=== PATIENT | female | born 1990 | race Hispanic/Latino ===

== ENCOUNTER 2016-10-16 17:02 | Emergency (ER) | payer BC ==
[~2016-10-16] VITALS: Ht 175.3 cm; Wt 136.1 kg
[~2016-10-16 17:02] MED LIST: ALPR0.5T5 PO; BETA15CR4 TD; HYDROXYCHLOROQUINE PO; IBP800T PO; LORA1TAB PO; METO-272 PO; PIRO10CA PO; PROP1TAB77 PO; [UNRECOGNIZED DRUG - CODE]
--- OUTSIDE RECORDS SUMMARY | 2016-10-16 17:07 | XMS REPORT | Continuity of Care Document ---
Author Author [facility] Organization [facility] Address Unknown Phone Unavailable Care Team Providers Care Lining Machine Tender Name Role Phone Raymond Anand PCP [phone] Source Comments Some departments are not documenting in the electronic medical record. If you do not see the information that you expected, contact Release of Information in the Health Information Management department at [phone] for further assistance in locating additional records.[facility] Active Allergies and Adverse Reactions Not on File Current Medications Not on file Active Problems Not on file Social History Tobacco Use Types Packs/Day Years Used Date Never Assessed Plan of Care Health Maintenance Due Date Last Done Comments Physical (Comprehensive) 1999 Exam Hpv Vaccines (#1) 2003 Pertussis Vaccine 2003 Tetanus Vaccine 2009 Cervical Cancer Screening 2013 Influenza Vaccine 04/03/2016 Results from Last 3 Months Not on file
[2016-10-16] MEDS ORDERED: ESCI10TA55 (17:20)
[2016-10-16] MEDS ORDERED: HYDR-3584 PO (17:20)
--- NOTE | 2016-10-16 17:46 | Diagnostic Imaging Report ---
INDICATION: Left ankle pain. No known injury. DISCUSSION: Three views of the left ankle were obtained, no comparison. There is diffuse soft tissue swelling. Ankle mortise is symmetric. No fracture or dislocation. Alignment is anatomic. IMPRESSION: 1. Diffuse left ankle soft tissue swelling. No acute fracture identified. Dictated by: Dictated on workstation # [id number]
--- NOTE | 2016-10-16 18:28 | ED Lower Extremity ---
General Chief Complaint: Lower Extremity Stated Complaint: LEFT ANKLE INJ Nursing Triage Note: AMBULATED TO ROOM 09 WITH COMPLAINTS OF LEFT ANKLE PAIN. DENIES INJURY. Nursing Sepsis Screen: No Definite Risk Source: patient Exam Limitations: no limitations History of Present Illness Time seen by provider: 19:10 Initial Comments This 26-year-old young lady presents to emergency room with complaints of pain and swelling to the left ankle. The swelling seems to be most prominent on the left lateral ankle. She denies any specific injury. The pain started to the during the night and she woke with it. Although she does not recall any specific injury, she does take sedating anxiolytics and may have injured herself while groggy from her medications. There is no erythema or heat to the ankle. He has never had an injury to that ankle before and does not recall having any pain or swelling like this in the past. Allergies and Home Medications Allergies Uncoded Allergies: SULFA (Allergy, Mild, RASH, 05/09/10) Home Medications Alprazolam 0.5 Mg Tab.er.24h #30 1 TAB PO DAILY (Reported) Escitalopram Oxalate 10 Mg Tablet #45 (Reported) Hydroxyzine HCl 10 Mg Tablet 10 MG PO (Reported) Constitutional: no symptoms reported Musculoskeletal: see HPI Skin: no symptoms reported Psychiatric/Neurological: No Symptoms Reported Past Geudgue-Gzrbky-Wlqluw Hx Patient Social History Recent Foreign Travel: No Contact w/Someone Who Travel: No Recent Infectious Disease Expo: No Recent Hopitalizations: No Immunizations Up To Date Tetanus Booster (TDap): Unknown Seasonal Allergies Seasonal Allergies: No Surgeries HX Surgeries: Yes Surgeries: Gallbladder Respiratory Hx Respiratory Disorders: No Cardiovascular Hx Cardiac Disorders: Yes Cardiac Disorders: Hypertension Neurological Hx Neurological Disorders: No Reproductive System : No Hx Reproductive Disorders: No Sexually Transmitted Disease: No Genitourinary Hx Genitourinary Disorders: No Gastrointestinal Hx Gastrointestinal Disorders: No Musculoskeletal Hx Musculoskeletal Disorders: No Endocrine Hx Endocrine Disorders: Yes (morbid obesity) HEENT HX ENT Disorders: No Cancer Hx Cancer: No Psychosocial Hx Psychiatric Problems: Yes Behavioral Health Disorders: Anxiety, Depression Integumentary HX Skin/Integumentary Disorder: No Blood Transfusions Hx Blood Disorders: No Adverse Reaction to a Blood Tr: No Physical Exam Vital Signs Vital Sign - Last 12Hours 10/16/ 17:16 Temp 96.9 Pulse 92 Resp 18 B/P 180/119 Pulse Ox 97 Capillary Refill : Less Than 3 Seconds General Appearance: WD/WN obese HEENT: PERRL/EOMI normal ENT inspection Respiratory: no respiratory distress Legs: left leg non-tender, left leg normal inspection, left leg normal range of motion, left leg no evidence of injury Knees: left knee non-tender, left knee normal inspection, left knee normal range of motion, left knee no evidence of injury Ankles: left ankle joint effusion, left ankle pain, left ankle soft tissue tenderness, left ankle swelling, left ankle other (tenderness and swelling is most prominent over the lateral malleolus) Feet: left foot non-tender, left foot normal inspection, left foot normal range of motion, left foot no evidence of injury Neurologic/Tendon: normal sensation normal motor functions Neurologic/Psychiatric: no motor/sensory deficits alert normal mood/affect oriented x 3 Skin: normal color warm/dry other (normal capillary refill and sensation in the distal foot and toes.) Progress/Results/Core Measures Results/Orders My Orders Orders-APRIL GÓMEZ MD Ankle, Left, 3 Views (10/16/16 17:20) Vital Signs/I&O Vital Sign - Last 12Hours 10/16/16 10/16/16 17:16 18:38 Temp 96.9 Pulse 92 90 Resp 18 18 B/P 180/119 Pulse Ox 97 99 Blood Pressure Mean: 139 Diagnostic Imaging Diagonstic Imaging: Xray Plain Films/CT/US/NM/MRI: ankle Comments Ankle x-ray viewed by me and report reviewed. See report below: NAME: PREETI WALDROP MED REC#: [id number] PT STATUS: DEP ER : 1990 PHYSICIAN: APRIL GÓMEZ MD ADMIT DATE: 10/16/16/ER Signed Date of Exam: 10/16/16 ANKLE, LEFT, 3 VIEWS INDICATION: Left ankle pain. No known injury. DISCUSSION: Three views of the left ankle were obtained, no comparison. There is diffuse soft tissue swelling. Ankle mortise is symmetric. No fracture or dislocation. Alignment is anatomic. IMPRESSION: 1. Diffuse left ankle soft tissue swelling. No acute fracture identified. Dictated by: Dictated on workstation # [id number] Dict: 10/16/16 1733 Trans: 10/16/162134 [id number] Interpreted by: CAREY HARRIS MD Electronically signed by:CAREY HARRIS MD 10/16/162136 Departure Impression Impression: Primary Impression: Left ankle pain Qualified Code: M25.572 - Pain in left ankle and joints of left foot Additional Impression: Left ankle swelling Disposition: 01 HOME, SELF-CARE Condition: Improved Departure-Patient Inst. Decision time for Depature: 18:15 Referrals: MARCIA ALAN MD (PCP/Family) Primary Care Physician Patient Instructions: Ankle Sprain (DC) Add. Discharge Instructions: Rest, icing in 20 minute intervals, elevation, and compressive wrapping with an Riley wrap may help reduce pain and swelling. You may use ibuprofen and/or Tylenol for pain. Return to care if you have worsening symptoms such as increasing pain, redness, heat, fever, shortness of breath, or any other progressive symptoms. All discharge instructions reviewed with patient and/or family. Voiced understanding. APRIL GÓMEZ MD Oct 16, 2016 18:28
[2016-10-16 18:38] VITALS: BP 142/88
== END 2016-10-16 18:39 | disposition home or self-care (01) ==
LOC: EDUNIT# 17:02 → ER 17:04
DX: M25.572 Pain in left ankle and joints of left foot (principal); R22.43 Localized swelling, mass and lump, lower limb, bilateral; I10 Essential (primary) hypertension; E66.01 Morbid (severe) obesity due to excess calories; Z79.899 Other long term (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 therapy
CPT/HCPCS: 73610; 99283

== ENCOUNTER 2017-04-04 06:16 | Emergency (ER) | payer BC ==
[~2017-04-04] VITALS: Ht 170.2 cm; Wt 158.8 kg
[~2017-04-04 06:16] MED LIST changes: +ESCI10TA55; +HYDR-3584 PO; -METO-272 PO; +METO-370 PO
--- OUTSIDE RECORDS SUMMARY | 2017-04-04 06:21 | XMS REPORT | Clinical Summary ---
Author Author [facility] Organization [facility] Address Unknown Phone Unavailable Care Team Providers Care Metal Bending Machine Operator Name Role Phone PCP Unavailable Source Comments Some departments are not documenting in the electronic medical record. If you do not see the information that you expected, contact Release of Information in the Health Information Management department at [phone] for further assistance in locating additional records.[facility] Allergies Not on File Current Medications Not on file Active Problems Not on file Social History Tobacco Use Types Packs/Day Years Used Date Never Assessed Sex Assigned at Date Recorded Not on file Last Filed Vital Signs Not on file Plan of Treatment Health Maintenance Due Date Last Done Comments PHYSICAL (COMPREHENSIVE) 1999 EXAM HPV VACCINES (#1) 2003 PERTUSSIS VACCINE 2003 TETANUS VACCINE 2009 CERVICAL CANCER SCREENING 2013 INFLUENZA VACCINE 04/03/2017 Results Not on filefrom Last 3 Months
--- OUTSIDE RECORDS SUMMARY | 2017-04-04 06:21 | XMS REPORT ---
Author Author CARLOS Vergara [facility] Address [address] [place] [address] Care Team Providers Care Cat Operator Name Role Phone CARLOS Vergara Unavailable PROBLEMS Type Condition ICD9-CM Code [id number] Code Onset Dates Condition Status SNOMED Code Problem Routine general medical examination at health care facility V70.0 Active 364010770 Problem Headache 784.0 Active 86180590 Problem Cough 786.2 Active 81586868 Problem Generalized anxiety disorder F41.1 Active 06558025 Problem Depression, major, recurrent, moderate F33.1 Active 09076840 Problem Essential hypertension, benign 401.1 Active 8950118 Problem Insomnia, unspecified 780.52 Active 737185854 Problem Personality disorder in adult F60.9 Active 63354153 Problem Unspecified episodic mood disorder 296.90 Active 580078129 ALLERGIES Unknown Allergies SOCIAL HISTORY No smoking Hx information available PLAN OF CARE VITAL SIGNS MEDICATIONS Unknown Medications RESULTS No Results PROCEDURES No Known procedures IMMUNIZATIONS No Known Immunizations
--- OUTSIDE RECORDS SUMMARY | 2017-04-04 06:21 | XMS REPORT ---
Author Author LILI CARLOS Organization [facility] Address [address] [place] [address] Care Team Providers Care Custom Clothier Name Role Phone CARLOS PEARSON Unavailable PROBLEMS Type Condition ICD9-CM Code EBA01-KA Code Onset Dates Condition Status SNOMED Code Assessment Mood disorder F39 Apr, Active 94824476 Problem Insomnia, unspecified 780.52 Active 966830725 Problem Unspecified episodic mood disorder 296.90 Active 995660767 Problem Headache 784.0 Active 60276286 Problem Cough 786.2 Active 91100275 Problem Routine general medical examination at health care facility V70.0 Active 199523613 Problem Essential hypertension, benign 401.1 Active 0726933 ALLERGIES Substance Reaction Event Type Date Status sulfa drugs Unknown Drug Allergy Apr, Active Wellbutrin Unknown Drug Allergy Apr, Active SOCIAL HISTORY No smoking Hx information available PLAN OF CARE VITAL SIGNS Height 68 in 2016-04-08 Weight 312.2 lbs 2016-04-08 Heart Rate 84 bpm 2016-04-08 Respiratory Rate 18 2016-04-08 BMI 47.46 kg/m2 2016-04-08 Blood pressure systolic 148 mmHg 2016-04-08 Blood pressure diastolic 104 mmHg 2016-04-08 MEDICATIONS Medication Instructions Dosage Frequency Start Date End Date Duration Status Ziprasidone HCl 40 MG Orally every day 1 capsule with supper X 2 weeks then 2 caps with supper Apr, 30 day(s) Active RESULTS No Results PROCEDURES Procedure Date Ordered Related Diagnosis Body Site MH Office Visit, Est Pt., Level 4 Apr 08, 2016 IMMUNIZATIONS No Known Immunizations
--- OUTSIDE RECORDS SUMMARY | 2017-04-04 06:22 | XMS REPORT ---
Author Author LILI CARLOS [facility] Address [address] [place] [address] Care Team Providers Care Public Housing Interviewer Name Role Phone CARLOS PEARSON Unavailable PROBLEMS Type Condition ICD9-CM Code JUX95-TZ Code Onset Dates Condition Status SNOMED Code Problem Insomnia, unspecified 780.52 Active 944829886 Problem Unspecified episodic mood disorder 296.90 Active 904871164 Problem Headache 784.0 Active 85630511 Problem Cough 786.2 Active 24946217 Problem Routine general medical examination at health care facility V70.0 Active 509322593 Problem Essential hypertension, benign 401.1 Active 4842809 ALLERGIES Unknown Allergies SOCIAL HISTORY No smoking Hx information available PLAN OF CARE VITAL SIGNS MEDICATIONS Medication Instructions Dosage Frequency Start Date End Date Duration Status Ziprasidone HCl 40 MG Orally every daywith supper BEGINNING 05/06/16 1 capsule with supper X 2 weeks then 2 caps with supper Apr, Active Ziprasidone HCl 20 MG Orally with supper X 2 weeks (then increase to 40mg caps ) 1 capsule with food Apr, 14 days Active RESULTS No Results PROCEDURES No Known procedures IMMUNIZATIONS No Known Immunizations
--- OUTSIDE RECORDS SUMMARY | 2017-04-04 06:22 | XMS REPORT ---
Author Author CARLOS PEARSON Organization [employer] Address Unknown Phone Unavailable Care Team Providers Care Research Home Economist Name Role Phone CARLOS PEARSON CP Unavailable Allergies, Adverse Reactions, Alerts Substance Reaction Event Type sulfa drugs Info Not Available Drug Allergy Wellbutrin Info Not Available Drug Allergy Problems Problem Type Condition Code Onset Dates Condition Status Assessment Generalized anxiety disorder F41.1 Active Problem Unspecified episodic mood disorder 296.90 Active Problem Routine general medical examination at health care facility V70.0 Active Problem Insomnia, unspecified 780.52 Active Problem Cough 786.2 Active Assessment Mood disorder F39 Active Problem Essential hypertension, benign 401.1 Active Problem Headache 784.0 Active Medications Medication Code System Code Instructions Start Date End Date Status Dosage Lamotrigine [facility] [address]-00 100 MG Orally at HS May 20, 2016 Beginning 06/18/16, 1 tablets Lorazepam [facility] [address]-84 0.5 MG Orally BID anxiety, if hydroxyzine does not help. May 20, 2016 1 tablet as needed HydrOXYzine HCl [facility] [address]-73 10 MG Orally TID anxiety May 20, 2016 1 tablet as needed Lamotrigine [facility] [address]-44 25 MG Orally daily May 20, 2016 1 tablet at HS X 14 days then 2 tabs at HS X 14 days Procedures Procedure Coding System Code Date Office Visit, Est Pt., Level 4 CPT-4 06866 May 20, 2016 Vital Signs Date/Time: May 20, 2016 Cardiac Monitoring Heart Rate 86 bpm Weight 313 lbs Height 68 in BMI 47.59 Index Blood Pressure Diastolic 88 mmHg Blood Pressure Systolic 140 mmHg Results No Known Results Summary Purpose [employer] Submission
--- OUTSIDE RECORDS SUMMARY | 2017-04-04 06:22 | XMS REPORT ---
Author Author CRYSTAL VICENTE [employer] Address Unknown Phone Unavailable Care Team Providers Care Coal Miner Name Role Phone CRYSTAL VICENTE CP Unavailable Allergies, Adverse Reactions, Alerts Substance Reaction Event Type sulfa drugs Info Not Available Drug Allergy Problems Problem Type Condition Code Onset Dates Condition Status Assessment Dental examination Z01.20 Active Problem Unspecified episodic mood disorder 296.90 Active Problem Routine general medical examination at health care facility V70.0 Active Problem Insomnia, unspecified 780.52 Active Problem Cough 786.2 Active Assessment Encounter for dental examination V72.2 Active Problem Essential hypertension, benign 401.1 Active Problem Headache 784.0 Active Medications No Known Medications Procedures Procedure Coding System Code Date INTRAORL-PERIAPICAL 1 FILM 38419 CPT-4 D0220 Aug 28, 2015 BITEWING - SINGLE FILM CPT-4 D0270 Aug 28, 2015 LTD ORAL EVALUATION - PROBLEM FOCUS CPT-4 D0140 Aug 28, 2015 AMALGAM-3 SURFACES PRIMARY/PERM CPT-4 D2160 Aug 28, 2015 Vital Signs Date/Time: Aug 28, 2015 Blood Pressure Diastolic 69 mmHg Blood Pressure Systolic 125 mmHg Height 68 in Results No Known Results Summary Purpose [employer] Submission
[2017-04-04] MEDS ORDERED: HYDR-700 (06:37)
[2017-04-04] MEDS ORDERED: DULO60CA58 (06:37)
[2017-04-04] MEDS ORDERED: NF-ADXR10C (06:37)
[2017-04-04] MEDS ORDERED: AMOXICILLIN 500 MG (POLYMOX) CAP PO ONE (07:15)
[2017-04-04] MEDS ORDERED: HYDROcodone/APAP 5 MG/325 MG (LORTAB) TAB PO ONE (07:15)
[2017-04-04] MEDS ORDERED: AMOX500C2 PO (07:16)
[2017-04-04] MEDS ORDERED: HYDR-3812 PO (07:16)
--- NOTE | 2017-04-04 07:17 | ED EENT ---
History of Present Illness General Chief Complaint: Dental Problems/Pain Stated Complaint: DENTAL PAIN Nursing Triage Note: c/o R side lower dental pain Source: patient Exam Limitations: no limitations (APRIL GÓMEZ MD) History of Present Illness Time seen by provider: 06:40 (APRIL GÓMEZ MD) Initial Comments Bibi Caldera is a 26 year old female presenting with dental pain. She states the pain is in the right lower teeth. It has been a dull ache for 3 days, which she often has, but last night the pain got much worse and this morning is very severe. It comes in waves and is sharp and stabbing. It is slightly improved by sitting up and swishing water over it. It is worse with laying down. Heat, cold , and pressure do not affect it. She took 800mg ibuprofen and also tried Oragel , and neither helped the pain. Sometimes the pain shoots up to her right ear. She has never had pain like this before. She was last at the dentist a few months ago to replace a filling that had fallen out on the left side. She denies headache, fever, or chills. (MONCHO THAPA) Allergies and Home Medications Allergies Uncoded Allergies: SULFA (Allergy, Mild, RASH, 05/09/10) Home Medications Amoxicillin 500 Mg Capsule, 1,000 MG PO BID, #40 Prescribed by: APRIL ELISE on 04/04/17 0716 Dextroamphetamine/Amphetamine 10 Mg Cap.er.24h, (Reported) Duloxetine HCl 60 Mg Capsule., (Reported) Hydrocodone/Acetaminophen 1 Each Tablet, 1 EACH PO Q6H PRN for PAIN, #14 Prescribed by: APRIL ELISE on 04/04/17 0716 Hydroxyzine HCl 25 Mg Tablet, (Reported) Review of Systems Constitutional: no symptoms reported, No chills, No diaphoresis, No fever Eyes: No Symptoms Reported Ears: See HPI, Pain (occasional pain shooting up from teeth) Nose: no symptoms reported Mouth: see HPI, pain (see hpi), denies bloody discharge, denies purulent discharge Throat: no symptoms reported, denies pain Respiratory: no symptoms reported Cardiovascular: no symptoms reported Gastrointestinal: no symptoms reported Musculoskeletal: neck pain (mild right sided neck pain, believes reaction to tooth pain) Skin: no symptoms reported Neurological: No Symptoms Reported Hematologic/Lymphatic: No Symptoms Reported Immunological/Allergic: no symptoms reported (MONCHO THAPA) Past Fjchuva-Yvppgf-Jrajkv Hx Patient Social History Alcohol Use: Denies Use Recreational Drug Use: No Smoking Status: Never a Smoker Recent Foreign Travel: No Contact w/Someone Who Travel: No Recent Infectious Disease Expo: No Recent Hopitalizations: No Physical Abuse: No Sexual Abuse: No (APRIL GÓMEZ MD) Immunizations Up To Date Tetanus Booster (TDap): Unknown (APRIL GÓMEZ MD) Seasonal Allergies Seasonal Allergies: No (APRIL GÓMEZ MD) Surgeries History of Surgeries: Yes Surgeries: Gallbladder (APRIL GÓMEZ MD) Respiratory History of Respiratory Disorde: No (APRIL GÓMEZ MD) Cardiovascular History of Cardiac Disorders: Yes Cardiac Disorders: Hypertension (APRIL GÓMEZ MD) Neurological History of Neurological Disord: No (APRIL GÓMEZ MD) Reproductive System Hx Reproductive Disorders: No Sexually Transmitted Disease: No (APRIL GÓMEZ MD) Gastrointestinal History of Gastrointestinal Di: No (APRIL GÓMEZ MD) Musculoskeletal History of Musculoskeletal Dis: No (APRIL GÓMEZ MD) Endocrine History of Endocrine Disorders: Yes (morbid obesity) (APRIL GÓMEZ MD) Cancer History of Cancer: No (APRIL GÓMEZ MD) Psychosocial History of Psychiatric Problem: Yes Behavioral Health Disorders: Anxiety, Depression Suicide Risk Score: 0 (APRIL GÓMEZ MD) Integumentary History of Skin or Integumenta: No (APRIL GÓMEZ MD) Blood Transfusions History of Blood Disorders: No Adverse Reaction to a Blood Tr: No (APRIL GÓMEZ MD) Family Medical History Significant Family History: Diabetes (mother), Hypertension (mother, father), Psychiatric Problems (schizoaffective disorder- mother) (MONCHO THAPA) Physical Exam Vital Signs Vital Sign - Last 12Hours 04/04/17 06:33 Temp 98.2 Pulse 89 Resp 18 B/P (MAP) 191/122 Pulse Ox 95 (MONCHO THAPA) General Appearance: moderate distress, obese Eyes: bilateral eye normal inspection, bilateral eye PERRL, bilateral eye EOMI Ears: bilateral ear auricle normal, bilateral ear canal normal, bilateral ear TM normal Nose: normal inspection Mouth/Throat: other (mild erythema right outer gingiva, no visible or palpable evidence of abscess, no tenderness to palpation) Neck: non-tender, No lymphadenopathy (R), No lymphadenopathy (L) Cardiovascular: regular rate, rhythm, no murmur Respiratory: lungs clear, normal breath sounds, no respiratory distress, no accessory muscle use Neurologic/Psychiatric: no motor/sensory deficits, alert, normal mood/affect, oriented x 3 Skin: normal color, warm/dry ( ) (MONCHO THAPA) Progress/Results/Core Measures Results/Orders Medications Given in ED Current Medications Medications Dose Ordered Sig/Kris Route Start Time Stop Time Status Last Admin Dose Admin Acetaminophen/ Hydrocodone Bitart 1 tab ONCE ONCE PO 04/04/17 07:15 04/04/17 07:16 DC 04/04/17 07:14 1 TAB Amoxicillin 1,000 mg ONCE ONCE PO 04/04/17 07:15 04/04/17 07:16 DC 04/04/17 07:14 1,000 MG (MONCHO THAPA) Vital Signs/I&O Vital Sign - Last 12Hours 04/04/17 06:33 Temp 98.2 Pulse 89 Resp 18 B/P (MAP) 191/122 Pulse Ox 95 (MONCHO THAPA) Blood Pressure Mean: 145 Progress Note : Progress Note This patient was seen and personally interviewed and examined along with Moncho Quintanilla, 4. I agree with MS for note, exam, and assessment with the following additions. Patient has had numerous dental procedures performed and has numerous metal fillings which obscures exam. There are no visible dental injuries or cavities by external exam. No obvious abscess could be palpated. Antibiotic therapy was initiated with amoxicillin and pain was treated with hydrocodone. Prescriptions were provided. Patient was encouraged to seek assistance from a dentist as soon as possible. Patient did have significant hypertension while in the emergency room but body habitus made accurate reading very difficult. Patient reports she always has significant hypertension and a healthcare setting due to "white coat hypertension". She assured staff that she would follow up on this closely in the primary care setting and monitor her blood pressures closely at home. She reports her blood pressures at home are always much better than in the healthcare setting. Pain is probably also a contributing factor. Patient has significant issues with anxiety as well. (APRIL GÓMEZ MD) Departure Impression Impression: Primary Impression: Pain, dental Additional Impression: Hypertension Qualified Codes: I10 - Essential (primary) hypertension Disposition: HOME, SELF-CARE Condition: Improved Departure-Patient Inst. Decision time for Depature: 07:10 (APRIL GÓMEZ MD) Referrals: MARCIA ALAN MD (PCP/Family) Primary Care Physician Patient Instructions: Dental Pain (DC) Add. Discharge Instructions: You may continue taking ibuprofen up to 800 mg every 8 hours as needed for pain. Add hydrocodone for pain not controlled by ibuprofen. Seek care from a dentist as soon as possible. Complete your antibiotics as prescribed. Butler your teeth gently 2 or 3 times daily and rinse twice daily with antiseptic mouth wash as tolerated. Avoid sugary foods and beverages and temperature extremes until the problem was addressed by your dentist. All discharge instructions reviewed with patient and/or family. Voiced understanding. Scripts Hydrocodone/Acetaminophen (Hydrocodon -Acetaminophen 5-325) 1 Each Tablet 1 EACH PO Q6H Y for PAIN, #14 TAB Prov: APRIL GÓMEZ MD 04/04/17 Amoxicillin (Amoxicillin) 500 Mg Capsule 1000 MG PO BID, #40 CAP Prov: APRIL GÓMEZ MD 04/04/17 APRIL GÓMEZ MD Apr 04, 2017 07:17 MONCHO THAPA Apr 04, 2017 07:29
[2017-04-04 07:25] VITALS: BP 172/112
== END 2017-04-04 07:25 | disposition home or self-care (01) ==
LOC: EDUNIT# 06:16 → ER 06:18
DX: K08.89 Other specified disorders of teeth and supporting structures (principal); I10 Essential (primary) hypertension; E66.01 Morbid (severe) obesity due to excess calories; F41.9 Anxiety disorder, unspecified; F32.9 Major depressive disorder, single episode, unspecified; Z68.43 Body mass index [BMI] 50.0-59.9, adult
CPT/HCPCS: 99283

== ENCOUNTER 2019-11-05 08:58 | Emergency (ER) | payer SELFPAY ==
[~2019-11-05] VITALS: Ht 172 cm; Wt 170.0 kg
[~2019-11-05 08:58] MED LIST changes: +ACHD5005 PO; +AMOX500C2 PO; +DULO60CA59; +HYDR-700; -METO-370 PO; +METO50TA7 PO; +NF-ADXR10C; +[UNRECOGNIZED DRUG - CODE]; -[UNRECOGNIZED DRUG - CODE]
--- OUTSIDE RECORDS SUMMARY | 2019-11-05 09:03 | XMS REPORT ---
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 Repair Cobbler Name Role Phone STU LUNA Unavailable PROBLEMS Type Condition ICD9-CM Code [id number] Code Onset Dates Condition S tatus SNOMED Code Problem Depression, major, recurrent, moderate F33.1 Active 60201221 Problem BMI 50.0-59.9, adult Z68.43 Active 857195511 Problem Generalized anxiety disorder F41.1 A ctive 12743448 Problem Mood disorder F39 Active 387674 05 Problem Iron deficiency anemia D50.9 Active 11489028 Problem Bipolar depression F31.30 Active 7 67532566 Problem Bipolar 1 disorder, depressed, moderate F31.32 Active 980167399 Problem Mixed obsessional thoughts and acts F42.2 Active 52620589 Problem Allergic sinusitis J30.9 Active 3 2368577 Problem Chronic post-traumatic stress disorder (PTSD) F43. 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 Active 00832228 ALLERGIES No Information ENCOUNTERS Encounter Location Date Diagnosis [facility] [id number] [place] [id number] Sep, [facility] [address] [id number] [place] [address] Sep, [facility] [address] [address] Aug, [facility] [address] [id number] [place] [id number] Aug, Caries K02.9 [facility] [id number] [place], [place] [id number] Jul, Non-recurrent subacute aller gic otitis media of both ears H65.113 and Folliculitis L73.9 [facility] [address] [id number] Jul, [facility] [address] [id number] Jul, Caries K02.9 and Dental examination Z01. 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 and Morbid obesity E66.01 [facility] [address] [address] Jul, [facility] [id number] [place] [address] Jun, Allergic sinusitis J30.9 [facility] [address] [id number] Jun, Caries K02.9 [facility] [address] [id number] Jun, [facility] [address] [id number] May, [facility] [address] [id number] May, Caries K02.9 [facility] [address] [id number] May, Caries K02.9 [facility] [address] [id number] May, [facility] [address] [id number] May, Dental examination Z01.20 and Caries K02 .9 [facility] [address] [address] 08 May, 2019 Bipolar 1 disorder, depressed, moderate F31.32 ; Chronic post- traumatic stress disorder (PTSD) F43.12 ; Panic disorder F41.0 ; 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 and Morbid obesity E66.01 [facility] [address] [address] May, [facility] [address] [address] 30 Apr, 2019 [facility] [address] [id number] 16 Apr, 2019 Dental examination Z01.20 ; Caries K02.9 and Oral health maintenance status requiring routine preventive dental care K08.9 [address] [address] 10 Apr, 2019 Chronic post-traumatic stress disorder ( PTSD) F43.12 ; Panic disorder F41.0 ; 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 and Morbid obesity E66.01 [facility] [address] [address] Jan, [place] [address] [address] Jan, Avoidant personality disorder in adult F 60.6 ; Chronic post-traumatic stress disorder (PTSD) F43.12 ; Mixed obsessional thoughts and acts F42.2 ; Bipolar affective disorder, currently depressed, mild F31.31 and Morbid obesity E66.01 [facility] [address] [id number] [place] [address] Jan, Bipolar depression F31.30 ; Panic disord er F41.0 ; Chronic post- traumatic stress disorder (PTSD) F43.12 ; BMI 50.0-59.9, adult Z68.43 and Morbid obesity E66.01 [facility] [address] [id number] [place] [id number] Jan, Dental examination Z01.20 and Caries K02 .9 [facility] [id number] [place] [address] Jan, [facility] [address] [address] December, [facility] [address] [address] December, Bipolar depression F31.30 ; Chronic post -traumatic stress disorder (PTSD) F43.12 ; Mixed obsessional thoughts and acts F42.2 ; Personality disorder in adult F60.9 and Morbid obesity E66.01 [facility] [address] [address] Oct, Bipolar depression F31.30 ; Chronic post -traumatic stress disorder (PTSD) F43.12 ; Mixed obsessional thoughts and acts F42.2 ; Personality disorder in adult F60.9 and Morbid obesity E66.01 [facility] [address] [address] Oct, [facility] [id number] [place] [address] Sep, [facility] [address] [address] Sep, [facility] [address] [address] Sep, [facility] [address] [address] Aug, Bipolar depression F31.30 ; Chronic post -traumatic stress disorder (PTSD) F43.12 ; Personality disorder in adult F60.9 ; BMI 50.0-59.9, adult Z68.43 and Mixed obsessional thoughts and acts F42.2 [facility] [address] [facility] [id number] [place] [address] Aug, URI with cough and congestio n J06.9 and BMI 50.0-59.9, adult Z68.43 [facility] [address] [facility] [id number] [place] [address] Aug, Sore throat J02.9 ; Viral up per respiratory tract infection J06.9 and BMI 50.0-59.9, adult Z68.43 [facility] [address] [id number] Aug, Caries K02.9 [facility] [address] [id number] Aug, Oral health maintenance status requiring routine preventive dental care K08.9 [facility] [address] [address] Jul, [address] [address] Jul, [facility] [address] [address] Jul, Mood disorder F39 ; Chronic post-traumat ic stress disorder (PTSD) F43.12 ; Mixed obsessional thoughts and acts F42.2 ; Personality disorder in adult F60.9 and BMI 50.0-59.9, adult Z68.43 [facility] [address] [address] Jul, Iron deficiency anemia D50.9 [facility] [address] [address] Jun, Anemia D64.9 [facility] [address] [id number] Jun, Dental examination Z01.20 and Caries K02 .9 [address] [address] [address] Jun, Anemia D64.[address] [address] Jun, Dermatitis L30.9 ; Fever R50.9 and BMI 5 0.0-59.9, adult Z68.[address] [address] Mar, Generalized anxiety disorder F41.1 ; Dep ression, major, recurrent, moderate F33.1 ; Chronic post-traumatic stress disorder (PTSD) F43.12 ; Mixed obsessional thoughts and acts F42.2 and Personality disorder in adult F60.[address] [address] Mar, Generalized anxiety disorder F41.[address] [address] Jan, Generalized anxiety disorder F41.1 ; Dep ression, major, recurrent, moderate F33.1 ; Chronic post-traumatic stress disorder (PTSD) F43.12 ; Mixed obsessional thoughts and acts F42.2 and Personality disorder in adult F60.[address] [address] Jan, Generalized anxiety disorder F41.1 ; Dep ression, major, recurrent, moderate F33.1 ; Chronic post-traumatic stress disorder (PTSD) F43.12 ; Mixed obsessional thoughts and acts F42.2 and Personality disorder in adult F60.[address] [address] December, Chronic post-traumatic stress disorder ( PTSD) F43.12 ; Depression, major, recurrent, moderate F33.1 ; Generalized anxiety disorder F41.1 ; Mixed obsessional thoughts and acts F42.2 and BMI 50.0-59.9, adult Z68.[address] [address] December, Chronic post-traumatic stress disorder ( PTSD) F43.12 ; Depression, major, recurrent, moderate F33.1 ; Generalized anxiety disorder F41.1 and BMI 50.0-59.9, adult Z68.43 [facility] [address] [address] December, Generalized anxiety disorder F41.1 [facility] [address] [id number] December, Dental caries K02.9 and Dental examinati on Z01.20 [facility] [address] [address] December, Generalized anxiety disorder F41.1 and [place] [facility] [place] 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 [facility] Z79.899 [facility] [address] [address] Nov, [place] [facility] 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 therapy Z 79.899 [facility] [address] [id number] Nov, [facility] [address] [id number] Nov, [facility] [address] [address] Nov, [facility] [address] [id number] Nov, [facility] [address] [id number] Nov, Dental examination Z01.20 [facility] [address] [address] Nov, Generalized anxiety disorder F41.1 ; Dep ression, major, recurrent, moderate F33.1 ; Personality disorder in adult F60.9 and [facility] [place] [facility] 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 therapy Z79.899 [facility] [address] [address] Nov, Generalized anxiety disorder F41.1 ; Dep ression, major, recurrent, moderate F33.1 and Personality disorder in adult F60.9 [address] [place] [address] Aug, [address] [address] Aug, Generalized anxiety disorder F41.1 ; Dep ression, major, recurrent, moderate F33.1 and Personality disorder in adult F60.9 [address] [place] [address] Jul, Generalized anxiety disorder F41.1 ; Dep ression, major, recurrent, moderate F33.1 and Personality disorder in adult F60.[address] [address] Jun, Generalized anxiety disorder F41.1 ; Dep ression, major, recurrent, moderate F33.1 and Personality disorder in adult F60.[address] [address] May, [address] [address] May, Generalized anxiety disorder F41.1 ; Dep ression, major, recurrent, moderate F33.1 and Personality disorder in adult F60.[address] [address] May, Generalized anxiety disorder F41.[address] [address] Apr, Generalized anxiety disorder F41.1 ; Dep ression, major, recurrent, moderate F33.1 and Personality disorder in adult F60.9 [address] [facility] [id number] [place] [id number] Apr, Dental examination Z01.[address] [address] Mar, Generalized anxiety disorder F41.1 ; Dep ression, major, recurrent, moderate F33.1 and Personality disorder in adult F60.9 [facility] [address] [address] Jan, Generalized anxiety disorder F41.1 ; Dep ression, major, recurrent, moderate F33.1 and Personality disorder in adult F60.9 [facility] [address] [address] Jan, Generalized anxiety disorder F41.1 ; Dep ression, major, recurrent, moderate F33.1 and Personality disorder in adult F60.9 [facility] [address] [id number] [place] [id number] Jan, Dental examination Z01.20 [facility] [address] [address] Nov, Depression, major, recurrent, moderate F 33.1 ; Generalized anxiety disorder F41.1 and Personality disorder in adult F60.9 [facility] [address] [address] Oct, Depression, major, recurrent, moderate F 33.[address] [address] Oct, Depression, major, recurrent, moderate F 33.1 and Generalized anxiety disorder F41.[address] [address] Aug, Generalized anxiety disorder F41.1 and D epression, major, recurrent, moderate F33.1 [facility] [address] [address] Aug, [facility] [address] [place] [address] Jun, Mood disorder F39 and Generalized anxiet y disorder F41.1 [facility] [address] [address] May, Mood disorder F39 and Generalized anxiet y disorder F41.1 [facility] [address] [address] [place] [address] Apr, [facility] [address] [facility] [place] [address] Apr, Mood disorder F39 [facility] [address] [facility] [id number] [place] [id number] Aug, Encounter for dental examination V72.2 a nd Dental examination Z01.20 [facility] [address] [facility] [place] [address] 14 Nov, 2014 [facility] [address] [id number] [place] [address] Nov, [facility] [address] [id number] [place] [address] Jan, [facility] [address] [id number] [place] [address] Jan, [facility] [address] [id number] [place] [address] Nov, [facility] [address] [id number] [place] [address] Nov, [facility] [address] [id number] [place] [address] Nov, [facility] [address] [id number] [place] [address] Nov, [facility] [address] [id number] [place] [address] Jan, [facility] [address] [id number] [place] [address] Jan, [facility] [address] [id number] [place] [address] December, [facility] [address] [id number] [place] [address] December, [facility] [address] [id number] [place] [address] Nov, [facility] [id number] [place] [address] Jul, [facility] [address] [facility] [id number] [place] [address] Mar, IMMUNIZATIONS No Known Immunizations SOCIAL HISTORY Never Assessed REASON FOR VISIT PLAN OF CARE VITAL SIGNS Height 68 in 2013-11-21 Weight 335.6 lbs 2013-11-21 Temperature 98.6 degrees Fahrenheit 2013-11-21 Heart Rate 110 bpm 2013-11-21 Respiratory Rate 18 2013-11-21 Blood pressure systolic 134 mmHg 2013-11-21 Blood pressure diastolic 84 mmHg 2013-11-21 MEDICATIONS Unknown Medications RESULTS No Results PROCEDURES No Known procedures INSTRUCTIONS MEDICATIONS ADMINISTERED No Known Medications MEDICAL (GENERAL) HISTORY Type Description Date Medical History anemic Medical History Generalized anxiety disorder Medical History Depression, major, recurrent, moderate Medical History Personality disorder in adult Medical History Chronic post-traumatic stress disorder ( PTSD) Medical History Mixed obsessional thoughts and acts Medical History Iron deficiency anemia Medical History Mood disorder Medical History Bipolar affective disorder, currently de pressed, mild Medical History Bipolar depression Medical History Panic disorder Medical History Personality disorder in adult Medical History Personality disorder in adult Surgical History Gallbladder removed Hospitalization History [facility] [place], [place]. Admitted for depressed mood and SI. 2011
--- OUTSIDE RECORDS SUMMARY | 2019-11-05 09:03 | XMS REPORT | Clinical Summary ---
Author Author [facility] Organization [facility] Address Unknown Phone Unavailable Care Team Providers Care Electroplating Sales Representative Name Role Phone Raymond Anand PCP Source Comments Some departments are not documenting in the electronic medical record. If you d o not see the information that you expected, contact Release of Information in [facility] [employer] Information Management department at [phone] for further assistan ce in locating additional records.[facility] Allergies Not on File Medications Not on file Active Problems Not on file Social History Date Tobacco Use Types Packs/Day Years Used Never Assessed Sex Assigned at Date Recorded Not on file Industry Job Start Date Occupation Not on file Not on file Not on file Travel End Travel History Travel Start No recent travel history available. Last Filed Vital Signs Not on file Plan of Treatment Health Maintenance Due Date Last Done Comments DTAP/TDAP VACCINES (1 - 2003 Tdap) HIV SCREENING 2007 PHYSICAL (COMPREHENSIVE) 2010 EXAM CERVICAL CANCER SCREENING 2013 INFLUENZA VACCINE 03/03/2019 HPV VACCINES Aged Out No longer eligible based on patient's age to complete this topic Results Not on filefrom Last 3 Months
--- OUTSIDE RECORDS SUMMARY | 2019-11-05 09:03 | XMS REPORT ---
Author Author Bibi TAYLOR DIVINE Organization [facility] Address [address] [place] [address] Care Team Providers Care Sales Advisory Manager Name Role Phone DIVINE TAYLOR Unavailable PROBLEMS Type Condition ICD9-CM Code HSC51-FU Code Onset Dates Condition S tatus SNOMED Code Problem Depression, major, recurrent, moderate F33.1 Active 07177940 Problem BMI 50.0-59.9, adult Z68.43 Active 950118073 Problem Generalized anxiety disorder F41.1 A ctive 94543834 Problem Mood disorder F39 Active 098331 05 Problem Iron deficiency anemia D50.9 Active 66509123 Problem Bipolar depression F31.30 Active 7 33498285 Problem Bipolar 1 disorder, depressed, moderate F31.32 Active 038028623 Problem Mixed obsessional thoughts and acts F42.2 Active 36113655 Problem Allergic sinusitis J30.9 Active 3 7325486 Problem Chronic post-traumatic stress disorder (PTSD) F43. 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 Active 06966875 ALLERGIES No Information ENCOUNTERS Encounter Location Date Diagnosis [facility] [address] [id number] [place] [id number] Sep, [facility] [id number] [place] [address] Sep, [facility] [address] [id number] [place] [address] Aug, [facility] [address] [id number] [place] [id number] Aug, Caries K02.9 [facility] [address] [facility] [id number] [place] [id number] Jul, Non-recurrent subacute aller gic otitis media of both ears H65.113 and Folliculitis L73.9 [facility] [address] [id number] Jul, [facility] [address] [id number] Jul, Caries K02.9 and Dental examination Z01. 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 and Morbid obesity E66.01 [facility] [address] [address] Jul, [facility] [address] [facility] [id number] [address] [place] [address] Jun, Allergic sinusitis J30.9 [facility] [address] [id number] Jun, Caries K02.9 [address] [address] [address] Jun, [facility] [address] [address] May, [facility] [address] [id number] May, Caries K02.9 [facility] [address] [id number] May, Caries K02.9 [facility] [address] [id number] May, [facility] [address] [id number] May, Dental examination Z01.20 and Caries K02 .9 [facility] [address] [address] 08 May, 2019 Bipolar 1 disorder, depressed, moderate F31.32 ; Chronic post- traumatic stress disorder (PTSD) F43.12 ; Panic disorder F41.0 ; 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 and Morbid obesity E66.01 [facility] [address] [address] 03 May, 2019 [facility] [address] [address] 30 Apr, 2019 [facility] [address] [id number] 16 Apr, 2019 Dental examination Z01.20 ; Caries K02.9 and Oral health maintenance status requiring routine preventive dental care K08.9 [facility] [address] [address] 10 Apr, 2019 Chronic post-traumatic stress disorder ( PTSD) F43.12 ; Panic disorder F41.0 ; 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 and Morbid obesity E66.01 [facility] [address] [address] Jan, [facility] [address] [address] Jan, Avoidant personality disorder in adult F 60.6 ; Chronic post-traumatic stress disorder (PTSD) F43.12 ; Mixed obsessional thoughts and acts F42.2 ; Bipolar affective disorder, currently depressed, mild F31.31 and Morbid obesity E66.01 [facility] [id number] [place] [address] Jan, Bipolar depression F31.30 ; Panic disord er F41.0 ; Chronic post- traumatic stress disorder (PTSD) F43.12 ; BMI 50.0-59.9, adult Z68.43 and Morbid obesity E66.01 [facility] [address] [id number] [place] [id number] Jan, Dental examination Z01.20 and Caries K02 .9 [facility] [id number] [place] [address] Jan, [facility] [address] [address] December, [facility] [address] [address] December, Bipolar depression F31.30 ; Chronic post -traumatic stress disorder (PTSD) F43.12 ; Mixed obsessional thoughts and acts F42.2 ; Personality disorder in adult F60.9 and Morbid obesity E66.01 [facility] [address] [address] Oct, Bipolar depression F31.30 ; Chronic post -traumatic stress disorder (PTSD) F43.12 ; Mixed obsessional thoughts and acts F42.2 ; Personality disorder in adult F60.9 and Morbid obesity E66.01 [facility] [address] [address] Oct, [facility] [address] [address] Sep, [facility] [address] [address] Sep, [facility] [address] [address] Sep, [facility] [address] [address] Aug, Bipolar depression F31.30 ; Chronic post -traumatic stress disorder (PTSD) F43.12 ; Personality disorder in adult F60.9 ; BMI 50.0-59.9, adult Z68.43 and Mixed obsessional thoughts and acts F42.2 [facility] [address] [facility] [id number] [place] [address] Aug, URI with cough and congestio n J06.9 and BMI 50.0-59.9, adult Z68.43 [facility] [address] [facility] [id number] [place] [address] 14 Aug, 2018 Sore throat J02.9 ; Viral up per respiratory tract infection J06.9 and BMI 50.0-59.9, adult Z68.43 [facility] [address] [id number] Aug, Caries K02.9 [facility] [address] [id number] Aug, Oral health maintenance status requiring routine preventive dental care K08.9 [facility] [address] [address] Jul, [facility] [address] [address] Jul, [facility] [address] [address] 04 Jul, 2018 Mood disorder F39 ; Chronic post-traumat ic stress disorder (PTSD) F43.12 ; Mixed obsessional thoughts and acts F42.2 ; Personality disorder in adult F60.9 and BMI 50.0-59.9, adult Z68.43 [facility] [address] [address] Jul, Iron deficiency anemia D50.9 [facility] [address] [address] Jun, Anemia D64.9 [facility] [address] [id number] Jun, Dental examination Z01.20 and Caries K02 .9 [place] [address] [address] Jun, Anemia D64.9 [place] [address] [address] 16 Jun, 2018 Dermatitis L30.9 ; Fever R50.9 and BMI 5 0.0-59.9, adult Z68.[address] [address] Mar, Generalized anxiety disorder F41.1 ; Dep ression, major, recurrent, moderate F33.1 ; Chronic post-traumatic stress disorder (PTSD) F43.12 ; Mixed obsessional thoughts and acts F42.2 and Personality disorder in adult F60.[address] [address] Mar, Generalized anxiety disorder F41.[address] [address] Jan, Generalized anxiety disorder F41.1 ; Dep ression, major, recurrent, moderate F33.1 ; Chronic post-traumatic stress disorder (PTSD) F43.12 ; Mixed obsessional thoughts and acts F42.2 and Personality disorder in adult F60.[address] [address] Jan, Generalized anxiety disorder F41.1 ; Dep ression, major, recurrent, moderate F33.1 ; Chronic post-traumatic stress disorder (PTSD) F43.12 ; Mixed obsessional thoughts and acts F42.2 and Personality disorder in adult F60.[address] [address] December, Chronic post-traumatic stress disorder ( PTSD) F43.12 ; Depression, major, recurrent, moderate F33.1 ; Generalized anxiety disorder F41.1 ; Mixed obsessional thoughts and acts F42.2 and BMI 50.0-59.9, adult Z68.[address] [address] December, Chronic post-traumatic stress disorder ( PTSD) F43.12 ; Depression, major, recurrent, moderate F33.1 ; Generalized anxiety disorder F41.1 and BMI 50.0-59.9, adult Z68.43 [facility] [address] [address] December, Generalized anxiety disorder F41.1 [facility] [address] [id number] December, Dental caries K02.9 and Dental examinati on Z01.20 [facility] [address] [address] December, Generalized anxiety disorder F41.1 and O ther mcfp (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 therapy Z79.899 [facility] [address] [address] Nov, 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 [facility] [address] [id number] Nov, [facility] [address] [id number] Nov, [facility] [address] [address] Nov, [facility] [address] [id number] Nov, [facility] [address] [id number] Nov, Dental examination Z01.20 [facility] [address] [address] Nov, Generalized anxiety disorder F41.1 ; Dep ression, major, recurrent, moderate F33.1 ; Personality disorder in adult F60.9 and 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 [facility] [address] [address] Nov, Generalized anxiety disorder F41.1 ; Dep ression, major, recurrent, moderate F33.1 and Personality disorder in adult F60.9 [address] [address] [address] Aug, [place] [address] Aug, Generalized anxiety disorder F41.1 ; Dep ression, major, recurrent, moderate F33.1 and Personality disorder in adult F60.[address] [address] Jul, Generalized anxiety disorder F41.1 ; Dep ression, major, recurrent, moderate F33.1 and Personality disorder in adult F60.[address] [address] Jun, Generalized anxiety disorder F41.1 ; Dep ression, major, recurrent, moderate F33.1 and Personality disorder in adult F60.[address] [address] May, [address] [address] May, Generalized anxiety disorder F41.1 ; Dep ression, major, recurrent, moderate F33.1 and Personality disorder in adult F60.[address] [address] May, Generalized anxiety disorder F41.[address] [address] Apr, Generalized anxiety disorder F41.1 ; Dep ression, major, recurrent, moderate F33.1 and Personality disorder in adult F60.9 [address] [id number] Apr, Dental examination Z01.20 [id number] [place] [address] Mar, Generalized anxiety disorder F41.1 ; Dep ression, major, recurrent, moderate F33.1 and Personality disorder in adult F60.9 [facility] [address] [address] Jan, Generalized anxiety disorder F41.1 ; Dep ression, major, recurrent, moderate F33.1 and Personality disorder in adult F60.9 [facility] [address] [address] Jan, Generalized anxiety disorder F41.1 ; Dep ression, major, recurrent, moderate F33.1 and Personality disorder in adult F60.9 [facility] [id number] [place] [id number] Jan, Dental examination Z01.20 [address] [address] [address] Nov, Depression, major, recurrent, moderate F 33.1 ; Generalized anxiety disorder F41.1 and Personality disorder in adult F60.9 [address] [address] [address] Oct, Depression, major, recurrent, moderate F 33.1 [address] [address] [address] Oct, Depression, major, recurrent, moderate F 33.1 and Generalized anxiety disorder F41.1 [address] [address] [address] Aug, Generalized anxiety disorder F41.1 and D epression, major, recurrent, moderate F33.1 [address] [address] [address] Aug, [address] [address] Jun, Mood disorder F39 and Generalized anxiet y disorder F41.1 [address] [address] [address] May, Mood disorder F39 and Generalized anxiet y disorder F41.1 [address] [address] [address] Apr, [facility] [address] [id number] [place] [address] Apr, Mood disorder F39 [facility] [address] [facility] [id number] [place] [id number] Aug, Encounter for dental examination V72.2 a nd Dental examination Z01.20 [facility] [address] [id number] [place] [address] 14 Nov, 2014 [facility] [address] [id number] [place] [address] Nov, [facility] [id number] [place] [address] Jan, [facility] [id number] [place] [address] Jan, [facility] [id number] [place] [address] Nov, [facility] [address] [id number] [place] [address] Nov, [facility] [id number] [place] [address] Nov, [facility] [id number] [place] [address] Nov, [facility] [address] [id number] [place] [address] Jan, [facility] [id number] [place] [address] Jan, [facility] [address] [id number] [place] [address] December, [facility] [id number] [place] [address] December, [facility] [place] [facility] [address] [id number] [place] [address] Nov, [facility] [id number] [place] [address] Jul, [facility] [address] [facility] [id number] [place] [address] Mar, IMMUNIZATIONS No Known Immunizations SOCIAL HISTORY Never Assessed REASON FOR VISIT PLAN OF CARE VITAL SIGNS MEDICATIONS Unknown [...] adult Surgical History Gallbladder removed Hospitalization History [facility] [place], [place]. Admitted for depressed mood and SI. 2011
--- OUTSIDE RECORDS SUMMARY | 2019-11-05 09:03 | XMS REPORT ---
Author Author [facility]. Organization [facility]. Address [address] [address] Care Team Providers Care Information Services Consultant Name Role Phone MARCIA SALINAS Unavailable CARLOS PEARSON Unavailable CARLOS PEARSON Unavailable NEARING, CRYSTAL Unavailable Unavailable CARLOS Vergara Unavailable MARCIA SALINAS Unavailable CARLOS Vergara Unavailable KEKE VergaraY Unavailable CARLOS Vergara Unavailable MADELINE, RADHA Unavailable HERNÁNDEZ TRICIA Unavailable MADELINE, RADHA Unavailable MADELINE, RADHA Unavailable MADELINE, RADHA Unavailable MADELINE, RADHA Unavailable MADELINE, RADHA Unavailable NEARING, CRYSTAL Unavailable MADELINE, RADHA Unavailable MADELINE, RADHA Unavailable NEARING, CRYSTAL Unavailable MADELINE, RADHA Unavailable NEARING, CRYSTAL Unavailable NEARING, CRYSTAL Unavailable MADELINE, RADHA Unavailable MADELINE, RADHA Unavailable NEARING, CRYSTAL Unavailable DIVINE TAYLOR Unavailable DIVINE TAYLOR Unavailable MADELINE, RADHA Unavailable MONZONLON RUEDA APRN Unavailable Unavailable DALIA GÓMEZ, APRIL Rodríguez Unavailable Unavailable MADELINE, RADHA Unavailable MADELINE, RADHA Unavailable MADELINE, RADHA Unavailable CAREY CRUZ Unavailable CAREY CRUZ Unavailable CRYSTAL VICENTE Unavailable DIVINE TAYLOR Unavailable CLAUDIA DIVINE Unavailable CLAUDIA DIVINE Unavailable Migration, Doctor Unavailable Unavailable PCP, NONE Unavailable Unavailable Migration, Doctor Unavailable Unavailable CAREY CRUZ Unavailable LON MONZON APRN Unavailable Unavailable DALIA GÓMEZ, APRIL Rodríguez Unavailable Unavailable MAX OSEGUERA Unavailable Unavailable COURTNEY PERALES Unavailable PCP, TRANSITION Unavailable Unavailable STU LUNA Unavailable DIVINE TAYLOR Unavailable Allergies The data below is from unstructured sources Unknown Allergies Unknown Allergies Unknown Allergies No Information No Information No Information No Information No Information No Information No Information No Information No Information No Information No Information No Information No Information No Information No Information No Information No Information No Information No Information No Information No Information No Information No Information No Information No Information No Information No Information No Information No Information No Information No Information No Information No Information No Information No Information No Information No Information No Information No Information No Information No Information No Information Medications Current Medications Medication Ingredient Drug Dose Dates Status Sig Sig Care Class(es) (Normalized) (Original) Provid er amitriptyli amitriptyli Tricyclic 75 mg 01-29-20 Active no Amitriptylin no ne ne Antidepress 18 information e HCl 75 MG name hydrochlori Translation ant Orally at (no de 75 mg s: [ bedtime 1 phone) oral tablet Amitriptyli tablet 28 (3 ne HCl 50 Jan, 2018 30 sources.) mg, days Active Amitriptyli ne Hydrochlori de 75 MG Oral Tablet, Amitriptyli ne HCl 75 MG] 25 mg 01-28-2018 Active no Amitript no name inform yline (no ation HCl 50 phone) mg Orally Once a day at bedtime for two weeks, then 1 tablet at bedtime 1/2 tablet Jan, Active lithium lithium no 150 mg 11-07-19 Active no [place] no carbonate carbonate information 18 information Carbonate name 150 mg oral Translation 150 MG (no capsule (7 s: [ Orally 2 phone) sources.) [place] times a day Carbonate 1 capsule 150 MG, 12h Nov, [place] 2017 30 Carbonate day(s) 300 MG Oral Active Capsule, [place] Carbonate 300 MG] 300 mg Active no [place] no name inform Carbonat (no ation e 300 MG phone) Orally 2 times a day 1 capsule 12h Active lurasidone lurasidone Atypical 20 mg 07-06-20 Active no Lat uda 20 mg no hydrochlori Translation Antipsychot 18 information Orally Once name de 20 mg s: [ Latuda ic a day 1 (no oral tablet 20 mg] tablets with phone) (1 source.) food 24h Jul, 30 day(s) Active no Polysacchar no 150 mg 07-06-20 Active no Polysacc naima no information leticia iron information 18 information de Iron name (2 complex Complex 150 (no sources.) MG Orally phone) Once a day 1 capsule 24h Jul, 30 day(s) Active prazosin 1 prazosin alpha-Adren 1 mg 12-11-19 Active no Pr azosin HCl no mg oral Translation ergic 18 information 1 MG Orally name capsule (5 s: [ Abdoulaye for (no sources.) Prazosin nightmares 1 phone) HCl 1 MG, capsule at Prazosin bedtime 10 HCl 1 MG] Dec, 2017 Active Completed/Discontinued Medications Medication Ingredient Drug Dose Dates Status Sig Sig Care Class(es) (Normalized) (Original) Provid er traMADol traMADol Opioid 50 mg Suspende no Tramadol HCl no hydrochlori Translation Agonist d information 50 MG Ora lly name de 50 mg s: [ every 6 hrs (no oral tablet Tramadol 1 tablet as phone) (7 HCl 50 MG, needed 6h as sources.) Tramadol needed HCl 50 MG] Not-Taking triamcinolo Triamcinolo Corticoster 1 06-18-20 Suspende no Triamcinolon no ne ne oid mg/mL 18 d information e Acetonid e name acetonide 1 Translation 0.1 % (no mg/ml s: [ Externally phone) topical Triamcinolo Twice a day cream (2 ne 1 sources.) Acetonide application 0.1 %] to affected area 12h 16 Jun, 2018 Not-Taking Problems Active Problems Problem Normalized Date of Normalized Normalized Provider Fac ility Classification Problem(s) Problem Problem Problem Sta tus Onset/Resoluti Duration on External cause Fall on same 09-27-2019 - Episodic Active JOSHU A [facility] Via codes: Fall (4 level from Brenda GÓMEZ sources.) MD [facility] - tripping and [place] stumbling (35701) without subsequent striking against object, initial encounter Residual Family history 09-27-2019 - Episodic Active MAX WEL LER [facility] Via codes; of ischemic [facility] unclassified heart disease Hospital - (5 sources.) and other [place] diseases of (18989) the circulatory system Other skin Localized 09-27-2019 - Episodic Active APRIL [facility] Via disorders (14 swelling, mass Brenda GÓMEZ sources.) and lumpMD [facility] - lower limb, [place] bilateral (32017) External cause Other external 09-27-2019 - Episodic Active FLACA MARJORIE [facility] Via codes: cause status BRUColin DOTYi Unspecified (4 [facility] - sources.) [place] (77585) Other Pain in left 09-27-2019 - Episodic Active APRIL V [facility] Via non-traumatic ankle and Brenda GÓMEZ joint joints of left [facility] - disorders (22 foot [place] sources.) (19597) Other injuries Unspecified 09-27-2019 - Episodic Active APRIL H Via and conditions injury of Brenda GÓMEZ due to right wrist, [facility] - external hand and [place] causes (11 finger(s), (21598) sources.) initial encounter Past or Other Problems Problem Normalized Date of Normalized Normalized Provider Fac ility Classification Problem(s) Problem Problem Problem Sta tus Onset/Resoluti Duration on External Fall on same no information no information APRIL Not Available Injury - Fall level from DALIA , (20747) (7 sources.) MD kaila tripping and stumbling without subsequent striking against object, initial encounter External Other external no information no information APRIL Not Available Injury - cause status BRUEGGEARNOL , (72418) Unspecified (7 MD sources.) Disorders of Other no information no information APRIL Not Available teeth and jaw specified BRULALITHA , (60408) (5 sources.) disorders of MD teeth and supporting structures Procedures Procedure Normalized Procedure Procedure Result Performer Facility Date 11-27-2017 Assay of free no information no name (no phone) [facility] thyroxine [facility] ([id number]) 11-27-2017 Assay of thyroid no information no name (no phone) [facility] stimulating hormone [facility] (39211) 06-30-2018 Bitewings four images no information no name (no ph one) [facility] (82496) 11-27-2017 Collection venous no information no name (no phone) [facility] blood venipuncture [facility] (98816) 11-27-2017 Comprehensive no information no name (no phone) [facility] metabolic panel [facility] (09154) 12-03-2017 Dental bitewing single no information no name (no p samy) [facility] film [facility] (36213) 11-27-2017 Drug screen no information no name (no phone) [facility] quantitative lithium [facility] (74731) 12-03-2017 Extraction erupted no information no name (no phone ) [facility] tooth/exr [facility] (10797) General examination of no information no name (no phone) [facility] patient [facility] (43981) 06-30-2018 Intraoral periapical no information no name (no cinthia ne) [facility] - ea add [facility] 06-30-2018 [place] ([id number]) - 06-30-2018 06-30-2018 Intraoral periapical no information no name (no cinthia ne) [facility] (47644) 12-03-2017 Intraoral periapical no information no name (no cinthia ne) [facility] f [facility] (39029) 11-24-2017 Limit oral eval problm no information no name (no p samy) [facility] (65975) Immunizations The data below is from unstructured sourcesNo immunization records.No immunization records.No immunization records. No Known Immunizations No Known Immunizations No Known Immunizations No Known ImmunizationsNo immunization records.No immunization records. No Known Immunizations No Known Immunizations No Known Immunizations No Known Immunizations No Known Immunizations No Known Immunizations No Known Immunizations No Known Immunizations No Known Immunizations No Known Immunizations No Known Immunizations No Known Immunizations No Known Immunizations No Known Immunizations No Known Immunizations No Known Immunizations No Known Immunizations No Known Immunizations No Known Immunizations No Known Immunizations No Known Immunizations No Known Immunizations No Known Immunizations No Known Immunizations No Known Immunizations No Known Immunizations No Known Immunizations No Known Immunizations No Known Immunizations No Known Immunizations No Known Immunizations No Known Immunizations No Known Immunizations No Known Immunizations No Known Immunizations No Known Immunizations No Known Immunizations No Known Immunizations No Known Immunizations No Known Immunizations No Known Immunizations No Known Immunizations No Known Immunizations No Known Immunizations No Known Immunizations No Known Immunizations No Known Immunizations No Known Immunizations No Known Immunizations No Known Immunizations No Known Immunizations No Known Immunizations No Known Immunizations No Known Immunizations No Known Immunizations No Known Immunizations No Known Immunizations No Known Immunizations No Known Immunizations No Known Immunizations No Known Immunizations No Known Immunizations No Known Immunizations No Known Immunizations No Known Immunizations No Known Immunizations No Known Immunizations No Known Immunizations No Known Immunizations No Known Immunizations No Known Immunizations No Known Immunizations No Known Immunizations No Known Immunizations No Known Immunizations No Known Immunizations No Known Immunizations No Known Immunizations No Known Immunizations No Known Immunizations No Known Immunizations No Known Immunizations Results Test Name Value Interpretation Reference Range Date Time Fa cility (Normalized) (Normalized) (Medline Reference) No panel information on 2018-07-02 % SATURATION 2 (L) [facility] ([id number]) Ferritin 1 ng/mL (L) [facility] [Mass/Vol] [facility] (35607) Iron [Mass/Vol] 10 ug/dL (L) 60 - 170 ug/dL [facility] (62349) IRON BINDING 457 (H) [facility] (00937) No panel information on 2018-06-18 Basophils (Bld) 0.101 10*3/uL (N) 0 - 0.3 10*3/uL [facility] [#/Vol] [facility] (47449) Basophils/100 0.7 % (N) 0.5 - 1 % [facility] WBC (Bld) [facility] (54470) CRP [Mass/Vol] 13.3 mg/L (H) 0 - 8 mg/L [facility] (73349) Eosinophils 0.086 10*3/uL (N) 0.05 - 0.5 [facility] (Bld) [#/Vol] 10*3/uL [facility] (09837) Eosinophils/100 0.6 % (N) 1 - 4 % [facility] WBC (Bld) [facility] (93214) Erythrocyte 20.6 % (H) 11.6 - 14.6 % [facility] (RBC) [facility] [Ratio] (54492) Hematocrit (Bld) 31.7 % (L) 36.1 - 50.3 % Critical access hospital [Volume [facility] (47234) Hemoglobin (Bld) 8.3 g/dL (L) 12.1 - 17.2 g/dL [facility] [Mass/Vol] [facility] (74894) Lymphocytes 2.592 10*3/uL (N) 0.9 - 2.9 [facility] (Bld) [#/Vol] 10*3/uL [facility] (27692) Lymphocytes/100 18.0 % (N) 20 - 40 % [facility] WBC (Bld) [facility] (69171) MCH (RBC) 15.3 pg (L) 27 - 31 pg [facility] [Entitic mass] [facility] (96046) MCHC (RBC) 26.2 g/dL (L) 32 - 36 g/dL [facility] [Mass/Vol] [facility] (73592) MCV (RBC) 58.6 fL (L) 80 - 100 fL [facility] [Entitic vol] [facility] (52638) Monocytes (Bld) 0.821 10*3/uL (N) 0.3 - 0.9 [facility] [#/Vol] 10*3/uL [facility] (56650) Monocytes/100 5.7 % (N) 2 - 8 % [facility] WBC (Bld) [facility] (83632) Morphology Nikunj no information (N) [facility] (Bld) [Interp] [facility] (14034) Neutrophils 10.8 10*3/uL (H) 1.7 - 7 10*3/uL [facility] (Bld) [#/Vol] [facility] (44371) Neutrophils/100 75.0 % (N) 40 - 60 % [facility] WBC (Bld) [facility] (67509) Platelet mean 9.5 fL (N) 7.2 - 11.7 fL [facility] volume (Bld) [facility] [Entitic vol] [facility] (99600) Platelets (Bld) 753 10*3/uL (H) 150 - 450 [facility] [#/Vol] 10*3/uL [facility] (73146) Platelets LM Ql INCREASED (A) [facility] (Bld) [facility] (66084) RBC (Bld) 5.41 10*6/uL (H) 4.2 - 6.1 [facility] [#/Vol] 10*6/uL [facility] (87418) WBC (Bld) 14.4 10*3/uL (H) 3.5 - 10.5 [facility] lth [#/Vol] 10*3/uL [facility] (31980) Vital Signs Vital Sign Value Interpretation Reference Date Time Care Prov ider Facility (Normalized) (Normalized) Range BMI (Body Mass 51.43 kg/m2 (no code) 15 - 25 kg/m2 07-06-2018 HAMLET JEFF Community Index) 12:20-[id number] [place] [address] (99507) BMI (Body Mass 53.39 kg/m2 (no code) 15 - 25 kg/m2 03-25-2018 UY EN MADELINE Community Index) 14:20-0400 30139 [facility] (97170) BMI (Body Mass 54.15 kg/m2 (no code) 15 - 25 kg/m2 02-25-2018 UY EN MADELINE Community Index) 12:40-0400 13154 [facility] (38499) BMI (Body Mass 54.72 kg/m2 (no code) 15 - 25 kg/m2 01-28-2018 UY EN MADELINE Community Index) 15:00-[address] [place] [address] (05687) BMI (Body Mass 56.53 kg/m2 (no code) 15 - 25 kg/m2 12-31-2017 [facility] 10:40-[address] [place] [address] (14022) BMI (Body Mass 57.16 kg/m2 (no code) 15 - 25 kg/m2 12-10-2017 [facility] Community [facility]) 11:20-[address] [place] [address] (75238) BMI (Body Mass 57.97 kg/m2 (no code) 15 - 25 kg/m2 11-20-2017 [facility] M[facility]EL[facility] Community Index) 13:40-[address] [place] [address] (21139) BMI (Body Mass 58.08 kg/m2 (no code) 15 - 25 kg/m2 11-06-2017 U[facility] EN MADELINE Community Index) 17:00-[address] [place] [address] (33677) Height 172.72 cm (no code) cm 07-06-2018 [facility] 12:20-[address] [place] [address] (29481) Height 172.72 cm (no code) cm 06-30-2018 [facility] 14:45-0500 [facility] (15479) Height 172.72 cm (no code) cm 03-25-2018 RADHA MADELINE Comm unity 14:200400 [address] [place] [address] (85653) Height 172.72 cm (no code) cm 02-25-2018 RADHA MADLEINE Comm unity [id number] [place] [address] (08103) Height 172.72 cm (no code) cm 01-28-2018 RADHA MADELINE Comm unity 15:000400 [address] [place] [address] (87247) Height 172.72 cm (no code) cm 12-31-2017 [facility] 10:40-[address] [place] [address] (93652) Height 172.72 cm (no code) cm 12-10-2017 [facility] 11:20-[address] [place] [address] (44474) Height 172.72 cm (no code) cm 12-03-2017 [facility] 13:00-0400 [facility] (26794) Height 172.72 cm (no code) cm 11-24-2017 [facility] 14:00-0400 [facility] (80157) Height 172.72 cm (no code) cm 11-20-2017 RADHA MADELINE Comm unity 13:40-[address] [place] [address] (10736) Height 172.72 cm (no code) cm 11-06-2017 RADHA MADELINE Comm unity 17:00-[address] [place] [address] (83323) Pulse Oximetry 99 % (no code) 95 - 100 % 02-25-2018 RADHA DIN H [facility] 12:40-[address] [place] [address] (73942) Pulse Oximetry 0 % (no code) 95 - 100 % 01-28-2018 RADHA DIN H [facility] 15:00-[address] [place] [address] (72570) Weight 153.45 kg (no code) kg 07-06-2018 [facility] 12:200500 CLAUDIA [address] [place] [address] (53868) Weight 159.3 kg (no code) kg 03-25-2018 RADHA MADELINE Com[facility] n[facility] 14:20-[address] [place] [address] (46525) Weight 161.57 kg (no code) kg 02-25-2018 RADHA MADELINE Comm [facility] 12:40-[address] [place] [address] (14568) Weight 163.25 kg (no code) kg 01-28-2018 RADHA MADELINE Comm unity 15:00-[address] [place] [address] (69004) Weight 168.65 kg (no code) kg 12-31-2017 [facility] 10:40-0400 CLAUDIA 20633 [facility] (28854) Weight 170.55 kg (no code) kg 12-10-2017 [facility] 11:20-[id number] [place] [address] (85215) Weight 172.96 kg (no code) kg 11-20-2017 RADHA MADELINE Comm unity 13:40-0400 35981 [facility] (04862) Weight 173.28 kg (no code) kg 11-06-2017 RADHA MADELINE Comm unity 17:00-0400 26992 [facility] (83790) Interventions No Information Plan of Treatment Normalized Care Care Detail Care Activity Date Care Provider F acility Activity (D-LIVIA) [facility] 06-30-2018 CAREY CRUZ 616[address] [facility] Comprehensive Oral DENTAL Center [facility] ([id number]) (D-E/F/S) [facility] 08-11-2018 - CRYSTAL VICENTE Critical access hospital Extraction/Filling/S DENTAL 08-11-2018 - [facility] 08-11-2018 [place] ([address]18) (D-HYG/13/A) Hygiene [facility] 08-11-2018 - CRYSTAL PAGE [facility] and [facility] DENTAL 08-11-2018 - [facility] 08-11-2018 [place] (05940) (PSY-FU-20) [facility] 08-05-2018 - CAREY CRUZ 81427 [facility] F[facility]U 20 [facility] 08-05-2018 - [facility] 08-05-2018 [place] (71823) (PSY-INTAKE) [facility] 07-06-2018 CAREY CRUZ 23878 [facility] Intake [facility] (18036) [facility] 04-18-2019 CAREY Sosa7 62 Community [facility] DENTAL DENTAL Center [facility] (67737) [facility] 04-12-2019 CAREY Sosa7 62 [facility] (12616) Goals No Information Social History No Information Functional Status The data below is from unstructured sourcesNo functional status results.No functional status results.No functional status results.No functional status results.No functional status results.No functional status information available.No functional status information available.No functional status information available.No functional status information available. Mental Status No Information Encounters Encounter Normalized Encounter Encounter Diagnosis Care Provi perri Organization Date Type 05-03-2018 (-INTAKE) Behavioral no information [facility] [place] (no [facility] Intake phone) (no phone) 05-03-2018 - 05-03-2018 04-06-2018 (BH-INTAKE) Behavioral no information [place] (no [facility] Intake phone) (no phone) 04-06-2018 - 04-06-2018 04-22-2018 (PSY-FU-20) Psychiatry no information RADHA MADELINE (no phone) [facility] - F/U 20 min (no phone) 04-22-2018 - 04-22-2018 03-25-2018 (PSY-FU-20) Psychiatry Generalized anxiety RADHA DIN H (no phone) [facility] - F/U 20 min disorder (no phone) 03-25-2018 - 03-25-2018 02-25-2018 (PSY-FU-20) Psychiatry Generalized anxiety RADHA DIN H (no phone) [facility] - F/U 20 min disorder (no phone) 02-25-2018 - 02-25-2018 06-30-2018 Comprehensve oral no information no name (no phone) no organization name evaluation (no phone) 11-24-2017 Emergency department no information MAX OSEGUERA Work no organization name - patient visit (no phone ) 11-24-2017 11-24-2017 Emergency department no information MAX OSEGUERA MD (no [facility] - patient visit phone) [facility] 11-24-2017 (no phone) 04-04-2017 Emergency department no information APRIL DE LA CRUZ VC [facility] - patient visit (no phone) [facility] 04-04-2017 (no phone) 10-16-2016 Emergency department no information APRIL DE LA CRUZ VC Via [place] - patient visit (no phone) [facility] 10-16-2016 (no phone) 04-15-2016 Emergency department no information APRIL DE LA CRUZ VC Via [place]da - patient visit (no phone) [facility] 04-15-2016 (no phone) 03-23-2016 Emergency department no information LON CURTIS (no [facility] - patient visit phone) [facility] 03-23-2016 (no phone) 02-25-2018 Patient encounter no information no name (no phone) no organization name (no phone) 01-28-2018 Patient encounter no information no name (no phone) no organization name (no phone) 12-10-2017 Patient encounter no information no name (no phone) no organization name (no phone) NEGATED Patient encounter no information no name (no phone) no organization name 12-03-2017 (no phone) 11-27-2017 Patient encounter no information no name (no phone) no organization name (no phone) NEGATED Patient encounter no information no name (no phone) no organization name 11-24-2017 (no phone) 11-20-2017 Patient encounter no information no name (no phone) no organization name (no phone) 08-17-2017 Patient encounter no information no name (no phone) no organization name (no phone) 10-19-2019 Patient encounter no information [facility]ITION PCP (no [facility] procedure phone) [facility] (no phone) 09-15-2019 Patient encounter no information TRANSITION PCP (no [facility] procedure phone) [facility] (no phone) 08-22-2019 Patient encounter no information no name (no phone) no organization name procedure (no phone) 08-02-2019 Patient encounter no information no name (no phone) no organization name procedure (no phone) 07-12-2019 Patient encounter no information no name (no phone) no organization name procedure (no phone) 05-18-2019 Patient encounter no information no name (no phone) no organization name procedure (no phone) 05-17-2019 Patient encounter no information no name (no phone) no organization name procedure (no phone) 03-14-2019 Patient encounter no information no name (no phone) no organization name procedure (no phone) 03-10-2019 Patient encounter no information no name (no phone) no organization name procedure (no phone) 01-27-2019 Patient encounter no information no name (no phone) no organization name procedure (no phone) 01-06-2019 Patient encounter no information no name (no phone) no organization name procedure (no phone) 01-06-2019 Patient encounter no information no name (no phone) no organization name procedure (no phone) 01-06-2019 Patient encounter no information no name (no phone) no organization name procedure (no phone) 12-09-2018 Patient encounter no information no name (no phone) no organization name procedure (no phone) 10-26-2018 Patient encounter no information no name (no phone) no organization name procedure (no phone) 09-02-2018 Patient encounter no information no name (no phone) no organization name procedure (no phone) 08-21-2018 Patient encounter no information no name (no phone) no organization name procedure (no phone) 08-16-2018 Patient encounter no information no name (no phone) no organization name procedure (no phone) 08-11-2018 Patient encounter no information no name (no phone) no organization name procedure (no phone) 07-06-2018 Patient encounter no information no name (no phone) no organization name procedure (no phone) 07-02-2018 Patient encounter no information no name (no phone) no organization name procedure (no phone) 06-30-2018 Patient encounter no information no name (no phone) no organization name procedure (no phone) 06-18-2018 Patient encounter no information no name (no phone) no organization name procedure (no phone) 10-16-2016 Patient encounter no information no name (no phone) no organization name procedure (no phone) no information Encounter for dental no name (no phone) no or ganization name examination and (no phone) cleaning without abnormal findings Medical Equipment No Information Payers No Information History general Narrative - Reported Note Type Note Facility History general Narrative - Reported Type Medical anemic History Medical Generalized anxiety disorde r History Medical Depression, major, recurren t, moderate History Medical Personality disorder in eulogio lt History Medical Chronic post-traumatic stre ss disorder (PTSD) History Medical Mixed obsessional thoughts and acts History Medical Iron deficiency anemia History Medical Mood disorder History Medical Bipolar affective disorder, currently depressed, mild History Medical Bipolar depression History Medical Panic disorder History Medical 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 Admitted for depressed mood and SI. 2012 ation History [facility] ([id number]) Advance Directives Directive Response Recor ded Date/Time Advance Directives Yes 0 03/23/16 9:30pm Health Care Power of Claim Benefit Specialist Yes 03/23/16 9:30pm Organ Donor No 03/23/16 9:30pm Resuscitation Status Full Code 03/23/16 9:30pm Directive Response Recor ded Date/Time Advance Directives Yes 0 04/15/16 3:25pm Health Care Power of Claim Benefit Specialist Yes 04/15/16 3:25pm Organ Donor No 04/15/16 3:25pm Resuscitation Status Full Code 04/15/16 3:25pm Directive Response Recor ded Date/Time Advance Directives Yes 0 04/15/16 3:25pm Health Care Power of Claim Benefit Specialist Yes 04/15/16 3:25pm Organ Donor No 04/15/16 3:25pm Directive Response Recor ded Date/Time Advance Directives No 6:33am Health Care Power of Claim Benefit Specialist Yes 04/04/17 6:33am Organ Donor No 04/04/17 6:33am Resuscitation Status Full Code 04/04/17 6:33am Directive Response Recor ded Date/Time Advance Directives No 6:14pm Health Care Power of Claim Benefit Specialist Yes 11/24/17 6:14pm Organ Donor No 11/24/17 6:14pm Resuscitation Status Full Code 11/24/17 6:14pm Discharge Instructions No hospital discharge instructions.No hospital discharge instructions.No hospital discharge instructions.No hospital discharge instruction information available.No hospital discharge instruction information available. Summary Purpose eClinicalWorks Submission Additional Source Comments This clinical document has been generated using [employer] software that has been certified by the Office of the National Coordinator for Health Information Technology (ONC 15.99.04.3023.Diam.31.00.0.982077) and the National Committee for [employer] (NCQA, as an eMeasure certified technology). FOR RECORDS PERTAINING TO PATIENTS WHO ARE OR HAVE BEEN ENROLLED IN A CHEMICAL D EPENDENCY/SUBSTANCE ABUSE PROGRAM, SOME INFORMATION MAY BE OMITTED. This clinica l summary was aggregated from multiple sources. Caution should be exercised in using it in the provision of clinical care. This summary normalizes information from multiple sources, and as a consequence, information in this document may ma terially change the coding, format and clinical context of patient data. In leona tion, data may be omitted in some cases. CLINICAL DECISIONS SHOULD BE BASED ON T HE PRIMARY CLINICAL RECORDS. [employer] provides no warranty or guara ntee of the accuracy or completeness of information in this document.The followi information is based on time limited clinical information UNRECOGNIZED CONTENT PROVIDED BELOW FOR UNRECOGNIZED SECTION MEDICAL (GENERAL) HISTORY Type Description Date Surgical History Gallbladder removed [facility] [place], [place]. Admitted for depressed mood and SI. 2011 Type Description Date Medical History anemic Surgical History Gallbladder removed [facility] [place], [place]. Admitted for depressed mood and SI. 2011 Type Description Date Medical History anemic Medical History Generalized anxiety disorder Medical History Depression, major, r ecurrent, moderate Medical History Personality disorder in adult Medical History Chronic post-traumat ic stress disorder (PTSD) Medical History Mixed obsessional th oughts and acts Medical History Iron deficiency anemia Medical History Mood disorder Medical History Bipolar affective di sorder, currently depressed, mild Medical History Bipolar depression Medical History Panic disorder Surgical History Gallbladder removed [facility] [place], [place]. Admitted for depressed mood and SI. 2011 UNRECOGNIZED CONTENT PROVIDED BELOW FOR UNRECOGNIZED SECTION REASON FOR VISIT YOSSI f/hugo SY f/hugo Jones MA , _update contractmed refill f/u--- JN apier, MACOEMedication questionBH intake JjournotRN, Depression / relationship i ssues / PTSDMedication [id number] in-[place]
--- OUTSIDE RECORDS SUMMARY | 2019-11-05 09:04 | XMS REPORT ---
Author Author Bibi TAYLOR Organization [facility] Address [address] [place] [address] Care Team Providers Care Biological Lab Technician Name Role Phone NABOR TAYLORA Unavailable PROBLEMS Type Condition ICD9-CM Code [id number] Code Onset Dates Condition S tatus SNOMED Code Problem Generalized anxiety disorder F41.1 A ctive 89332860 Problem Depression, major, recurrent, moderate F33.1 Active 11145274 Problem Iron deficiency anemia D50.9 Active 62294649 Problem Mood disorder F39 Active 785764 05 Problem BMI 50.0-59.9, adult Z68.43 Active 915198697 Problem Personality disorder in adult F60.9 Active 48568131 Problem Mixed obsessional thoughts and acts F42.2 Active 45054679 Problem Chronic post-traumatic stress disorder (PTSD) F43. 12 Active [id number] ALLERGIES No Information ENCOUNTERS Encounter Location Date Diagnosis [facility] [address] [facility] [id number] [address] [place] [address] [id number] Aug, [facility] [address] [place] [place] [id number] [address] [place] [address] [id number] Aug, [facility] [address] [place] [id number] [address] [place] [phone] Aug, [facility] [address] [place] [id number] [address] [place] [phone] Jul, [facility] [address] [place] [id number] [address] [place] [phone] Jul, [facility] [address] [place] [id number] [address] [place] [phone] Jul, Mood disorder F39 ; Chronic post-traumatic stress disorder (PTSD) F43.12 ; Mixed obsessional thoughts and acts F42.2 ; Personality disorder in adult F60.9 and BMI 50.0-59.9, adult Z68.43 [facility] [address] [place] [id number] [address] [place] [phone] Jul, Iron deficiency anemia D50.9 [facility] [address] [place] [id number] [address] [place] [phone] Jun, Anemia D64.9 [facility] [address] [id number] [address] [place] [address] [phone] Jun, Dental examination Z01.20 an d Caries K02.9 [facility] [address] [place] [id number] [address] [place] [phone] Jun, Anemia D64.9 [place] [address] [place] [id number] [address] [place] [phone] Jun, Dermatitis L30.9 ; Fever R50 .9 and BMI 50.0-59.9, adult Z68.43 [place] [address] [place] [id number] [address] [place] [phone] Mar, Generalized anxiety disorder F41.1 ; Depression, major, recurrent, moderate F33.1 ; Chronic post-traumatic stress disorder (PTSD) F43.12 ; Mixed obsessional thoughts and acts F42.2 and Personality disorder in adult F60.9 [place] [address] [place] [id number] [address] [place] [phone] Mar, Generalized anxiety disorder F41.1 [place] [address] [place] [id number] [address] [place] [phone] Jan, Generalized anxiety disorder F41.1 ; Depression, major, recurrent, moderate F33.1 ; Chronic post-traumatic stress disorder (PTSD) F43.12 ; Mixed obsessional thoughts and acts F42.2 and Personality disorder in adult F60.9 [place] [address] [place] [id number] [address] [place] [phone] Jan, Generalized anxiety disorder F41.1 ; Depression, major, recurrent, moderate F33.1 ; Chronic post-traumatic stress disorder (PTSD) F43.12 ; Mixed obsessional thoughts and acts F42.2 and Personality disorder in adult F60.9 [facility] [address] [facility] [id number] [address] [place] [phone] December, Chronic post-traumatic stres s disorder (PTSD) F43.12 ; Depression, major, recurrent, moderate F33.1 ; Generalized anxiety disorder F41.1 ; Mixed obsessional thoughts and acts F42.2 and BMI 50.0-59.9, adult Z68.43 [facility] [address] [facility] [id number] [address] [place] [phone] December, Chronic post-traumatic stres s disorder (PTSD) F43.12 ; Depression, major, recurrent, moderate F33.1 ; Generalized anxiety disorder F41.1 and BMI 50.0-59.9, adult Z68.43 [facility] [address] [facility] [id number] [address] [place] [phone] December, Generalized anxiety disorder F41.1 [facility] [address] [id number] [place] [address] [phone] December, Dental caries K02.9 and [place] al examination Z01.20 [facility] [address] [facility] [id number] [address] [place] [phone] December, Generalized anxiety disorder F41.1 and Other mcfp (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 therapy Z79.899 [facility] [address] [id number] [address] [place] [phone] Nov, Other mcfp (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 Z79.899 [facility] [address] [id number] [address] [place] [address] [id number] Nov, [facility] [address] [id number] [address] [place] [address] [phone] Nov, [facility] [address] [id number] [address] [place] [phone] Nov, [facility] [address] [id number] [address] [place] [address] [id number] Nov, [facility] [address] [id number] [address] [place] [address] [id number] Nov, Dental examination Z01.20 [facility] [address] [facility] [id number] [address] [place] [phone] Nov, Generalized anxiety disorder F41.1 ; Depression, major, recurrent, moderate F33.1 ; Personality disorder in adult F60.9 and Other mcfp (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 therapy Z79.899 [facility] [address] [facility] [id number] [address] [place] [phone] Nov, Generalized anxiety disorder F41.1 ; Depression, major, recurrent, moderate F33.1 and Personality disorder in adult F60.9 [facility] [address] [facility] [id number] [address] [place] [phone] Aug, [facility] [address] [facility] [id number] [address] [place] [phone] Aug, Generalized anxiety disorder F41.1 ; Depression, major, recurrent, moderate F33.1 and Personality disorder in adult F60.9 [facility] [address] [facility] [id number] [address] [place] [phone] Jul, Generalized anxiety disorder F41.1 ; Depression, major, recurrent, moderate F33.1 and Personality disorder in adult F60.9 [facility] [address] [facility] [id number] [address] [place] [phone] Jun, Generalized anxiety disorder F41.1 ; Depression, major, recurrent, moderate F33.1 and Personality disorder in adult F60.9 [facility] [address] [facility] [id number] [address] [place] [phone] May, [facility] [address] [facility] [id number] [address] [place] [phone] May, Generalized anxiety disorder F41.1 ; Depression, major, recurrent, moderate F33.1 and Personality disorder in adult F60.9 [facility] [address] [facility] [id number] [address] [place] [phone] 09 May, 2017 Generalized anxiety disorder F41.1 [facility] [address] [facility] [id number] [address] [place] [phone] 18 Apr, 2017 Generalized anxiety disorder F41.1 ; Depression, major, recurrent, moderate F33.1 and Personality disorder in adult F60.[address] [place] [id number] [place] [address] [id number] 05 Apr, 2017 Dental examination Z01.20 [facility] [address] [facility] [id number] [address] [place] [phone] Mar, Generalized anxiety disorder F41.1 ; Depression, major, recurrent, moderate F33.1 and Personality disorder in adult F60.9 [facility] [address] [facility] [id number] [address] [place] [phone] Jan, Generalized anxiety disorder F41.1 ; Depression, major, recurrent, moderate F33.1 and Personality disorder in adult F60.9 [facility] [address] [facility] [id number] [address] [place] [phone] Jan, Generalized anxiety disorder F41.1 ; Depression, major, recurrent, moderate F33.1 and Personality disorder in adult F60.9 [facility] [address] [facility] [id number] [address] [place] [address] [phone] Jan, Dental examination Z01.20 [facility] [address] [facility] [id number] [address] [place] [phone] Nov, Depression, major, recurrent , moderate F33.1 ; Generalized anxiety disorder F41.1 and Personality disorder in adult F60.9 [facility] [address] [facility] [id number] [address] [place] [phone] Oct, Depression, major, recurrent , moderate F33.1 [facility] [address] [facility] [id number] [address] [place] [phone] 16 Oct, 2016 Depression, major, recurrent , moderate F33.1 and Generalized anxiety disorder F41.1 [facility] [address] [facility] [id number] [address] [place] [phone] Aug, Generalized anxiety disorder F41.1 and Depression, major, recurrent, moderate F33.1 [facility] [address] [id number] [address] [place] [phone] Aug, [facility] [address] [facility] [id number] [address] [place] [phone] Jun, Mood disorder F39 and Genera lized anxiety disorder F41.1 [facility] [address] [id number] [address] [place] [phone] May, Mood disorder F39 and Genera lized anxiety disorder F41.1 [facility] [address] [id number] [address] [place] [phone] Apr, [facility] [address] [facility] [id number] [address] [place] [phone] Apr, Mood disorder F39 [facility] [address] [id number] [address] [place] [address] [id number] Aug, Encounter for dental examina tion V72.2 and Dental examination Z01.20 [facility] [address] [id number] [address] [place] [phone] Nov, [facility] [address] [facility] [id number] [address] [place] [phone] Nov, [facility] [address] [id number] [address] [place] [phone] Jan, [facility] [address] [id number] [address] [place] [phone] Jan, [facility] [address] [id number] [address] [place] [phone] Nov, [facility] [address] [facility] [id number] [address] [place] [phone] Nov, [facility] [address] [facility] [id number] [address] [place] [phone] Nov, [facility] [address] [facility] [id number] [address] [place] [phone] Nov, [facility] [address] [facility] [id number] [address] [place] [phone] Jan, [facility] [address] [facility] [id number] [address] [place] [phone] Jan, [facility] [address] [facility] [id number] [address] [place] [phone] December, [facility] [address] [facility] [id number] [address] [place] [phone] December, [facility] [address] [facility] [id number] [address] [place] [phone] Nov, [facility] [address] [facility] [id number] [address] [place] [phone] Jul, [facility] [address] [facility] [id number] [address] [place] [phone] Mar, IMMUNIZATIONS No Known Immunizations SOCIAL HISTORY Never Assessed REASON FOR VISIT Medication question PLAN OF CARE VITAL SIGNS MEDICATIONS Unknown Medications RESULTS No Results PROCEDURES No Known procedures INSTRUCTIONS MEDICATIONS ADMINISTERED No Known Medications MEDICAL (GENERAL) HISTORY Type Description Date Medical History anemic [facility] [place] [place] mood and SI. 2011
--- OUTSIDE RECORDS SUMMARY | 2019-11-05 09:04 | XMS REPORT ---
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 Name Role Phone DIAZANGELACOURTNEY Unavailable PROBLEMS Type Condition ICD9-CM Code CLQ25-AD Code Onset Dates Condition S tatus SNOMED Code Problem Depression, major, recurrent, moderate F33.1 Active 04292986 Problem BMI 50.0-59.9, adult Z68.43 Active 572133390 Problem Generalized anxiety disorder F41.1 A ctive 44985566 Problem Mood disorder F39 Active 761446 05 Problem Iron deficiency anemia D50.9 Active 14964811 Problem Bipolar depression F31.30 Active 7 98700124 Problem Bipolar 1 disorder, depressed, moderate F31.32 Active 640750694 Problem Mixed obsessional thoughts and acts F42.2 Active 32956797 Problem Allergic sinusitis J30.9 Active 3 3494730 Problem Chronic post-traumatic stress disorder (PTSD) F43. 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 Active 54578033 ALLERGIES No Information ENCOUNTERS Encounter Location Date Diagnosis [facility] [address] [id number] [place] [address] Aug, [facility] [address] [facility] [id number] [place] [id number] Aug, [facility] [address] [facility]NOTE 3] [id number] [address] [place] [address] Jul, Non-recurrent subacute aller gic otitis media of both ears H65.113 and Folliculitis L73.9 [facility] [address] [id number] [place] [address] Jul, [facility] [address] [id number] Jul, Caries K02.9 and Dental examination Z01. 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 and Morbid obesity E66.01 [facility] [address] [address] Jul, [facility] [address] [facility]NOTE 3] [id number] [address] [address] Jun, Allergic sinusitis J30.9 [facility] [address] [id number] Jun, Caries K02.9 [facility] [address] [place] [address] Jun, [facility] [address] [address] May, [facility] [address] [id number] May, Caries K02.9 [facility] [address] [id number] May, Caries K02.9 [facility] [address] [address] May, [facility] [address] [id number] May, Dental examination Z01.20 and Caries K02 .9 [facility] [address] [place] [address] May, Bipolar 1 disorder, depressed, moderate F31.32 ; Chronic post- traumatic stress disorder (PTSD) F43.12 ; Panic disorder F41.0 ; 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 and Morbid obesity E66.01 [facility] [address] [address] 03 May, 2019 [facility] [address] [address] 30 Apr, 2019 [facility] [address] [id number] 16 Apr, 2019 Dental examination Z01.20 ; Caries K02.9 and Oral health maintenance status requiring routine preventive dental care K08.9 [facility] [address] [address] 10 Apr, 2019 Chronic post-traumatic stress disorder ( PTSD) F43.12 ; Panic disorder F41.0 ; 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 and Morbid obesity E66.01 [facility] [address] [address] Jan, [place] [address] [address] Jan, Avoidant personality disorder in adult F 60.6 ; Chronic post-traumatic stress disorder (PTSD) F43.12 ; Mixed obsessional thoughts and acts F42.2 ; Bipolar affective disorder, currently depressed, mild F31.31 and Morbid obesity E66.01 [facility] [address] [address] Jan, Bipolar depression F31.30 ; Panic disord er F41.0 ; Chronic post- traumatic stress disorder (PTSD) F43.12 ; BMI 50.0-59.9, adult Z68.43 and Morbid obesity E66.01 [facility] [address] [facility] [id number] [place] [id number] Jan, Dental examination Z01.20 and Caries K02 .9 [facility] [address] [facility] [place] [address] Jan, [facility] [address] [place] [id number] [place] [address] December, [facility] [address] [address] December, Bipolar depression F31.30 ; Chronic post -traumatic stress disorder (PTSD) F43.12 ; Mixed obsessional thoughts and acts F42.2 ; Personality disorder in adult F60.9 and Morbid obesity E66.01 [facility] [address] [id number] [place] [address] Oct, Bipolar depression F31.30 ; Chronic post -traumatic stress disorder (PTSD) F43.12 ; Mixed obsessional thoughts and acts F42.2 ; Personality disorder in adult F60.9 and Morbid obesity E66.01 [facility] [address] [place] [id number] [place] [address] Oct, [facility] [address] [place] [id number] [place] [address] Sep, [facility] [address] [place] [id number] [place] [address] Sep, [facility] [address] [place] [id number] [place] [address] Sep, [facility] [address] [place] [id number] [place] [address] Aug, Bipolar depression F31.30 ; Chronic post -traumatic stress disorder (PTSD) F43.12 ; Personality disorder in adult F60.9 ; BMI 50.0-59.9, adult Z68.43 and Mixed obsessional thoughts and acts F42.2 [facility] [address] [facility] [address]] [id number] [address] [address] Aug, URI with cough and congestio n J06.9 and BMI 50.0-59.9, adult Z68.43 [facility] [address] [facility]NOTE 3] [id number] [address] [place] [address] Aug, Sore throat J02.9 ; Viral up per respiratory tract infection J06.9 and BMI 50.0-59.9, adult Z68.43 [facility] [address] [id number] Aug, Caries K02.9 [facility] [address] [id number] Aug, Oral health maintenance status requiring routine preventive dental care K08.9 [place] [address] [address] Jul, [address] [address] Jul, [address] [address] Jul, Mood disorder F39 ; Chronic post-traumat ic stress disorder (PTSD) F43.12 ; Mixed obsessional thoughts and acts F42.2 ; Personality disorder in adult F60.9 and BMI 50.0-59.9, adult Z68.43 [facility] [address] [address] Jul, Iron deficiency anemia D50.[address] [address] Jun, Anemia D64.9 [facility] [address] [id number] Jun, Dental examination Z01.20 and Caries K02 .9 [place] [address] [address] Jun, Anemia D64.[address] [address] Jun, Dermatitis L30.9 ; Fever R50.9 and BMI 5 0.0-59.9, adult Z68.43 [place] [address] [address] Mar, Generalized anxiety disorder F41.1 ; Dep ression, major, recurrent, moderate F33.1 ; Chronic post-traumatic stress disorder (PTSD) F43.12 ; Mixed obsessional thoughts and acts F42.2 and Personality disorder in adult F60.9 [place] [address] [address] Mar, Generalized anxiety disorder F41.[address] [address] Jan, Generalized anxiety disorder F41.1 ; Dep ression, major, recurrent, moderate F33.1 ; Chronic post-traumatic stress disorder (PTSD) F43.12 ; Mixed obsessional thoughts and acts F42.2 and Personality disorder in adult F60.9 [place] [address] [address] Jan, Generalized anxiety disorder F41.1 ; Dep ression, major, recurrent, moderate F33.1 ; Chronic post-traumatic stress disorder (PTSD) F43.12 ; Mixed obsessional thoughts and acts F42.2 and Personality disorder in adult F60.9 [place] [address] [address] December, Chronic post-traumatic stress disorder ( PTSD) F43.12 ; Depression, major, recurrent, moderate F33.1 ; Generalized anxiety disorder F41.1 ; Mixed obsessional thoughts and acts F42.2 and BMI 50.0-59.9, adult Z68.43 [place] [address] [address] December, Chronic post-traumatic stress disorder ( PTSD) F43.12 ; Depression, major, recurrent, moderate F33.1 ; Generalized anxiety disorder F41.1 and BMI 50.0-59.9, adult Z68.43 [place] [address] [address] December, Generalized anxiety disorder F41.1 [facility] [address] [id number] December, Dental caries K02.9 and Dental examinati on Z01.20 [facility] [address] [address] December, Generalized anxiety disorder F41.1 and 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 joint terminal attack controller (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 therapy Z79.899 [facility] [address] [address] Nov, Other jail (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 therapy Z 79.899 [facility] [address] [id number] Nov, [facility] [address] [id number] Nov, [facility] [address] [address] Nov, [facility] [address] [id number] Nov, [facility] [address] [id number] Nov, Dental examination Z01.20 [facility] [address] [address] Nov, Generalized anxiety disorder F41.1 ; Dep ression, major, recurrent, moderate F33.1 ; Personality disorder in adult F60.9 and Other joint terminal attack controller (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 therapy Z79.899 [facility] [address] [address] Nov, Generalized anxiety disorder F41.1 ; Dep ression, major, recurrent, moderate F33.1 and Personality disorder in adult F60.9 [facility] [address] [address] Aug, [facility] [address] [address] Aug, Generalized anxiety disorder F41.1 ; Dep ression, major, recurrent, moderate F33.1 and Personality disorder in adult F60.9 [place] [address] [address] Jul, Generalized anxiety disorder F41.1 ; Dep ression, major, recurrent, moderate F33.1 and Personality disorder in adult F60.9 [place] [address] [address] Jun, Generalized anxiety disorder F41.1 ; Dep ression, major, recurrent, moderate F33.1 and Personality disorder in adult F60.9 [place] [address] [address] May, [address] [address] May, Generalized anxiety disorder F41.1 ; Dep ression, major, recurrent, moderate F33.1 and Personality disorder in adult F60.9 [place] [address] [address] May, Generalized anxiety disorder F41.[address] [address] Apr, Generalized anxiety disorder F41.1 ; Dep ression, major, recurrent, moderate F33.1 and Personality disorder in adult F60.[address] [place] [id number] 05 Apr, 2017 Dental examination Z01.[address] [address] Mar, Generalized anxiety disorder F41.1 ; Dep ression, major, recurrent, moderate F33.1 and Personality disorder in adult F60.[address] [address] Jan, Generalized anxiety disorder F41.1 ; Dep ression, major, recurrent, moderate F33.1 and Personality disorder in adult F60.9 [facility] [address] [address] Jan, Generalized anxiety disorder F41.1 ; Dep ression, major, recurrent, moderate F33.1 and Personality disorder in adult F60.9 [facility] [address] [id number] Jan, Dental examination Z01.20 [facility] [address] [address] Nov, Depression, major, recurrent, moderate F 33.1 ; Generalized anxiety disorder F41.1 and Personality disorder in adult F60.9 [facility] [address] [address] Oct, Depression, major, recurrent, moderate F 33.1 [facility] [address] [address] Oct, Depression, major, recurrent, moderate F 33.1 and Generalized anxiety disorder F41.1 [facility] [address] [address] Aug, Generalized anxiety disorder F41.1 and D epression, major, recurrent, moderate F33.1 [facility] [address] [address] Aug, [facility] [address] [address] Jun, Mood disorder F39 and Generalized anxiet y disorder F41.1 [facility] [address] [address] May, Mood disorder F39 and Generalized anxiet y disorder F41.1 [facility] [address] [address] Apr, [facility] [address] [address] Apr, Mood disorder F39 [facility] [address] [id number] Aug, Encounter for dental examination V72.2 a nd Dental examination Z01.20 [facility] [address] [place] [id number] [place] [address] 14 Nov, 2014 [facility] [address] [facility] [place] [address] Nov, [facility] [address] [place] [id number] [place] [address] Jan, [facility] [address] [place] [id number] [place] [address] Jan, [facility] [address] [place] [id number] [place] [address] Nov, [facility] [address] [place] [id number] [place] [address] Nov, [facility] [address] [place] [id number] [place] [address] Nov, [facility] [address] [place] [id number] [place] [address] Nov, [facility] [address] [facility] [place] [address] Jan, [facility] [address] [place] [id number] [place] [address] Jan, [facility] [address] [place] [id number] [place] [address] December, [facility] [address] [place] [id number] [place] [address] December, [facility] [address] [id number] [place] [address] Nov, [facility] [address] [place] [id number] [place] [address] Jul, [facility] [address] [id number] [place] [address] Mar, IMMUNIZATIONS No Known Immunizations SOCIAL HISTORY Never Assessed REASON FOR VISIT PLAN OF CARE VITAL SIGNS Height 68 in 2014-02-22 Weight 331 lbs 2014-02-22 Temperature 98.5 degrees Fahrenheit 2014-02-22 Heart Rate 99 bpm 2014-02-22 Respiratory Rate 22 2014-02-22 Blood pressure systolic 146 mmHg 2014-02-22 Blood pressure diastolic 86 mmHg 2014-02-22 MEDICATIONS Unknown Medications RESULTS No Results PROCEDURES Procedure Date Ordered Result Body Site MEASURE BLOOD OXYGEN LEVEL February 22, 2014 INSTRUCTIONS MEDICATIONS ADMINISTERED No Known Medications MEDICAL [...] adult Surgical History Gallbladder removed Hospitalization History [facility] [place], [place]. Admitted for depressed mood and SI. 2011
--- OUTSIDE RECORDS SUMMARY | 2019-11-05 09:04 | XMS REPORT ---
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 12 Active [id number] ALLERGIES No Information ENCOUNTERS Encounter Location Date Diagnosis [facility] [address] [id number] [place] [phone] Aug, [facility] [address] [id number] [address] [place] [phone] Jul, Mood disorder F39 ; Chronic post-traumatic stress disorder (PTSD) F43.12 ; Mixed obsessional thoughts and acts F42.2 ; Personality disorder in adult F60.9 and BMI 50.0-59.9, adult Z68.43 [facility] [address] [facility] [id number] [address] [place] [phone] Jul, Iron deficiency anemia D50.9 [facility] [address] [id number] [address] [place] [phone] Jun, Anemia D64.9 [facility] [address] [facility] [id number] [address] [place] [address] [id number] 28 Nov, 2018 Dental examination Z01.20 an d Caries K02.9 [place] [address] [id number] [address] [place] [address] Jun, Anemia D64.9 [place] [address] [address] Jun, Dermatitis L30.9 ; Fever R50 .9 and BMI 50.0-59.9, adult Z68.43 [place] [address] [address] Mar, Generalized anxiety disorder F41.1 ; Depression, major, recurrent, moderate F33.1 ; Chronic post-traumatic stress disorder (PTSD) F43.12 ; Mixed obsessional thoughts and acts F42.2 and Personality disorder in adult F60.9 [place] [address] [address] Mar, Generalized anxiety disorder F41.1 [place] [address] [id number] Jan, Generalized anxiety disorder F41.1 ; Depression, major, recurrent, moderate F33.1 ; Chronic post-traumatic stress disorder (PTSD) F43.12 ; Mixed obsessional thoughts and acts F42.2 and Personality disorder in adult F60.9 [place] [address] [id number] [place] [phone] Jan, Generalized anxiety disorder F41.1 ; Depression, major, recurrent, moderate F33.1 ; Chronic post-traumatic stress disorder (PTSD) F43.12 ; Mixed obsessional thoughts and acts F42.2 and Personality disorder in adult F60.9 [place] [address] [address] December, Chronic post-traumatic stres s disorder (PTSD) F43.12 ; Depression, major, recurrent, moderate F33.1 ; Generalized anxiety disorder F41.1 ; Mixed obsessional thoughts and acts F42.2 and BMI 50.0-59.9, adult Z68.43 [place] [address] [place] [address] December, Chronic post-traumatic stres s disorder (PTSD) F43.12 ; Depression, major, recurrent, moderate F33.1 ; Generalized anxiety disorder F41.1 and BMI 50.0-59.9, adult Z68.43 [facility] [address] [id number] [address] [place] [phone] December, Generalized anxiety disorder F41.1 [facility] [address] [id number] [address] [place] [id number] December, Dental caries K02.9 and Weber al examination Z01.20 [facility] [address] [id number] [address] [place] [phone] December, Generalized anxiety disorder F41.1 and Other terminal 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 (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 therapy Z79.899 [facility] [address] [id number] [address] [place] [address] Nov, Other terminal 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 (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 Z79.899 [facility] [address] [id number] [address] [place] [address] [id number] Nov, [facility] [address] [id number] [address] [place] [id number] Nov, [facility] [address] [id number] [address] [place] [phone] Nov, [facility] [address] [id number] [address] [place] [id number] Nov, [facility] [address] [id number] [address] [place] [address] [id number] Nov, Dental examination Z01.20 [facility] [address] [id number] [address] [place] [phone] Nov, Generalized anxiety disorder F41.1 ; Depression, major, recurrent, moderate F33.1 ; Personality disorder in adult F60.9 and Other snf (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 therapy Z79.899 [facility] [address] [facility] [id number] [address] [place] [phone] Nov, Generalized anxiety disorder F41.1 ; Depression, major, recurrent, moderate F33.1 and Personality disorder in adult F60.9 [facility] [address] [facility] [id number] [address] [place] [phone] Aug, [facility] [address] [facility] [id number] [address] [place] [phone] Aug, Generalized anxiety disorder F41.1 ; Depression, major, recurrent, moderate F33.1 and Personality disorder in adult F60.9 [place] [address] [facility] [id number] [address] [place] [phone] Jul, Generalized anxiety disorder F41.1 ; Depression, major, recurrent, moderate F33.1 and Personality disorder in adult F60.9 [place] [address] [id number] [place] [phone] Jun, Generalized anxiety disorder F41.1 ; Depression, major, recurrent, moderate F33.1 and Personality disorder in adult F60.9 [facility] [address] [facility] [id number] [address] [place] [phone] May, [place] [address] [facility] [id number] [address] [place] [phone] May, Generalized anxiety disorder F41.1 ; Depression, major, recurrent, moderate F33.1 and Personality disorder in adult F60.9 [facility] [address] [facility] [id number] [address] [place] [address] May, Generalized anxiety disorder F41.1 [facility] [address] [facility] [id number] [address] [place] [phone] 18 Apr, 2017 Generalized anxiety disorder F41.1 ; Depression, major, recurrent, moderate F33.1 and Personality disorder in adult F60.9 [place] [id number] [id number] [place] [address] [id number] 05 Apr, 2017 Dental examination Z01.20 [facility] [address] [id number] [address] [place] [phone] Mar, Generalized anxiety disorder F41.1 ; Depression, major, recurrent, moderate F33.1 and Personality disorder in adult F60.9 [facility] [address] [id number] [address] [place] [phone] Jan, Generalized anxiety disorder F41.1 ; Depression, major, recurrent, moderate F33.1 and Personality disorder in adult F60.9 [facility] [address] [id number] [address] [place] [phone] Jan, Generalized anxiety disorder F41.1 ; Depression, major, recurrent, moderate F33.1 and Personality disorder in adult F60.9 [facility] [address] [id number] [address] [place] [address] [id number] Jan, Dental examination Z01.20 [facility] [id number] [address] [place] [phone] Nov, Depression, major, recurrent , moderate F33.1 ; Generalized anxiety disorder F41.1 and Personality disorder in adult F60.9 [facility] [address] [place] [phone] Oct, Depression, major, recurrent , moderate F33.1 [facility] [address] [id number] [address] [place] [phone] Oct, Depression, major, recurrent , moderate F33.1 and Generalized anxiety disorder F41.1 [facility] [address] [id number] [address] [place] [phone] Aug, Generalized anxiety disorder F41.1 and Depression, major, recurrent, moderate F33.1 [facility] [id number] [place] [phone] Aug, [facility] [address] [id number] [address] [place] [phone] Jun, Mood disorder F39 and Genera lized anxiety disorder F41.1 [facility] [id number] [address] [place] [phone] 18 May, 2016 Mood disorder F39 and Genera lized anxiety disorder F41.1 [facility] [address] [id number] [address] [place] [phone] Apr, [facility] [address] [id number] [address] [place] [phone] 06 Apr, 2016 Mood disorder F39 [facility] [address] [id number] [address] [place] [address] [id number] Aug, Encounter for dental examina tion V72.2 and Dental examination Z01.20 [facility] [address] [id number] [address] [place] [phone] 14 Nov, 2014 [facility] [address] [id number] [address] [place] [phone] Nov, [facility] [address] [id number] [address] [place] [id number] Jan, [facility] [address] [id number] [address] [place] [phone] Jan, [facility] [address] [id number] [address] [place] [phone] Nov, [facility] [address] [id number] [address] [place] [phone] Nov, [facility] [address] [id number] [address] [place] [phone] Nov, [facility] [address] [id number] [address] [place] [phone] Nov, [facility] [address] [id number] [address] [place] [phone] Jan, [facility] [address] [id number] [address] [place] [phone] Jan, [facility] [address] [id number] [address] [place] [phone] December, [facility] [address] [facility] [id number] [address] [place] [address] December, [facility] [address] [facility] [id number] [address] [place] [phone] Nov, [facility] [address] [facility] [id number] [address] [place] [phone] Jul, [facility] [address] [facility] [id number] [address] [place] [phone] Mar, IMMUNIZATIONS No Known Immunizations SOCIAL HISTORY Never Assessed REASON FOR VISIT PLAN OF CARE VITAL SIGNS MEDICATIONS Medication Instructions Dosage Frequency Start Date End Date Duration S tatus Polysaccharide Iron Complex 150 MG Orally Once a day 1 capsule 24h Jul, 30 day(s) Active RESULTS No Results PROCEDURES No Known procedures INSTRUCTIONS MEDICATIONS ADMINISTERED No Known Medications MEDICAL (GENERAL) HISTORY Type Description Date Medical History anemic Surgical History [facility]bl[facility] [place] [place]
--- OUTSIDE RECORDS SUMMARY | 2019-11-05 09:04 | XMS REPORT ---
Author Author Don Hammondee Doctor Organization [facility] Address Unknown Phone Unavailable Care Team Providers Care Heat Treat Technician Name Role Phone Migration, Doctor Unavailable Unavailable PROBLEMS Type Condition ICD9-CM Code NVL49-CB Code Onset Dates Condition S tatus SNOMED Code Problem Generalized anxiety disorder F41.1 A ctive 96438679 Problem BMI 50.0-59.9, adult Z68.43 Active 930212966 Problem Chronic post-traumatic stress disorder (PTSD) F43. 12 Active 906512358 Problem Bipolar depression F31.30 Active 7 38932064 Problem Depression, major, recurrent, moderate F33.1 Active 02099141 Problem Morbid obesity E66.01 Active 95905 6002 Problem Personality disorder in adult F60.9 Active 13242020 Problem Mixed obsessional thoughts and acts F42.2 Active 89183676 Problem Mood disorder F39 Active 592100 05 Problem Iron deficiency anemia D50.9 Active 41772679 Problem Bipolar affective disorder, currently depressed, mild F31.31 Active [id number] ALLERGIES No Information ENCOUNTERS Encounter Location Date Diagnosis [facility] [address] [facility] [id number] [address] [place] [phone] Nov, [facility] [address] [facility] [id number] [address] [place] [phone] Oct, Bipolar depression F31.30 ; Chronic post-traumatic stress disorder (PTSD) F43.12 ; Mixed obsessional thoughts and acts F42.2 ; Personality disorder in adult F60.9 and Morbid obesity E66.01 [facility] [address] [facility] [id number] [address] [place] [phone] Oct, [facility] [address] [place] [id number] [address] [place] [phone] Sep, [facility] [address] [facility] [id number] [address] [place] [phone] Sep, [facility] [address] [facility] [id number] [address] [place] [phone] Sep, [facility] [address] [facility] [id number] [address] [place] [phone] Aug, Bipolar depression F31.30 ; Chronic post-traumatic stress disorder (PTSD) F43.12 ; Personality disorder in adult F60.9 ; BMI 50.0-59.9, adult Z68.43 and Mixed obsessional thoughts and acts F42.2 [facility] [address] [facility] [id number] [address] [place] [phone] Aug, URI with cough and congestio n J06.9 and BMI 50.0-59.9, adult Z68.43 [facility] [address] [facility] [id number] [address] [place] [phone] Aug, Sore throat J02.9 ; Viral up per respiratory tract infection J06.9 and BMI 50.0-59.9, adult Z68.43 [facility] [address] [place] [id number] [address] [place] [address] [phone] Aug, Caries K02.9 [facility] [address] [place] [address] [id number] [address] [place] [address] [phone] Aug, 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 care K08.9 [facility] [address] [facility] [id number] [address] [place] [phone] Jul, [facility] [address] [place] [id number] [address] [place] [phone] Jul, [facility] [address] [facility] [id number] [address] [place] [phone] Jul, Mood disorder F39 ; Chronic post-traumatic stress disorder (PTSD) F43.12 ; Mixed obsessional thoughts and acts F42.2 ; Personality disorder in adult F60.9 and BMI 50.0-59.9, adult Z68.43 [facility] [address] [place] [id number] [address] [place] [phone] Jul, Iron deficiency anemia D50.9 [facility] [address] [facility] [id number] [address] [place] [phone] Jun, Anemia D64.9 [facility] [address] [facility] [id number] [address] [place] [address] [phone] Jun, Dental examination Z01.20 an d Caries K02.9 [facility] [address] [facility] [id number] [address] [place] [phone] Jun, Anemia D64.9 [facility] [address] [facility] [id number] [address] [place] [phone] Jun, Dermatitis L30.9 ; Fever R50 .9 and BMI 50.0-59.9, adult Z68.43 [place] [address] [place] [id number] [address] [place] [phone] Mar, Generalized anxiety disorder F41.1 ; Depression, major, recurrent, moderate F33.1 ; Chronic post-traumatic stress disorder (PTSD) F43.12 ; Mixed obsessional thoughts and acts F42.2 and Personality disorder in adult F60.9 [facility] [address] [place] [id number] [address] [place] [phone] Mar, Generalized anxiety disorder F41.1 [place] [id number] [place] [id number] [address] [place] [phone] Jan, Generalized anxiety disorder F41.1 ; Depression, major, recurrent, moderate F33.1 ; Chronic post-traumatic stress disorder (PTSD) F43.12 ; Mixed obsessional thoughts and acts F42.2 and Personality disorder in adult F60.9 [facility] [address] [facility] [id number] [address] [place] [phone] Jan, Generalized anxiety disorder F41.1 ; Depression, major, recurrent, moderate F33.1 ; Chronic post-traumatic stress disorder (PTSD) F43.12 ; Mixed obsessional thoughts and acts F42.2 and Personality disorder in adult F60.9 [facility] [address] [place] [id number] [address] [place] [phone] December, Chronic post-traumatic stres s disorder (PTSD) F43.12 ; Depression, major, recurrent, moderate F33.1 ; Generalized anxiety disorder F41.1 ; Mixed obsessional thoughts and acts F42.2 and BMI 50.0-59.9, adult Z68.43 [facility] [address] [place] [id number] [place] [phone] December, Chronic post-traumatic stres s disorder (PTSD) F43.12 ; Depression, major, recurrent, moderate F33.1 ; Generalized anxiety disorder F41.1 and BMI 50.0-59.9, adult Z68.43 [facility] [address] [place] [id number] [place] [phone] December, Generalized anxiety disorder F41.1 [facility] [address] [id number] [place] [address] [phone] December, Dental caries K02.9 and Dunlap al examination Z01.20 [facility] [address] [id number] [address] [place] [phone] December, Generalized anxiety disorder F41.1 and Other senior care (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 therapy Z79.899 [facility] [address] [place] [id number] [place] [phone] Nov, 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 Z79.899 [facility] [address] [id number] [address] [place] [address] [phone] Nov, [facility] [address] [id number] [address] [place] [address] [phone] Nov, [facility] [address] [id number] [address] [place] [phone] Nov, [facility] [address] [id number] [address] [place] [address] [phone] Nov, [facility] [address] [id number] [address] [place] [address] [phone] Nov, Dental examination Z01.20 [facility] [address] [id number] [address] [place] [phone] Nov, Generalized anxiety disorder F41.1 ; Depression, major, recurrent, moderate F33.1 ; Personality disorder in adult F60.9 and Other senior care (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 therapy Z79.899 [facility] [address] [facility] [id number] [address] [place] [phone] 06 Nov, 2017 Generalized anxiety disorder F41.1 ; Depression, major, recurrent, moderate F33.1 and Personality disorder in adult F60.9 [facility] [address] [id number] [address] [place] [phone] Aug, [facility] [address] [facility] [id number] [address] [place] [phone] Aug, Generalized anxiety disorder F41.1 ; Depression, major, recurrent, moderate F33.1 and Personality disorder in adult F60.9 [facility] [address] [facility] [id number] [address] [place] [phone] Jul, Generalized anxiety disorder F41.1 ; Depression, major, recurrent, moderate F33.1 and Personality disorder in adult F60.9 [facility] [address] [facility] [id number] [address] [place] [phone] Jun, Generalized anxiety disorder F41.1 ; Depression, major, recurrent, moderate F33.1 and Personality disorder in adult F60.9 [facility] [address] [facility] [id number] [address] [place] [phone] May, [facility] [address] [facility] [id number] [address] [place] [phone] May, Generalized anxiety disorder F41.1 ; Depression, major, recurrent, moderate F33.1 and Personality disorder in adult F60.9 [facility] [address] [facility] [id number] [address] [place] [phone] 09 May, 2017 Generalized anxiety disorder F41.1 [facility] [address] [facility] [id number] [address] [place] [phone] Apr, Generalized anxiety disorder F41.1 ; Depression, major, recurrent, moderate F33.1 and Personality disorder in adult F60.9 [facility] AMANDA [place] [facility] [id number] [place] [address] [id number] 05 Apr, 2017 Dental examination Z01.20 [facility] [address] [facility] [id number] [address] [place] [phone] Mar, Generalized anxiety disorder F41.1 ; Depression, major, recurrent, moderate F33.1 and Personality disorder in adult F60.9 [facility] [address] [facility] [id number] [address] [place] [phone] Jan, Generalized anxiety disorder F41.1 ; Depression, major, recurrent, moderate F33.1 and Personality disorder in adult F60.9 [facility] [address] [facility] [id number] [address] [place] [phone] Jan, Generalized anxiety disorder F41.1 ; Depression, major, recurrent, moderate F33.1 and Personality disorder in adult F60.9 [facility] [address] [id number] [address] [place] [address] [phone] Jan, Dental examination Z01.20 [facility] [address] [facility] [id number] [address] [place] [phone] Nov, Depression, major, recurrent , moderate F33.1 ; Generalized anxiety disorder F41.1 and Personality disorder in adult F60.9 [facility] [address] [facility] [id number] [address] [place] [phone] Oct, Depression, major, recurrent , moderate F33.1 [facility] [address] [facility] [id number] [address] [place] [phone] Oct, Depression, major, recurrent , moderate F33.1 and Generalized anxiety disorder F41.1 [facility] [address] [facility] [id number] [address] [place] [phone] Aug, Generalized anxiety disorder F41.1 and Depression, major, recurrent, moderate F33.1 [facility] [address] [id number] [address] [place] [phone] Aug, [facility] [address] [id number] [address] [place] [phone] Jun, Mood disorder F39 and Genera lized anxiety disorder F41.1 [facility] [address] [id number] [address] [place] [phone] May, Mood disorder F39 and Genera lized anxiety disorder F41.1 [facility] [address] [id number] [address] [place] [phone] Apr, [facility] [address] [id number] [address] [place] [phone] Apr, Mood disorder F39 [facility] [address] [id number] [address] [place] [address] [phone] Aug, Encounter for dental examina tion V72.2 and Dental examination Z01.20 [facility] [address] [id number] [address] [place] [phone] Nov, [facility] [address] [id number] [address] [place] [phone] Nov, [facility] [address] [id number] [address] [place] [phone] Jan, [facility] [address] [id number] [address] [place] [phone] Jan, [facility] [address] [id number] [address] [place] [phone] Nov, [facility] [address] [id number] [address] [place] [phone] Nov, [facility] [address] [id number] [address] [place] [phone] Nov, [facility] [address] [id number] [address] [place] [phone] Nov, [facility] [address] [id number] [address] [place] [phone] Jan, [facility] [address] [id number] [address] [place] [phone] Jan, [facility] [address] [id number] [address] [place] [phone] December, [facility] [address] [id number] [address] [place] [phone] December, [facility] [address] [id number] [address] [place] [phone] Nov, [facility] [address] [id number] [address] [place] [phone] Jul, [facility] [address] [id number] [address] [place] [phone] Mar, IMMUNIZATIONS No Known Immunizations SOCIAL HISTORY Never Assessed REASON FOR VISIT [facility] [place] VITAL SIGNS MEDICATIONS Medication Instructions Dosage Frequency Start Date End Date Duration S tatus Zithromax Z-Jose 250 mg 2 tablet by Oral route 1 time per day for 1 days then take 1 tab daily on days 2-5 Jan, Active Metoprolol Succinate 50 mg 1 tablet by Oral route 1 ti me per day Jan, Active Flonase 50 mcg/actuation 1 sprays by Brian al route 2 times per day in each nostril Nov, Active Loratadine 10 mg take 1 tablet by Oral route 1 time pe r day take at hs Nov, Active PredniSONE 20 mg 3 tablet by Oral route 1 time per day for 5 day(s) Nov, Active RESULTS No Results PROCEDURES No Known procedures INSTRUCTIONS MEDICATIONS ADMINISTERED No Known Medications MEDICAL (GENERAL) HISTORY Type Description Date Medical History anemic Surgical History Gallbladder removed [facility] [place] Admitted for depressed mood and SI. 2011
--- OUTSIDE RECORDS SUMMARY | 2019-11-05 09:04 | XMS REPORT ---
Author Author Bibi Hammond Doctor Organization [facility] Address Unknown Phone Unavailable Care Team Providers Care Traverse Rod Assembler Name Role Phone Migration, Doctor Unavailable Unavailable PROBLEMS Type Condition ICD9-CM Code AFR02-SM Code Onset Dates Condition S tatus SNOMED Code Problem Generalized anxiety disorder F41.1 A ctive 48071883 Problem BMI 50.0-59.9, adult Z68.43 Active 553246544 Problem Chronic post-traumatic stress disorder (PTSD) F43. 12 Active 336356494 Problem Bipolar depression F31.30 Active 7 96871524 Problem Depression, major, recurrent, moderate F33.1 Active 67958824 Problem Morbid obesity E66.01 Active 99743 6002 Problem Personality disorder in adult F60.9 Active 14712442 Problem Mixed obsessional thoughts and acts F42.2 Active 92554870 Problem Mood disorder F39 Active 212214 05 Problem Iron deficiency anemia D50.9 Active 21361469 Problem Bipolar affective disorder, currently depressed, mild F31.31 Active [id number] ALLERGIES No Information ENCOUNTERS Encounter Location Date Diagnosis [facility], [place] [address] [facility] [id number] [address] [place] [phone] Jan, [facility], [place] [address] [place] [id number] [address] [place] [phone] December, [facility] [place] [address] [id number] [address] [place] [phone] December, Bipolar depression F31.30 ; Chronic post-traumatic stress disorder (PTSD) F43.12 ; Mixed obsessional thoughts and acts F42.2 ; Personality disorder in adult F60.9 and Morbid obesity E66.01 [facility] [place] [address] [facility] [id number] [address] [place] [phone] Oct, Bipolar depression F31.30 ; Chronic post-traumatic stress disorder (PTSD) F43.12 ; Mixed obsessional thoughts and acts F42.2 ; Personality disorder in adult F60.9 and Morbid obesity E66.01 [facility] [place] [address] [facility] [id number] [address] [place] [phone] Oct, [facility] [place] [address] [facility] [id number] [address] [place] [phone] Sep, [facility] [place] [address] [facility] [id number] [address] [place] [phone] Sep, [facility] [place] [address] [phone] Sep, [facility] [place] [address] [place] [id number] [place] [phone] Aug, Bipolar depression F31.30 ; Chronic post-traumatic stress disorder (PTSD) F43.12 ; Personality disorder in adult F60.9 ; BMI 50.0-59.9, adult Z68.43 and Mixed obsessional thoughts and acts F42.2 [facility] [address] [address] Aug, URI with cough and congestio n J06.9 and BMI 50.0-59.9, adult Z68.43 [facility] [address] [id number] [address] [place] [phone] 14 Aug, 2018 Sore throat J02.9 ; Viral up per respiratory tract infection J06.9 and BMI 50.0-59.9, adult Z68.43 [facility] [address] [facility] [id number] [address] [place] [address] [phone] Aug, Caries K02.9 [facility] [address] [id number] [address] [place] [address] [phone] Aug, 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 care K08.9 [facility] [place] [address] [id number] [address] [place] [phone] Jul, [facility], [place] [address] [id number] [address] [place] [phone] Jul, [facility] [place] [address] [id number] [address] [place] [id number] Jul, Mood disorder F39 ; Chronic post-traumatic stress disorder (PTSD) F43.12 ; Mixed obsessional thoughts and acts F42.2 ; Personality disorder in adult F60.9 and BMI 50.0-59.9, adult Z68.43 [facility], [place] [id number] [place] [phone] Jul, Iron deficiency anemia D50.9 [facility] [place] [address] [id number] [address] [place] [phone] Jun, Anemia D64.9 [facility] [address] [id number] [place] [phone] Jun, Dental examination Z01.20 an d Caries K02.9 [place] [address] [address] [id number] [address] [place] [phone] Jun, Anemia D64.9 [facility] [place] [address] [id number] [address] [place] [phone] Jun, Dermatitis L30.9 ; Fever R50 .9 and BMI 50.0-59.9, adult Z68.43 [facility] [place] [address] [id number] [address] [place] [phone] Mar, Generalized anxiety disorder F41.1 ; Depression, major, recurrent, moderate F33.1 ; Chronic post-traumatic stress disorder (PTSD) F43.12 ; Mixed obsessional thoughts and acts F42.2 and Personality disorder in adult F60.9 [facility] [place] [address] [id number] [address] [place] [phone] Mar, Generalized anxiety disorder F41.1 [place] [address] [place] [id number] [address] [place] [phone] Jan, Generalized anxiety disorder F41.1 ; Depression, major, recurrent, moderate F33.1 ; Chronic post-traumatic stress disorder (PTSD) F43.12 ; Mixed obsessional thoughts and acts F42.2 and Personality disorder in adult F60.9 [facility] [place] [address] [facility] [id number] [address] [place] [phone] Jan, Generalized anxiety disorder F41.1 ; Depression, major, recurrent, moderate F33.1 ; Chronic post-traumatic stress disorder (PTSD) F43.12 ; Mixed obsessional thoughts and acts F42.2 and Personality disorder in adult F60.9 [facility] [place] [address] [facility] [id number] [address] [place] [phone] December, Chronic post-traumatic stres s disorder (PTSD) F43.12 ; Depression, major, recurrent, moderate F33.1 ; Generalized anxiety disorder F41.1 ; Mixed obsessional thoughts and acts F42.2 and BMI 50.0-59.9, adult Z68.43 [place] [address] [place] [id number] [place] [phone] December, Chronic post-traumatic stres s disorder (PTSD) F43.12 ; Depression, major, recurrent, moderate F33.1 ; Generalized anxiety disorder F41.1 and BMI 50.0-59.9, adult Z68.43 [facility] [place] [address] [id number] [address] [place] [phone] December, Generalized anxiety disorder F41.1 [facility] [address] [id number] [address] [place] [address] [phone] December, Dental caries K02.9 and Geary al examination Z01.20 [facility] [place] [address] [facility] [id number] [address] [place] [phone] December, Generalized anxiety disorder F41.1 and 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.899 [facility] [place] [address] [facility] [id number] [address] [place] [phone] Nov, 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 Z79.899 [facility] [address] [id number] [address] [place] [address] [phone] Nov, [facility] [address] [id number] [address] [place] [address] [id number] Nov, [facility] [place] [address] [id number] [address] [place] [phone] Nov, [facility] [address] [id number] [address] [place] [address] [id number] Nov, [facility] [address] [id number] [address] [place] [address] [phone] Nov, Dental examination Z01.20 [facility] [place] [address] [id number] [address] [place] [phone] Nov, Generalized anxiety disorder F41.1 ; Depression, major, recurrent, moderate F33.1 ; Personality disorder in adult F60.9 and Other long-term (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 therapy Z79.899 [facility] [place] [address] [facility] [id number] [address] [place] [phone] Nov, Generalized anxiety disorder F41.1 ; Depression, major, recurrent, moderate F33.1 and Personality disorder in adult F60.9 [facility] [place] [address] [facility] [id number] [address] [place] [phone] Aug, [facility] [place] [address] [facility] [id number] [address] [place] [phone] Aug, Generalized anxiety disorder F41.1 ; Depression, major, recurrent, moderate F33.1 and Personality disorder in adult F60.9 [facility] [place] [address] [facility] [id number] [address] [place] [phone] Jul, Generalized anxiety disorder F41.1 ; Depression, major, recurrent, moderate F33.1 and Personality disorder in adult F60.9 [facility] [place] [address] [facility] [id number] [address] [place] [phone] Jun, Generalized anxiety disorder F41.1 ; Depression, major, recurrent, moderate F33.1 and Personality disorder in adult F60.9 [facility] [place] [address] [facility] [id number] [address] [place] [phone] May, [facility] [place] [address] [facility] [id number] [address] [place] [phone] 16 May, 2017 Generalized anxiety disorder F41.1 ; Depression, major, recurrent, moderate F33.1 and Personality disorder in adult F60.9 [facility] [place] [address] [facility] [id number] [address] [place] [phone] 09 May, 2017 Generalized anxiety disorder F41.1 [facility] [place] [address] [facility] [id number] [address] [place] [phone] 18 Apr, 2017 Generalized anxiety disorder F41.1 ; Depression, major, recurrent, moderate F33.1 and Personality disorder in adult F60.[id number] [place] [id number] 05 Apr, 2017 Dental examination Z01.20 [facility] [place] [address] [facility] [id number] [address] [place] [phone] Mar, Generalized anxiety disorder F41.1 ; Depression, major, recurrent, moderate F33.1 and Personality disorder in adult F60.9 [facility] [place] [address] [facility] [id number] [address] [place] [phone] Jan, Generalized anxiety disorder F41.1 ; Depression, major, recurrent, moderate F33.1 and Personality disorder in adult F60.9 [facility] [place] [address] [facility] [id number] [address] [place] [phone] Jan, Generalized anxiety disorder F41.1 ; Depression, major, recurrent, moderate F33.1 and Personality disorder in adult F60.9 [facility] [address] [id number] [address] [place] [address] [phone] Jan, Dental examination Z01.20 [facility] [place] [address] [facility] [id number] [address] [place] [phone] Nov, Depression, major, recurrent , moderate F33.1 ; Generalized anxiety disorder F41.1 and Personality disorder in adult F60.9 [facility] [place] [address] [id number] [address] [place] [phone] Oct, Depression, major, recurrent , moderate F33.1 [facility] [place] [address] [id number] [address] [place] [phone] Oct, Depression, major, recurrent , moderate F33.1 and Generalized anxiety disorder F41.1 [facility] [place] [address] [id number] [address] [place] [phone] Aug, Generalized anxiety disorder F41.1 and Depression, major, recurrent, moderate F33.1 [facility] [place] [address] [id number] [address] [place] [phone] Aug, [facility] [place] [address] [id number] [address] [place] [phone] Jun, Mood disorder F39 and Genera lized anxiety disorder F41.1 [facility] [place] [address] [id number] [address] [place] [phone] May, Mood disorder F39 and Genera lized anxiety disorder F41.1 [facility] [place] [address] [id number] [address] [place] [phone] Apr, [facility] [place] [address] [id number] [address] [place] [phone] Apr, Mood disorder F39 [facility] [address] [id number] [address] [place] [address] [id number] Aug, Encounter for dental examina tion V72.2 and Dental examination Z01.20 [facility] [place] [address] [id number] [address] [place] [phone] Nov, [facility] [place] [address] [id number] [address] [place] [phone] Nov, [facility] [place] [address] [id number] [address] [place] [phone] Jan, [facility] [place] [address] [id number] [address] [place] [phone] Jan, [facility] [place] [address] [id number] [address] [place] [phone] Nov, [facility] [place] [address] [id number] [address] [place] [phone] Nov, [facility] [place] [address] [id number] [address] [place] [phone] Nov, [facility] [place] [address] [id number] [address] [place] [phone] Nov, [facility] [place] [address] [id number] [address] [place] [phone] Jan, [facility] [place] [address] [id number] [address] [place] [phone] Jan, [facility] [place] [address] [id number] [address] [place] [phone] December, [facility] [place] [address] [id number] [address] [place] [phone] December, [facility] [place] [address] [id number] [address] [place] [phone] Nov, [facility] [place] [address] [id number] [address] [place] [phone] Jul, [facility] [place] [address] [id number] [address] [place] [phone] Mar, IMMUNIZATIONS No Known Immunizations SOCIAL HISTORY Never Assessed REASON FOR VISIT EMR-[facility] PLAN OF CARE VITAL SIGNS MEDICATIONS Unknown Medications RESULTS No Results PROCEDURES No Known procedures INSTRUCTIONS MEDICATIONS ADMINISTERED No Known Medications MEDICAL (GENERAL) HISTORY Type Description Date Medical History anemic Surgical History [facility] [place] [place] [facility] mood and SI. [facility]
--- OUTSIDE RECORDS SUMMARY | 2019-11-05 09:04 | XMS REPORT ---
Author Author Bibi VICENTE Organization [facility] Address Unknown Care Team Providers Care Rouge Mixer Name Role Phone CRYSTAL VICENTE Unavailable PROBLEMS Type Condition ICD9-CM Code NEO10-CE Code Onset Dates Condition S tatus SNOMED Code Problem Generalized anxiety disorder F41.1 A ctive 19552581 Problem Depression, major, recurrent, moderate F33.1 Active 61264949 Problem Iron deficiency anemia D50.9 Active 53478205 Problem Mood disorder F39 Active 495212 05 Problem BMI 50.0-59.9, adult Z68.43 Active 471240414 Problem Personality disorder in adult F60.9 Active 56251439 Problem Mixed obsessional thoughts and acts F42.2 Active 79476474 Problem Chronic post-traumatic stress disorder (PTSD) F43. 12 Active 103013545 ALLERGIES Substance Reaction Event Type Date Status sulfa drugs Unknown Drug Allergy Jun, Active Wellbutrin Unknown Drug Allergy Jun, Active Lamictal Rash Drug Allergy Jun, Active ENCOUNTERS Encounter Location Date Diagnosis [facility] [address] [facility] [id number] [address] [place] [address] [id number] Aug, [facility] [address] [facility] [id number] [address] [place] [address] [phone] Aug, [facility] [address] [facility] [id number] [address] [place] [phone] Aug, [facility] [address] [facility] [id number] [address] [place] [phone] Jul, Mood disorder F39 ; Chronic post-traumatic stress disorder (PTSD) F43.12 ; Mixed obsessional thoughts and acts F42.2 ; Personality disorder in adult F60.9 and BMI 50.0-59.9, adult Z68.43 [facility] [address] [facility] [id number] [address] [place] [phone] Jul, Iron deficiency anemia D50.9 [facility] [address] [facility] [id number] [address] [place] [phone] Jun, Anemia D64.9 [facility] [address] [facility] [id number] [address] [place] [address] [id number] Jun, Dental examination Z01.20 an d Caries K02.9 [facility] [address] [facility] [id number] [address] [place] [phone] Jun, Anemia D64.9 [facility] [address] [facility] [id number] [address] [place] [phone] Jun, Dermatitis L30.9 ; Fever R50 .9 and BMI 50.0-59.9, adult Z68.43 [facility] [address] [place] [id number] [address] [place] [phone] Mar, Generalized anxiety disorder F41.1 ; Depression, major, recurrent, moderate F33.1 ; Chronic post-traumatic stress disorder (PTSD) F43.12 ; Mixed obsessional thoughts and acts F42.2 and Personality disorder in adult F60.9 [facility] [address] [place] [id number] [address] [place] [phone] Mar, Generalized anxiety disorder F41.1 [place] [id number] [place] [id number] [address] [place] [phone] Jan, Generalized anxiety disorder F41.1 ; Depression, major, recurrent, moderate F33.1 ; Chronic post-traumatic stress disorder (PTSD) F43.12 ; Mixed obsessional thoughts and acts F42.2 and Personality disorder in adult F60.9 [facility] [address] [facility] [id number] [address] [place] [phone] Jan, Generalized anxiety disorder F41.1 ; Depression, major, recurrent, moderate F33.1 ; Chronic post-traumatic stress disorder (PTSD) F43.12 ; Mixed obsessional thoughts and acts F42.2 and Personality disorder in adult F60.9 [facility] [address] [place] [id number] [address] [place] [phone] December, Chronic post-traumatic stres s disorder (PTSD) F43.12 ; Depression, major, recurrent, moderate F33.1 ; Generalized anxiety disorder F41.1 ; Mixed obsessional thoughts and acts F42.2 and BMI 50.0-59.9, adult Z68.43 [facility] [address] [place] [id number] [place] [phone] December, Chronic post-traumatic stres s disorder (PTSD) F43.12 ; Depression, major, recurrent, moderate F33.1 ; Generalized anxiety disorder F41.1 and BMI 50.0-59.9, adult Z68.43 [facility] [address] [place] [id number] [place] [phone] December, Generalized anxiety disorder F41.1 [facility] [id number] [place] [address] [id number] December, Dental caries K02.9 and [place] al examination Z01.20 [facility] [address] [id number] [address] [place] [phone] December, Generalized anxiety disorder F41.1 and Other care home (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 therapy Z79.899 [facility] [address] [place] [id number] [place] [phone] Nov, 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20 [facility] [address] [id number] [address] [place] [phone] Nov, Generalized anxiety disorder F41.1 ; Depression, major, recurrent, moderate F33.1 ; Personality disorder in adult F60.9 and Other care home (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 therapy Z79.899 [facility] [address] [facility] [id number] [address] [place] [phone] 06 Nov, 2017 Generalized anxiety disorder F41.1 ; Depression, major, recurrent, moderate F33.1 and Personality disorder in adult F60.9 [facility] [address] [id number] [address] [place] [phone] Aug, [facility] [address] [facility] [id number] [address] [place] [phone] Aug, Generalized anxiety disorder F41.1 ; Depression, major, recurrent, moderate F33.1 and Personality disorder in adult F60.9 [facility] [address] [facility] [id number] [address] [place] [phone] Jul, Generalized anxiety disorder F41.1 ; Depression, major, recurrent, moderate F33.1 and Personality disorder in adult F60.9 [facility] [address] [facility] [id number] [address] [place] [phone] Jun, Generalized anxiety disorder F41.1 ; Depression, major, recurrent, moderate F33.1 and Personality disorder in adult F60.9 [facility] [address] [facility] [id number] [address] [place] [phone] May, [facility] [address] [facility] [id number] [address] [place] [phone] May, Generalized anxiety disorder F41.1 ; Depression, major, recurrent, moderate F33.1 and Personality disorder in adult F60.9 [facility] [address] [facility] [id number] [address] [place] [phone] 09 May, 2017 Generalized anxiety disorder F41.1 [facility] [address] [facility] [id number] [address] [place] [phone] Apr, Generalized anxiety disorder F41.1 ; Depression, major, recurrent, moderate F33.1 and Personality disorder in adult F60.9 [facility] [place] [facility] [id number] [place] [address] [id number] 05 Apr, 2017 Dental examination Z01.20 [facility] [address] [facility] [id number] [address] [place] [phone] Mar, Generalized anxiety disorder F41.1 ; Depression, major, recurrent, moderate F33.1 and Personality disorder in adult F60.9 [facility] [address] [facility] [id number] [address] [place] [phone] Jan, Generalized anxiety disorder F41.1 ; Depression, major, recurrent, moderate F33.1 and Personality disorder in adult F60.9 [facility] [address] [facility] [id number] [address] [place] [phone] Jan, Generalized anxiety disorder F41.1 ; Depression, major, recurrent, moderate F33.1 and Personality disorder in adult F60.9 [facility] [address] [id number] [address] [place] [address] [phone] Jan, Dental examination Z01.20 [facility] [address] [facility] [id number] [address] [place] [phone] Nov, Depression, major, recurrent , moderate F33.1 ; Generalized anxiety disorder F41.1 and Personality disorder in adult F60.9 [facility] [address] [facility] [id number] [address] [place] [phone] Oct, Depression, major, recurrent , moderate F33.1 [facility] [address] [facility] [id number] [address] [place] [phone] Oct, Depression, major, recurrent , moderate F33.1 and Generalized anxiety disorder F41.1 [facility] [address] [facility] [id number] [address] [place] [phone] Aug, Generalized anxiety disorder F41.1 and Depression, major, recurrent, moderate F33.1 [facility] [address] [id number] [address] [place] [phone] Aug, [facility] [address] [id number] [address] [place] [phone] Jun, Mood disorder F39 and Genera lized anxiety disorder F41.1 [facility] [address] [id number] [address] [place] [phone] May, Mood disorder F39 and Genera lized anxiety disorder F41.1 [facility] [address] [id number] [address] [place] [phone] Apr, [facility] [address] [id number] [address] [place] [phone] Apr, Mood disorder F39 [facility] [address] [id number] [address] [place] [address] [phone] Aug, Encounter for dental examina tion V72.2 and Dental examination Z01.20 [facility] [address] [id number] [address] [place] [phone] Nov, [facility] [address] [id number] [address] [place] [phone] Nov, [facility] [address] [id number] [address] [place] [phone] Jan, [facility] [address] [id number] [address] [place] [phone] Jan, [facility] [address] [id number] [address] [place] [phone] Nov, [facility] [address] [id number] [address] [place] [phone] Nov, [facility] [address] [id number] [address] [place] [phone] Nov, [facility] [address] [id number] [address] [place] [phone] Nov, [facility] [address] [id number] [address] [place] [phone] Jan, [facility] [address] [id number] [address] [place] [phone] Jan, [facility] [address] [id number] [address] [place] [phone] December, [facility] [address] [id number] [address] [place] [phone] December, [facility] [address] [id number] [address] [place] [phone] Nov, [facility] [address] [id number] [address] [place] [phone] Jul, [facility] [address] [facility] [id number] [address] [place] [phone] Mar, IMMUNIZATIONS No Known Immunizations SOCIAL HISTORY Never Assessed REASON FOR VISIT [facility]IA PLAN OF CARE Activity Details Follow Up prn Reason:restorative/hygie ne appointment VITAL SIGNS Height 68 in 2018-06-30 Blood pressure systolic 150 mmHg 2018-06-30 Blood pressure diastolic 81 mmHg 2018-06-30 MEDICATIONS Medication Instructions Dosage Frequency Start Date End Date Duration S tatus Triamcinolone Acetonide 0.1 % Externally Twice a day 1 appli cation to affected area 12h 16 Jun, 2018 Active RESULTS No Results PROCEDURES Procedure Date Ordered Result Body Site COMP ORAL EVALUATION - NEW/EST PT Jun 30, 2018 INTRAORL-PERIAPICAL 1 FILM [id number] Jun 30, 2018 INTRAORL-PERIAPICAL EA ADD FILM Jun 30, 2018 INTRAORL-PERIAPICAL EA ADD FILM Jun 30, 2018 BITEWINGS - FOUR FILMS Jun 30, 2018 INTRAORL-PERIAPICAL EA ADD FILM Jun 30, 2018 INSTRUCTIONS MEDICATIONS ADMINISTERED No Known Medications MEDICAL (GENERAL) HISTORY Type Description Date Medical History anemic Surgical History [facility] [place] [place]
--- OUTSIDE RECORDS SUMMARY | 2019-11-05 09:04 | XMS REPORT ---
Author Author Bibi CRUZ Organization [facility] Address [address] [place] [address] Care Team Providers Care Twister Hand Name Role Phone CAREY CRUZ Unavailable PROBLEMS Type Condition ICD9-CM Code EMG40-BQ Code Onset Dates Condition S tatus SNOMED Code Problem Chronic post-traumatic stress disorder (PTSD) F43. 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 Active 76818631 Problem Generalized anxiety disorder F41.1 A ctive 16204534 Problem Iron deficiency anemia D50.9 Active 46835365 Problem Bipolar depression F31.30 Active 7 42460868 Problem Bipolar affective disorder, currently depressed, mild F31.31 Active 284769080 Problem Morbid obesity E66.01 Active 20541 6002 ALLERGIES No Information ENCOUNTERS Encounter Location Date Diagnosis [facility] [address] [facility] [id number] [address] [place] [address] [id number] Apr, 2019 [facility] [address] [place] [id number] [address] [place] [phone] Apr, [facility] [address] [facility] [id number] [address] [place] [address] [id number] Mar, Caries K02.9 and Dental exam ination Z01.20 [facility] [address] [facility] [id number] [address] [place] [phone] Mar, Chronic post-traumatic stres s disorder (PTSD) F43.12 ; Bipolar affective disorder, currently depressed, mild F31.31 ; Panic disorder F41.0 ; 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 and Morbid obesity E66.01 [facility] [address] [facility] [id number] [address] [place] [phone] Jan, [facility] [address] [facility] [id number] [address] [place] [phone] Jan, Avoidant personality disorde r in adult F60.6 ; Chronic post- traumatic stress disorder (PTSD) F43.12 ; Mixed obsessional thoughts and acts F42.2 ; Bipolar affective disorder, currently depressed, mild F31.31 and Morbid obesity E66.01 [facility] [address] [facility] [id number] [address] [place] [phone] Jan, Bipolar depression F31.30 ; Panic disorder F41.0 ; Chronic post- traumatic stress disorder (PTSD) F43.12 ; BMI 50.0-59.9, adult Z68.43 and Morbid obesity E66.01 [facility] [address] [facility] [id number] [address] [place] [address] [phone] Jan, Dental examination Z01.20 an d Caries K02.9 [facility] [address] [facility] [id number] [address] [place] [phone] Jan, [facility] [address] [facility] [id number] [address] [place] [phone] December, [facility] [address] [facility] [id number] [address] [place] [phone] December, Bipolar depression F31.30 ; Chronic post-traumatic stress disorder (PTSD) F43.12 ; Mixed obsessional thoughts and acts F42.2 ; Personality disorder in adult F60.9 and Morbid obesity E66.01 [facility] [address] [facility] [id number] [address] [place] [phone] Oct, Bipolar depression F31.30 ; Chronic post-traumatic stress disorder (PTSD) F43.12 ; Mixed obsessional thoughts and acts F42.2 ; Personality disorder in adult F60.9 and Morbid obesity E66.01 [facility] [address] [facility] [id number] [address] [place] [phone] Oct, [facility] [address] [facility] [id number] [address] [place] [phone] Sep, [facility] [address] [facility] [id number] [address] [place] [phone] Sep, [facility] [address] [phone] Sep, [facility] [address] [place] [id number] [address] [place] [phone] Aug, Bipolar depression F31.30 ; Chronic post-traumatic stress disorder (PTSD) F43.12 ; Personality disorder in adult F60.9 ; BMI 50.0-59.9, adult Z68.43 and Mixed obsessional thoughts and acts F42.2 [facility] [address] [phone] Aug, URI with cough and congestio n J06.9 and BMI 50.0-59.9, adult Z68.43 [facility] [address] [phone] Aug, Sore throat J02.9 ; Viral up per respiratory tract infection J06.9 and BMI 50.0-59.9, adult Z68.43 [facility] [address] [place] [id number] [address] [place] [address] [id number] Aug, Caries K02.9 [facility] [address] [place] [id number] [address] [place] [address] [phone] Aug, 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 care K08.9 [facility] [address] [place] [id number] [address] [place] [phone] Jul, [facility] [address] [place] [id number] [address] [place] [phone] Jul, [facility] [address] [place] [id number] [address] [place] [phone] Jul, Mood disorder F39 ; Chronic post-traumatic stress disorder (PTSD) F43.12 ; Mixed obsessional thoughts and acts F42.2 ; Personality disorder in adult F60.9 and BMI 50.0-59.9, adult Z68.43 [facility] [address] [place] [id number] [address] [place] [phone] Jul, Iron deficiency anemia D50.9 [facility] [id number] [place] [phone] Jun, Anemia D64.9 [facility] [address] [place] [id number] [address] [place] [address] [id number] Jun, Dental examination Z01.20 an d Caries K02.9 [facility] [address] [place] [id number] [address] [place] [phone] Jun, Anemia D64.9 [place] [address] [place] [phone] Jun, Dermatitis L30.9 ; Fever R50 .9 and BMI 50.0-59.9, adult Z68.43 [place] [address] [place] [id number] [address] [place] [phone] Mar, Generalized anxiety disorder F41.1 ; Depression, major, recurrent, moderate F33.1 ; Chronic post-traumatic stress disorder (PTSD) F43.12 ; Mixed obsessional thoughts and acts F42.2 and Personality disorder in adult F60.9 [facility] [address] [place] [id number] [address] [place] [phone] Mar, Generalized anxiety disorder F41.1 [place] [address] [place] [id number] [address] [place] [phone] Jan, Generalized anxiety disorder F41.1 ; Depression, major, recurrent, moderate F33.1 ; Chronic post-traumatic stress disorder (PTSD) F43.12 ; Mixed obsessional thoughts and acts F42.2 and Personality disorder in adult F60.9 [place] [address] [place] [phone] Jan, Generalized anxiety disorder F41.1 ; Depression, major, recurrent, moderate F33.1 ; Chronic post-traumatic stress disorder (PTSD) F43.12 ; Mixed obsessional thoughts and acts F42.2 and Personality disorder in adult F60.9 [facility] [address] [facility] [id number] [address] [place] [phone] December, Chronic post-traumatic stres s disorder (PTSD) F43.12 ; Depression, major, recurrent, moderate F33.1 ; Generalized anxiety disorder F41.1 ; Mixed obsessional thoughts and acts F42.2 and BMI 50.0-59.9, adult Z68.43 [place] [address] [facility] [id number] [address] [place] [phone] December, Chronic post-traumatic stres s disorder (PTSD) F43.12 ; Depression, major, recurrent, moderate F33.1 ; Generalized anxiety disorder F41.1 and BMI 50.0-59.9, adult Z68.43 [place] [address] [facility] [id number] [address] [place] [phone] December, Generalized anxiety disorder F41.1 [facility] [address] [id number] [place] [address] [phone] December, Dental caries K02.9 and [place] al examination Z01.[address] [id number] [address] [place] [phone] December, Generalized anxiety disorder F41.1 and 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 Z79.899 [facility] [address] [facility] [id number] [address] [place] [phone] Nov, 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 terminal (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 Z79.899 [facility] [address] [id number] [address] [place] [address] [id number] Nov, [facility] [address] [id number] [address] [place] [address] [phone] Nov, [place] [address] [id number] [address] [place] [phone] Nov, [facility] [address] [id number] [address] [place] [address] [id number] Nov, [facility] [address] [id number] [address] [place] [address] [phone] Nov, Dental examination Z01.20 [facility] [address] [id number] [address] [place] [phone] Nov, Generalized anxiety disorder F41.1 ; Depression, major, recurrent, moderate F33.1 ; Personality disorder in adult F60.9 and 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 Z79.899 [facility] [address] [id number] [address] [place] [phone] Nov, Generalized anxiety disorder F41.1 ; Depression, major, recurrent, moderate F33.1 and Personality disorder in adult F60.9 [facility] [address] [facility] [id number] [address] [place] [phone] Aug, [facility] [address] [facility] [id number] [address] [place] [phone] Aug, Generalized anxiety disorder F41.1 ; Depression, major, recurrent, moderate F33.1 and Personality disorder in adult F60.9 [facility] [address] [facility] [id number] [address] [place] [phone] Jul, Generalized anxiety disorder F41.1 ; Depression, major, recurrent, moderate F33.1 and Personality disorder in adult F60.9 [facility] [address] [id number] [address] [place] [phone] Jun, Generalized anxiety disorder F41.1 ; Depression, major, recurrent, moderate F33.1 and Personality disorder in adult F60.9 [facility] [address] [id number] [address] [place] [phone] May, [facility] [address] [facility] [id number] [address] [place] [phone] May, Generalized anxiety disorder F41.1 ; Depression, major, recurrent, moderate F33.1 and Personality disorder in adult F60.9 [facility] [address] [facility] [id number] [address] [place] [phone] 09 May, 2017 Generalized anxiety disorder F41.1 [facility] [address] [facility] [id number] [address] [place] [phone] Apr, Generalized anxiety disorder F41.1 ; Depression, major, recurrent, moderate F33.1 and Personality disorder in adult F60.[address] [id number] [id number] 05 Apr, 2017 Dental examination Z01.20 [facility] [address] [facility] [id number] [address] [place] [phone] Mar, Generalized anxiety disorder F41.1 ; Depression, major, recurrent, moderate F33.1 and Personality disorder in adult F60.9 [facility] [address] [place] [id number] [address] [place] [phone] Jan, Generalized anxiety disorder F41.1 ; Depression, major, recurrent, moderate F33.1 and Personality disorder in adult F60.9 [facility] [address] [facility] [id number] [address] [place] [phone] Jan, Generalized anxiety disorder F41.1 ; Depression, major, recurrent, moderate F33.1 and Personality disorder in adult F60.9 [facility] [address] [id number] [address] [place] [address] [phone] Jan, Dental examination Z01.20 [facility] [address] [facility] [id number] [address] [place] [phone] Nov, Depression, major, recurrent , moderate F33.1 ; Generalized anxiety disorder F41.1 and Personality disorder in adult F60.9 [facility] [address] [facility] [id number] [address] [place] [phone] Oct, Depression, major, recurrent , moderate F33.1 [facility] [address] [facility] [id number] [address] [place] [phone] Oct, Depression, major, recurrent , moderate F33.1 and Generalized anxiety disorder F41.1 [facility] [address] [facility] [id number] [address] [place] [phone] Aug, Generalized anxiety disorder F41.1 and Depression, major, recurrent, moderate F33.1 [facility] [address] [facility] [id number] [address] [place] [phone] Aug, [facility] [address] [facility] [id number] [address] [place] [phone] Jun, Mood disorder F39 and Genera lized anxiety disorder F41.1 [facility] [address] [facility] [id number] [address] [place] [phone] May, Mood disorder F39 and Genera lized anxiety disorder F41.1 [facility] [address] [facility] [id number] [address] [place] [phone] Apr, [facility] [address] [facility] [id number] [address] [place] [phone] Apr, Mood disorder F39 [facility] [address] [id number] [address] [place] [address] [phone] Aug, Encounter for dental examina tion V72.2 and Dental examination Z01.20 [facility] [address] [facility] [id number] [address] [place] [phone] Nov, [facility] [address] [facility] [id number] [address] [place] [phone] Nov, [facility] [address] [facility] [id number] [address] [place] [phone] Jan, [facility] [address] [facility] [id number] [address] [place] [phone] Jan, [facility] [address] [facility] [id number] [address] [place] [phone] Nov, [facility] [address] [place] [id number] [address] [place] [phone] Nov, [facility] [address] [id number] [address] [place] [phone] Nov, [facility] [address] [id number] [address] [place] [phone] Nov, [facility] [address] [id number] [address] [place] [phone] Jan, [facility] [address] [id number] [address] [place] [phone] Jan, [facility] [address] [id number] [address] [place] [phone] December, [facility] [address] [id number] [address] [place] [phone] December, [facility] [address] [id number] [address] [place] [phone] Nov, [facility] [address] [id number] [address] [place] [phone] Jul, [facility] [address] [id number] [address] [place] [phone] Mar, IMMUNIZATIONS No Known Immunizations SOCIAL HISTORY Never Assessed REASON FOR VISIT [facility] PLAN OF CARE VITAL SIGNS MEDICATIONS Unknown [...] adult Surgical History Gallbladder removed [facility] [place] [place] Ad[facility] for depressed mood and SI. 2011
--- OUTSIDE RECORDS SUMMARY | 2019-11-05 09:04 | XMS REPORT ---
Author Author Bibi TAYLOR Organization [facility] Address [address] [place] [address] Care Team Providers Care Ticket Dispenser Changer Name Role Phone NABOR TAYLORA Unavailable PROBLEMS Type Condition ICD9-CM Code DSG91-CL Code Onset Dates Condition S tatus SNOMED Code Problem Generalized anxiety disorder F41.1 A ctive 03124611 Problem Depression, major, recurrent, moderate F33.1 Active 28759571 Problem Iron deficiency anemia D50.9 Active 48022852 Problem Mood disorder F39 Active 248794 05 Problem BMI 50.0-59.9, adult Z68.43 Active 737159001 Problem Personality disorder in adult F60.9 Active 65184341 Problem Mixed obsessional thoughts and acts F42.2 Active 16148973 Problem Chronic post-traumatic stress disorder (PTSD) F43. 12 Active [id number] ALLERGIES No Information ENCOUNTERS Encounter Location Date Diagnosis [facility] [address] [facility] [id number] [address] [place] [address] [id number] Aug, [facility] [address] [place] [id number] [address] [place] [address] [id number] Aug, [facility] [address] [id number] [address] [place] [phone] Aug, [facility] [address] [id number] [address] [place] [phone] Jul, [facility] [address] [id number] [address] [place] [phone] Jul, [facility] [address] [id number] [address] [place] [phone] Jul, Mood disorder F39 ; Chronic post-traumatic stress disorder (PTSD) F43.12 ; Mixed obsessional thoughts and acts F42.2 ; Personality disorder in adult F60.9 and BMI 50.0-59.9, adult Z68.43 [facility] [address] [id number] [address] [place] [phone] Jul, Iron deficiency anemia D50.9 [facility] [address] [id number] [address] [place] [phone] Jun, Anemia D64.9 [facility] [address] [id number] [address] [place] [address] [id number] Jun, Dental examination Z01.20 an d Caries K02.9 [facility] [address] [id number] [address] [place] [phone] Jun, Anemia D64.9 [place] [address] [place] [id number] [address] [place] [phone] Jun, Dermatitis L30.9 ; Fever R50 .9 and BMI 50.0-59.9, adult Z68.43 [place] [address] [place] [id number] [address] [place] [phone] Mar, Generalized anxiety disorder F41.1 ; Depression, major, recurrent, moderate F33.1 ; Chronic post-traumatic stress disorder (PTSD) F43.12 ; Mixed obsessional thoughts and acts F42.2 and Personality disorder in adult F60.9 [place] [address] [place] [id number] [address] [place] [phone] Mar, Generalized anxiety disorder F41.1 [place] [address] [place] [id number] [address] [place] [phone] Jan, Generalized anxiety disorder F41.1 ; Depression, major, recurrent, moderate F33.1 ; Chronic post-traumatic stress disorder (PTSD) F43.12 ; Mixed obsessional thoughts and acts F42.2 and Personality disorder in adult F60.9 [place] [address] [place] [id number] [address] [place] [phone] Jan, Generalized anxiety disorder F41.1 ; Depression, major, recurrent, moderate F33.1 ; Chronic post-traumatic stress disorder (PTSD) F43.12 ; Mixed obsessional thoughts and acts F42.2 and Personality disorder in adult F60.9 [facility] [address] [facility] [id number] [address] [place] [phone] December, Chronic post-traumatic stres s disorder (PTSD) F43.12 ; Depression, major, recurrent, moderate F33.1 ; Generalized anxiety disorder F41.1 ; Mixed obsessional thoughts and acts F42.2 and BMI 50.0-59.9, adult Z68.43 [facility] [address] [facility] [id number] [address] [place] [phone] December, Chronic post-traumatic stres s disorder (PTSD) F43.12 ; Depression, major, recurrent, moderate F33.1 ; Generalized anxiety disorder F41.1 and BMI 50.0-59.9, adult Z68.43 [facility] [address] [facility] [id number] [address] [place] [phone] December, Generalized anxiety disorder F41.1 [facility] [address] [id number] [place] [address] [phone] December, Dental caries K02.9 and [place] al examination Z01.20 [facility] [address] [facility] [id number] [address] [place] [phone] December, Generalized anxiety disorder F41.1 and Other fpc (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 therapy Z79.899 [facility] [address] [id number] [address] [place] [phone] Nov, Other fpc (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 Z79.899 [facility] [address] [id number] [address] [place] [address] [phone] Nov, [facility] [address] [id number] [address] [place] [address] [id number] Nov, [facility] [address] [id number] [address] [place] [phone] Nov, [facility] [address] [id number] [address] [place] [address] [id number] Nov, [facility] [address] [id number] [address] [place] [address] [id number] Nov, Dental examination Z01.20 [facility] [address] [facility] [id number] [address] [place] [phone] Nov, Generalized anxiety disorder F41.1 ; Depression, major, recurrent, moderate F33.1 ; Personality disorder in adult F60.9 and Other fpc (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 therapy Z79.899 [facility] [address] [facility] [id number] [address] [place] [phone] Nov, Generalized anxiety disorder F41.1 ; Depression, major, recurrent, moderate F33.1 and Personality disorder in adult F60.9 [facility] [address] [facility] [id number] [address] [place] [phone] Aug, [facility] [address] [facility] [id number] [address] [place] [phone] Aug, Generalized anxiety disorder F41.1 ; Depression, major, recurrent, moderate F33.1 and Personality disorder in adult F60.9 [facility] [address] [facility] [id number] [address] [place] [phone] Jul, Generalized anxiety disorder F41.1 ; Depression, major, recurrent, moderate F33.1 and Personality disorder in adult F60.9 [facility] [address] [facility] [id number] [address] [place] [phone] Jun, Generalized anxiety disorder F41.1 ; Depression, major, recurrent, moderate F33.1 and Personality disorder in adult F60.9 [facility] [address] [facility] [id number] [address] [place] [phone] May, [facility] [address] [facility] [id number] [address] [place] [phone] May, Generalized anxiety disorder F41.1 ; Depression, major, recurrent, moderate F33.1 and Personality disorder in adult F60.9 [facility] [address] [facility] [id number] [address] [place] [phone] 09 May, 2017 Generalized anxiety disorder F41.1 [facility] [address] [facility] [id number] [address] [place] [phone] 18 Apr, 2017 Generalized anxiety disorder F41.1 ; Depression, major, recurrent, moderate F33.1 and Personality disorder in adult F60.[address] [place] [id number] [place] [address] [id number] 05 Apr, 2017 Dental examination Z01.20 [facility] [address] [facility] [id number] [address] [place] [phone] Mar, Generalized anxiety disorder F41.1 ; Depression, major, recurrent, moderate F33.1 and Personality disorder in adult F60.9 [facility] [address] [facility] [id number] [address] [place] [phone] Jan, Generalized anxiety disorder F41.1 ; Depression, major, recurrent, moderate F33.1 and Personality disorder in adult F60.9 [facility] [address] [facility] [id number] [address] [place] [phone] Jan, Generalized anxiety disorder F41.1 ; Depression, major, recurrent, moderate F33.1 and Personality disorder in adult F60.9 [facility] [address] [facility] [id number] [address] [place] [address] [id number] Jan, Dental examination Z01.20 [facility] [address] [facility] [id number] [address] [place] [phone] Nov, Depression, major, recurrent , moderate F33.1 ; Generalized anxiety disorder F41.1 and Personality disorder in adult F60.9 [facility] [address] [facility] [id number] [address] [place] [phone] Oct, Depression, major, recurrent , moderate F33.1 [facility] [address] [facility] [id number] [address] [place] [phone] 16 Oct, 2016 Depression, major, recurrent , moderate F33.1 and Generalized anxiety disorder F41.1 [facility] [address] [facility] [id number] [address] [place] [phone] Aug, Generalized anxiety disorder F41.1 and Depression, major, recurrent, moderate F33.1 [facility] [address] [id number] [address] [place] [phone] Aug, [facility] [address] [facility] [id number] [address] [place] [phone] Jun, Mood disorder F39 and Genera lized anxiety disorder F41.1 [facility] [address] [id number] [address] [place] [phone] May, Mood disorder F39 and Genera lized anxiety disorder F41.1 [facility] [address] [id number] [address] [place] [phone] Apr, [facility] [address] [facility] [id number] [address] [place] [phone] Apr, Mood disorder F39 [facility] [address] [id number] [address] [place] [address] [id number] Aug, Encounter for dental examina tion V72.2 and Dental examination Z01.20 [facility] [address] [id number] [address] [place] [phone] Nov, [facility] [address] [facility] [id number] [address] [place] [phone] Nov, [facility] [address] [id number] [address] [place] [phone] Jan, [facility] [address] [id number] [address] [place] [phone] Jan, [facility] [address] [id number] [address] [place] [phone] Nov, [facility] [address] [facility] [id number] [address] [place] [phone] Nov, [facility] [address] [facility] [id number] [address] [place] [phone] Nov, [facility] [address] [facility] [id number] [address] [place] [phone] Nov, [facility] [address] [facility] [id number] [address] [place] [phone] Jan, [facility] [address] [facility] [id number] [address] [place] [phone] Jan, [facility] [address] [facility] [id number] [address] [place] [phone] December, [facility] [address] [facility] [id number] [address] [place] [phone] December, [facility] [address] [facility] [id number] [address] [place] [phone] Nov, [facility] [address] [facility] [id number] [address] [place] [phone] Jul, [facility] [address] [facility] [id number] [address] [place] [phone] Mar, IMMUNIZATIONS No Known Immunizations SOCIAL HISTORY Never Assessed REASON FOR VISIT Medication question PLAN OF CARE VITAL SIGNS MEDICATIONS Unknown Medications RESULTS No Results PROCEDURES No Known procedures INSTRUCTIONS MEDICATIONS ADMINISTERED No Known Medications MEDICAL (GENERAL) HISTORY Type Description Date Medical History anemic Surgical History [facility]bl[facility] [place] [place]
--- OUTSIDE RECORDS SUMMARY | 2019-11-05 09:04 | XMS REPORT ---
Author Author Bibi TAYLOR DIVINE Organization [facility] Address [address] [place] [address] Care Team Providers Care Civil Engineering Designer Name Role Phone DIVINE TAYLOR Unavailable PROBLEMS Type Condition ICD9-CM Code [id number] Code Onset Dates Condition S tatus SNOMED Code Problem Generalized anxiety disorder F41.1 A ctive 07455701 Problem Depression, major, recurrent, moderate F33.1 Active 04991385 Problem Iron deficiency anemia D50.9 Active 64920476 Problem Mood disorder F39 Active 792635 05 Problem BMI 50.0-59.9, adult Z68.43 Active 745855473 Problem Personality disorder in adult F60.9 Active 39348992 Problem Mixed obsessional thoughts and acts F42.2 Active 40689938 Problem Chronic post-traumatic stress disorder (PTSD) F43. 12 Active 107189450 ALLERGIES Substance Reaction Event Type Date Status sulfa drugs Unknown Drug Allergy Jul, Active Wellbutrin Unknown Drug Allergy Jul, Active Lamictal Rash Drug Allergy Jul, Active ENCOUNTERS Encounter Location Date Diagnosis [facility] [address] [facility] [id number] [address] [place] [address] [phone] Aug, [facility] [address] [facility] [id number] [address] [place] [address] [phone] Aug, [facility] [address] [facility] [id number] [address] [place] [phone] Aug, [facility] [address] [facility] [id number] [address] [place] [phone] Jul, [facility] [address] [place] [id number] [address] [place] [phone] Jul, [facility] [address] [facility] [id number] [address] [place] [phone] Jul, Mood disorder F39 ; Chronic post-traumatic stress disorder (PTSD) F43.12 ; Mixed obsessional thoughts and acts F42.2 ; Personality disorder in adult F60.9 and BMI 50.0-59.9, adult Z68.43 [facility] [address] [place] [id number] [address] [place] [phone] Jul, Iron deficiency anemia D50.9 [facility] [address] [place] [id number] [address] [place] [phone] Jun, Anemia D64.9 [facility] [address] [facility] [id number] [address] [place] [phone] Jun, Dental examination Z01.20 an d Caries K02.9 [facility] [address] [place] [id number] [address] [place] [phone] Jun, Anemia D64.9 [facility] [id number] [place] [phone] Jun, Dermatitis L30.9 ; Fever R50 .9 and BMI 50.0-59.9, adult Z68.43 [place] [id number] [place] [phone] Mar, Generalized anxiety disorder F41.1 ; Depression, major, recurrent, moderate F33.1 ; Chronic post-traumatic stress disorder (PTSD) F43.12 ; Mixed obsessional thoughts and acts F42.2 and Personality disorder in adult F60.9 [facility] [address] [place] [id number] [address] [place] [phone] Mar, Generalized anxiety disorder F41.1 [place] [address] [place] [id number] [address] [place] [phone] Jan, Generalized anxiety disorder F41.1 ; Depression, major, recurrent, moderate F33.1 ; Chronic post-traumatic stress disorder (PTSD) F43.12 ; Mixed obsessional thoughts and acts F42.2 and Personality disorder in adult F60.9 [facility] [address] [place] [id number] [address] [place] [phone] Jan, Generalized anxiety disorder F41.1 ; Depression, major, recurrent, moderate F33.1 ; Chronic post-traumatic stress disorder (PTSD) F43.12 ; Mixed obsessional thoughts and acts F42.2 and Personality disorder in adult F60.9 [facility] [address] [facility] [id number] [address] [place] [phone] December, Chronic post-traumatic stres s disorder (PTSD) F43.12 ; Depression, major, recurrent, moderate F33.1 ; Generalized anxiety disorder F41.1 ; Mixed obsessional thoughts and acts F42.2 and BMI 50.0-59.9, adult Z68.43 [place] [address] [facility] [id number] [place] [phone] December, Chronic post-traumatic stres s disorder (PTSD) F43.12 ; Depression, major, recurrent, moderate F33.1 ; Generalized anxiety disorder F41.1 and BMI 50.0-59.9, adult Z68.43 [place] [address] [place] [id number] [address] [place] [phone] December, Generalized anxiety disorder F41.1 [facility] [id number] [place] [address] [phone] December, Dental caries K02.9 and [place] al examination Z01.20 [facility] [address] [facility] [id number] [address] [place] [phone] December, Generalized anxiety disorder F41.1 and Other skilled nursing (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 therapy Z79.899 [facility] [address] [id number] [address] [place] [phone] Nov, Other long term acute care registered nurse (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 Z79.899 [facility] [address] [id number] [address] [place] [address] [phone] Nov, [facility] [address] [id number] [address] [place] [address] [phone] Nov, [facility] [address] [facility] [id number] [address] [place] [phone] Nov, [facility] [address] [id number] [address] [phone] Nov, [facility] [address] [id number] [address] [place] [address] [phone] Nov, Dental examination Z01.20 [facility] [address] [facility] [id number] [address] [place] [phone] Nov, Generalized anxiety disorder F41.1 ; Depression, major, recurrent, moderate F33.1 ; Personality disorder in adult F60.9 and Other long term acute care registered nurse (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 therapy Z79.899 [facility] [address] [facility] [id number] [address] [place] [phone] Nov, Generalized anxiety disorder F41.1 ; Depression, major, recurrent, moderate F33.1 and Personality disorder in adult F60.9 [facility] [address] [facility] [id number] [address] [place] [phone] Aug, [facility] [address] [facility] [id number] [address] [place] [phone] Aug, Generalized anxiety disorder F41.1 ; Depression, major, recurrent, moderate F33.1 and Personality disorder in adult F60.9 [facility] [address] [facility] [id number] [address] [place] [phone] Jul, Generalized anxiety disorder F41.1 ; Depression, major, recurrent, moderate F33.1 and Personality disorder in adult F60.9 [facility] [address] [facility] [id number] [address] [place] [phone] Jun, Generalized anxiety disorder F41.1 ; Depression, major, recurrent, moderate F33.1 and Personality disorder in adult F60.9 [facility] [address] [facility] [id number] [address] [place] [phone] May, [facility] [address] [facility] [id number] [address] [place] [phone] May, Generalized anxiety disorder F41.1 ; Depression, major, recurrent, moderate F33.1 and Personality disorder in adult F60.9 [facility] [address] [facility] [id number] [address] [place] [phone] 09 May, 2017 Generalized anxiety disorder F41.1 [facility] [address] [facility] [id number] [address] [place] [phone] 18 Apr, 2017 Generalized anxiety disorder F41.1 ; Depression, major, recurrent, moderate F33.1 and Personality disorder in adult F60.[id number] [place] [address] [id number] Apr, 2017 Dental examination Z01.20 [facility] [address] [facility] [id number] [address] [place] [phone] Mar, Generalized anxiety disorder F41.1 ; Depression, major, recurrent, moderate F33.1 and Personality disorder in adult F60.9 [place] [address] [facility] [id number] [address] [place] [phone] Jan, Generalized anxiety disorder F41.1 ; Depression, major, recurrent, moderate F33.1 and Personality disorder in adult F60.9 [facility] [address] [facility] [id number] [address] [place] [phone] Jan, Generalized anxiety disorder F41.1 ; Depression, major, recurrent, moderate F33.1 and Personality disorder in adult F60.9 [facility] [address] [id number] [address] [place] [address] [phone] Jan, Dental examination Z01.20 [facility] [address] [facility] [id number] [address] [place] [phone] Nov, Depression, major, recurrent , moderate F33.1 ; Generalized anxiety disorder F41.1 and Personality disorder in adult F60.9 [facility] [address] [facility] [id number] [address] [place] [phone] Oct, Depression, major, recurrent , moderate F33.1 [facility] [address] [facility] [id number] [address] [place] [phone] Oct, Depression, major, recurrent , moderate F33.1 and Generalized anxiety disorder F41.1 [facility] [address] [id number] [address] [place] [phone] Aug, Generalized anxiety disorder F41.1 and Depression, major, recurrent, moderate F33.1 [facility] [address] [id number] [address] [place] [phone] Aug, [facility] [address] [id number] [address] [place] [phone] Jun, Mood disorder F39 and Genera lized anxiety disorder F41.1 [facility] [address] [facility] [id number] [address] [place] [phone] May, Mood disorder F39 and Genera lized anxiety disorder F41.1 [facility] [address] [facility] [id number] [address] [place] [phone] Apr, [facility] [address] [facility] [id number] [address] [place] [phone] Apr, Mood disorder F39 [facility] [address] [id number] [address] [place] [address] [phone] Aug, Encounter for dental examina tion V72.2 and Dental examination Z01.20 [facility] [address] [id number] [address] [place] [phone] Nov, [facility] [address] [id number] [address] [place] [phone] Nov, [facility] [address] [id number] [address] [place] [phone] Jan, [facility] [address] [facility] [id number] [address] [place] [phone] Jan, [facility] [address] [id number] [address] [place] [phone] Nov, [facility] [address] [facility] [id number] [address] [place] [phone] Nov, [facility] [address] [id number] [address] [place] [phone] Nov, [facility] [address] [id number] [address] [place] [phone] Nov, [facility] [address] [id number] [address] [place] [phone] Jan, [facility] [address] [id number] [address] [place] [phone] Jan, [facility] [address] [id number] [address] [place] [phone] December, [facility] [address] [id number] [address] [place] [phone] December, [facility] [address] [id number] [address] [place] [phone] Nov, [facility] [address] [id number] [address] [place] [phone] Jul, [facility] [address] [id number] [address] [place] [phone] Mar, IMMUNIZATIONS No Known Immunizations SOCIAL HISTORY Never Assessed REASON FOR VISIT BH intake Aga, Depression / relationship issues / PTSD PLAN OF CARE Activity Details Follow Up 4 Weeks Reason: VITAL SIGNS Height 68 in 2018-07-06 Weight 338.3 lbs 2018-07-06 Heart Rate 88 bpm 2018-07-06 Respiratory Rate 20 2018-07-06 BMI 51.43 kg/m2 2018-07-06 Blood pressure systolic 136 mmHg 2018-07-06 Blood pressure diastolic 88 mmHg 2018-07-06 MEDICATIONS Medication Instructions Dosage Frequency Start Date End Date Duration S tatus Latuda 20 mg Orally Once a day 1 tablets with food 24h Jul, 30 day(s) Active Triamcinolone Acetonide 0.1 % Externally Twice a day 1 appli cation to affected area 12h 16 Jun, 2018 Not-Taking Polysaccharide Iron Complex 150 MG Orally Once a day 1 capsule 24h Jul, 30 day(s) Active RESULTS No Results PROCEDURES No Known procedures INSTRUCTIONS MEDICATIONS ADMINISTERED No Known Medications MEDICAL (GENERAL) HISTORY Type Description Date Medical History anemic Surgical History Gallbladder removed Hospitalization History [facility] [place], [place]. Admitted for depressed mood and SI. 2012
[2019-11-05] MEDS ORDERED: LACTATED RINGERS 1,000 ML IV ONE (09:05)
--- OUTSIDE RECORDS SUMMARY | 2019-11-05 09:05 | XMS REPORT ---
Author Author Bibi VICENTE Organization [facility] Address Unknown Care Team Providers Care Capacitor Assembler Name Role Phone CRYSTAL VICENTE Unavailable PROBLEMS Type Condition ICD9-CM Code AMG71-VT Code Onset Dates Condition S tatus SNOMED Code Problem Insomnia, unspecified 780.52 Active 484485222 Problem Unspecified episodic mood disorder 296.90 Active 308033868 Problem Essential hypertension, benign 401.1 Active 0201800 Problem Routine general [facility] V70.0 Active 608487978 Problem Cough 786.2 Active 91721717 Problem Headache 784.0 Active 44730466 Problem Mixed obsessional thoughts and acts F42.2 Active 34104300 Problem Chronic post-traumatic stress disorder (PTSD) F43. 12 Active 694507922 Problem Generalized anxiety disorder F41.1 A ctive 75370518 Problem Depression, major, recurrent, moderate F33.1 Active 05299047 Problem BMI 50.0-59.9, adult Z68.43 Active 659609832 Problem Personality disorder in adult F60.9 Active 66108268 ALLERGIES Substance Reaction Event Type Date Status sulfa drugs Unknown Drug Allergy December, Active Wellbutrin Unknown Drug Allergy December, Active Lamictal Rash Drug Allergy December, Active ENCOUNTERS Encounter Location Date Diagnosis [facility] [address] [facility] [id number] [address] [place] [phone] Apr, [facility] [address] [facility] [id number] [address] [place] [phone] Mar, [facility] [address] [facility] [id number] [address] [place] [phone] Mar, Generalized anxiety disorder F41.1 [facility] [address] [facility] [id number] [address] [place] [phone] Jan, Generalized anxiety disorder F41.1 ; Depression, major, recurrent, moderate F33.1 ; Chronic post-traumatic stress disorder (PTSD) F43.12 ; Mixed obsessional thoughts and acts F42.2 and Personality disorder in adult F60.9 [place] [id number] [facility] [id number] [address] [place] [phone] Jan, Generalized anxiety disorder F41.1 ; Depression, major, recurrent, moderate F33.1 ; Chronic post-traumatic stress disorder (PTSD) F43.12 ; Mixed obsessional thoughts and acts F42.2 and Personality disorder in adult F60.9 [place] [address] [facility] [id number] [address] [place] [phone] December, Chronic post-traumatic stres s disorder (PTSD) F43.12 ; Depression, major, recurrent, moderate F33.1 ; Generalized anxiety disorder F41.1 ; Mixed obsessional thoughts and acts F42.2 and BMI 50.0-59.9, adult Z68.43 [place] [address] [phone] December, Chronic post-traumatic stres s disorder (PTSD) F43.12 ; Depression, major, recurrent, moderate F33.1 ; Generalized anxiety disorder F41.1 and BMI 50.0-59.9, adult Z68.43 [place] [address] [place] [id number] [address] [place] [phone] December, Generalized anxiety disorder F41.1 [facility] [address] [place] [id number] [address] [place] [address] [phone] December, Dental caries K02.9 and [place] al examination Z01.20 [place] [address] [facility] [id number] [address] [place] [phone] December, Generalized anxiety disorder F41.1 and Other fpc (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 therapy Z79.899 [facility] [address] [facility] [id number] [address] [place] [phone] Nov, 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 Z79.899 [facility] [address] [facility] [id number] [address] [place] [id number] Nov, [facility] [address] [id number] [address] [place] [id number] Nov, [facility] [address] [id number] [address] [place] [phone] Nov, [facility] [address] [id number] [address] [place] [phone] Nov, [facility] [address] [id number] [address] [place] [address] [id number] Nov, Dental examination Z01.20 [facility] [address] [id number] [address] [place] [phone] Nov, Generalized anxiety disorder F41.1 ; Depression, major, recurrent, moderate F33.1 ; Personality disorder in adult F60.9 and Other fpc (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 therapy Z79.899 [facility] [address] [facility] [id number] [address] [place] [phone] Nov, Generalized anxiety disorder F41.1 ; Depression, major, recurrent, moderate F33.1 and Personality disorder in adult F60.9 [facility] [address] [facility] [id number] [address] [place] [phone] Aug, [facility] [address] [facility] [id number] [address] [place] [phone] Aug, Generalized anxiety disorder F41.1 ; Depression, major, recurrent, moderate F33.1 and Personality disorder in adult F60.9 [facility] [address] [id number] [address] [place] [phone] Jul, Generalized anxiety disorder F41.1 ; Depression, major, recurrent, moderate F33.1 and Personality disorder in adult F60.9 [facility] [address] [facility] [id number] [address] [place] [phone] Jun, Generalized anxiety disorder F41.1 ; Depression, major, recurrent, moderate F33.1 and Personality disorder in adult F60.9 [facility] [address] [facility] [id number] [address] [place] [phone] May, [facility] [address] [facility] [id number] [address] [place] [phone] May, Generalized anxiety disorder F41.1 ; Depression, major, recurrent, moderate F33.1 and Personality disorder in adult F60.9 [facility] [address] [facility] [id number] [address] [place] [phone] 09 May, 2017 Generalized anxiety disorder F41.1 [facility] [address] [facility] [id number] [address] [place] [phone] Apr, Generalized anxiety disorder F41.1 ; Depression, major, recurrent, moderate F33.1 and Personality disorder in adult F60.[id number] [place] [address] [id number] Apr, 2017 Dental examination Z01.[address] [id number] [address] [place] [phone] Mar, Generalized anxiety disorder F41.1 ; Depression, major, recurrent, moderate F33.1 and Personality disorder in adult F60.9 [place] [address] [facility] [id number] [address] [place] [phone] Jan, Generalized anxiety disorder F41.1 ; Depression, major, recurrent, moderate F33.1 and Personality disorder in adult F60.9 [place] [address] [facility] [id number] [address] [place] [phone] Jan, Generalized anxiety disorder F41.1 ; Depression, major, recurrent, moderate F33.1 and Personality disorder in adult F60.9 [facility] [address] [id number] [address] [place] [address] [phone] Jan, Dental examination Z01.20 [facility] [address] [facility] [id number] [address] [place] [phone] Nov, Depression, major, recurrent , moderate F33.1 ; Generalized anxiety disorder F41.1 and Personality disorder in adult F60.9 [facility] [address] [id number] [address] [place] [phone] Oct, Depression, major, recurrent , moderate F33.1 [facility] [address] [id number] [address] [place] [phone] Oct, Depression, major, recurrent , moderate F33.1 and Generalized anxiety disorder F41.1 [facility] [address] [id number] [address] [place] [phone] Aug, Generalized anxiety disorder F41.1 and Depression, major, recurrent, moderate F33.1 [facility] [address] [id number] [address] [place] [phone] Aug, [facility] [address] [facility] [id number] [address] [place] [phone] Jun, Mood disorder F39 and Genera lized anxiety disorder F41.1 [facility] [address] [id number] [address] [place] [phone] May, Mood disorder F39 and Genera lized anxiety disorder F41.1 [facility] [address] [id number] [address] [place] [phone] Apr, [facility] [address] [facility] [id number] [address] [place] [phone] Apr, Mood disorder F39 [facility] [address] [id number] [address] [place] [address] [phone] Aug, Encounter for dental examina tion V72.2 and Dental examination Z01.20 [facility] [address] [id number] [address] [place] [phone] Nov, [facility] [address] [id number] [address] [place] [phone] Nov, [facility] [address] [id number] [address] [place] [phone] Jan, [facility] [address] [id number] [address] [place] [phone] Jan, [facility] [address] [id number] [address] [place] [phone] Nov, [facility] [address] [id number] [address] [place] [phone] Nov, [facility] [address] [id number] [address] [place] [phone] Nov, [facility] [address] [id number] [address] [place] [phone] Nov, [facility] [address] [id number] [address] [place] [phone] Jan, [facility] [address] [id number] [address] [place] [phone] Jan, [facility] [address] [id number] [address] [place] [phone] December, [facility] [address] [id number] [address] [place] [phone] December, [facility] [address] [id number] [address] [place] [phone] Nov, [facility] [address] [id number] [address] [place] [phone] Jul, [facility] [address] [id number] [address] [place] [phone] Mar, IMMUNIZATIONS No Known Immunizations SOCIAL HISTORY Never Assessed REASON FOR VISIT TE PLAN OF CARE Activity Details Follow Up prn Reason:eric/hygiene VITAL SIGNS Height 68 in 2017-12-03 Blood pressure systolic 137 mmHg 2017-12-03 Blood pressure diastolic 88 mmHg 2017-12-03 MEDICATIONS Medication Instructions Dosage Frequency Start Date End Date Duration S tatus Amoxicillin 500 MG Orally 3 times a day 1 capsule 8h 7 days Not-Taking Lorazepam 0.5 MG Orally BID anxiety, if hydroxyzine does not help. 1 tablet as needed Active HydrOXYzine HCl 25MG TAKE ONE TABLET BY MOUTH THREE TIMES DAILY NEEDED Active HydrOXYzine HCl 50 mg Orally 3 times a day as needed for anxiety 1 tab let Active Motrin IB 800 Orally every 6 hrs 1 tablet as needed 6h 5 days Not-Taking Tramadol HCl 50 MG Orally every 6 hrs 1 tablet as needed 6h as needed Not-Taking Commodore Carbonate 300 MG Orally 2 times a day 1 capsule 12h 30 day(s) Active RESULTS No Results PROCEDURES Procedure Date Ordered Result Body Site INTRAORL-PERIAPICAL 1 FILM [id number] December 03, 2017 BITEWING - SINGLE FILM December 03, 2017 EXTRAC ERUPTED TOOTH/EXPOSED ROOT December 03, 2017 INSTRUCTIONS MEDICATIONS ADMINISTERED No Known Medications MEDICAL (GENERAL) HISTORY Type Description Date Surgical History [facility]bladder [facility] [place] [place] and SI[facility]
--- OUTSIDE RECORDS SUMMARY | 2019-11-05 09:05 | XMS REPORT ---
Author Author MADELINE Bibi BARBOURN [facility] Address [address] [place] [address] Care Team Providers Care Advisor Consultant Name Role Phone RADHA CORREA Unavailable PROBLEMS Type Condition ICD9-CM Code [id number] Code Onset Dates Condition S tatus SNOMED Code Problem Insomnia, unspecified 780.52 Active 017693560 Problem Unspecified episodic mood disorder 296.90 Active 372825993 Problem Essential hypertension, benign 401.1 Active 7652896 Problem Routine general medical examination at [facility] V70.0 Active 394137260 Problem Cough 786.2 Active 20352460 Problem Headache 784.0 Active 75313061 Problem Mixed obsessional thoughts and acts F42.2 Active 39205616 Problem Chronic post-traumatic stress disorder (PTSD) F43. 12 Active 179182590 Problem Generalized anxiety disorder F41.1 A ctive 57432831 Problem Depression, major, recurrent, moderate F33.1 Active 10653220 Problem BMI 50.0-59.9, adult Z68.43 Active 443594818 Problem Personality disorder in adult F60.9 Active 18900946 ALLERGIES Substance Reaction Event Type Date Status sulfa drugs Unknown Drug Allergy Jan, Active Wellbutrin Unknown Drug Allergy Jan, Active Lamictal Rash Drug Allergy Jan, Active ENCOUNTERS Encounter Location Date Diagnosis [facility] [place] [address] [facility] [id number] [address] [place] [phone] May, [facility] [place] [address] [facility] [id number] [address] [place] [phone] Apr, [facility] [place] [address] [facility] [id number] [address] [place] [phone] Mar, Generalized anxiety disorder F41.1 ; Depression, major, recurrent, moderate F33.1 ; Chronic post-traumatic stress disorder (PTSD) F43.12 ; Mixed obsessional thoughts and acts F42.2 and Personality disorder in adult F60.9 [facility] [place] [address] [facility] [id number] [address] [place] [id number] Mar, Generalized anxiety disorder F41.1 [facility] [place] [address] [facility] [id number] [address] [place] [phone] Jan, Generalized anxiety disorder F41.1 ; Depression, major, recurrent, moderate F33.1 ; Chronic post-traumatic stress disorder (PTSD) F43.12 ; Mixed obsessional thoughts and acts F42.2 and Personality disorder in adult F60.9 [facility] [place] [address] [facility] [id number] [address] [place] [id number] Jan, Generalized anxiety disorder F41.1 ; Depression, major, recurrent, moderate F33.1 ; Chronic post-traumatic stress disorder (PTSD) F43.12 ; Mixed obsessional thoughts and acts F42.2 and Personality disorder in adult F60.9 [facility] [place] [address] [facility] [facility] [id number] [address] [place] [id number] December, Chronic post-traumatic stres s disorder (PTSD) F43.12 ; Depression, major, recurrent, moderate F33.1 ; Generalized anxiety disorder F41.1 ; Mixed obsessional thoughts and acts F42.2 and BMI 50.0-59.9, adult Z68.43 [place] [address] [place] [id number] [address] [place] [id number] December, Chronic post-traumatic stres s disorder (PTSD) F43.12 ; Depression, major, recurrent, moderate F33.1 ; Generalized anxiety disorder F41.1 and BMI 50.0-59.9, adult Z68.43 [facility] [place] [address] [facility] [id number] [address] [place] [phone] December, Generalized anxiety disorder F41.1 [facility] [address] [id number] [address] [place] [id number] December, Dental caries K02.9 and [place] al examination Z01.20 [facility] [place] [address] 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 Z79.899 [facility] [address] [id number] [address] [place] [id number] Nov, [facility] [address] [id number] [address] [place] [address] [id number] Nov, [facility] [place] [address] [id number] [address] [place] [phone] Nov, [facility] [address] [id number] [address] [place] [address] [id number] Nov, [facility] [address] [id number] [address] [place] [address] [id number] Nov, Dental examination Z01.20 [facility] [place] [address] [id number] [address] [place] [phone] Nov, Generalized anxiety disorder F41.1 ; Depression, major, recurrent, moderate F33.1 ; Personality disorder in adult F60.9 and Other detention (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 therapy Z79.899 [facility] [place] [address] [id number] [address] [place] [phone] Nov, Generalized anxiety disorder F41.1 ; Depression, major, recurrent, moderate F33.1 and Personality disorder in adult F60.9 [facility] [place] [address] [id number] [address] [place] [phone] Aug, [facility] [place] [address] [id number] [address] [place] [id number] Aug, Generalized anxiety disorder F41.1 ; Depression, major, recurrent, moderate F33.1 and Personality disorder in adult F60.9 [facility] [place] [address] [id number] [address] [place] [phone] Jul, Generalized anxiety disorder F41.1 ; Depression, major, recurrent, moderate F33.1 and Personality disorder in adult F60.9 [place] [address] [facility] [id number] [address] [place] [phone] Jun, Generalized anxiety disorder F41.1 ; Depression, major, recurrent, moderate F33.1 and Personality disorder in adult F60.9 [place] [address] [facility] [id number] [address] [place] [phone] May, [place] [address] [facility] [id number] [address] [place] [id number] May, Generalized anxiety disorder F41.1 ; Depression, major, recurrent, moderate F33.1 and Personality disorder in adult F60.9 [place] [address] [facility] [id number] [address] [place] [phone] 09 May, 2017 Generalized anxiety disorder F41.1 [place] [id number] [address] [place] [id number] Apr, Generalized anxiety disorder F41.1 ; Depression, major, recurrent, moderate F33.1 and Personality disorder in adult F60.[address] [place] [id number] [place] [address] [id number] Apr, 2017 Dental examination Z01.[address] [id number] [address] [place] [phone] Mar, Generalized anxiety disorder F41.1 ; Depression, major, recurrent, moderate F33.1 and Personality disorder in adult F60.[address] [id number] [address] [place] [phone] Jan, Generalized anxiety disorder F41.1 ; Depression, major, recurrent, moderate F33.1 and Personality disorder in adult F60.9 [facility] [place] [address] [facility] [id number] [address] [place] [phone] Jan, Generalized anxiety disorder F41.1 ; Depression, major, recurrent, moderate F33.1 and Personality disorder in adult F60.9 [facility] [address] [id number] [address] [place] [address] [id number] Jan, Dental examination Z01.20 [facility] [place] [address] [id number] [address] [place] [phone] Nov, Depression, major, recurrent , moderate F33.1 ; Generalized anxiety disorder F41.1 and Personality disorder in adult F60.9 [facility] [place] [address] [id number] [address] [place] [phone] Oct, Depression, major, recurrent , moderate F33.1 [facility] [place] [address] [id number] [address] [place] [phone] Oct, Depression, major, recurrent , moderate F33.1 and Generalized anxiety disorder F41.1 [facility] [place] [address] [facility] [id number] [address] [place] [phone] Aug, Generalized anxiety disorder F41.1 and Depression, major, recurrent, moderate F33.1 [facility] [place] [address] [id number] [address] [place] [phone] Aug, [facility] [place] [address] [facility] [id number] [address] [place] [phone] Jun, Mood disorder F39 and Genera lized anxiety disorder F41.1 [facility] [place] [address] [facility] [id number] [address] [place] [phone] May, Mood disorder F39 and Genera lized anxiety disorder F41.1 [facility] [place] [address] [id number] [address] [place] [phone] Apr, [facility] [place] [address] [id number] [address] [place] [id number] Apr, Mood disorder F39 [facility] [address] [id number] [address] [place] [address] [id number] Aug, Encounter for dental examina tion V72.2 and Dental examination Z01.20 [facility] [place] [address] [id number] [address] [place] [phone] Nov, [facility] [place] [address] [id number] [address] [place] [phone] Nov, [facility] [place] [address] [id number] [address] [place] [phone] Jan, [facility] [place] [address] [id number] [address] [place] [phone] Jan, [facility] [place] [address] [id number] [address] [place] [phone] Nov, [facility] [place] [address] [id number] [address] [place] [phone] Nov, [facility] [place] [address] [id number] [address] [place] [phone] Nov, [facility] [place] [address] [id number] [address] [place] [id number] Nov, [facility] [place] [address] [id number] [address] [place] [phone] Jan, [facility] [place] [address] [id number] [address] [place] [phone] Jan, [facility] [place] [address] [id number] [address] [place] [phone] December, [facility] [place] [address] [id number] [address] [place] [phone] December, [facility] [place] [address] [id number] [address] [place] [id number] Nov, [facility] [place] [address] [id number] [address] [place] [id number] Jul, [facility] [place] [address] [id number] [address] [place] [phone] Mar, IMMUNIZATIONS No Known Immunizations SOCIAL HISTORY Never Assessed REASON FOR VISIT YOSSI puga/hugo -Sloan DAVIS , _update contract PLAN OF CARE Activity Details Follow Up 4 Weeks Reason:YOSSI f/u VITAL SIGNS Height 68 in 2018-02-25 Weight 356.2 lbs 2018-02-25 Heart Rate 99 bpm 2018-02-25 Respiratory Rate 20 2018-02-25 Oximetry 99 % 2018-02-25 BMI 54.15 kg/m2 2018-02-25 Blood pressure systolic 138 mmHg 2018-02-25 Blood pressure diastolic 80 mmHg 2018-02-25 MEDICATIONS Medication Instructions Dosage Frequency Start Date End Date Duration S tatus Amoxicillin 500 MG Orally 3 times a day 1 capsule 8h 7 days Not-Taking Motrin IB 800 Orally every 6 hrs 1 tablet as needed 6h 5 days Not-Taking Lorazepam 0.5 MG Orally BID anxiety, if hydroxyzine does not help. 1 tablet as needed Active Tramadol HCl 50 MG Orally every 6 hrs 1 tablet as needed 6h as needed Not-Taking Amitriptyline HCl 50 mg Orally Once a day at bedtime for two weeks, then 1 tablet at bedtime 1/2 tablet Jan, Activ e Prazosin HCl 1 MG Orally for nightmares 1 capsule at bedtime December, Active HydrOXYzine HCl 50 mg Orally 3 times a day as needed for anxiety 1 tab let Active RESULTS No Results PROCEDURES No Known procedures INSTRUCTIONS MEDICATIONS ADMINISTERED No Known Medications MEDICAL (GENERAL) HISTORY Type Description Date Surgical History Gallbladder removed Hospitalization History [facility] [place], [place]. Admitted for depressed mood and SI. 2011
--- OUTSIDE RECORDS SUMMARY | 2019-11-05 09:05 | XMS REPORT ---
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 Role Phone DIVINE TAYLOR Unavailable PROBLEMS Type Condition ICD9-CM Code [id number] Code Onset Dates Condition S tatus SNOMED Code Problem Insomnia, unspecified 780.52 Active 938571096 Problem Unspecified episodic mood disorder 296.90 Active 644042870 Problem Essential hypertension, benign 401.1 Active 1734441 Problem Routine general medical examination at [facility] V70.0 Active 682022153 Problem Cough 786.2 Active 71244868 Problem Headache 784.0 Active 52694067 Problem Mixed obsessional thoughts and acts F42.2 Active 02390605 Problem Chronic post-traumatic stress disorder (PTSD) F43. 12 Active 779266601 Problem Generalized anxiety disorder F41.1 A ctive 15989765 Problem Depression, major, recurrent, moderate F33.1 Active 73776848 Problem BMI 50.0-59.9, adult Z68.43 Active 373096652 Problem Personality disorder in adult F60.9 Active 14450372 ALLERGIES Substance Reaction Event Type Date Status sulfa drugs Unknown Drug Allergy December, Active Wellbutrin Unknown Drug Allergy December, Active Lamictal Rash Drug Allergy December, Active ENCOUNTERS Encounter Location Date Diagnosis [facility] [address] [facility] [place] [id number] [address] [place] [phone] Apr, [facility] [address] [facility] [place] [id number] [address] [place] [phone] Apr, [facility] [address] [facility] [place] [id number] [address] [place] [phone] Mar, Generalized anxiety disorder F41.1 ; Depression, major, recurrent, moderate F33.1 ; Chronic post-traumatic stress disorder (PTSD) F43.12 ; Mixed obsessional thoughts and acts F42.2 and Personality disorder in adult F60.9 [facility] [address] [facility] [place] [id number] [address] [place] [phone] Mar, Generalized anxiety disorder F41.1 [facility] [address] [facility] [place] [id number] [address] [place] [phone] Jan, Generalized anxiety disorder F41.1 ; Depression, major, recurrent, moderate F33.1 ; Chronic post-traumatic stress disorder (PTSD) F43.12 ; Mixed obsessional thoughts and acts F42.2 and Personality disorder in adult F60.9 [facility] [address] [facility] [place] [id number] [address] [place] [phone] Jan, Generalized anxiety disorder F41.1 ; Depression, major, recurrent, moderate F33.1 ; Chronic post-traumatic stress disorder (PTSD) F43.12 ; Mixed obsessional thoughts and acts F42.2 and Personality disorder in adult F60.9 [facility] [address] [place] [id number] [address] [place] [phone] December, Chronic post-traumatic stres s disorder (PTSD) F43.12 ; Depression, major, recurrent, moderate F33.1 ; Generalized anxiety disorder F41.1 ; Mixed obsessional thoughts and acts F42.2 and BMI 50.0-59.9, adult Z68.43 [facility] [address] [place] [id number] [address] [place] [phone] December, Chronic post-traumatic stres s disorder (PTSD) F43.12 ; Depression, major, recurrent, moderate F33.1 ; Generalized anxiety disorder F41.1 and BMI 50.0-59.9, adult Z68.43 [facility] [address] [facility] [place] [id number] [address] [place] [phone] December, Generalized anxiety disorder F41.1 [facility] [address] [facility] [id number] [address] [place] [address] [phone] December, Dental caries K02.9 and Sharp al examination Z01.20 [facility] [address] [facility] [place] [id number] [address] [place] [phone] December, Generalized anxiety disorder F41.1 and 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 Z79.899 [facility] [address] [id number] [address] [place] [phone] Nov, Other manager long term care (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 Z79.899 [facility] [address] [id number] [address] [place] [address] [phone] Nov, [facility] [address] [id number] [address] [place] [phone] Nov, [facility] [address] [id number] [address] [place] [phone] Nov, [facility] [address] [id number] [address] [place] [address] [phone] Nov, [facility] [address] [id number] [address] [place] [address] [id number] Nov, Dental examination Z01.20 [facility] [address] [id number] [address] [place] [phone] Nov, Generalized anxiety disorder F41.1 ; Depression, major, recurrent, moderate F33.1 ; Personality disorder in adult F60.9 and Other assisted (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 therapy Z79.899 [facility] [address] [id number] [address] [place] [phone] Nov, Generalized anxiety disorder F41.1 ; Depression, major, recurrent, moderate F33.1 and Personality disorder in adult F60.9 [facility] [address] [id number] [address] [place] [phone] Aug, [facility] [address] [id number] [address] [place] [phone] Aug, Generalized anxiety disorder F41.1 ; Depression, major, recurrent, moderate F33.1 and Personality disorder in adult F60.9 [facility] [address] [id number] [address] [place] [phone] Jul, Generalized anxiety disorder F41.1 ; Depression, major, recurrent, moderate F33.1 and Personality disorder in adult F60.9 [facility] [address] [facility] [place] [id number] [address] [place] [phone] Jun, Generalized anxiety disorder F41.1 ; Depression, major, recurrent, moderate F33.1 and Personality disorder in adult F60.9 [facility] [address] [facility] [place] [id number] [address] [place] [phone] May, [facility] [address] [facility] [place] [id number] [address] [place] [phone] May, Generalized anxiety disorder F41.1 ; Depression, major, recurrent, moderate F33.1 and Personality disorder in adult F60.9 [facility] [address] [facility] [place] [id number] [address] [place] [phone] May, Generalized anxiety disorder F41.1 [place] [address] [facility] [place] [id number] [address] [place] [phone] Apr, Generalized anxiety disorder F41.1 ; Depression, major, recurrent, moderate F33.1 and Personality disorder in adult F60.[address] [place] [id number] [place] [address] [id number] Apr, 2017 Dental examination Z01.20 [facility] [address] [facility] [id number] [address] [place] [phone] Mar, Generalized anxiety disorder F41.1 ; Depression, major, recurrent, moderate F33.1 and Personality disorder in adult F60.9 [facility] [address] [facility] [place] [id number] [address] [place] [phone] Jan, Generalized anxiety disorder F41.1 ; Depression, major, recurrent, moderate F33.1 and Personality disorder in adult F60.9 [facility] [address] [facility] [place] [id number] [address] [place] [phone] Jan, Generalized anxiety disorder F41.1 ; Depression, major, recurrent, moderate F33.1 and Personality disorder in adult F60.9 [facility] [address] [id number] [address] [place] [address] [phone] Jan, Dental examination Z01.20 [facility] [address] [id number] [address] [place] [phone] Nov, Depression, major, recurrent , moderate F33.1 ; Generalized anxiety disorder F41.1 and Personality disorder in adult F60.9 [facility] [address] [id number] [address] [place] [phone] Oct, Depression, major, recurrent , moderate F33.1 [facility] [address] [id number] [address] [place] [phone] Oct, Depression, major, recurrent , moderate F33.1 and Generalized anxiety disorder F41.1 [facility] [address] [facility] [place] [id number] [address] [place] [phone] Aug, Generalized anxiety disorder F41.1 and Depression, major, recurrent, moderate F33.1 [facility] [address] [id number] [address] [place] [phone] Aug, [facility] [address] [id number] [address] [place] [phone] Jun, Mood disorder F39 and Genera lized anxiety disorder F41.1 [facility] [address] [facility] [place] [id number] [address] [place] [phone] May, Mood disorder F39 and Genera lized anxiety disorder F41.1 [facility] [address] [id number] [address] [place] [phone] Apr, [facility] [address] [id number] [address] [place] [phone] Apr, Mood disorder F39 [facility] [address] [id number] [address] [place] [address] [phone] Aug, Encounter for dental examina tion V72.2 and Dental examination Z01.20 [facility] [address] [id number] [address] [place] [phone] Nov, [facility] [address] [id number] [address] [place] [phone] Nov, [facility] [address] [id number] [address] [place] [phone] Jan, [facility] [address] [id number] [address] [place] [phone] Jan, [facility] [address] [id number] [address] [place] [phone] Nov, [facility] [address] [id number] [address] [place] [phone] Nov, [facility] [address] [id number] [address] [place] [phone] Nov, [facility] [address] [id number] [address] [place] [phone] Nov, [facility] [address] [id number] [address] [place] [phone] Jan, [facility] [address] [id number] [address] [place] [phone] Jan, [facility] [address] [id number] [address] [place] [phone] December, [facility] [address] [id number] [address] [place] [phone] December, [facility] [address] [id number] [address] [place] [phone] Nov, [facility] [address] [id number] [address] [place] [phone] Jul, [facility] [address] [id number] [address] [place] [phone] Mar, IMMUNIZATIONS No Known Immunizations SOCIAL HISTORY Never Assessed REASON FOR VISIT edd/hugo Jones MA , contract PLAN OF CARE Activity Details Follow Up PRN Reason: VITAL SIGNS Height 68 in 2017-12-31 Weight 371.8 lbs 2017-12-31 Heart Rate 96 bpm 2017-12-31 Respiratory Rate 20 2017-12-31 BMI 56.53 kg/m2 2017-12-31 Blood pressure systolic 130 mmHg 2017-12-31 Blood pressure diastolic 88 mmHg 2017-12-31 MEDICATIONS Medication Instructions Dosage Frequency Start Date End Date Duration S tatus HydrOXYzine HCl 50 mg Orally 3 times a day as needed for anxiety 1 tab let Active Motrin IB 800 Orally every 6 hrs 1 tablet as needed 6h 5 days Not-Taking Amoxicillin 500 MG Orally 3 times a day 1 capsule 8h 7 days Not-Taking HydrOXYzine HCl 25MG TAKE ONE TABLET BY MOUTH THREE TIMES DAILY NEEDED Active Pukalani Carbonate 300 MG Orally 2 times a day 1 capsule 12h Active Tramadol HCl 50 MG Orally every 6 hrs 1 tablet as needed 6h as needed Not-Taking Prazosin HCl 1 MG Orally for nightmares 1 capsule at bedtime December, Active Lorazepam 0.5 MG Orally BID anxiety, if hydroxyzine does not help. 1 tablet as needed Active RESULTS No Results PROCEDURES No Known procedures INSTRUCTIONS MEDICATIONS ADMINISTERED No Known Medications MEDICAL (GENERAL) HISTORY Type Description Date Surgical History Gallbladder removed Hospitalization History [facility] [place], [place]. Admitted for depressed mood and SI. 2011
--- OUTSIDE RECORDS SUMMARY | 2019-11-05 09:05 | XMS REPORT ---
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 Role Phone RADHA CORREA Unavailable PROBLEMS Type Condition ICD9-CM Code [id number] Code Onset Dates Condition S tatus SNOMED Code Problem Insomnia, unspecified 780.52 Active 500937706 Problem Unspecified episodic mood disorder 296.90 Active 437796847 Problem Essential hypertension, benign 401.1 Active 9076413 Problem Routine general medical examination at [facility] V70.0 Active 419179535 Problem Cough 786.2 Active 40413938 Problem Headache 784.0 Active 92973253 Problem Mixed obsessional thoughts and acts F42.2 Active 09654068 Problem Chronic post-traumatic stress disorder (PTSD) F43. 12 Active 991934112 Problem Generalized anxiety disorder F41.1 A ctive 60291616 Problem Depression, major, recurrent, moderate F33.1 Active 69608054 Problem BMI 50.0-59.9, adult Z68.43 Active 046551104 Problem Personality disorder in adult F60.9 Active 65823163 ALLERGIES Substance Reaction Event Type Date Status sulfa drugs Unknown Drug Allergy Jan, Active Wellbutrin Unknown Drug Allergy Jan, Active Lamictal Rash Drug Allergy Jan, Active ENCOUNTERS Encounter Location Date Diagnosis [facility] [address] [facility] [id number] [address] [place] [phone] Apr, [facility] [address] [facility] [id number] [address] [place] [phone] Apr, [facility] [address] [facility] [id number] [address] [place] [address] Mar, Generalized anxiety disorder F41.1 ; Depression, major, recurrent, moderate F33.1 ; Chronic post-traumatic stress disorder (PTSD) F43.12 ; Mixed obsessional thoughts and acts F42.2 and Personality disorder in adult F60.9 [facility] [address] [facility] [id number] [address] [place] [phone] Mar, Generalized anxiety disorder F41.1 [facility] [address] [facility] [id number] [address] [place] [address] Jan, Generalized anxiety disorder F41.1 ; Depression, major, recurrent, moderate F33.1 ; Chronic post-traumatic stress disorder (PTSD) F43.12 ; Mixed obsessional thoughts and acts F42.2 and Personality disorder in adult F60.9 [facility] [address] [facility] [id number] [address] [place] [phone] Jan, Generalized anxiety disorder F41.1 ; Depression, major, recurrent, moderate F33.1 ; Chronic post-traumatic stress disorder (PTSD) F43.12 ; Mixed obsessional thoughts and acts F42.2 and Personality disorder in adult F60.9 [facility] [address] [facility] [id number] [address] [place] [address] December, Chronic post-traumatic stres s disorder (PTSD) F43.12 ; Depression, major, recurrent, moderate F33.1 ; Generalized anxiety disorder F41.1 ; Mixed obsessional thoughts and acts F42.2 and BMI 50.0-59.9, adult Z68.43 [place] [place] [id number] [address] [place] [address] December, Chronic post-traumatic stres s disorder (PTSD) F43.12 ; Depression, major, recurrent, moderate F33.1 ; Generalized anxiety disorder F41.1 and BMI 50.0-59.9, adult Z68.43 [facility] [address] [facility] [id number] [address] [place] [address] December, Generalized anxiety disorder F41.1 [facility] [address] [id number] [address] [place] [address] [phone] December, Dental caries K02.9 and Bowman al examination Z01.20 [facility] [address] [facility] [id number] [address] [place] [address] December, Generalized anxiety disorder F41.1 and Other jail (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 therapy Z79.899 [facility] [address] [id number] [address] [place] [phone] Nov, 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 Z79.899 [facility] [address] [id number] [address] [place] [address] [phone] Nov, [facility] [address] [id number] [address] [place] [address] [phone] Nov, [facility] [address] [id number] [address] [place] [phone] Nov, [facility] [address] [id number] [address] [place] [address] [phone] Nov, [facility] [address] [id number] [address] [place] [address] [phone] Nov, Dental examination Z01.20 [facility] [address] [id number] [address] [place] [phone] Nov, Generalized anxiety disorder F41.1 ; Depression, major, recurrent, moderate F33.1 ; Personality disorder in adult F60.9 and Other jail (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 therapy Z79.899 [facility] [address] [id number] [address] [place] [phone] Nov, Generalized anxiety disorder F41.1 ; Depression, major, recurrent, moderate F33.1 and Personality disorder in adult F60.9 [facility] [address] [id number] [address] [place] [phone] Aug, [facility] [address] [id number] [address] [place] [phone] Aug, Generalized anxiety disorder F41.1 ; Depression, major, recurrent, moderate F33.1 and Personality disorder in adult F60.9 [facility] [address] [id number] [address] [place] [phone] Jul, Generalized anxiety disorder F41.1 ; Depression, major, recurrent, moderate F33.1 and Personality disorder in adult F60.9 [place] [address] [facility] [id number] [address] [place] [phone] Jun, Generalized anxiety disorder F41.1 ; Depression, major, recurrent, moderate F33.1 and Personality disorder in adult F60.9 [place] [address] [facility] [id number] [address] [place] [phone] May, [place] [address] [facility] [id number] [address] [place] [phone] May, Generalized anxiety disorder F41.1 ; Depression, major, recurrent, moderate F33.1 and Personality disorder in adult F60.9 [place] [address] [facility] [id number] [address] [place] [phone] 09 May, 2017 Generalized anxiety disorder F41.1 [place] [id number] [address] [place] [phone] Apr, Generalized anxiety disorder F41.1 ; Depression, major, recurrent, moderate F33.1 and Personality disorder in adult F60.[address] [place] [id number] [place] [address] [id number] 05 Apr, 2017 Dental examination Z01.[address] [id number] [address] [place] [phone] Mar, Generalized anxiety disorder F41.1 ; Depression, major, recurrent, moderate F33.1 and Personality disorder in adult F60.[address] [id number] [address] [place] [phone] Jan, Generalized anxiety disorder F41.1 ; Depression, major, recurrent, moderate F33.1 and Personality disorder in adult F60.9 [facility] [address] [facility] [id number] [address] [place] [phone] Jan, Generalized anxiety disorder F41.1 ; Depression, major, recurrent, moderate F33.1 and Personality disorder in adult F60.9 [facility] [address] [id number] [address] [place] [phone] Jan, Dental examination Z01.20 [facility] [address] [id number] [address] [place] [phone] Nov, Depression, major, recurrent , moderate F33.1 ; Generalized anxiety disorder F41.1 and Personality disorder in adult F60.9 [facility] [address] [id number] [address] [place] [phone] Oct, Depression, major, recurrent , moderate F33.1 [facility] [address] [id number] [address] [place] [phone] Oct, Depression, major, recurrent , moderate F33.1 and Generalized anxiety disorder F41.1 [facility] [address] [facility] [id number] [address] [place] [phone] Aug, Generalized anxiety disorder F41.1 and Depression, major, recurrent, moderate F33.1 [facility] [address] [id number] [address] [place] [address] Aug, [facility] [address] [facility] [id number] [address] [place] [phone] Jun, Mood disorder F39 and Genera lized anxiety disorder F41.1 [facility] [address] [facility] [id number] [address] [place] [phone] May, Mood disorder F39 and Genera lized anxiety disorder F41.1 [facility] [address] [id number] [address] [place] [phone] Apr, [facility] [address] [id number] [address] [place] [phone] Apr, Mood disorder F39 [facility] [address] [id number] [address] [place] [address] [phone] Aug, Encounter for dental examina tion V72.2 and Dental examination Z01.20 [facility] [address] [id number] [address] [place] [phone] Nov, [facility] [address] [id number] [address] [place] [phone] Nov, [facility] [address] [id number] [address] [place] [phone] Jan, [facility] [address] [id number] [address] [place] [phone] Jan, [facility] [address] [id number] [address] [place] [phone] Nov, [facility] [address] [id number] [address] [place] [phone] Nov, [facility] [address] [id number] [address] [place] [phone] Nov, [facility] [address] [id number] [address] [place] [phone] Nov, [facility] [address] [id number] [address] [place] [phone] Jan, [facility] [address] [id number] [address] [place] [phone] Jan, [facility] [address] [id number] [address] [place] [phone] December, [facility] [address] [id number] [address] [place] [phone] December, [facility] [address] [id number] [address] [place] [phone] Nov, [facility] [address] [id number] [address] [place] [phone] Jul, [facility] [address] [id number] [address] [place] [phone] Mar, IMMUNIZATIONS No Known Immunizations SOCIAL HISTORY Never Assessed REASON FOR VISIT YOSSI Jones MA PLAN OF CARE Activity Details Follow Up 4 Weeks Reason:YOSSI puga/u VITAL SIGNS Height 68 in 2018-01-28 Weight 359.9 lbs 2018-01-28 Heart Rate 105 bpm 2018-01-28 Respiratory Rate 20 2018-01-28 Oximetry on room air:99 % 2018-01-28 BMI 54.72 kg/m2 2018-01-28 Blood pressure systolic 138 mmHg 2018-01-28 Blood pressure diastolic 80 mmHg 2018-01-28 MEDICATIONS Medication Instructions Dosage Frequency Start Date End Date Duration S tatus Amoxicillin 500 MG Orally 3 times a day 1 capsule 8h 7 days Not-Taking Amitriptyline HCl 50 mg Orally Once a day at bedtime for two weeks, then 1 tablet at bedtime 1/2 tablet Jan, 30 day(s) Activ e Tramadol HCl 50 MG Orally every 6 hrs 1 tablet as needed 6h as needed Not-Taking HydrOXYzine HCl 50 mg Orally 3 times a day as needed for anxiety 1 tab let Active Prazosin HCl 1 MG Orally for nightmares 1 capsule at bedtime December, Active Lorazepam 0.5 MG Orally BID anxiety, if hydroxyzine does not help. 1 tablet as needed Active Motrin IB 800 Orally every 6 hrs 1 tablet as needed 6h 5 days Not-Taking RESULTS No Results PROCEDURES No Known procedures INSTRUCTIONS MEDICATIONS ADMINISTERED No Known Medications MEDICAL (GENERAL) HISTORY Type Description Date Surgical History Gallbladder removed [facility] [place] Admitted for depressed mood and SI. 2011
--- OUTSIDE RECORDS SUMMARY | 2019-11-05 09:05 | XMS REPORT ---
Author Author MADELINE Bibi RADHA [facility] Address [address] [place] [address] Care Team Providers Care Philosophy And Religion Instructor Name Role Phone KM CORREAN Unavailable PROBLEMS Type Condition ICD9-CM Code NIH87-RH Code Onset Dates Condition S tatus SNOMED Code Problem Insomnia, unspecified 780.52 Active 060591194 Problem Unspecified episodic mood disorder 296.90 Active 057477926 Problem Essential hypertension, benign 401.1 Active 1596477 Problem Routine general medical examination at [facility] y V70.0 Active 070741514 Problem Cough 786.2 Active 98340424 Problem Headache 784.0 Active 37411825 Problem Mixed obsessional thoughts and acts F42.2 Active 13820076 Problem Chronic post-traumatic stress disorder (PTSD) F43. 12 Active 678115164 Problem Generalized anxiety disorder F41.1 A ctive 22196024 Problem Depression, major, recurrent, moderate F33.1 Active 84339304 Problem BMI 50.0-59.9, adult Z68.43 Active 305287306 Problem Personality disorder in adult F60.9 Active 25232475 ALLERGIES No Information ENCOUNTERS Encounter Location Date Diagnosis [facility] [address] [facility] [place] [id number] [address] [place] [phone] May, [facility] [address] [facility] [place] [id number] [address] [place] [phone] Apr, [facility] [address] [facility] [place] [id number] [address] [place] [address] Mar, Generalized anxiety disorder F41.1 ; Depression, major, recurrent, moderate F33.1 ; Chronic post-traumatic stress disorder (PTSD) F43.12 ; Mixed obsessional thoughts and acts F42.2 and Personality disorder in adult F60.9 [facility] [address] [place] [id number] [address] [place] [phone] Mar, Generalized anxiety disorder F41.1 [facility] [address] [place] [id number] [address] [place] [phone] Jan, Generalized anxiety disorder F41.1 ; Depression, major, recurrent, moderate F33.1 ; Chronic post-traumatic stress disorder (PTSD) F43.12 ; Mixed obsessional thoughts and acts F42.2 and Personality disorder in adult F60.9 [facility] [address] [place] [id number] [address] [place] [address] Jan, Generalized anxiety disorder F41.1 ; Depression, major, recurrent, moderate F33.1 ; Chronic post-traumatic stress disorder (PTSD) F43.12 ; Mixed obsessional thoughts and acts F42.2 and Personality disorder in adult F60.9 [place] [address] [place] [id number] [address] [place] [address] December, Chronic post-traumatic stres s disorder (PTSD) F43.12 ; Depression, major, recurrent, moderate F33.1 ; Generalized anxiety disorder F41.1 ; Mixed obsessional thoughts and acts F42.2 and BMI 50.0-59.9, adult Z68.43 [place] [address] [place] [id number] [address] [place] [address] December, Chronic post-traumatic stres s disorder (PTSD) F43.12 ; Depression, major, recurrent, moderate F33.1 ; Generalized anxiety disorder F41.1 and BMI 50.0-59.9, adult Z68.43 [facility] [address] [place] [id number] [address] [place] [phone] December, Generalized anxiety disorder F41.1 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 [address] [id number] [address] [place] [phone] Nov, [facility] [address] [id number] [address] [place] [address] [phone] Nov, [facility] [address] [id number] [address] [place] [phone] Nov, [facility] [address] [id number] [address] [place] [phone] Nov, [facility] [address] [id number] [address] [place] [address] [phone] Nov, Dental examination Z01.20 [facility] [address] [id number] [address] [place] [phone] Nov, Generalized anxiety disorder F41.1 ; Depression, major, recurrent, moderate F33.1 ; Personality disorder in adult F60.9 and Other jail (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 therapy Z79.899 [facility] [address] [id number] [address] [place] [phone] Nov, Generalized anxiety disorder F41.1 ; Depression, major, recurrent, moderate F33.1 and Personality disorder in adult F60.9 [facility] [address] [facility] [place] [id number] [address] [place] [phone] Aug, [facility] [address] [id number] [address] [place] [phone] Aug, Generalized anxiety disorder F41.1 ; Depression, major, recurrent, moderate F33.1 and Personality disorder in adult F60.9 [facility] [address] [id number] [address] [place] [phone] Jul, Generalized anxiety disorder F41.1 ; Depression, major, recurrent, moderate F33.1 and Personality disorder in adult F60.9 [facility] [address] [facility] [id number] [address] [place] [phone] Jun, Generalized anxiety disorder F41.1 ; Depression, major, recurrent, moderate F33.1 and Personality disorder in adult F60.9 [facility] [address] [facility] [id number] [address] [place] [phone] May, [facility] [address] [facility] [id number] [address] [place] [address] May, Generalized anxiety disorder F41.1 ; Depression, major, recurrent, moderate F33.1 and Personality disorder in adult F60.9 [facility] [address] [facility] [id number] [address] [place] [phone] May, Generalized anxiety disorder F41.1 [facility] [address] [facility] [id number] [address] [place] [phone] Apr, Generalized anxiety disorder F41.1 ; Depression, major, recurrent, moderate F33.1 and Personality disorder in adult F60.[address] [place] [id number] [place] [address] [id number] Apr, Dental examination Z01.20 [facility] [address] [facility] [id number] [address] [place] [phone] Mar, Generalized anxiety disorder F41.1 ; Depression, major, recurrent, moderate F33.1 and Personality disorder in adult F60.9 [facility] [address] [facility] [id number] [address] [place] [phone] Jan, Generalized anxiety disorder F41.1 ; Depression, major, recurrent, moderate F33.1 and Personality disorder in adult F60.9 [facility] [address] [facility] [id number] [address] [place] [phone] Jan, Generalized anxiety disorder F41.1 ; Depression, major, recurrent, moderate F33.1 and Personality disorder in adult F60.9 [facility] [address] [id number] [address] [place] [address] [phone] Jan, Dental examination Z01.20 [facility] [address] [facility] [id number] [address] [place] [address] Nov, Depression, major, recurrent , moderate F33.1 ; Generalized anxiety disorder F41.1 and Personality disorder in adult F60.9 [facility] [address] [facility] [id number] [address] [place] [phone] Oct, Depression, major, recurrent , moderate F33.1 [facility] [address] [facility] [id number] [address] [place] [phone] Oct, Depression, major, recurrent , moderate F33.1 and Generalized anxiety disorder F41.1 [facility] [address] [facility] [id number] [address] [place] [phone] Aug, Generalized anxiety disorder F41.1 and Depression, major, recurrent, moderate F33.1 [facility] [address] [facility] [id number] [address] [place] [phone] Aug, [facility] [address] [facility] [id number] [address] [place] [phone] Jun, Mood disorder F39 and Genera lized anxiety disorder F41.1 [facility] [address] [facility] [id number] [address] [place] [phone] May, Mood disorder F39 and Genera lized anxiety disorder F41.1 [facility] [address] [facility] [id number] [address] [place] [phone] Apr, [facility] [address] [facility] [id number] [address] [place] [phone] 06 Apr, [address] [facility] [address] [id number] [address] [place] [address] [phone] Aug, Encounter for dental examina tion V72.2 and Dental examination Z01.20 [facility] [address] [facility] [id number] [address] [place] [phone] 14 Nov, 2014 [facility] [address] [facility] [id number] [address] [place] [phone] Nov, [facility] [address] [id number] [address] [place] [phone] Jan, [facility] [address] [id number] [address] [place] [phone] Jan, [facility] [address] [id number] [address] [place] [phone] Nov, [facility] [address] [id number] [address] [place] [phone] Nov, [facility] [address] [id number] [address] [place] [phone] Nov, [facility] [address] [id number] [address] [place] [phone] Nov, [facility] [address] [id number] [address] [place] [phone] Jan, [facility] [address] [id number] [address] [place] [phone] Jan, [facility] [address] [id number] [address] [place] [phone] December, [facility] [address] [id number] [address] [place] [phone] December, [facility] [address] [id number] [address] [place] [phone] Nov, [facility] [address] [id number] [address] [place] [phone] Jul, [facility] [address] [id number] [address] [place] [phone] Mar, IMMUNIZATIONS No Known Immunizations SOCIAL HISTORY Never Assessed REASON FOR VISIT med refill PLAN OF CARE VITAL SIGNS MEDICATIONS Medication Instructions Dosage Frequency Start Date End Date Duration S tatus HydrOXYzine HCl 50 mg Orally 3 times a day as needed for anxiety 1 tab let 30 days Active RESULTS No Results PROCEDURES No Known procedures INSTRUCTIONS MEDICATIONS ADMINISTERED No Known Medications MEDICAL (GENERAL) HISTORY Type Description Date Surgical History Gallbladder removed Hospitalization History [facility] [place] Admitted for depressed mood and SI. 2012
--- OUTSIDE RECORDS SUMMARY | 2019-11-05 09:05 | XMS REPORT ---
Author Author Bibi CRUZ Organization [facility] Address [address] [place] [address] Care Team Providers Care Curator Name Role Phone CAREY CRUZ Unavailable PROBLEMS Type Condition ICD9-CM Code PSS13-KH Code Onset Dates Condition S tatus SNOMED Code Problem Mixed obsessional thoughts and acts F42.2 Active 15940294 Problem Chronic post-traumatic stress disorder (PTSD) F43. 12 Active 978260850 Problem Generalized anxiety disorder F41.1 A ctive 99804185 Problem Depression, major, recurrent, moderate F33.1 Active 18751026 Problem BMI 50.0-59.9, adult Z68.43 Active 713365525 Problem Personality disorder in adult F60.9 Active 62946645 ALLERGIES No Information ENCOUNTERS Encounter Location Date Diagnosis [facility] [address] [id number] [address] [place] [phone] 04 Jul, 2018 [facility] [address] [id number] [address] [place] [address] [phone] Jun, [facility] [address] [id number] [address] [place] [phone] Jun, Anemia D64.9 [facility] [address] [id number] [place] [phone] 16 Jun, 2018 Dermatitis L30.9 ; Fever R50 .9 and BMI 50.0-59.9, adult Z68.43 [facility] [address] [phone] Mar, Generalized anxiety disorder F41.1 ; Depression, major, recurrent, moderate F33.1 ; Chronic post-traumatic stress disorder (PTSD) F43.12 ; Mixed obsessional thoughts and acts F42.2 and Personality disorder in adult F60.9 [facility] [address] [id number] [address] [place] [phone] Mar, Generalized anxiety disorder F41.1 [place] [address] [id number] [address] [place] [phone] Jan, Generalized anxiety disorder F41.1 ; Depression, major, recurrent, moderate F33.1 ; Chronic post-traumatic stress disorder (PTSD) F43.12 ; Mixed obsessional thoughts and acts F42.2 and Personality disorder in adult F60.9 [place] [address] [id number] [address] [place] [phone] Jan, Generalized anxiety disorder F41.1 ; Depression, major, recurrent, moderate F33.1 ; Chronic post-traumatic stress disorder (PTSD) F43.12 ; Mixed obsessional thoughts and acts F42.2 and Personality disorder in adult F60.9 [place] [address] [id number] [address] [place] [phone] December, Chronic post-traumatic stres s disorder (PTSD) F43.12 ; Depression, major, recurrent, moderate F33.1 ; Generalized anxiety disorder F41.1 ; Mixed obsessional thoughts and acts F42.2 and BMI 50.0-59.9, adult Z68.43 [place] [address] [id number] [place] [phone] December, Chronic post-traumatic stres s disorder (PTSD) F43.12 ; Depression, major, recurrent, moderate F33.1 ; Generalized anxiety disorder F41.1 and BMI 50.0-59.9, adult Z68.43 [place] [address] [id number] [address] [place] [phone] December, Generalized anxiety disorder F41.1 [facility] [address] [facility] [id number] [address] [place] [address] [phone] December, Dental caries K02.9 and Ruby al examination Z01.20 [facility] [address] [id number] [address] [place] [phone] December, Generalized anxiety disorder F41.1 and Other halfway (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 therapy Z79.899 [facility] [address] [id number] [address] [place] [phone] Nov, Other halfway (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 Z79.899 [facility] [address] [id number] [place] [phone] Nov, [facility] [address] [id number] [address] [place] [address] [phone] Nov, [facility] [address] [id number] [address] [place] [phone] Nov, [facility] [address] [id number] [address] [place] [address] [phone] Nov, [facility] [address] [id number] [address] [place] [address] [phone] Nov, Dental examination Z01.20 [facility] [address] [id number] [address] [place] [phone] Nov, Generalized anxiety disorder F41.1 ; Depression, major, recurrent, moderate F33.1 ; Personality disorder in adult F60.9 and Other halfway (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 therapy Z79.899 [facility] [address] [id number] [address] [place] [phone] Nov, Generalized anxiety disorder F41.1 ; Depression, major, recurrent, moderate F33.1 and Personality disorder in adult F60.9 [facility] [address] [id number] [address] [place] [phone] Aug, [facility] [address] [id number] [address] [place] [phone] Aug, Generalized anxiety disorder F41.1 ; Depression, major, recurrent, moderate F33.1 and Personality disorder in adult F60.9 [facility] [address] [id number] [address] [place] [phone] Jul, Generalized anxiety disorder F41.1 ; Depression, major, recurrent, moderate F33.1 and Personality disorder in adult F60.9 [facility] [address] [facility] [id number] [address] [place] [phone] Jun, Generalized anxiety disorder F41.1 ; Depression, major, recurrent, moderate F33.1 and Personality disorder in adult F60.9 [facility] [address] [facility] [id number] [address] [place] [phone] May, [facility] [address] [facility] [id number] [address] [place] [phone] May, Generalized anxiety disorder F41.1 ; Depression, major, recurrent, moderate F33.1 and Personality disorder in adult F60.9 [facility] [address] [facility] [id number] [address] [place] [phone] May, Generalized anxiety disorder F41.1 [place] [address] [facility] [id number] [address] [place] [phone] Apr, Generalized anxiety disorder F41.1 ; Depression, major, recurrent, moderate F33.1 and Personality disorder in adult F60.9 [place] [id number] [facility] [id number] [place] [address] [phone] 05 Apr, 2017 Dental examination Z01.20 [facility] [address] [facility] [id number] [address] [place] [phone] Mar, Generalized anxiety disorder F41.1 ; Depression, major, recurrent, moderate F33.1 and Personality disorder in adult F60.9 [facility] [address] [facility] [id number] [address] [place] [phone] Jan, Generalized anxiety disorder F41.1 ; Depression, major, recurrent, moderate F33.1 and Personality disorder in adult F60.9 [facility] [address] [facility] [id number] [address] [place] [phone] Jan, Generalized anxiety disorder F41.1 ; Depression, major, recurrent, moderate F33.1 and Personality disorder in adult F60.9 [facility] [address] [id number] [address] [place] [address] [phone] Jan, Dental examination Z01.20 [facility] [address] [id number] [address] [place] [phone] Nov, Depression, major, recurrent , moderate F33.1 ; Generalized anxiety disorder F41.1 and Personality disorder in adult F60.9 [facility] [address] [id number] [address] [place] [phone] Oct, Depression, major, recurrent , moderate F33.1 [facility] [address] [id number] [address] [place] [phone] Oct, Depression, major, recurrent , moderate F33.1 and Generalized anxiety disorder F41.1 [facility] [address] [facility] [id number] [address] [place] [phone] Aug, Generalized anxiety disorder F41.1 and Depression, major, recurrent, moderate F33.1 [facility] [address] [facility] [id number] [address] [place] [phone] Aug, [facility] [address] [id number] [address] [place] [phone] Jun, Mood disorder F39 and Genera lized anxiety disorder F41.1 [facility] [address] [facility] [id number] [address] [place] [phone] May, Mood disorder F39 and Genera lized anxiety disorder F41.1 [facility] [address] [facility] [id number] [address] [place] [phone] Apr, [facility] [address] [facility] [id number] [address] [place] [phone] 06 Apr, 2016 Mood disorder F39 [facility] [address] [id number] [address] [place] [address] [phone] Aug, Encounter for dental examina tion V72.2 and Dental examination Z01.20 [facility] [address] [facility] [id number] [address] [place] [phone] Nov, [facility] [address] [id number] [address] [place] [phone] Nov, [facility] [address] [id number] [address] [place] [phone] Jan, [facility] [address] [id number] [address] [place] [phone] Jan, [facility] [address] [id number] [address] [place] [phone] Nov, [facility] [address] [id number] [address] [place] [phone] Nov, [facility] [address] [id number] [address] [place] [phone] Nov, [facility] [address] [id number] [address] [place] [phone] Nov, [facility] [address] [id number] [address] [place] [phone] Jan, [facility] [address] [id number] [address] [place] [phone] Jan, [facility] [address] [id number] [address] [place] [phone] December, [facility] [address] [id number] [address] [place] [phone] December, [facility] [address] [id number] [address] [place] [phone] Nov, [facility] [address] [id number] [address] [place] [phone] Jul, [facility] [address] [id number] [address] [place] [phone] Mar, IMMUNIZATIONS No Known Immunizations SOCIAL HISTORY Never Assessed REASON FOR VISIT PLAN OF CARE VITAL SIGNS MEDICATIONS Unknown Medications RESULTS No Results PROCEDURES No Known procedures INSTRUCTIONS MEDICATIONS ADMINISTERED No Known Medications MEDICAL (GENERAL) HISTORY Type Description Date Surgical History Gallbladder removed [facility]ization History [facility] [place]. Admitted for depressed mood and SI. 2012
--- OUTSIDE RECORDS SUMMARY | 2019-11-05 09:05 | XMS REPORT ---
Author Author MADELINE Bibi RADHA [facility] Address [address] [place] [address] Care Team Providers Care Mysql Database Developer Name Role Phone KM CORREAN Unavailable PROBLEMS Type Condition ICD9-CM Code DOO19-ZH Code Onset Dates Condition S tatus SNOMED Code Problem Insomnia, unspecified 780.52 Active 812211949 Problem Unspecified episodic mood disorder 296.90 Active 186110143 Problem Essential hypertension, benign 401.1 Active 9305741 Problem Routine general medical examination at [facility] y V70.0 Active 319012645 Problem Cough 786.2 Active 29189981 Problem Headache 784.0 Active 63346146 Problem Mixed obsessional thoughts and acts F42.2 Active 24768431 Problem Chronic post-traumatic stress disorder (PTSD) F43. 12 Active 684174332 Problem Generalized anxiety disorder F41.1 A ctive 02865586 Problem Depression, major, recurrent, moderate F33.1 Active 17417467 Problem BMI 50.0-59.9, adult Z68.43 Active 953526498 Problem Personality disorder in adult F60.9 Active 06904008 ALLERGIES Substance Reaction Event Type Date Status sulfa drugs Unknown Drug Allergy Mar, Active Wellbutrin Unknown Drug Allergy Mar, Active Lamictal Rash Drug Allergy Mar, Active ENCOUNTERS Encounter Location Date Diagnosis [facility] [address] [facility] [id number] [address] [place] [phone] May, [facility] [address] [facility] [id number] [address] [place] [phone] Mar, Generalized anxiety disorder F41.1 ; Depression, major, recurrent, moderate F33.1 ; Chronic post-traumatic stress disorder (PTSD) F43.12 ; Mixed obsessional thoughts and acts F42.2 and Personality disorder in adult F60.9 [facility] [address] [facility] [id number] [address] [place] [phone] Mar, Generalized anxiety disorder F41.1 [place] [address] [place] [id number] [address] [place] [phone] Jan, Generalized anxiety disorder F41.1 ; Depression, major, recurrent, moderate F33.1 ; Chronic post-traumatic stress disorder (PTSD) F43.12 ; Mixed obsessional thoughts and acts F42.2 and Personality disorder in adult F60.9 [place] [address] [id number] [address] [place] [phone] Jan, Generalized anxiety disorder F41.1 ; Depression, major, recurrent, moderate F33.1 ; Chronic post-traumatic stress disorder (PTSD) F43.12 ; Mixed obsessional thoughts and acts F42.2 and Personality disorder in adult F60.9 [place] [address] [place] [id number] [address] [place] [phone] December, Chronic post-traumatic stres s disorder (PTSD) F43.12 ; Depression, major, recurrent, moderate F33.1 ; Generalized anxiety disorder F41.1 ; Mixed obsessional thoughts and acts F42.2 and BMI 50.0-59.9, adult Z68.43 [place] [address] [place] [address] [id number] [address] [place] [phone] December, Chronic post-traumatic stres s disorder (PTSD) F43.12 ; Depression, major, recurrent, moderate F33.1 ; Generalized anxiety disorder F41.1 and BMI 50.0-59.9, adult Z68.43 [facility] [address] [facility] [id number] [address] [place] [phone] December, Generalized anxiety disorder F41.1 [facility] [address] [facility] [id number] [address] [place] [address] [phone] December, Dental caries K02.9 and [place] al examination Z01.20 [facility] [address] [facility] [id number] [address] [place] [phone] December, Generalized anxiety disorder F41.1 and Other prison (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 therapy Z79.899 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 [address] [id number] [address] [place] [address] [phone] Nov, [facility] [address] [id number] [address] [place] [phone] Nov, [facility] [address] [id number] [address] [place] [phone] Nov, [facility] [address] [id number] [address] [place] [address] [phone] Nov, [facility] [address] [id number] [address] [place] [address] [phone] Nov, Dental examination Z01.20 [facility] [address] [id number] [address] [place] [phone] Nov, Generalized anxiety disorder F41.1 ; Depression, major, recurrent, moderate F33.1 ; Personality disorder in adult F60.9 and Other prison (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 therapy Z79.899 [facility] [address] [id number] [address] [place] [phone] Nov, Generalized anxiety disorder F41.1 ; Depression, major, recurrent, moderate F33.1 and Personality disorder in adult F60.9 [facility] [address] [id number] [address] [place] [phone] Aug, [facility] [address] [id number] [address] [place] [phone] Aug, Generalized anxiety disorder F41.1 ; Depression, major, recurrent, moderate F33.1 and Personality disorder in adult F60.9 [facility] [address] [id number] [address] [place] [phone] Jul, Generalized anxiety disorder F41.1 ; Depression, major, recurrent, moderate F33.1 and Personality disorder in adult F60.9 [facility] [address] [facility] [id number] [address] [place] [phone] Jun, Generalized anxiety disorder F41.1 ; Depression, major, recurrent, moderate F33.1 and Personality disorder in adult F60.9 [facility] [address] [facility] [id number] [address] [place] [phone] May, [facility] [address] [facility] [id number] [address] [place] [phone] May, Generalized anxiety disorder F41.1 ; Depression, major, recurrent, moderate F33.1 and Personality disorder in adult F60.9 [facility] [address] [facility] [id number] [address] [place] [phone] 09 May, 2017 Generalized anxiety disorder F41.1 [place] [address] [facility] [id number] [address] [place] [phone] Apr, Generalized anxiety disorder F41.1 ; Depression, major, recurrent, moderate F33.1 and Personality disorder in adult F60.[address] [id number] [place] [address] [phone] 05 Apr, [address] [facility] [address] [facility] [id number] [address] [place] [phone] Mar, Generalized anxiety disorder F41.1 ; Depression, major, recurrent, moderate F33.1 and Personality disorder in adult F60.9 [facility] [address] [facility] [id number] [address] [place] [phone] Jan, Generalized anxiety disorder F41.1 ; Depression, major, recurrent, moderate F33.1 and Personality disorder in adult F60.9 [facility] [address] [facility] [id number] [address] [place] [phone] Jan, Generalized anxiety disorder F41.1 ; Depression, major, recurrent, moderate F33.1 and Personality disorder in adult F60.9 [facility] [address] [id number] [address] [place] [address] [phone] 01 [place], [address] [facility] [address] [id number] [address] [place] [phone] Nov, Depression, major, recurrent , moderate F33.1 ; Generalized anxiety disorder F41.1 and Personality disorder in adult F60.9 [facility] [address] [id number] [address] [place] [phone] Oct, Depression, major, recurrent , moderate F33.1 [facility] [address] [id number] [address] [place] [phone] 16 Oct, 2016 Depression, major, recurrent , moderate F33.1 and Generalized anxiety disorder F41.1 [facility] [address] [facility] [id number] [address] [place] [phone] Aug, Generalized anxiety disorder F41.1 and Depression, major, recurrent, moderate F33.1 [facility] [address] [facility] [id number] [address] [place] [phone] Aug, [facility] [address] [id number] [address] [place] [phone] Jun, Mood disorder F39 and Genera lized anxiety disorder F41.1 [facility] [address] [facility] [id number] [address] [place] [phone] May, Mood disorder F39 and Genera lized anxiety disorder F41.1 [facility] [address] [facility] [id number] [address] [place] [phone] Apr, [facility] [address] [facility] [id number] [address] [place] [phone] 06 Apr, 2016 Mood disorder F39 [facility] [address] [id number] [address] [place] [address] [phone] Aug, Encounter for dental examina tion V72.2 and Dental examination Z01.20 [facility] [address] [id number] [address] [place] [phone] [address], 2014 [facility] [address] [facility] [id number] [address] [place] [phone] Nov, [facility] [address] [id number] [address] [place] [phone] Jan, [facility] [address] [id number] [address] [place] [phone] Jan, [facility] [address] [id number] [address] [place] [phone] Nov, [facility] [address] [id number] [address] [place] [phone] Nov, [facility] [address] [id number] [address] [place] [phone] Nov, [facility] [address] [id number] [address] [place] [phone] Nov, [facility] [address] [id number] [address] [place] [phone] Jan, [facility] [address] [id number] [address] [place] [phone] Jan, [facility] [address] [id number] [address] [place] [phone] December, [facility] [address] [id number] [address] [place] [phone] December, [facility] [address] [id number] [address] [place] [phone] Nov, [facility] [address] [id number] [address] [place] [phone] Jul, [facility] [address] [id number] [address] [place] [phone] Mar, IMMUNIZATIONS No Known Immunizations SOCIAL HISTORY Never Assessed REASON FOR VISIT f/u--- SUSAN Elias PLAN OF CARE Activity Details Follow Up 4 Weeks Reason: Follow-up VITAL SIGNS Height 68 in 2018-03-25 Weight 351.2 lbs 2018-03-25 Heart Rate 96 bpm 2018-03-25 Respiratory Rate 20 2018-03-25 BMI 53.39 kg/m2 2018-03-25 Blood pressure systolic 134 mmHg 2018-03-25 Blood pressure diastolic 78 mmHg 2018-03-25 MEDICATIONS Medication Instructions Dosage Frequency Start Date End Date Duration S tirso Prazosin HCl 1 MG Orally for nightmares 1 capsule at bedtime December, Active Tramadol HCl 50 MG Orally every 6 hrs 1 tablet as needed 6h as needed Not-Taking Lorazepam 0.5 MG Orally BID anxiety, if hydroxyzine does not help. 1 tablet as needed Active Motrin IB 800 Orally every 6 hrs 1 tablet as needed 6h 5 days Not-Taking HydrOXYzine HCl 50 mg Orally 3 times a day as needed for anxiety 1 tab let Active Amoxicillin 500 MG Orally 3 times a day 1 capsule 8h 7 days Not-Taking Amitriptyline HCl 75 MG Orally at bedtime 1 tablet Jan, 30 days Active RESULTS No Results PROCEDURES No Known procedures INSTRUCTIONS MEDICATIONS ADMINISTERED No Known Medications MEDICAL (GENERAL) HISTORY Type Description Date Surgical History [facility] [place] [place] SI. [facility]
--- OUTSIDE RECORDS SUMMARY | 2019-11-05 09:05 | XMS REPORT ---
Author Author Bibi CRUZ Organization [facility] Address [address] [place] [address] Care Team Providers Care Assembler Garment Form Name Role Phone CAREY CRUZ Unavailable PROBLEMS Type Condition ICD9-CM Code [id number] Code Onset Dates Condition S tatus SNOMED Code Problem Mixed obsessional thoughts and acts F42.2 Active 83895973 Problem Chronic post-traumatic stress disorder (PTSD) F43. 12 Active 563233552 Problem Generalized anxiety disorder F41.1 A ctive 77887163 Problem Depression, major, recurrent, moderate F33.1 Active 26924573 Problem BMI 50.0-59.9, adult Z68.43 Active 860863186 Problem Personality disorder in adult F60.9 Active [id number] ALLERGIES No Information ENCOUNTERS Encounter Location Date Diagnosis [facility] [address] [id number] [address] [place] [phone] 04 Jul, 2018 [facility] [address] [phone] 30 Jun, 2018 Anemia D64.9 [facility] [address] [id number] [address] [place] [id number] 28 Jun, 2018 Dental examination Z01.20 an d Caries K02.9 [facility] [id number] [place] [phone] Jun, Anemia D64.9 [facility] [id number] [place] [phone] 16 Jun, 2018 Dermatitis L30.9 ; Fever R50 .9 and BMI 50.0-59.9, adult Z68.43 [facility] [address] [id number] Mar, Generalized anxiety disorder F41.1 ; Depression, major, recurrent, moderate F33.1 ; Chronic post-traumatic stress disorder (PTSD) F43.12 ; Mixed obsessional thoughts and acts F42.2 and Personality disorder in adult F60.9 [place] [address] [id number] [address] [place] [phone] Mar, Generalized anxiety disorder F41.1 [place] [address] [id number] [address] [place] [phone] Jan, Generalized anxiety disorder F41.1 ; Depression, major, recurrent, moderate F33.1 ; Chronic post-traumatic stress disorder (PTSD) F43.12 ; Mixed obsessional thoughts and acts F42.2 and Personality disorder in adult F60.9 [place] [address] [id number] [place] [phone] Jan, Generalized anxiety disorder F41.1 ; Depression, major, recurrent, moderate F33.1 ; Chronic post-traumatic stress disorder (PTSD) F43.12 ; Mixed obsessional thoughts and acts F42.2 and Personality disorder in adult F60.9 [place] [address] [id number] [address] [place] [phone] December, Chronic post-traumatic stres s disorder (PTSD) F43.12 ; Depression, major, recurrent, moderate F33.1 ; Generalized anxiety disorder F41.1 ; Mixed obsessional thoughts and acts F42.2 and BMI 50.0-59.9, adult Z68.43 [place] [address] [id number] [address] [place] [phone] December, Chronic post-traumatic stres s disorder (PTSD) F43.12 ; Depression, major, recurrent, moderate F33.1 ; Generalized anxiety disorder F41.1 and BMI 50.0-59.9, adult Z68.43 [place] [address] [id number] [address] [place] [phone] December, Generalized anxiety disorder F41.1 [facility] [address] [facility] [id number] [address] [place] [id number] 03 May, 2018 Dental caries K02.9 and [place] al examination Z01.20 [facility] [address] [id number] [address] [place] [phone] December, Generalized anxiety disorder F41.1 and 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 Z79.899 [facility] [address] [id number] [address] [place] [phone] Nov, 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 (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 Z79.899 [facility] [address] [id number] [address] [place] [id number] Nov, [facility] [address] [id number] [address] [place] [id number] Nov, [facility] [address] [id number] [address] [place] [phone] Nov, [facility] [address] [id number] [address] [place] [address] [id number] Nov, [facility] [address] [id number] [address] [place] [address] [id number] Nov, Dental examination Z01.20 [facility] [address] [id number] [address] [place] [phone] Nov, Generalized anxiety disorder F41.1 ; Depression, major, recurrent, moderate F33.1 ; Personality disorder in adult F60.9 and 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 Z79.899 [facility] [address] [id number] [address] [place] [phone] Nov, Generalized anxiety disorder F41.1 ; Depression, major, recurrent, moderate F33.1 and Personality disorder in adult F60.9 [facility] [address] [id number] [address] [place] [phone] Aug, [facility] [address] [id number] [address] [place] [phone] Aug, Generalized anxiety disorder F41.1 ; Depression, major, recurrent, moderate F33.1 and Personality disorder in adult F60.9 [facility] [address] [facility] [id number] [address] [place] [phone] Jul, Generalized anxiety disorder F41.1 ; Depression, major, recurrent, moderate F33.1 and Personality disorder in adult F60.9 [facility] [address] [facility] [id number] [address] [place] [phone] Jun, Generalized anxiety disorder F41.1 ; Depression, major, recurrent, moderate F33.1 and Personality disorder in adult F60.9 [place] [address] [facility] [id number] [address] [place] [phone] May, [place] [address] [facility] [id number] [address] [place] [phone] May, Generalized anxiety disorder F41.1 ; Depression, major, recurrent, moderate F33.1 and Personality disorder in adult F60.9 [place] [address] [facility] [id number] [address] [place] [phone] May, Generalized anxiety disorder F41.1 [place] [address] [facility] [id number] [address] [place] [phone] Apr, Generalized anxiety disorder F41.1 ; Depression, major, recurrent, moderate F33.1 and Personality disorder in adult F60.9 [place] [id number] [facility] [id number] [place] [address] [id number] 05 Apr, 2017 Dental examination Z01.[address] [id number] [address] [place] [phone] Mar, Generalized anxiety disorder F41.1 ; Depression, major, recurrent, moderate F33.1 and Personality disorder in adult F60.9 [place] [address] [facility] [id number] [address] [place] [phone] Jan, Generalized anxiety disorder F41.1 ; Depression, major, recurrent, moderate F33.1 and Personality disorder in adult F60.9 [place] [address] [facility] [id number] [address] [place] [phone] Jan, Generalized anxiety disorder F41.1 ; Depression, major, recurrent, moderate F33.1 and Personality disorder in adult F60.9 [facility] [address] [id number] [address] [place] [address] [id number] Jan, Dental examination Z01.20 [facility] [address] [id number] [address] [place] [phone] Nov, Depression, major, recurrent , moderate F33.1 ; Generalized anxiety disorder F41.1 and Personality disorder in adult F60.9 [facility] [address] [id number] [address] [place] [phone] Oct, Depression, major, recurrent , moderate F33.1 [facility] [address] [id number] [address] [place] [phone] Oct, Depression, major, recurrent , moderate F33.1 and Generalized anxiety disorder F41.1 [facility] [address] [id number] [address] [place] [phone] Aug, Generalized anxiety disorder F41.1 and Depression, major, recurrent, moderate F33.1 [facility] [address] [id number] [address] [place] [phone] Aug, [facility] [address] [id number] [address] [place] [phone] Jun, Mood disorder F39 and Genera lized anxiety disorder F41.1 [facility] [address] [id number] [address] [place] [phone] May, Mood disorder F39 and Genera lized anxiety disorder F41.1 [facility] [address] [id number] [address] [place] [phone] Apr, [facility] [address] [id number] [address] [place] [phone] 06 Apr, 2016 Mood disorder F39 [facility] [address] [id number] [address] [place] [address] [id number] Aug, Encounter for dental examina tion V72.2 and Dental examination Z01.20 [facility] [address] [id number] [address] [place] [phone] 14 Nov, 2014 [facility] [address] [id number] [address] [place] [phone] Nov, [facility] [address] [id number] [address] [place] [phone] Jan, [facility] [address] [id number] [address] [place] [phone] Jan, [facility] [address] [id number] [address] [place] [phone] Nov, [facility] [address] [id number] [address] [place] [phone] Nov, [facility] [address] [id number] [address] [place] [phone] Nov, [facility] [address] [id number] [address] [place] [phone] Nov, [facility] [address] [id number] [address] [place] [phone] Jan, [facility] [address] [id number] [address] [place] [phone] Jan, [facility] [address] [id number] [address] [place] [phone] December, [facility] [address] [id number] [address] [place] [phone] December, [facility] [address] [id number] [address] [place] [phone] Nov, [facility] [address] [id number] [address] [place] [phone] Jul, [facility] [address] [id number] [address] [place] [phone] Mar, IMMUNIZATIONS No Known Immunizations SOCIAL HISTORY Never Assessed REASON FOR VISIT Lab PLAN OF CARE Activity Details Pending Test IRON, TIBC, FERRITIN PANEL VITAL SIGNS MEDICATIONS Unknown Medications RESULTS No Results PROCEDURES Procedure Date Ordered Result Body Site IRON BINDING TEST Jul 02, 2018 ASSAY OF IRON Jul 02, 2018 ASSAY OF FERRITIN Jul 02, 2018 INSTRUCTIONS MEDICATIONS ADMINISTERED No Known Medications MEDICAL (GENERAL) HISTORY Type Description Date Medical History anemic Surgical History [facility] [place] mood and SI. [facility]
--- OUTSIDE RECORDS SUMMARY | 2019-11-05 09:05 | XMS REPORT ---
Author Author Bibi TAYLOR DIVINE Organization [facility] Address [address] [place] [address] Care Team Providers Care Customer Support Advisor Name Role Phone DIVINE TAYLOR Unavailable PROBLEMS Type Condition ICD9-CM Code [id number] Code Onset Dates Condition S tatus SNOMED Code Problem Insomnia, unspecified 780.52 Active 306505420 Problem Unspecified episodic mood disorder 296.90 Active 012960430 Problem Essential hypertension, benign 401.1 Active 2965740 Problem Routine general medical examination at [facility] V70.0 Active 328760981 Problem Cough 786.2 Active 64524102 Problem Headache 784.0 Active 93996348 Problem Mixed obsessional thoughts and acts F42.2 Active 90240545 Problem Chronic post-traumatic stress disorder (PTSD) F43. 12 Active 006174103 Problem Generalized anxiety disorder F41.1 A ctive 05849134 Problem Depression, major, recurrent, moderate F33.1 Active 91227745 Problem BMI 50.0-59.9, adult Z68.43 Active 032938944 Problem Personality disorder in adult F60.9 Active 83661715 ALLERGIES Substance Reaction Event Type Date Status sulfa drugs Unknown Drug Allergy December, Active Wellbutrin Unknown Drug Allergy December, Active Lamictal Rash Drug Allergy December, Active ENCOUNTERS Encounter Location Date Diagnosis [facility] [address] [facility] [id number] [address] [place] [phone] Apr, [facility] [address] [facility] [id number] [address] [place] [phone] Mar, [facility] [address] [facility] [id number] [address] [place] [phone] Mar, Generalized anxiety disorder F41.1 [facility] [address] [facility] [id number] [address] [place] [phone] Jan, Generalized anxiety disorder F41.1 ; Depression, major, recurrent, moderate F33.1 ; Chronic post-traumatic stress disorder (PTSD) F43.12 ; Mixed obsessional thoughts and acts F42.2 and Personality disorder in adult F60.9 [facility] [address] [facility] [id number] [address] [place] [phone] Jan, Generalized anxiety disorder F41.1 ; Depression, major, recurrent, moderate F33.1 ; Chronic post-traumatic stress disorder (PTSD) F43.12 ; Mixed obsessional thoughts and acts F42.2 and Personality disorder in adult F60.9 [facility] [address] [facility] [id number] [address] [place] [phone] December, Chronic post-traumatic stres s disorder (PTSD) F43.12 ; Depression, major, recurrent, moderate F33.1 ; Generalized anxiety disorder F41.1 ; Mixed obsessional thoughts and acts F42.2 and BMI 50.0-59.9, adult Z68.43 [place] [address] [place] [id number] [place] [phone] December, Chronic post-traumatic stres s disorder (PTSD) F43.12 ; Depression, major, recurrent, moderate F33.1 ; Generalized anxiety disorder F41.1 and BMI 50.0-59.9, adult Z68.43 [place] [id number] [facility] [id number] [address] [place] [phone] December, Generalized anxiety disorder F41.1 [facility] [address] [facility] [id number] [address] [place] [address] [phone] December, Dental caries K02.9 and [place] al examination Z01.20 [place] [address] [facility] [id number] [address] [place] [phone] December, Generalized anxiety disorder F41.1 and Other senior care (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 therapy Z79.899 [facility] [address] [facility] [id number] [address] [place] [phone] Nov, Other senior care (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 Z79.899 [facility] [address] [id number] [address] [place] [address] [phone] Nov, [facility] [address] [id number] [address] [place] [address] [phone] Nov, [facility] [address] [id number] [address] [place] [phone] Nov, [facility] [address] [id number] [address] [place] [address] [phone] Nov, [facility] [address] [id number] [address] [place] [address] [phone] Nov, Dental examination Z01.20 [facility] [address] [facility] [id number] [address] [place] [phone] Nov, Generalized anxiety disorder F41.1 ; Depression, major, recurrent, moderate F33.1 ; Personality disorder in adult F60.9 and Other senior care (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 therapy Z79.899 [facility] [address] [facility] [id number] [address] [place] [phone] Nov, Generalized anxiety disorder F41.1 ; Depression, major, recurrent, moderate F33.1 and Personality disorder in adult F60.9 [facility] [address] [facility] [id number] [address] [place] [phone] Aug, [facility] [address] [facility] [id number] [address] [place] [phone] Aug, Generalized anxiety disorder F41.1 ; Depression, major, recurrent, moderate F33.1 and Personality disorder in adult F60.9 [facility] [address] [id number] [address] [place] [phone] Jul, Generalized anxiety disorder F41.1 ; Depression, major, recurrent, moderate F33.1 and Personality disorder in adult F60.9 [facility] [address] [id number] [address] [place] [phone] Jun, Generalized anxiety disorder F41.1 ; Depression, major, recurrent, moderate F33.1 and Personality disorder in adult F60.9 [facility] [address] [facility] [id number] [address] [place] [phone] May, [facility] [address] [facility] [id number] [address] [place] [phone] May, Generalized anxiety disorder F41.1 ; Depression, major, recurrent, moderate F33.1 and Personality disorder in adult F60.9 [facility] [address] [facility] [id number] [address] [place] [phone] 09 May, 2017 Generalized anxiety disorder F41.1 [facility] [address] [facility] [id number] [address] [place] [phone] Apr, Generalized anxiety disorder F41.1 ; Depression, major, recurrent, moderate F33.1 and Personality disorder in adult F60.[id number] [place] [address] [phone] Apr, Dental examination Z01.20 [facility] [address] [facility] [id number] [address] [place] [phone] Mar, Generalized anxiety disorder F41.1 ; Depression, major, recurrent, moderate F33.1 and Personality disorder in adult F60.9 [facility] [address] [facility] [id number] [address] [place] [phone] Jan, Generalized anxiety disorder F41.1 ; Depression, major, recurrent, moderate F33.1 and Personality disorder in adult F60.9 [facility] [address] [facility] [id number] [address] [place] [phone] Jan, Generalized anxiety disorder F41.1 ; Depression, major, recurrent, moderate F33.1 and Personality disorder in adult F60.9 [facility] [address] [id number] [address] [place] [address] [phone] Jan, Dental examination Z01.20 [facility] [address] [facility] [id number] [address] [place] [phone] Nov, Depression, major, recurrent , moderate F33.1 ; Generalized anxiety disorder F41.1 and Personality disorder in adult F60.9 [facility] [address] [id number] [address] [place] [phone] Oct, Depression, major, recurrent , moderate F33.1 [facility] [address] [id number] [address] [place] [phone] 16 Oct, 2016 Depression, major, recurrent , moderate F33.1 and Generalized anxiety disorder F41.1 [facility] [address] [id number] [address] [place] [phone] Aug, Generalized anxiety disorder F41.1 and Depression, major, recurrent, moderate F33.1 [facility] [address] [facility] [id number] [address] [place] [phone] Aug, [facility] [address] [facility] [id number] [address] [place] [phone] Jun, Mood disorder F39 and Genera lized anxiety disorder F41.1 [facility] [address] [facility] [id number] [address] [place] [phone] May, Mood disorder F39 and Genera lized anxiety disorder F41.1 [facility] [address] [facility] [id number] [address] [place] [phone] Apr, [facility] [address] [facility] [id number] [address] [place] [phone] Apr, Mood disorder F39 [facility] [address] [id number] [address] [place] [address] [phone] Aug, Encounter for dental examina tion V72.2 and Dental examination Z01.20 [facility] [address] [id number] [address] [place] [phone] Nov, [facility] [address] [facility] [id number] [address] [place] [phone] Nov, [facility] [address] [facility] [id number] [address] [place] [phone] Jan, [facility] [address] [id number] [address] [place] [phone] Jan, [facility] [address] [id number] [address] [place] [phone] Nov, [facility] [address] [id number] [address] [place] [phone] Nov, [facility] [address] [id number] [address] [place] [phone] Nov, [facility] [address] [id number] [address] [place] [phone] Nov, [facility] [address] [id number] [address] [place] [phone] Jan, [facility] [address] [id number] [address] [place] [phone] Jan, [facility] [address] [id number] [address] [place] [phone] December, [facility] [address] [id number] [address] [place] [phone] December, [facility] [address] [id number] [address] [place] [phone] Nov, [facility] [address] [id number] [address] [place] [phone] Jul, [facility] [address] [id number] [address] [place] [phone] Mar, IMMUNIZATIONS No Known Immunizations SOCIAL HISTORY Never Assessed REASON FOR VISIT consult [facility]US[facility] PLAN OF CARE Activity Details Follow Up 4 Weeks Reason: VITAL SIGNS Height 68 in 2017-12-10 Weight 376 lbs 2017-12-10 Heart Rate 106 bpm 2017-12-10 Respiratory Rate 20 2017-12-10 BMI 57.16 kg/m2 2017-12-10 Blood pressure systolic 132 mmHg 2017-12-10 Blood pressure diastolic 86 mmHg 2017-12-10 MEDICATIONS Medication Instructions Dosage Frequency Start Date End Date Duration S tatus HydrOXYzine HCl 50 mg Orally 3 times a day as needed for anxiety 1 tab let Not-Taking HydrOXYzine HCl 25MG TAKE ONE TABLET BY MOUTH THREE TIMES DAILY NEEDED Active Lorazepam 0.5 MG Orally BID anxiety, if hydroxyzine does not help. 1 tablet as needed Active Amoxicillin 500 MG Orally 3 times a day 1 capsule 8h 7 days Not-Taking [place] Carbonate 300 MG Orally 2 times a day 1 capsule 12h Active Prazosin HCl 1 MG Orally for nightmares 1 capsule at bedtime December, 30 day(s) Active Tramadol HCl 50 MG Orally every 6 hrs 1 tablet as needed 6h as needed Not-Taking Motrin IB 800 Orally every 6 hrs 1 tablet as needed 6h 5 days Not-Taking RESULTS No Results PROCEDURES No Known procedures INSTRUCTIONS MEDICATIONS ADMINISTERED No Known Medications MEDICAL (GENERAL) HISTORY Type Description Date Surgical History Gallbladder removed [facility]ization [facility] [place] [place] Admitted for depressed mood and SI. 2011
--- OUTSIDE RECORDS SUMMARY | 2019-11-05 09:06 | XMS REPORT ---
Author Author MADELINE Bibi RADHA [facility] Address [address] [place] [address] Care Team Providers Care [place]ips[place] Matcher Name Role Phone KM CORREAN Unavailable PROBLEMS Type Condition ICD9-CM Code ZLF10-FK Code Onset Dates Condition S tatus SNOMED Code Problem Insomnia, unspecified 780.52 Active 677441066 Problem Unspecified episodic mood disorder 296.90 Active 190930316 Problem Essential hypertension, benign 401.1 Active 3167223 Problem Routine general medical examination at [facility] y V70.0 Active 253943807 Problem Cough 786.2 Active 03926742 Problem Headache 784.0 Active 57726465 Problem Mixed obsessional thoughts and acts F42.2 Active 52361240 Problem Chronic post-traumatic stress disorder (PTSD) F43. 12 Active 943741594 Problem Generalized anxiety disorder F41.1 A ctive 32792620 Problem Depression, major, recurrent, moderate F33.1 Active 75418583 Problem BMI 50.0-59.9, adult Z68.43 Active 792132700 Problem Personality disorder in adult F60.9 Active 20282690 ALLERGIES No Information ENCOUNTERS Encounter Location Date Diagnosis [facility] [address] [facility] [id number] [address] [place] [phone] Apr, [facility] [address] [facility] [id number] [address] [place] [phone] Mar, [facility] [address] [facility] [id number] [address] [place] [phone] Jan, Generalized anxiety disorder F41.1 ; Depression, major, recurrent, moderate F33.1 ; Chronic post-traumatic stress disorder (PTSD) F43.12 ; Mixed obsessional thoughts and acts F42.2 and Personality disorder in adult F60.9 [facility] [address] [facility] [id number] [address] [place] [phone] Jan, Generalized anxiety disorder F41.1 ; Depression, major, recurrent, moderate F33.1 ; Chronic post-traumatic stress disorder (PTSD) F43.12 ; Mixed obsessional thoughts and acts F42.2 and Personality disorder in adult F60.9 [facility] [address] [facility] [id number] [address] [place] [phone] December, Chronic post-traumatic stres s disorder (PTSD) F43.12 ; Depression, major, recurrent, moderate F33.1 ; Generalized anxiety disorder F41.1 ; Mixed obsessional thoughts and acts F42.2 and BMI 50.0-59.9, adult Z68.43 [place] [address] [facility] [id number] [place] [phone] December, Chronic post-traumatic stres s disorder (PTSD) F43.12 ; Depression, major, recurrent, moderate F33.1 ; Generalized anxiety disorder F41.1 and BMI 50.0-59.9, adult Z68.43 [facility] [address] [facility] [id number] [address] [place] [phone] December, Generalized anxiety disorder F41.1 [facility] [address] [id number] [place] [address] [phone] December, Dental caries K02.9 and [place] examination Z01.20 [facility] [address] 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 [id number] [address] [place] [phone] Nov, [facility] [address] [id number] [place] [phone] Nov, [facility] [address] [id number] [address] [place] [address] [phone] Nov, Dental examination Z01.20 [facility] [address] [facility] [facility] [id number] [address] [place] [phone] Nov, Generalized anxiety disorder F41.1 ; Depression, major, recurrent, moderate F33.1 ; Personality disorder in adult F60.9 and Other detention (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 therapy Z79.899 [facility] [address] [facility] [id number] [address] [place] [phone] Nov, Generalized anxiety disorder F41.1 ; Depression, major, recurrent, moderate F33.1 and Personality disorder in adult F60.9 [facility] [address] [facility] [facility] [id number] [address] [place] [phone] Aug, [facility] [address] [facility] [id number] [address] [place] [phone] Aug, Generalized anxiety disorder F41.1 ; Depression, major, recurrent, moderate F33.1 and Personality disorder in adult F60.9 [facility] [address] [facility] [id number] [address] [place] [phone] Jul, Generalized anxiety disorder F41.1 ; Depression, major, recurrent, moderate F33.1 and Personality disorder in adult F60.9 [facility] [address] [facility] [id number] [address] [place] [phone] Jun, Generalized anxiety disorder F41.1 ; Depression, major, recurrent, moderate F33.1 and Personality disorder in adult F60.9 [facility] [address] [facility] [id number] [address] [place] [phone] May, [facility] [address] [facility] [id number] [address] [place] [phone] May, Generalized anxiety disorder F41.1 ; Depression, major, recurrent, moderate F33.1 and Personality disorder in adult F60.9 [facility] [address] [facility] [id number] [address] [place] [phone] 09 May, 2017 Generalized anxiety disorder F41.1 [facility] [address] [facility] [id number] [address] [place] [phone] Apr, Generalized anxiety disorder F41.1 ; Depression, major, recurrent, moderate F33.1 and Personality disorder in adult F60.[address] [place] [id number] [place] [address] [phone] 05 Apr, 2017 Dental examination Z01.20 [facility] [address] [facility] [id number] [address] [place] [phone] Mar, Generalized anxiety disorder F41.1 ; Depression, major, recurrent, moderate F33.1 and Personality disorder in adult F60.9 [place] [address] [facility] [id number] [address] [place] [phone] Jan, Generalized anxiety disorder F41.1 ; Depression, major, recurrent, moderate F33.1 and Personality disorder in adult F60.9 [facility] [address] [facility] [id number] [address] [place] [phone] Jan, Generalized anxiety disorder F41.1 ; Depression, major, recurrent, moderate F33.1 and Personality disorder in adult F60.9 [facility] [address] [id number] [address] [place] [address] [phone] Jan, Dental examination Z01.20 [facility] [address] [facility] [facility] [id number] [address] [place] [phone] Nov, Depression, major, recurrent , moderate F33.1 ; Generalized anxiety disorder F41.1 and Personality disorder in adult F60.9 [facility] [address] [facility] [id number] [address] [place] [phone] Oct, Depression, major, recurrent , moderate F33.1 [facility] [address] [facility] [id number] [address] [place] [phone] Oct, Depression, major, recurrent , moderate F33.1 and Generalized anxiety disorder F41.1 [facility] [address] [id number] [address] [place] [phone] Aug, Generalized anxiety disorder F41.1 and Depression, major, recurrent, moderate F33.1 [facility] [address] [id number] [address] [place] [phone] Aug, [facility] [address] [id number] [address] [place] [phone] Jun, Mood disorder F39 and Genera lized anxiety disorder F41.1 [facility] [address] [id number] [address] [place] [phone] May, Mood disorder F39 and Genera lized anxiety disorder F41.1 [facility] [address] [id number] [address] [place] [phone] Apr, [facility] [address] [id number] [address] [place] [phone] Apr, Mood disorder F39 [facility] [address] [id number] [address] [place] [address] [phone] Aug, Encounter for dental examina tion V72.2 and Dental examination Z01.20 [facility] [address] [id number] [address] [place] [phone] Nov, [facility] [address] [id number] [address] [place] [phone] Nov, [facility] [address] [id number] [address] [place] [phone] Jan, [facility] [address] [id number] [address] [place] [phone] Jan, [facility] [address] [id number] [address] [place] [phone] Nov, [facility] [address] [id number] [address] [place] [phone] Nov, [facility] [address] [id number] [address] [place] [phone] Nov, [facility] [address] [id number] [address] [place] [phone] Nov, [facility] [address] [id number] [address] [place] [phone] Jan, [facility] [address] [id number] [address] [place] [phone] Jan, [facility] [address] [id number] [address] [place] [phone] December, [facility] [address] [id number] [address] [place] [phone] December, [facility] [address] [id number] [address] [place] [phone] Nov, [facility] [address] [id number] [address] [place] [phone] Jul, [facility] [address] [id number] [address] [place] [phone] Mar, IMMUNIZATIONS No Known Immunizations SOCIAL HISTORY Never Assessed REASON FOR VISIT Lab (walk-in) PLAN OF CARE VITAL SIGNS MEDICATIONS Unknown Medications RESULTS No Results PROCEDURES Procedure Date Ordered Result Body Site ASSAY THYROID STIM HORMONE November 27, 2017 ASSAY OF FREE THYROXINE November 27, 2017 ASSAY OF LITHIUM November 27, 2017 COMPREHEN METABOLIC PANEL November 27, 2017 VENIPUNCT, ROUTINE* November 27, 2017 INSTRUCTIONS MEDICATIONS ADMINISTERED No Known Medications MEDICAL (GENERAL) HISTORY Type Description Date Surgical History [facility] [place] [place] mood and SI. [facility]
--- OUTSIDE RECORDS SUMMARY | 2019-11-05 09:06 | XMS REPORT ---
Author Author Bibi VICENTE Organization [facility] Address Unknown Care Team Providers Care [place] Hammerer Name Role Phone CRYSTAL VICENTE Unavailable PROBLEMS Type Condition ICD9-CM Code ZLL29-NS Code Onset Dates Condition S tatus SNOMED Code Problem Insomnia, unspecified 780.52 Active 918075266 Problem Unspecified episodic mood disorder 296.90 Active 892634918 Problem Essential hypertension, benign 401.1 Active 6973031 Problem Routine general medical examination at [facility] V70.0 Active 155378164 Problem Cough 786.2 Active 72980938 Problem Headache 784.0 Active 03397230 Problem Mixed obsessional thoughts and acts F42.2 Active 49705161 Problem Chronic post-traumatic stress disorder (PTSD) F43. 12 Active 239575030 Problem Generalized anxiety disorder F41.1 A ctive 16360160 Problem Depression, major, recurrent, moderate F33.1 Active 85536800 Problem BMI 50.0-59.9, adult Z68.43 Active 898275638 Problem Personality disorder in adult F60.9 Active 39396270 ALLERGIES No Information ENCOUNTERS Encounter Location Date Diagnosis [place] [address] [facility] [id number] [address] [place] [phone] Apr, [facility] [address] [place] [id number] [address] [place] [phone] Mar, [place] [address] [facility] [id number] [address] [place] [phone] Jan, Generalized anxiety disorder F41.1 ; Depression, major, recurrent, moderate F33.1 ; Chronic post-traumatic stress disorder (PTSD) F43.12 ; Mixed obsessional thoughts and acts F42.2 and Personality disorder in adult F60.9 [place] [address] [facility] [id number] [address] [place] [phone] Jan, Generalized anxiety disorder F41.1 ; Depression, major, recurrent, moderate F33.1 ; Chronic post-traumatic stress disorder (PTSD) F43.12 ; Mixed obsessional thoughts and acts F42.2 and Personality disorder in adult F60.9 [facility] [address] [facility] [id number] [address] [place] [phone] December, Chronic post-traumatic stres s disorder (PTSD) F43.12 ; Depression, major, recurrent, moderate F33.1 ; Generalized anxiety disorder F41.1 ; Mixed obsessional thoughts and acts F42.2 and BMI 50.0-59.9, adult Z68.43 [place] [address] [facility] [id number] [address] [place] [phone] December, Chronic post-traumatic stres s disorder (PTSD) F43.12 ; Depression, major, recurrent, moderate F33.1 ; Generalized anxiety disorder F41.1 and BMI 50.0-59.9, adult Z68.43 [place] [address] [place] [id number] [address] [place] [phone] December, Generalized anxiety disorder F41.1 [facility] [address] [id number] [place] [address] [id number] December, Dental caries K02.9 and [place] al examination Z01.20 [place] [address] [facility] [id number] [address] [place] [phone] December, Generalized anxiety disorder F41.1 and Other nursing home (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 therapy Z79.899 [facility] [address] [facility] [id number] [address] [place] [phone] Nov, Other nursing home (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 Z79.899 [facility] [address] [id number] [address] [place] [address] [phone] Nov, [facility] [address] [id number] [address] [place] [address] [id number] Nov, [facility] [address] [facility] [facility] [id number] [address] [place] [phone] Nov, [facility] [address] [id number] [place] [id number] Nov, [facility] [address] [id number] [address] [place] [address] [phone] Nov, Dental examination Z01.20 [facility] [address] [facility] [id number] [address] [place] [phone] Nov, Generalized anxiety disorder F41.1 ; Depression, major, recurrent, moderate F33.1 ; Personality disorder in adult F60.9 and Other nursing home (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 therapy Z79.899 [facility] [address] [facility] [id number] [address] [place] [phone] Nov, Generalized anxiety disorder F41.1 ; Depression, major, recurrent, moderate F33.1 and Personality disorder in adult F60.9 [facility] [address] [facility] [facility] [id number] [address] [place] [phone] Aug, [facility] [address] [facility] [id number] [address] [place] [phone] Aug, Generalized anxiety disorder F41.1 ; Depression, major, recurrent, moderate F33.1 and Personality disorder in adult F60.9 [facility] [address] [facility] [id number] [address] [place] [phone] Jul, Generalized anxiety disorder F41.1 ; Depression, major, recurrent, moderate F33.1 and Personality disorder in adult F60.9 [facility] [address] [facility] [id number] [address] [place] [phone] Jun, Generalized anxiety disorder F41.1 ; Depression, major, recurrent, moderate F33.1 and Personality disorder in adult F60.9 [facility] [address] [facility] [facility] [id number] [address] [place] [phone] May, [facility] [address] [facility] [id number] [address] [place] [phone] May, Generalized anxiety disorder F41.1 ; Depression, major, recurrent, moderate F33.1 and Personality disorder in adult F60.9 [facility] [address] [facility] [id number] [address] [place] [phone] 09 May, 2017 Generalized anxiety disorder F41.1 [facility] [address] [facility] [id number] [address] [place] [phone] Apr, Generalized anxiety disorder F41.1 ; Depression, major, recurrent, moderate F33.1 and Personality disorder in adult F60.[address] [place] [id number] [place] [address] [id number] 05 Apr, 2017 Dental examination Z01.20 [facility] [address] [facility] [id number] [address] [place] [phone] Mar, Generalized anxiety disorder F41.1 ; Depression, major, recurrent, moderate F33.1 and Personality disorder in adult F60.9 [facility] [address] [facility] [id number] [address] [place] [phone] Jan, Generalized anxiety disorder F41.1 ; Depression, major, recurrent, moderate F33.1 and Personality disorder in adult F60.9 [facility] [address] [facility] [id number] [address] [place] [phone] Jan, Generalized anxiety disorder F41.1 ; Depression, major, recurrent, moderate F33.1 and Personality disorder in adult F60.9 [facility] [address] [id number] [address] [place] [address] [id number] Jan, Dental examination Z01.20 [facility] [address] [facility] [id number] [address] [place] [phone] Nov, Depression, major, recurrent , moderate F33.1 ; Generalized anxiety disorder F41.1 and Personality disorder in adult F60.9 [facility] [address] [facility] [id number] [address] [place] [phone] Oct, Depression, major, recurrent , moderate F33.1 [facility] [address] [facility] [facility] [id number] [address] [place] [phone] Oct, Depression, major, recurrent , moderate F33.1 and Generalized anxiety disorder F41.1 [facility] [address] [id number] [address] [place] [phone] Aug, Generalized anxiety disorder F41.1 and Depression, major, recurrent, moderate F33.1 [facility] [address] [id number] [address] [place] [phone] Aug, [facility] [address] [id number] [address] [place] [phone] Jun, Mood disorder F39 and Genera lized anxiety disorder F41.1 [facility] [address] [id number] [address] [place] [phone] May, Mood disorder F39 and Genera lized anxiety disorder F41.1 [facility] [address] [id number] [address] [place] [phone] Apr, [facility] [address] [id number] [address] [place] [phone] Apr, Mood disorder F39 [facility] [address] [id number] [address] [place] [address] [phone] Aug, Encounter for dental examina tion V72.2 and Dental examination Z01.20 [facility] [address] [id number] [address] [place] [phone] Nov, [facility] [address] [id number] [address] [place] [phone] Nov, [facility] [address] [id number] [address] [place] [phone] Jan, [facility] [address] [id number] [address] [place] [phone] Jan, [facility] [address] [id number] [address] [place] [phone] Nov, [facility] [address] [id number] [address] [place] [phone] Nov, [facility] [address] [id number] [address] [place] [phone] Nov, [facility] [address] [id number] [address] [place] [phone] Nov, [facility] [address] [id number] [address] [place] [phone] Jan, [facility] [address] [id number] [address] [place] [phone] Jan, [facility] [address] [id number] [address] [place] [phone] December, [facility] [address] [id number] [address] [place] [phone] December, [facility] [address] [id number] [address] [place] [phone] Nov, [facility] [address] [id number] [address] [place] [phone] Jul, [facility] [address] [id number] [address] [place] [phone] Mar, IMMUNIZATIONS No Known Immunizations SOCIAL HISTORY Never Assessed REASON FOR VISIT Medication question PLAN OF CARE VITAL SIGNS MEDICATIONS Unknown Medications RESULTS No Results PROCEDURES No Known procedures INSTRUCTIONS MEDICATIONS ADMINISTERED No Known Medications MEDICAL (GENERAL) HISTORY Type Description Date Surgical History [facility] [place] [place] mood and SI. 2012
--- OUTSIDE RECORDS SUMMARY | 2019-11-05 09:06 | XMS REPORT ---
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 Name Role Phone CRYSTAL VICENTE Unavailable PROBLEMS Type Condition ICD9-CM Code [id number] Code Onset Dates Condition S tatus SNOMED Code Problem Insomnia, unspecified 780.52 Active 336830600 Problem Unspecified episodic mood disorder 296.90 Active 148557209 Problem Essential hypertension, benign 401.1 Active 2908845 Problem Routine general medical examination at [facility] V70.0 Active 954139120 Problem Cough 786.2 Active 60112781 Problem Headache 784.0 Active 02987334 Problem Mixed obsessional thoughts and acts F42.2 Active 20887520 Problem Chronic post-traumatic stress disorder (PTSD) F43. 12 Active 314910241 Problem Generalized anxiety disorder F41.1 A ctive 37329320 Problem Depression, major, recurrent, moderate F33.1 Active 54908135 Problem BMI 50.0-59.9, adult Z68.43 Active 534050186 Problem Personality disorder in adult F60.9 Active 25932308 ALLERGIES No Information ENCOUNTERS Encounter Location Date Diagnosis [place] [address] [address] [facility] [id number] [address] [place] [id number] Apr, [facility] [address] [place] [id number] [address] [place] [phone] Mar, [place] [address] [address] [facility] [id number] [address] [place] [phone] Jan, Generalized anxiety disorder F41.1 ; Depression, major, recurrent, moderate F33.1 ; Chronic post-traumatic stress disorder (PTSD) F43.12 ; Mixed obsessional thoughts and acts F42.2 and Personality disorder in adult F60.9 [place] [address] [facility] [id number] [address] [place] [phone] Jan, Generalized anxiety disorder F41.1 ; Depression, major, recurrent, moderate F33.1 ; Chronic post-traumatic stress disorder (PTSD) F43.12 ; Mixed obsessional thoughts and acts F42.2 and Personality disorder in adult F60.9 [facility] [address] [facility] [id number] [address] [place] [phone] December, Chronic post-traumatic stres s disorder (PTSD) F43.12 ; Depression, major, recurrent, moderate F33.1 ; Generalized anxiety disorder F41.1 ; Mixed obsessional thoughts and acts F42.2 and BMI 50.0-59.9, adult Z68.43 [place] [address] [address] [facility] [id number] [address] [place] [phone] December, Chronic post-traumatic stres s disorder (PTSD) F43.12 ; Depression, major, recurrent, moderate F33.1 ; Generalized anxiety disorder F41.1 and BMI 50.0-59.9, adult Z68.43 [place] [address] [address] [place] [id number] [address] [place] [phone] December, Generalized anxiety disorder F41.1 [facility] [id number] [place] [phone] December, Dental caries K02.9 and Spencer al examination Z01.20 [place] [address] [address] [facility] [id number] [address] [place] [phone] December, Generalized anxiety disorder F41.1 and Other senior living (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 therapy Z79.899 [facility] [address] [facility] [id number] [address] [place] [phone] Nov, Other senior living (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 Z79.899 [facility] [address] [id number] [address] [place] [phone] Nov, [facility] [address] [id number] [address] [place] [address] [phone] Nov, [facility] [address] [facility] [id number] [address] [place] [phone] Nov, [facility] [address] [id number] [place] [id number] Nov, [facility] [address] [id number] [address] [place] [phone] Nov, Dental examination Z01.20 [facility] [address] [facility] [id number] [address] [place] [phone] Nov, Generalized anxiety disorder F41.1 ; Depression, major, recurrent, moderate F33.1 ; Personality disorder in adult F60.9 and Other senior living (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 therapy Z79.899 [facility] [address] [facility] [id number] [address] [place] [phone] Nov, Generalized anxiety disorder F41.1 ; Depression, major, recurrent, moderate F33.1 and Personality disorder in adult F60.9 [facility] [address] [facility] [id number] [address] [place] [phone] Aug, [facility] [address] [facility] [id number] [address] [place] [phone] Aug, Generalized anxiety disorder F41.1 ; Depression, major, recurrent, moderate F33.1 and Personality disorder in adult F60.9 [facility] [address] [facility] [id number] [address] [place] [phone] Jul, Generalized anxiety disorder F41.1 ; Depression, major, recurrent, moderate F33.1 and Personality disorder in adult F60.9 [facility] [address] [facility] [id number] [address] [place] [phone] Jun, Generalized anxiety disorder F41.1 ; Depression, major, recurrent, moderate F33.1 and Personality disorder in adult F60.9 [facility] [address] [facility] [id number] [address] [place] [phone] May, [facility] [address] [facility] [id number] [address] [place] [phone] May, Generalized anxiety disorder F41.1 ; Depression, major, recurrent, moderate F33.1 and Personality disorder in adult F60.9 [facility] [address] [facility] [id number] [address] [place] [phone] 09 May, 2017 Generalized anxiety disorder F41.1 [facility] [address] [facility] [id number] [address] [place] [phone] Apr, Generalized anxiety disorder F41.1 ; Depression, major, recurrent, moderate F33.1 and Personality disorder in adult F60.[address] [place] [id number] [place] [address] [id number] 05 Apr, 2017 Dental examination Z01.20 [facility] [address] [facility] [id number] [address] [place] [phone] Mar, Generalized anxiety disorder F41.1 ; Depression, major, recurrent, moderate F33.1 and Personality disorder in adult F60.9 [facility] [address] [facility] [id number] [address] [place] [id number] Jan, Generalized anxiety disorder F41.1 ; Depression, major, recurrent, moderate F33.1 and Personality disorder in adult F60.9 [facility] [address] [facility] [id number] [address] [place] [phone] Jan, Generalized anxiety disorder F41.1 ; Depression, major, recurrent, moderate F33.1 and Personality disorder in adult F60.9 [facility] [address] [id number] [address] [place] [address] [phone] Jan, Dental examination Z01.20 [facility] [address] [facility] [id number] [address] [place] [phone] Nov, Depression, major, recurrent , moderate F33.1 ; Generalized anxiety disorder F41.1 and Personality disorder in adult F60.9 [facility] [address] [facility] [id number] [address] [place] [phone] Oct, Depression, major, recurrent , moderate F33.1 [facility] [address] [facility] [id number] [address] [place] [phone] Oct, Depression, major, recurrent , moderate F33.1 and Generalized anxiety disorder F41.1 [facility] [address] [id number] [address] [place] [phone] Aug, Generalized anxiety disorder F41.1 and Depression, major, recurrent, moderate F33.1 [facility] [address] [id number] [address] [place] [phone] Aug, [facility] [address] [id number] [address] [place] [phone] Jun, Mood disorder F39 and Genera lized anxiety disorder F41.1 [facility] [address] [id number] [address] [place] [phone] May, Mood disorder F39 and Genera lized anxiety disorder F41.1 [facility] [address] [id number] [address] [place] [phone] Apr, [facility] [address] [id number] [address] [place] [phone] Apr, Mood disorder F39 [facility] [address] [id number] [address] [place] [address] [phone] Aug, Encounter for dental examina tion V72.2 and Dental examination Z01.20 [facility] [address] [id number] [address] [place] [phone] Nov, [facility] [address] [id number] [address] [place] [phone] Nov, [facility] [address] [id number] [address] [place] [phone] Jan, [facility] [address] [id number] [address] [place] [phone] Jan, [facility] [address] [id number] [address] [place] [phone] Nov, [facility] [address] [id number] [address] [place] [phone] Nov, [facility] [address] [id number] [address] [place] [phone] Nov, [facility] [address] [id number] [address] [place] [phone] Nov, [facility] [address] [id number] [address] [place] [phone] Jan, [facility] [address] [id number] [address] [place] [phone] Jan, [facility] [address] [id number] [address] [place] [phone] December, [facility] [address] [id number] [address] [place] [phone] December, [facility] [address] [id number] [address] [place] [phone] Nov, [facility] [address] [id number] [address] [place] [phone] Jul, [facility] [address] [id number] [address] [place] [phone] Mar, IMMUNIZATIONS No Known Immunizations SOCIAL HISTORY Never Assessed REASON FOR VISIT PLAN OF CARE VITAL SIGNS MEDICATIONS Unknown Medications RESULTS No Results PROCEDURES No Known procedures INSTRUCTIONS MEDICATIONS ADMINISTERED No Known Medications MEDICAL (GENERAL) HISTORY Type Description Date Surgical History [facility] [place] [place] and [facility]. [facility]
--- OUTSIDE RECORDS SUMMARY | 2019-11-05 09:06 | XMS REPORT ---
Author Author Biib VICENTE Organization [facility] Address Unknown Care Team Providers Care Supervisor Wall Mirror Department Name Role Phone CRYSTAL VICENTE Unavailable PROBLEMS Type Condition ICD9-CM Code [id number] Code Onset Dates Condition S tatus SNOMED Code Problem Insomnia, unspecified 780.52 Active 335974314 Problem Unspecified episodic mood disorder 296.90 Active 384832868 Problem Essential hypertension, benign 401.1 Active 7236758 Problem Routine general medical examination at [facility] V70.0 Active 210164674 Problem Cough 786.2 Active 60249105 Problem Headache 784.0 Active 77180634 Problem Mixed obsessional thoughts and acts F42.2 Active 67872715 Problem Chronic post-traumatic stress disorder (PTSD) F43. 12 Active 008674123 Problem Generalized anxiety disorder F41.1 A ctive 43092775 Problem Depression, major, recurrent, moderate F33.1 Active 65625027 Problem BMI 50.0-59.9, adult Z68.43 Active 914763246 Problem Personality disorder in adult F60.9 Active 19046495 ALLERGIES Substance Reaction Event Type Date Status sulfa drugs Unknown Drug Allergy Nov, Active Wellbutrin Unknown Drug Allergy Nov, Active Lamictal Rash Drug Allergy Nov, Active ENCOUNTERS Encounter Location Date Diagnosis [facility] [address] [facility] [id number] [address] [place] [phone] Apr, [facility] [address] [facility] [id number] [address] [place] [phone] Mar, [facility] [address] [facility] [id number] [address] [place] [phone] Jan, Generalized anxiety disorder F41.1 ; Depression, major, recurrent, moderate F33.1 ; Chronic post-traumatic stress disorder (PTSD) F43.12 ; Mixed obsessional thoughts and acts F42.2 and Personality disorder in adult F60.9 [facility] [address] [facility] [id number] [address] [place] [phone] Jan, Generalized anxiety disorder F41.1 ; Depression, major, recurrent, moderate F33.1 ; Chronic post-traumatic stress disorder (PTSD) F43.12 ; Mixed obsessional thoughts and acts F42.2 and Personality disorder in adult F60.9 [facility] [address] [facility] [id number] [address] [place] [phone] December, Chronic post-traumatic stres s disorder (PTSD) F43.12 ; Depression, major, recurrent, moderate F33.1 ; Generalized anxiety disorder F41.1 ; Mixed obsessional thoughts and acts F42.2 and BMI 50.0-59.9, adult Z68.43 [place] [id number] [facility] [id number] [address] [place] [phone] December, Chronic post-traumatic stres s disorder (PTSD) F43.12 ; Depression, major, recurrent, moderate F33.1 ; Generalized anxiety disorder F41.1 and BMI 50.0-59.9, adult Z68.43 [facility] [address] [facility] [id number] [address] [place] [phone] December, Generalized anxiety disorder F41.1 [facility] [address] [id number] [address] [place] [phone] December, Dental caries K02.9 and Nicholas al examination Z01.20 [facility] [address] [facility] [id number] [address] [place] [phone] December, Generalized anxiety disorder F41.1 and Other custodial (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 therapy Z79.899 [facility] [address] [facility] [id number] [address] [place] [phone] Nov, Other custodial (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 Z79.899 [facility] [address] [id number] [address] [place] [address] [id number] Nov, [facility] [address] [id number] [address] [place] [phone] Nov, [facility] [address] [id number] [address] [place] [phone] Nov, [facility] [address] [id number] [address] [place] [address] [id number] Nov, [facility] [address] [id number] [address] [place] [address] [id number] Nov, Dental examination Z01.20 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 [address] [facility] [id number] [address] [place] [phone] Nov, Generalized anxiety disorder F41.1 ; Depression, major, recurrent, moderate F33.1 and Personality disorder in adult F60.9 [facility] [address] [facility] [id number] [address] [place] [phone] Aug, [facility] [address] [facility] [id number] [address] [place] [phone] Aug, Generalized anxiety disorder F41.1 ; Depression, major, recurrent, moderate F33.1 and Personality disorder in adult F60.9 [facility] [address] [facility] [id number] [address] [place] [phone] Jul, Generalized anxiety disorder F41.1 ; Depression, major, recurrent, moderate F33.1 and Personality disorder in adult F60.9 [facility] [address] [facility] [id number] [address] [place] [phone] Jun, Generalized anxiety disorder F41.1 ; Depression, major, recurrent, moderate F33.1 and Personality disorder in adult F60.9 [facility] [address] [facility] [id number] [address] [place] [phone] May, [facility] [address] [facility] [id number] [address] [place] [phone] 16 May, 2017 Generalized anxiety disorder F41.1 ; Depression, major, recurrent, moderate F33.1 and Personality disorder in adult F60.9 [facility] [address] [facility] [id number] [address] [place] [phone] 09 May, 2017 Generalized anxiety disorder F41.1 [facility] [address] [facility] [id number] [address] [place] [phone] 18 Apr, 2017 Generalized anxiety disorder F41.1 ; Depression, major, recurrent, moderate F33.1 and Personality disorder in adult F60.[id number] [place] [address] [id number] 05 Apr, [address] [facility] [address] [facility] [id number] [address] [place] [phone] Mar, Generalized anxiety disorder F41.1 ; Depression, major, recurrent, moderate F33.1 and Personality disorder in adult F60.9 [facility] [address] [facility] [id number] [address] [place] [phone] Jan, Generalized anxiety disorder F41.1 ; Depression, major, recurrent, moderate F33.1 and Personality disorder in adult F60.9 [facility] [address] [facility] [id number] [address] [place] [phone] Jan, Generalized anxiety disorder F41.1 ; Depression, major, recurrent, moderate F33.1 and Personality disorder in adult F60.9 [facility] [address] [facility] [id number] [address] [place] [address] [id number] Jan, Dental examination Z01.20 [facility] [address] [facility] [id number] [address] [place] [phone] Nov, Depression, major, recurrent , moderate F33.1 ; Generalized anxiety disorder F41.1 and Personality disorder in adult F60.9 [facility] [address] [facility] [id number] [address] [place] [phone] Oct, Depression, major, recurrent , moderate F33.1 [facility] [address] [id number] [address] [place] [phone] Oct, Depression, major, recurrent , moderate F33.1 and Generalized anxiety disorder F41.1 [facility] [address] [id number] [address] [place] [phone] Aug, Generalized anxiety disorder F41.1 and Depression, major, recurrent, moderate F33.1 [facility] [address] [id number] [address] [place] [phone] Aug, [facility] [address] [id number] [address] [place] [phone] Jun, Mood disorder F39 and Genera lized anxiety disorder F41.1 [facility] [address] [facility] [id number] [address] [place] [phone] May, Mood disorder F39 and Genera lized anxiety disorder F41.1 [facility] [address] [facility] [id number] [address] [place] [phone] Apr, [facility] [address] [facility] [id number] [address] [place] [phone] Apr, Mood disorder F39 [facility] [address] [id number] [address] [place] [address] [phone] Aug, Encounter for dental examina tion V72.2 and Dental examination Z01.20 [facility] [address] [facility] [id number] [address] [place] [phone] Nov, [facility] [address] [id number] [address] [place] [phone] Nov, [facility] [address] [facility] [id number] [address] [place] [phone] Jan, [facility] [address] [facility] [id number] [address] [place] [phone] Jan, [facility] [address] [facility] [id number] [address] [place] [phone] Nov, [facility] [address] [id number] [address] [place] [phone] Nov, [facility] [address] [id number] [address] [place] [phone] Nov, [facility] [address] [id number] [address] [place] [phone] Nov, [facility] [address] [id number] [address] [place] [phone] Jan, [facility] [address] [id number] [address] [place] [phone] Jan, [facility] [address] [id number] [address] [place] [phone] December, [facility] [address] [id number] [address] [place] [phone] December, [facility] [address] [id number] [address] [place] [phone] Nov, [facility] [address] [id number] [address] [place] [phone] Jul, [facility] [address] [id number] [address] [place] [phone] Mar, IMMUNIZATIONS No Known Immunizations SOCIAL HISTORY Never Assessed REASON FOR VISIT tooth pain PLAN OF CARE Activity Details Follow Up prn Reason:TE #31 VITAL SIGNS Height 68 in 2017-11-24 Blood pressure systolic 140 mmHg 2017-11-24 Blood pressure diastolic 94 mmHg 2017-11-24 MEDICATIONS Medication Instructions Dosage Frequency Start Date End Date Duration S tatus Amoxicillin 500 MG Orally 3 times a day 1 capsule 8h 7 days Active [place] Carbonate 150 MG Orally 2 times a day 1 capsule 12h 30 day(s) Active Lorazepam 0.5 MG Orally BID anxiety, if hydroxyzine does not help. 1 tablet as needed Active Motrin IB 800 Orally every 6 hrs 1 tablet as needed 6h 5 days Active HydrOXYzine HCl 50 mg Orally 3 times a day as needed for anxiety 1 tab let Active RESULTS No Results PROCEDURES Procedure Date Ordered Result Body Site LTD ORAL EVALUATION - PROBLEM FOCUS November 24, 2017 INSTRUCTIONS MEDICATIONS ADMINISTERED No Known Medications MEDICAL (GENERAL) HISTORY Type Description Date Surgical History Gallbladder removed Hospitalization History [facility] [place], [place] Admitted for depressed mood and SI. 2012
--- OUTSIDE RECORDS SUMMARY | 2019-11-05 09:06 | XMS REPORT ---
Author Author MADELINE Bibi RADHA [facility] Address [address] [place] [address] Care Team Providers [employer] Cataloguer Name Role Phone KM CORREAN Unavailable PROBLEMS Type Condition ICD9-CM Code BSL28-LR Code Onset Dates Condition S tatus SNOMED Code Problem Insomnia, unspecified 780.52 Active 734336771 Problem Unspecified episodic mood disorder 296.90 Active 297496407 Problem Essential hypertension, benign 401.1 Active 7501491 Problem Routine general medical examination at [facility] y V70.0 Active 863509334 Problem Cough 786.2 Active 18404820 Problem Headache 784.0 Active 65888997 Problem Mixed obsessional thoughts and acts F42.2 Active 51731565 Problem Chronic post-traumatic stress disorder (PTSD) F43. 12 Active 521679561 Problem Generalized anxiety disorder F41.1 A ctive 51233750 Problem Depression, major, recurrent, moderate F33.1 Active 22174178 Problem BMI 50.0-59.9, adult Z68.43 Active 403016201 Problem Personality disorder in adult F60.9 Active 89255413 ALLERGIES No Information ENCOUNTERS Encounter Location Date Diagnosis [facility] [address] [facility] [id number] [address] [place] [phone] Apr, [facility] [address] [facility] [id number] [address] [place] [phone] Mar, [facility] [address] [facility] [id number] [address] [place] [address] Jan, Generalized anxiety disorder F41.1 ; Depression, major, recurrent, moderate F33.1 ; Chronic post-traumatic stress disorder (PTSD) F43.12 ; Mixed obsessional thoughts and acts F42.2 and Personality disorder in adult F60.9 [facility] [address] [facility] [id number] [address] [place] [address] Jan, Generalized anxiety disorder F41.1 ; Depression, major, recurrent, moderate F33.1 ; Chronic post-traumatic stress disorder (PTSD) F43.12 ; Mixed obsessional thoughts and acts F42.2 and Personality disorder in adult F60.9 [facility] [address] [facility] [id number] [address] [place] [phone] December, Chronic post-traumatic stres s disorder (PTSD) F43.12 ; Depression, major, recurrent, moderate F33.1 ; Generalized anxiety disorder F41.1 ; Mixed obsessional thoughts and acts F42.2 and BMI 50.0-59.9, adult Z68.43 [place] [address] [facility] [id number] [place] [phone] December, Chronic post-traumatic stres s disorder (PTSD) F43.12 ; Depression, major, recurrent, moderate F33.1 ; Generalized anxiety disorder F41.1 and BMI 50.0-59.9, adult Z68.43 [facility] [address] [facility] [id number] [address] [place] [address] December, Generalized anxiety disorder F41.1 [facility] [id number] [place] [id number] December, Dental caries K02.9 and Fleming al examination Z01.20 [facility] [address] [facility] [id number] [address] [place] [address] December, Generalized anxiety disorder F41.1 and Other intermediate (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 therapy Z79.899 [facility] [address] [id number] [address] [place] [phone] Nov, 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 Z79.899 [facility] [address] [id number] [address] [place] [phone] Nov, [facility] [address] [id number] [address] [place] [place] [address] [phone] Nov, [facility] [address] [facility] [id number] [address] [place] [phone] Nov, [facility] [address] [id number] [place] [id number] Nov, [facility] [address] [id number] [address] [place] [place] [address] [id number] Nov, Dental examination Z01.20 [facility] [address] [facility] [id number] [address] [place] [phone] Nov, Generalized anxiety disorder F41.1 ; Depression, major, recurrent, moderate F33.1 ; Personality disorder in adult F60.9 and Other intermediate (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 therapy Z79.899 [facility] [address] [facility] [id number] [address] [place] [address] Nov, Generalized anxiety disorder F41.1 ; Depression, major, recurrent, moderate F33.1 and Personality disorder in adult F60.9 [facility] [address] [facility] [id number] [address] [place] [phone] Aug, [facility] [address] [facility] [id number] [address] [place] [phone] Aug, Generalized anxiety disorder F41.1 ; Depression, major, recurrent, moderate F33.1 and Personality disorder in adult F60.9 [facility] [address] [facility] [id number] [address] [place] [phone] Jul, Generalized anxiety disorder F41.1 ; Depression, major, recurrent, moderate F33.1 and Personality disorder in adult F60.9 [facility] [address] [facility] [id number] [address] [place] [phone] Jun, Generalized anxiety disorder F41.1 ; Depression, major, recurrent, moderate F33.1 and Personality disorder in adult F60.9 [facility] [address] [facility] [id number] [address] [place] [phone] May, [facility] [address] [facility] [id number] [address] [place] [address] May, Generalized anxiety disorder F41.1 ; Depression, major, recurrent, moderate F33.1 and Personality disorder in adult F60.9 [facility] [address] [facility] [id number] [address] [place] [phone] 09 May, 2017 Generalized anxiety disorder F41.1 [facility] [address] [facility] [id number] [address] [place] [address] Apr, Generalized anxiety disorder F41.1 ; Depression, major, recurrent, moderate F33.1 and Personality disorder in adult F60.[address] [place] [id number] [place] [id number] 05 Apr, 2017 Dental examination Z01.20 [facility] [address] [facility] [id number] [address] [place] [phone] Mar, Generalized anxiety disorder F41.1 ; Depression, major, recurrent, moderate F33.1 and Personality disorder in adult F60.9 [place] [address] [facility] [id number] [address] [place] [phone] Jan, Generalized anxiety disorder F41.1 ; Depression, major, recurrent, moderate F33.1 and Personality disorder in adult F60.9 [facility] [address] [facility] [id number] [address] [place] [phone] Jan, Generalized anxiety disorder F41.1 ; Depression, major, recurrent, moderate F33.1 and Personality disorder in adult F60.9 [facility] [address] [id number] [address] [place] [address] [phone] Jan, Dental examination Z01.20 [facility] [address] [facility] [id number] [address] [place] [phone] Nov, Depression, major, recurrent , moderate F33.1 ; Generalized anxiety disorder F41.1 and Personality disorder in adult F60.9 [facility] [address] [facility] [id number] [address] [place] [phone] Oct, Depression, major, recurrent , moderate F33.1 [facility] [address] [facility] [id number] [address] [place] [phone] Oct, Depression, major, recurrent , moderate F33.1 and Generalized anxiety disorder F41.1 [facility] [address] [id number] [address] [place] [phone] Aug, Generalized anxiety disorder F41.1 and Depression, major, recurrent, moderate F33.1 [facility] [address] [id number] [address] [place] [phone] Aug, [facility] [address] [id number] [address] [place] [phone] Jun, Mood disorder F39 and Genera lized anxiety disorder F41.1 [facility] [address] [id number] [address] [place] [phone] May, Mood disorder F39 and Genera lized anxiety disorder F41.1 [facility] [address] [id number] [address] [place] [phone] Apr, [facility] [address] [id number] [address] [place] [phone] Apr, Mood disorder F39 [facility] [address] [id number] [address] [place] [address] [phone] Aug, Encounter for dental examina tion V72.2 and Dental examination Z01.20 [facility] [address] [id number] [address] [place] [phone] Nov, [facility] [address] [id number] [address] [place] [phone] Nov, [facility] [address] [id number] [address] [place] [phone] Jan, [facility] [address] [id number] [address] [place] [phone] Jan, [facility] [address] [id number] [address] [place] [phone] Nov, [facility] [address] [id number] [address] [place] [phone] Nov, [facility] [address] [id number] [address] [place] [phone] Nov, [facility] [address] [id number] [address] [place] [phone] Nov, [facility] [address] [id number] [address] [place] [phone] Jan, [facility] [address] [id number] [address] [place] [phone] Jan, [facility] [address] [id number] [address] [place] [phone] December, [facility] [address] [id number] [address] [place] [phone] December, [facility] [address] [id number] [address] [place] [phone] Nov, [facility] [address] [id number] [address] [place] [phone] Jul, [facility] [address] [id number] [address] [place] [phone] Mar, IMMUNIZATIONS No Known Immunizations SOCIAL HISTORY Never Assessed REASON FOR VISIT PLAN OF CARE VITAL SIGNS MEDICATIONS Medication Instructions Dosage Frequency Start Date End Date Duration S tatus [place] Carbonate 300 MG Orally 2 times a day 1 capsule 12h 30 day(s) Active RESULTS No Results PROCEDURES No Known procedures INSTRUCTIONS MEDICATIONS ADMINISTERED No Known Medications MEDICAL (GENERAL) HISTORY Type Description Date Surgical History [facility]bladder [facility] [place] [place] and [facility]
--- OUTSIDE RECORDS SUMMARY | 2019-11-05 09:06 | XMS REPORT ---
Author Author MADELINE Bibi RADHA [facility] Address [address] [place] [address] Care Team Providers Care Sunglass Clip Attacher Name Role Phone KM CORREAN Unavailable PROBLEMS Type Condition ICD9-CM Code WPL75-DU Code Onset Dates Condition S tatus SNOMED Code Problem Insomnia, unspecified 780.52 Active 631548605 Problem Unspecified episodic mood disorder 296.90 Active 221105455 Problem Essential hypertension, benign 401.1 Active 9966149 Problem Routine general medical examination at [facility] y V70.0 Active 180968761 Problem Cough 786.2 Active 03797497 Problem Headache 784.0 Active 85484237 Problem Mixed obsessional thoughts and acts F42.2 Active 64124863 Problem Chronic post-traumatic stress disorder (PTSD) F43. 12 Active 498361363 Problem Generalized anxiety disorder F41.1 A ctive 39257638 Problem Depression, major, recurrent, moderate F33.1 Active 50975255 Problem BMI 50.0-59.9, adult Z68.43 Active 235318972 Problem Personality disorder in adult F60.9 Active 41870627 ALLERGIES No Information ENCOUNTERS Encounter Location Date Diagnosis [facility] [address] [facility] [id number] [address] [place] [phone] Apr, [facility] [address] [facility] [id number] [address] [place] [phone] Mar, [facility] [address] [facility] [id number] [address] [place] [phone] Jan, Generalized anxiety disorder F41.1 ; Depression, major, recurrent, moderate F33.1 ; Chronic post-traumatic stress disorder (PTSD) F43.12 ; Mixed obsessional thoughts and acts F42.2 and Personality disorder in adult F60.9 [facility] [address] [facility] [id number] [address] [place] [phone] Jan, Generalized anxiety disorder F41.1 ; Depression, major, recurrent, moderate F33.1 ; Chronic post-traumatic stress disorder (PTSD) F43.12 ; Mixed obsessional thoughts and acts F42.2 and Personality disorder in adult F60.9 [facility] [address] [facility] [id number] [address] [place] [phone] December, Chronic post-traumatic stres s disorder (PTSD) F43.12 ; Depression, major, recurrent, moderate F33.1 ; Generalized anxiety disorder F41.1 ; Mixed obsessional thoughts and acts F42.2 and BMI 50.0-59.9, adult Z68.43 [place] [address] [facility] [id number] [place] [phone] December, Chronic post-traumatic stres s disorder (PTSD) F43.12 ; Depression, major, recurrent, moderate F33.1 ; Generalized anxiety disorder F41.1 and BMI 50.0-59.9, adult Z68.43 [facility] [address] [facility] [id number] [address] [place] [phone] December, Generalized anxiety disorder F41.1 [facility] [address] [id number] [place] [address] [phone] December, Dental caries K02.9 and [place] al examination Z01.20 [facility] [address] [facility] [id number] [address] [place] [phone] December, Generalized anxiety disorder F41.1 and Other group home (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 therapy Z79.899 [facility] [address] [id number] [address] [place] [phone] Nov, Other terminal carman (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 Z79.899 [facility] [address] [id number] [address] [place] [address] [phone] Nov, [facility] [address] [id number] [address] [place] [address] [phone] Nov, [facility] [address] [facility] [id number] [address] [place] [phone] Nov, [facility] [address] [id number] [place] [phone] Nov, [facility] [address] [id number] [address] [place] [address] [phone] Nov, Dental examination Z01.20 [facility] [address] [facility] [id number] [address] [place] [phone] Nov, Generalized anxiety disorder F41.1 ; Depression, major, recurrent, moderate F33.1 ; Personality disorder in adult F60.9 and Other group home (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 therapy Z79.899 [facility] [address] [facility] [id number] [address] [place] [phone] Nov, Generalized anxiety disorder F41.1 ; Depression, major, recurrent, moderate F33.1 and Personality disorder in adult F60.9 [facility] [address] [facility] [id number] [address] [place] [phone] Aug, [facility] [address] [facility] [id number] [address] [place] [phone] Aug, Generalized anxiety disorder F41.1 ; Depression, major, recurrent, moderate F33.1 and Personality disorder in adult F60.9 [facility] [address] [facility] [id number] [address] [place] [phone] Jul, Generalized anxiety disorder F41.1 ; Depression, major, recurrent, moderate F33.1 and Personality disorder in adult F60.9 [facility] [address] [facility] [id number] [address] [place] [phone] Jun, Generalized anxiety disorder F41.1 ; Depression, major, recurrent, moderate F33.1 and Personality disorder in adult F60.9 [facility] [address] [facility] [id number] [address] [place] [phone] May, [facility] [address] [facility] [id number] [address] [place] [phone] May, Generalized anxiety disorder F41.1 ; Depression, major, recurrent, moderate F33.1 and Personality disorder in adult F60.9 [facility] [address] [facility] [id number] [address] [place] [phone] 09 May, 2017 Generalized anxiety disorder F41.1 [facility] [address] [facility] [id number] [address] [place] [phone] Apr, Generalized anxiety disorder F41.1 ; Depression, major, recurrent, moderate F33.1 and Personality disorder in adult F60.[address] [place] [id number] [place] [address] [id number] 05 Apr, 2017 Dental examination Z01.20 [facility] [address] [facility] [id number] [address] [place] [phone] Mar, Generalized anxiety disorder F41.1 ; Depression, major, recurrent, moderate F33.1 and Personality disorder in adult F60.9 [place] [address] [facility] [id number] [address] [place] [phone] Jan, Generalized anxiety disorder F41.1 ; Depression, major, recurrent, moderate F33.1 and Personality disorder in adult F60.9 [facility] [address] [facility] [id number] [address] [place] [phone] Jan, Generalized anxiety disorder F41.1 ; Depression, major, recurrent, moderate F33.1 and Personality disorder in adult F60.9 [facility] [address] [id number] [address] [place] [address] [phone] Jan, Dental examination Z01.20 [facility] [address] [facility] [id number] [address] [place] [phone] Nov, Depression, major, recurrent , moderate F33.1 ; Generalized anxiety disorder F41.1 and Personality disorder in adult F60.9 [facility] [address] [facility] [id number] [address] [place] [phone] Oct, Depression, major, recurrent , moderate F33.1 [facility] [address] [facility] [id number] [address] [place] [phone] Oct, Depression, major, recurrent , moderate F33.1 and Generalized anxiety disorder F41.1 [facility] [address] [id number] [address] [place] [phone] Aug, Generalized anxiety disorder F41.1 and Depression, major, recurrent, moderate F33.1 [facility] [address] [id number] [address] [place] [phone] Aug, [facility] [address] [id number] [address] [place] [phone] Jun, Mood disorder F39 and Genera lized anxiety disorder F41.1 [facility] [address] [id number] [address] [place] [phone] May, Mood disorder F39 and Genera lized anxiety disorder F41.1 [facility] [address] [id number] [address] [place] [phone] Apr, [facility] [address] [id number] [address] [place] [phone] Apr, Mood disorder F39 [facility] [address] [id number] [address] [place] [address] [phone] Aug, Encounter for dental examina tion V72.2 and Dental examination Z01.20 [facility] [address] [id number] [address] [place] [phone] Nov, [facility] [address] [id number] [address] [place] [phone] Nov, [facility] [address] [id number] [address] [place] [phone] Jan, [facility] [address] [id number] [address] [place] [phone] Jan, [facility] [address] [id number] [address] [place] [phone] Nov, [facility] [address] [id number] [address] [place] [phone] Nov, [facility] [address] [id number] [address] [place] [phone] Nov, [facility] [address] [id number] [address] [place] [phone] Nov, [facility] [address] [id number] [address] [place] [phone] Jan, [facility] [address] [id number] [address] [place] [phone] Jan, [facility] [address] [id number] [address] [place] [phone] December, [facility] [address] [id number] [address] [place] [phone] December, [facility] [address] [id number] [address] [place] [phone] Nov, [facility] [address] [id number] [address] [place] [phone] Jul, [facility] [address] [id number] [address] [place] [phone] Mar, IMMUNIZATIONS No Known Immunizations SOCIAL HISTORY Never Ass[facility] PLAN OF CARE VITAL SIGNS MEDICATIONS Medication Instructions Dosage Frequency Start Date End Date Duration S tatus Lorazepam 0.5 MG Orally BID anxiety, if hydroxyzine does not help. 1 tablet as needed 30 days Active RESULTS No Results PROCEDURES No Known procedures INSTRUCTIONS MEDICATIONS ADMINISTERED No Known Medications MEDICAL (GENERAL) HISTORY Type Description Date Surgical History [facility] [place] [place] mood and [facility]
--- OUTSIDE RECORDS SUMMARY | 2019-11-05 09:06 | XMS REPORT ---
Author Author MADELINE Bibi [facility] Address [address] [place] [address] Care Team Providers Care Generation Engineering Technologist Name Role Phone RADHA CORREA Unavailable PROBLEMS Type Condition ICD9-CM Code LET89-PW Code Onset Dates Condition S tatus SNOMED Code Problem Insomnia, unspecified 780.52 Active 732520550 Problem Unspecified episodic mood disorder 296.90 Active 779922263 Problem Essential hypertension, benign 401.1 Active 8445754 Problem Routine general medical examination at [facility] V70.0 Active 579603704 Problem Cough 786.2 Active 58050004 Problem Headache 784.0 Active 20351881 Problem Mixed obsessional thoughts and acts F42.2 Active 17407164 Problem Chronic post-traumatic stress disorder (PTSD) F43. 12 Active 653278944 Problem Generalized anxiety disorder F41.1 A ctive 21903022 Problem Depression, major, recurrent, moderate F33.1 Active 65902102 Problem BMI 50.0-59.9, adult Z68.43 Active 425722079 Problem Personality disorder in adult F60.9 Active 38621823 ALLERGIES Substance Reaction Event Type Date Status sulfa drugs Unknown Drug Allergy Nov, Active Wellbutrin Unknown Drug Allergy Nov, Active Lamictal Rash Drug Allergy Nov, Active ENCOUNTERS Encounter Location Date Diagnosis [facility] [address] [facility] [id number] [address] [place] [phone] Apr, [facility] [address] [facility] [id number] [address] [place] [phone] Mar, [facility] [address] [facility] [id number] [address] [place] [phone] Jan, Generalized anxiety disorder F41.1 ; Depression, major, recurrent, moderate F33.1 ; Chronic post-traumatic stress disorder (PTSD) F43.12 ; Mixed obsessional thoughts and acts F42.2 and Personality disorder in adult F60.9 [facility] [address] [facility] [id number] [address] [place] [phone] Jan, Generalized anxiety disorder F41.1 ; Depression, major, recurrent, moderate F33.1 ; Chronic post-traumatic stress disorder (PTSD) F43.12 ; Mixed obsessional thoughts and acts F42.2 and Personality disorder in adult F60.9 [facility] [address] [facility] [id number] [address] [place] [phone] December, Chronic post-traumatic stres s disorder (PTSD) F43.12 ; Depression, major, recurrent, moderate F33.1 ; Generalized anxiety disorder F41.1 ; Mixed obsessional thoughts and acts F42.2 and BMI 50.0-59.9, adult Z68.43 [place] [address] [place] [id number] [address] [place] [phone] December, Chronic post-traumatic stres s disorder (PTSD) F43.12 ; Depression, major, recurrent, moderate F33.1 ; Generalized anxiety disorder F41.1 and BMI 50.0-59.9, adult Z68.43 [place] [address] [place] [id number] [address] [place] [phone] December, Generalized anxiety disorder F41.1 [facility] [address] [place] [id number] [address] [place] [address] [phone] December, Dental caries K02.9 and [place] al examination Z01.20 [facility] [address] [facility] [id number] [address] [place] [phone] December, Generalized anxiety disorder F41.1 and Other [facility] (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 therapy Z79.899 [facility] [address] [facility] [id number] [address] [place] [phone] Nov, Other [facility] (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 Z79.899 [facility] [address] [id number] [address] [place] [address] [id number] Nov, [facility] [address] [id number] [address] [place] [address] [phone] Nov, [facility] [address] [id number] [address] [place] [phone] Nov, [facility] [address] [id number] [address] [place] [address] [phone] Nov, [facility] [address] [id number] [address] [place] [address] [phone] Nov, Dental examination Z01.20 [facility] [address] [id number] [address] [place] [phone] Nov, Generalized anxiety disorder F41.1 ; Depression, major, recurrent, moderate F33.1 ; Personality disorder in adult F60.9 and Other intermediate card tender (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 therapy Z79.899 [facility] [address] [facility] [id number] [address] [place] [phone] Nov, Generalized anxiety disorder F41.1 ; Depression, major, recurrent, moderate F33.1 and Personality disorder in adult F60.9 [facility] [address] [facility] [id number] [address] [place] [phone] Aug, [facility] [address] [facility] [id number] [address] [place] [phone] Aug, Generalized anxiety disorder F41.1 ; Depression, major, recurrent, moderate F33.1 and Personality disorder in adult F60.9 [facility] [address] [facility] [id number] [address] [place] [phone] Jul, Generalized anxiety disorder F41.1 ; Depression, major, recurrent, moderate F33.1 and Personality disorder in adult F60.9 [facility] [address] [facility] [id number] [address] [place] [phone] Jun, Generalized anxiety disorder F41.1 ; Depression, major, recurrent, moderate F33.1 and Personality disorder in adult F60.9 [facility] [address] [facility] [id number] [address] [place] [phone] May, [facility] [address] [facility] [id number] [address] [place] [phone] May, Generalized anxiety disorder F41.1 ; Depression, major, recurrent, moderate F33.1 and Personality disorder in adult F60.9 [facility] [address] [id number] [address] [place] [phone] 09 May, 2017 Generalized anxiety disorder F41.1 [facility] [address] [facility] [id number] [address] [place] [phone] 18 Apr, 2017 Generalized anxiety disorder F41.1 ; Depression, major, recurrent, moderate F33.1 and Personality disorder in adult F60.[id number] [place] [address] [id number] 05 Apr, 2017 Dental examination Z01.20 [facility] [address] [facility] [id number] [address] [place] [phone] Mar, Generalized anxiety disorder F41.1 ; Depression, major, recurrent, moderate F33.1 and Personality disorder in adult F60.9 [facility] [address] [facility] [id number] [address] [place] [phone] Jan, Generalized anxiety disorder F41.1 ; Depression, major, recurrent, moderate F33.1 and Personality disorder in adult F60.9 [facility] [address] [facility] [id number] [address] [place] [phone] Jan, Generalized anxiety disorder F41.1 ; Depression, major, recurrent, moderate F33.1 and Personality disorder in adult F60.9 [facility] [address] [id number] [address] [place] [address] [id number] Jan, Dental examination Z01.20 [facility] [address] [facility] [id number] [address] [place] [phone] Nov, Depression, major, recurrent , moderate F33.1 ; Generalized anxiety disorder F41.1 and Personality disorder in adult F60.9 [facility] [address] [facility] [id number] [address] [place] [phone] Oct, Depression, major, recurrent , moderate F33.1 [facility] [address] [id number] [address] [place] [phone] Oct, Depression, major, recurrent , moderate F33.1 and Generalized anxiety disorder F41.1 [facility] [address] [id number] [address] [place] [phone] Aug, Generalized anxiety disorder F41.1 and Depression, major, recurrent, moderate F33.1 [facility] [address] [id number] [address] [place] [phone] Aug, [facility] [address] [id number] [address] [place] [phone] Jun, Mood disorder F39 and Genera lized anxiety disorder F41.1 [facility] [address] [id number] [address] [place] [phone] May, Mood disorder F39 and Genera lized anxiety disorder F41.1 [facility] [address] [id number] [address] [place] [phone] Apr, [facility] [address] [id number] [address] [place] [phone] Apr, Mood disorder F39 [facility] [address] [id number] [address] [place] [address] [phone] Aug, Encounter for dental examina tion V72.2 and Dental examination Z01.20 [facility] [address] [id number] [address] [place] [phone] Nov, [facility] [address] [id number] [address] [place] [phone] Nov, [facility] [address] [id number] [address] [place] [phone] Jan, [facility] [address] [id number] [address] [place] [phone] Jan, [facility] [address] [id number] [address] [place] [phone] Nov, [facility] [address] [id number] [address] [place] [phone] Nov, [facility] [address] [id number] [address] [place] [phone] Nov, [facility] [address] [id number] [address] [place] [phone] Nov, [facility] [address] [id number] [address] [place] [phone] Jan, [facility] [address] [id number] [address] [place] [phone] Jan, [facility] [address] [id number] [address] [place] [phone] December, [facility] [address] [id number] [address] [place] [phone] December, [facility] [address] [id number] [address] [place] [phone] Nov, [facility] [address] [id number] [address] [place] [phone] Jul, [facility] [address] [id number] [address] [place] [phone] Mar, IMMUNIZATIONS No Known Immunizations SOCIAL HISTORY Never Assessed REASON FOR VISIT YOSSI Najera MA PLAN OF CARE Activity Details Follow Up 2 Weeks Reason:YOSSI f/u VITAL SIGNS Height 68 in 2017-11-06 Weight 382 lbs 2017-11-06 Heart Rate 82 bpm 2017-11-06 Respiratory Rate 20 2017-11-06 BMI 58.08 kg/m2 2017-11-06 Blood pressure systolic 134 mmHg 2017-11-06 Blood pressure diastolic 84 mmHg 2017-11-06 MEDICATIONS Medication Instructions Dosage Frequency Start Date End Date Duration S tatus Dell Carbonate 150 MG Orally 2 times a day 1 capsule 12h 06 A pr, 2017 30 day(s) Active Lorazepam 0.5 MG Orally BID anxiety, if hydroxyzine does not help. 1 tablet as needed Active HydrOXYzine HCl 50 mg Orally 3 times a day as needed for anxiety 1 tablet Jun, Active RESULTS No Results PROCEDURES No Known procedures INSTRUCTIONS MEDICATIONS ADMINISTERED No Known Medications MEDICAL (GENERAL) HISTORY Type Description Date Surgical History Gallbladder removed Hospitalization History [facility] [place], [place]. Admitted for depressed mood and SI. 2012
--- OUTSIDE RECORDS SUMMARY | 2019-11-05 09:06 | XMS REPORT ---
Author Author Bibi VICENTE Organization [facility] Address Unknown Care Team Providers Care Exercise Physiologist Name Role Phone CRYSTAL VICENTE Unavailable PROBLEMS Type Condition ICD9-CM Code [id number] Code Onset Dates Condition S tatus SNOMED Code Problem Insomnia, unspecified 780.52 Active 839546656 Problem Unspecified episodic mood disorder 296.90 Active 199727665 Problem Essential hypertension, benign 401.1 Active 4364246 Problem Routine general medical examination at [facility] V70.0 Active 005231943 Problem Cough 786.2 Active 38584430 Problem Headache 784.0 Active 55731716 Problem Mixed obsessional thoughts and acts F42.2 Active 34200320 Problem Chronic post-traumatic stress disorder (PTSD) F43. 12 Active 534544822 Problem Generalized anxiety disorder F41.1 A ctive 52490763 Problem Depression, major, recurrent, moderate F33.1 Active 37074407 Problem BMI 50.0-59.9, adult Z68.43 Active 308323046 Problem Personality disorder in adult F60.9 Active [id number] ALLERGIES No Information ENCOUNTERS Encounter Location Date Diagnosis [place] [address] [facility] [id number] [address] [place] [phone] Apr, [facility] [address] [place] [id number] [address] [place] [phone] Mar, [place] [address] [facility] [id number] [address] [place] [phone] Jan, Generalized anxiety disorder F41.1 ; Depression, major, recurrent, moderate F33.1 ; Chronic post-traumatic stress disorder (PTSD) F43.12 ; Mixed obsessional thoughts and acts F42.2 and Personality disorder in adult F60.9 [place] [address] [facility] [id number] [address] [place] [phone] Jan, Generalized anxiety disorder F41.1 ; Depression, major, recurrent, moderate F33.1 ; Chronic post-traumatic stress disorder (PTSD) F43.12 ; Mixed obsessional thoughts and acts F42.2 and Personality disorder in adult F60.9 [facility] [address] [facility] [id number] [address] [place] [phone] December, Chronic post-traumatic stres s disorder (PTSD) F43.12 ; Depression, major, recurrent, moderate F33.1 ; Generalized anxiety disorder F41.1 ; Mixed obsessional thoughts and acts F42.2 and BMI 50.0-59.9, adult Z68.43 [place] [address] [facility] [id number] [address] [place] [phone] December, Chronic post-traumatic stres s disorder (PTSD) F43.12 ; Depression, major, recurrent, moderate F33.1 ; Generalized anxiety disorder F41.1 and BMI 50.0-59.9, adult Z68.43 [place] [address] [place] [id number] [address] [place] [phone] December, Generalized anxiety disorder F41.1 [facility] [id number] [place] [address] [phone] December, Dental caries K02.9 and [place] al examination Z01.20 [place] [address] [facility] [id number] [address] [place] [phone] December, Generalized anxiety disorder F41.1 and Other longterm (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 therapy Z79.899 [facility] [address] [facility] [id number] [address] [place] [phone] Nov, Other longterm (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 Z79.899 [facility] [address] [id number] [address] [place] [address] [phone] Nov, [facility] [address] [id number] [address] [place] [address] [phone] Nov, [facility] [address] [facility] [id number] [address] [place] [phone] Nov, [facility] [address] [id number] [place] [phone] Nov, [facility] [address] [id number] [address] [place] [address] [phone] Nov, Dental examination Z01.20 [facility] [address] [facility] [id number] [address] [place] [phone] Nov, Generalized anxiety disorder F41.1 ; Depression, major, recurrent, moderate F33.1 ; Personality disorder in adult F60.9 and Other longterm (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 therapy Z79.899 [facility] [address] [facility] [id number] [address] [place] [phone] Nov, Generalized anxiety disorder F41.1 ; Depression, major, recurrent, moderate F33.1 and Personality disorder in adult F60.9 [facility] [address] [facility] [id number] [address] [place] [phone] Aug, [facility] [address] [facility] [id number] [address] [place] [phone] Aug, Generalized anxiety disorder F41.1 ; Depression, major, recurrent, moderate F33.1 and Personality disorder in adult F60.9 [facility] [address] [facility] [id number] [address] [place] [phone] Jul, Generalized anxiety disorder F41.1 ; Depression, major, recurrent, moderate F33.1 and Personality disorder in adult F60.9 [facility] [address] [facility] [id number] [address] [place] [phone] Jun, Generalized anxiety disorder F41.1 ; Depression, major, recurrent, moderate F33.1 and Personality disorder in adult F60.9 [facility] [address] [facility] [id number] [address] [place] [phone] May, [facility] [address] [facility] [id number] [address] [place] [phone] May, Generalized anxiety disorder F41.1 ; Depression, major, recurrent, moderate F33.1 and Personality disorder in adult F60.9 [facility] [address] [facility] [id number] [address] [place] [phone] 09 May, 2017 Generalized anxiety disorder F41.1 [facility] [address] [facility] [id number] [address] [place] [phone] Apr, Generalized anxiety disorder F41.1 ; Depression, major, recurrent, moderate F33.1 and Personality disorder in adult F60.[id number] [place] [address] [id number] 05 Apr, 2017 Dental examination Z01.20 [facility] [address] [facility] [id number] [address] [place] [phone] Mar, Generalized anxiety disorder F41.1 ; Depression, major, recurrent, moderate F33.1 and Personality disorder in adult F60.9 [facility] [address] [facility] [id number] [address] [place] [phone] Jan, Generalized anxiety disorder F41.1 ; Depression, major, recurrent, moderate F33.1 and Personality disorder in adult F60.9 [facility] [address] [facility] [id number] [address] [place] [phone] Jan, Generalized anxiety disorder F41.1 ; Depression, major, recurrent, moderate F33.1 and Personality disorder in adult F60.9 [facility] [address] [id number] [address] [place] [address] [phone] Jan, Dental examination Z01.20 [facility] [address] [facility] [id number] [address] [place] [phone] Nov, Depression, major, recurrent , moderate F33.1 ; Generalized anxiety disorder F41.1 and Personality disorder in adult F60.9 [facility] [address] [facility] [id number] [address] [place] [phone] Oct, Depression, major, recurrent , moderate F33.1 [facility] [address] [facility] [id number] [address] [place] [phone] Oct, Depression, major, recurrent , moderate F33.1 and Generalized anxiety disorder F41.1 [facility] [address] [id number] [address] [place] [phone] Aug, Generalized anxiety disorder F41.1 and Depression, major, recurrent, moderate F33.1 [facility] [address] [id number] [address] [place] [phone] Aug, [facility] [address] [id number] [address] [place] [phone] Jun, Mood disorder F39 and Genera lized anxiety disorder F41.1 [facility] [address] [id number] [address] [place] [phone] May, Mood disorder F39 and Genera lized anxiety disorder F41.1 [facility] [address] [id number] [address] [place] [phone] Apr, [facility] [address] [id number] [address] [place] [phone] Apr, Mood disorder F39 [facility] [address] [id number] [address] [place] [address] [phone] Aug, Encounter for dental examina tion V72.2 and Dental examination Z01.20 [facility] [address] [id number] [address] [place] [phone] Nov, [facility] [address] [id number] [address] [place] [phone] Nov, [facility] [address] [id number] [address] [place] [phone] Jan, [facility] [address] [id number] [address] [place] [phone] Jan, [facility] [address] [id number] [address] [place] [phone] Nov, [facility] [address] [id number] [address] [place] [phone] Nov, [facility] [address] [id number] [address] [place] [phone] Nov, [facility] [address] [id number] [address] [place] [phone] Nov, [facility] [address] [id number] [address] [place] [phone] Jan, [facility] [address] [id number] [address] [place] [phone] Jan, [facility] [address] [id number] [address] [place] [phone] December, [facility] [address] [id number] [address] [place] [phone] December, [facility] [address] [id number] [address] [place] [phone] Nov, [facility] [address] [id number] [address] [place] [phone] Jul, [facility] [address] [id number] [address] [place] [phone] Mar, IMMUNIZATIONS No Known Immunizations SOCIAL HISTORY Never Assessed REASON FOR VISIT PLAN OF CARE VITAL SIGNS MEDICATIONS Medication Instructions Dosage Frequency Start Date End Date Duration S laurius Tramadol HCl 50 MG Orally every 6 hrs 1 tablet as needed 6h as needed Active RESULTS No Results PROCEDURES No Known procedures INSTRUCTIONS MEDICATIONS ADMINISTERED No Known Medications MEDICAL (GENERAL) HISTORY Type Description Date Surgical History Gallbladder removed Hospitalization History [facility] [place]. Admitted for depressed mood and SI. 2012
--- OUTSIDE RECORDS SUMMARY | 2019-11-05 09:06 | XMS REPORT ---
Author Author Bibi CORREA [facility] Address [address] [place] [address] Care Team Providers Care Underwater Roboticist Name Role Phone MADELINE, RADHA Unavailable PROBLEMS Type Condition ICD9-CM Code VRY30-RN Code Onset Dates Condition S tatus SNOMED Code Problem Cough 786.2 Active 01183425 Problem Insomnia, unspecified 780.52 Active 969783409 Problem Headache 784.0 Active 95437668 Problem Routine general medical examination at [facility] y V70.0 Active 605888599 Problem Chronic post-traumatic stress disorder (PTSD) F43. 12 Active 324867372 Problem Personality disorder in adult F60.9 Active 99147352 Problem Unspecified episodic mood disorder 296.90 Active 228877338 Problem Essential hypertension, benign 401.1 Active 9038184 Problem Generalized anxiety disorder F41.1 A ctive 84155671 Problem Depression, major, recurrent, moderate F33.1 Active 17296923 ALLERGIES No Information ENCOUNTERS Encounter Location Date Diagnosis [facility] [address] [place] [id number] [address] [place] [phone] December, [facility] [address] [place] [id number] [address] [place] [address] [phone] December, [facility] [address] [place] [id number] [address] [place] [phone] December, Chronic post-traumatic stres s disorder (PTSD) F43.12 ; Depression, major, recurrent, moderate F33.1 ; Generalized anxiety disorder F41.1 and BMI 50.0-59.9, adult Z68.43 [facility] [address] [place] [id number] [address] [place] [phone] December, Generalized anxiety disorder F41.1 [facility] [address] [place] [id number] [place] [address] [phone] December, Dental caries K02.9 and [place] al examination Z01.20 [facility] [address] [id number] [address] [place] [phone] December, Generalized anxiety disorder F41.1 and Other fpc (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 therapy Z79.899 [facility] [address] [id number] [address] [place] [phone] Nov, 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 Z79.899 [facility] [address] [id number] [address] [place] [address] [phone] Nov, [facility] [address] [id number] [address] [place] [address] [phone] Nov, [facility] [address] [id number] [address] [place] [phone] Nov, [facility] [address] [id number] [address] [place] [address] [id number] Nov, [facility] [address] [id number] [address] [place] [address] [phone] Nov, Dental examination Z01.20 [facility] [address] [id number] [address] [place] [phone] Nov, Generalized anxiety disorder F41.1 ; Depression, major, recurrent, moderate F33.1 ; Personality disorder in adult F60.9 and Other fpc (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 therapy Z79.899 [facility] [address] [id number] [address] [place] [phone] Nov, Generalized anxiety disorder F41.1 ; Depression, major, recurrent, moderate F33.1 and Personality disorder in adult F60.9 [facility] [address] [id number] [address] [place] [phone] Aug, [facility] [address] [id number] [address] [place] [phone] Aug, Generalized anxiety disorder F41.1 ; Depression, major, recurrent, moderate F33.1 and Personality disorder in adult F60.9 [facility] [address] [facility] [id number] [address] [place] [phone] Jul, Generalized anxiety disorder F41.1 ; Depression, major, recurrent, moderate F33.1 and Personality disorder in adult F60.9 [facility] [address] [facility] [id number] [address] [place] [phone] Jun, Generalized anxiety disorder F41.1 ; Depression, major, recurrent, moderate F33.1 and Personality disorder in adult F60.9 [facility] [address] [facility] [id number] [address] [place] [phone] May, [facility] [address] [facility] [id number] [address] [place] [phone] May, Generalized anxiety disorder F41.1 ; Depression, major, recurrent, moderate F33.1 and Personality disorder in adult F60.9 [facility] [address] [facility] [id number] [address] [place] [phone] May, Generalized anxiety disorder F41.1 [facility] [address] [facility] [id number] [address] [place] [phone] Apr, Generalized anxiety disorder F41.1 ; Depression, major, recurrent, moderate F33.1 and Personality disorder in adult F60.[id number] [place] [address] [id number] 05 Apr, 2017 Dental examination Z01.20 [facility] [address] [facility] [id number] [address] [place] [phone] Mar, Generalized anxiety disorder F41.1 ; Depression, major, recurrent, moderate F33.1 and Personality disorder in adult F60.9 [facility] [address] [facility] [id number] [address] [place] [phone] Jan, Generalized anxiety disorder F41.1 ; Depression, major, recurrent, moderate F33.1 and Personality disorder in adult F60.9 [facility] [address] [facility] [id number] [address] [place] [phone] Jan, Generalized anxiety disorder F41.1 ; Depression, major, recurrent, moderate F33.1 and Personality disorder in adult F60.9 [facility] [address] [id number] [address] [place] [address] [phone] Jan, Dental examination Z01.20 [facility] [address] [facility] [id number] [address] [place] [phone] Nov, Depression, major, recurrent , moderate F33.1 ; Generalized anxiety disorder F41.1 and Personality disorder in adult F60.9 [facility] [address] [id number] [address] [place] [phone] Oct, Depression, major, recurrent , moderate F33.1 [facility] [address] [facility] [id number] [address] [place] [phone] Oct, Depression, major, recurrent , moderate F33.1 and Generalized anxiety disorder F41.1 [facility] [address] [facility] [id number] [address] [place] [phone] Aug, Generalized anxiety disorder F41.1 and Depression, major, recurrent, moderate F33.1 [facility] [address] [facility] [id number] [address] [place] [phone] Aug, [facility] [address] [facility] [id number] [address] [place] [phone] Jun, Mood disorder F39 and Genera lized anxiety disorder F41.1 [facility] [address] [facility] [id number] [address] [place] [phone] May, Mood disorder F39 and Genera lized anxiety disorder F41.1 [facility] [address] [facility] [id number] [address] [place] [phone] Apr, [facility] [address] [facility] [id number] [address] [place] [phone] Apr, Mood disorder F39 [facility] [address] [id number] [address] [place] [address] [phone] Aug, Encounter for dental examina tion V72.2 and Dental examination Z01.20 [facility] [address] [id number] [address] [place] [phone] 14 Nov, 2014 [facility] [address] [id number] [address] [place] [phone] Nov, [facility] [address] [id number] [address] [place] [phone] Jan, [facility] [address] [id number] [address] [place] [phone] Jan, [facility] [address] [id number] [address] [place] [phone] Nov, [facility] [address] [id number] [address] [place] [phone] Nov, [facility] [address] [id number] [address] [place] [phone] Nov, [facility] [address] [id number] [address] [place] [phone] Nov, [facility] [address] [id number] [address] [place] [phone] Jan, [facility] [address] [id number] [address] [place] [phone] Jan, [facility] [address] [id number] [address] [place] [phone] December, [facility] [address] [id number] [address] [place] [phone] December, [facility] [address] [id number] [address] [place] [phone] Nov, [facility] [address] [id number] [address] [place] [phone] Jul, [facility] [address] [id number] [address] [place] [phone] Mar, IMMUNIZATIONS No Known Immunizations SOCIAL HISTORY Never Assessed REASON FOR VISIT F/U PLAN OF CARE Activity Details Follow Up 4 Weeks Reason: f/u VITAL SIGNS Height 68 in 2017-05-18 Weight 376.3 lbs 2017-05-18 Heart Rate 88 bpm 2017-05-18 Respiratory Rate 20 2017-05-18 BMI 57.21 kg/m2 2017-05-18 Blood pressure systolic 138 mmHg 2017-05-18 Blood pressure diastolic 96 mmHg 2017-05-18 MEDICATIONS Medication Instructions Dosage Frequency Start Date End Date Duration S tatus HydrOXYzine HCl 25 MG Orally TID PRN 1 tablet as needed Active Lorazepam 0.5 MG Orally BID anxiety, if hydroxyzine does not help. 1 tablet as needed Active Cymbalta 30 MG Orally Once a day 3 capsules 24h 30 d ay(s) Active Vraylar 3 MG Orally Once a day 1 capsule 24h May, 30 day(s) Active RESULTS No Results PROCEDURES No Known procedures INSTRUCTIONS MEDICATIONS ADMINISTERED No Known Medications MEDICAL (GENERAL) HISTORY Type Description Date Surgical History Gallbladder removed Hospitalization History [facility] [place] Admitted for depressed mood and SI. 2011
--- OUTSIDE RECORDS SUMMARY | 2019-11-05 09:06 | XMS REPORT ---
Author Author MADELINE Bibi [facility] Address [address] [place] [address] Care Team Providers Care Outpatient Program Coordinator Name Role Phone KM CORREAN Unavailable PROBLEMS Type Condition ICD9-CM Code [id number] Code Onset Dates Condition S tatus SNOMED Code Problem Insomnia, unspecified 780.52 Active 084252376 Problem Unspecified episodic mood disorder 296.90 Active 939122712 Problem Essential hypertension, benign 401.1 Active 0998473 Problem Routine general medical examination at [facility] y V70.0 Active 214898996 Problem Cough 786.2 Active 49458856 Problem Headache 784.0 Active 53965099 Problem Mixed obsessional thoughts and acts F42.2 Active 33038210 Problem Chronic post-traumatic stress disorder (PTSD) F43. 12 Active 598910697 Problem Generalized anxiety disorder F41.1 A ctive 45597794 Problem Depression, major, recurrent, moderate F33.1 Active 65527060 Problem BMI 50.0-59.9, adult Z68.43 Active 870627709 Problem Personality disorder in adult F60.9 Active 19807682 ALLERGIES No Information ENCOUNTERS Encounter Location Date Diagnosis [facility] [address] [facility] [id number] [address] [place] [phone] Apr, [facility] [address] [facility] [id number] [address] [place] [phone] Mar, [facility] [address] [facility] [id number] [address] [place] [phone] Jan, Generalized anxiety disorder F41.1 ; Depression, major, recurrent, moderate F33.1 ; Chronic post-traumatic stress disorder (PTSD) F43.12 ; Mixed obsessional thoughts and acts F42.2 and Personality disorder in adult F60.9 [facility] [address] [facility] [id number] [address] [place] [phone] Jan, Generalized anxiety disorder F41.1 ; Depression, major, recurrent, moderate F33.1 ; Chronic post-traumatic stress disorder (PTSD) F43.12 ; Mixed obsessional thoughts and acts F42.2 and Personality disorder in adult F60.9 [facility] [address] [facility] [id number] [address] [place] [phone] December, Chronic post-traumatic stres s disorder (PTSD) F43.12 ; Depression, major, recurrent, moderate F33.1 ; Generalized anxiety disorder F41.1 ; Mixed obsessional thoughts and acts F42.2 and BMI 50.0-59.9, adult Z68.43 [place] [address] [facility] [id number] [place] [phone] December, Chronic post-traumatic stres s disorder (PTSD) F43.12 ; Depression, major, recurrent, moderate F33.1 ; Generalized anxiety disorder F41.1 and BMI 50.0-59.9, adult Z68.43 [facility] [address] [facility] [id number] [address] [place] [phone] December, Generalized anxiety disorder F41.1 [facility] [id number] [place] [phone] December, Dental caries K02.9 and [place] al examination Z01.20 [facility] [address] [facility] [id number] [address] [place] [phone] December, Generalized anxiety disorder F41.1 and Other assisted (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 therapy Z79.899 [facility] [address] [id number] [address] [place] [phone] Nov, 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 Z79.899 [facility] [address] [id number] [address] [place] [id number] Nov, [facility] [address] [id number] [address] [place] [address] [phone] Nov, [facility] [address] [facility] [id number] [address] [place] [phone] Nov, [facility] [address] [id number] [place] [id number] Nov, [facility] [address] [id number] [address] [place] [address] [phone] Nov, Dental examination Z01.20 [facility] [address] [facility] [id number] [address] [place] [phone] Nov, Generalized anxiety disorder F41.1 ; Depression, major, recurrent, moderate F33.1 ; Personality disorder in adult F60.9 and Other assisted (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 therapy Z79.899 [facility] [address] [facility] [id number] [address] [place] [phone] Nov, Generalized anxiety disorder F41.1 ; Depression, major, recurrent, moderate F33.1 and Personality disorder in adult F60.9 [facility] [address] [facility] [id number] [address] [place] [phone] Aug, [facility] [address] [facility] [id number] [address] [place] [phone] Aug, Generalized anxiety disorder F41.1 ; Depression, major, recurrent, moderate F33.1 and Personality disorder in adult F60.9 [facility] [address] [facility] [id number] [address] [place] [phone] Jul, Generalized anxiety disorder F41.1 ; Depression, major, recurrent, moderate F33.1 and Personality disorder in adult F60.9 [facility] [address] [facility] [id number] [address] [place] [phone] Jun, Generalized anxiety disorder F41.1 ; Depression, major, recurrent, moderate F33.1 and Personality disorder in adult F60.9 [facility] [address] [facility] [id number] [address] [place] [phone] May, [facility] [address] [facility] [id number] [address] [place] [phone] May, Generalized anxiety disorder F41.1 ; Depression, major, recurrent, moderate F33.1 and Personality disorder in adult F60.9 [facility] [address] [facility] [id number] [address] [place] [phone] 09 May, 2017 Generalized anxiety disorder F41.1 [facility] [address] [facility] [id number] [address] [place] [phone] Apr, Generalized anxiety disorder F41.1 ; Depression, major, recurrent, moderate F33.1 and Personality disorder in adult F60.[address] [place] [id number] [place] [address] [id number] Apr, 2017 Dental examination Z01.20 [facility] [address] [facility] [id number] [address] [place] [phone] Mar, Generalized anxiety disorder F41.1 ; Depression, major, recurrent, moderate F33.1 and Personality disorder in adult F60.9 [place] [id number] [facility] [id number] [address] [place] [phone] Jan, Generalized anxiety disorder F41.1 ; Depression, major, recurrent, moderate F33.1 and Personality disorder in adult F60.9 [facility] [address] [facility] [id number] [address] [place] [phone] Jan, Generalized anxiety disorder F41.1 ; Depression, major, recurrent, moderate F33.1 and Personality disorder in adult F60.9 [facility] [address] [id number] [address] [place] [address] [phone] Jan, Dental examination Z01.20 [facility] [address] [facility] [id number] [address] [place] [phone] Nov, Depression, major, recurrent , moderate F33.1 ; Generalized anxiety disorder F41.1 and Personality disorder in adult F60.9 [facility] [address] [facility] [id number] [address] [place] [id number] Oct, Depression, major, recurrent , moderate F33.1 [facility] [address] [facility] [id number] [address] [place] [phone] Oct, Depression, major, recurrent , moderate F33.1 and Generalized anxiety disorder F41.1 [facility] [address] [id number] [address] [place] [phone] Aug, Generalized anxiety disorder F41.1 and Depression, major, recurrent, moderate F33.1 [facility] [address] [id number] [address] [place] [phone] Aug, [facility] [address] [id number] [address] [place] [phone] Jun, Mood disorder F39 and Genera lized anxiety disorder F41.1 [facility] [address] [id number] [address] [place] [phone] May, Mood disorder F39 and Genera lized anxiety disorder F41.1 [facility] [address] [id number] [address] [place] [phone] Apr, [facility] [address] [id number] [address] [place] [phone] Apr, Mood disorder F39 [facility] [address] [id number] [address] [place] [address] [id number] Aug, Encounter for dental examina tion V72.2 and Dental examination Z01.20 [facility] [address] [id number] [address] [place] [phone] Nov, [facility] [address] [id number] [address] [place] [phone] Nov, [facility] [address] [id number] [address] [place] [phone] Jan, [facility] [address] [id number] [address] [place] [phone] Jan, [facility] [address] [id number] [address] [place] [phone] Nov, [facility] [address] [id number] [address] [place] [phone] Nov, [facility] [address] [id number] [address] [place] [phone] Nov, [facility] [address] [id number] [address] [place] [phone] Nov, [facility] [address] [id number] [address] [place] [phone] Jan, [facility] [address] [id number] [address] [place] [phone] Jan, [facility] [address] [id number] [address] [place] [phone] December, [facility] [address] [id number] [address] [place] [phone] December, [facility] [address] [id number] [address] [place] [phone] Nov, [facility] [address] [id number] [address] [place] [phone] Jul, [facility] [address] [id number] [address] [place] [phone] Mar, IMMUNIZATIONS No Known Immunizations SOCIAL HISTORY [...]
--- OUTSIDE RECORDS SUMMARY | 2019-11-05 09:06 | XMS REPORT ---
Author Author MADELINE Bibi BARBOURN [facility] Address [address] [place] [address] Care Team Providers Care Bottling Line Attendant Name Role Phone RADHA CORREA Unavailable PROBLEMS Type Condition ICD9-CM Code [id number] Code Onset Dates Condition S tatus SNOMED Code Problem Insomnia, unspecified 780.52 Active 502667921 Problem Unspecified episodic mood disorder 296.90 Active 843330706 Problem Essential hypertension, benign 401.1 Active 3952565 Problem Routine general medical examination at [facility] V70.0 Active 288128608 Problem Cough 786.2 Active 23939744 Problem Headache 784.0 Active 48777385 Problem Mixed obsessional thoughts and acts F42.2 Active 15888956 Problem Chronic post-traumatic stress disorder (PTSD) F43. 12 Active 254062268 Problem Generalized anxiety disorder F41.1 A ctive 94566250 Problem Depression, major, recurrent, moderate F33.1 Active 81595972 Problem BMI 50.0-59.9, adult Z68.43 Active 563894589 Problem Personality disorder in adult F60.9 Active 17824641 ALLERGIES Substance Reaction Event Type Date Status sulfa drugs Unknown Drug Allergy Nov, Active Wellbutrin Unknown Drug Allergy Nov, Active Lamictal Rash Drug Allergy Nov, Active ENCOUNTERS Encounter Location Date Diagnosis [facility] [address] [facility] [id number] [place] [phone] Apr, [facility] [address] [id number] [place] [phone] Mar, [facility] [address] [id number] [place] [phone] Jan, Generalized anxiety disorder F41.1 ; Depression, major, recurrent, moderate F33.1 ; Chronic post-traumatic stress disorder (PTSD) F43.12 ; Mixed obsessional thoughts and acts F42.2 and Personality disorder in adult F60.9 [facility] [address] [id number] [place] [phone] Jan, Generalized anxiety disorder F41.1 ; Depression, major, recurrent, moderate F33.1 ; Chronic post-traumatic stress disorder (PTSD) F43.12 ; Mixed obsessional thoughts and acts F42.2 and Personality disorder in adult F60.9 [facility] [address] [id number] [place] [phone] December, Chronic post-traumatic stres s disorder (PTSD) F43.12 ; Depression, major, recurrent, moderate F33.1 ; Generalized anxiety disorder F41.1 ; Mixed obsessional thoughts and acts F42.2 and BMI 50.0-59.9, adult Z68.43 [place] [address] [place] [id number] [address] [place] [phone] December, Chronic post-traumatic stres s disorder (PTSD) F43.12 ; Depression, major, recurrent, moderate F33.1 ; Generalized anxiety disorder F41.1 and BMI 50.0-59.9, adult Z68.43 [place] [address] [place] [id number] [address] [place] [phone] December, Generalized anxiety disorder F41.1 [facility] [address] [place] [id number] [address] [place] [phone] December, Dental caries K02.9 and Russell al examination Z01.20 [facility] [address] [id number] [place] [phone] December, Generalized anxiety disorder F41.1 and Other intermediate (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 therapy Z79.899 [facility] [address] [id number] [place] [phone] Nov, Other intermediate (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 Z79.899 [facility] [address] [id number] [address] [place] [address] [phone] Nov, [facility] [address] [id number] [address] [place] [address] [id number] Nov, [facility] [address] [id number] [address] [place] [phone] Nov, [facility] [address] [id number] [address] [place] [address] [id number] Nov, [facility] [address] [id number] [address] [place] [address] [id number] Nov, Dental examination Z01.20 [facility] [address] [id number] [address] [place] [phone] Nov, Generalized anxiety disorder F41.1 ; Depression, major, recurrent, moderate F33.1 ; Personality disorder in adult F60.9 and 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 Z79.899 [facility] [address] [facility] [id number] [place] [phone] Nov, Generalized anxiety disorder F41.1 ; Depression, major, recurrent, moderate F33.1 and Personality disorder in adult F60.9 [facility] [address] [facility] [id number] [place] [phone] Aug, [facility] [address] [id number] [place] [phone] Aug, Generalized anxiety disorder F41.1 ; Depression, major, recurrent, moderate F33.1 and Personality disorder in adult F60.9 [facility] [address] [facility] [id number] [place] [phone] Jul, Generalized anxiety disorder F41.1 ; Depression, major, recurrent, moderate F33.1 and Personality disorder in adult F60.9 [facility] [address] [facility] [id number] [place] [phone] Jun, Generalized anxiety disorder F41.1 ; Depression, major, recurrent, moderate F33.1 and Personality disorder in adult F60.9 [facility] [address] [id number] [place] [phone] May, [facility] [address] [id number] [place] [phone] May, Generalized anxiety disorder F41.1 ; Depression, major, recurrent, moderate F33.1 and Personality disorder in adult F60.9 [facility] [address] [id number] [address] [place] [phone] 09 May, 2017 Generalized anxiety disorder F41.1 [facility] [address] [id number] [place] [phone] 18 Apr, 2017 Generalized anxiety disorder F41.1 ; Depression, major, recurrent, moderate F33.1 and Personality disorder in adult F60.[id number] [place] [id number] 05 Apr, 2017 Dental examination Z01.20 [facility] [address] [id number] [place] [phone] Mar, Generalized anxiety disorder F41.1 ; Depression, major, recurrent, moderate F33.1 and Personality disorder in adult F60.9 [facility] [address] [facility] [id number] [place] [phone] Jan, Generalized anxiety disorder F41.1 ; Depression, major, recurrent, moderate F33.1 and Personality disorder in adult F60.9 [facility] [address] [facility] [id number] [place] [phone] Jan, Generalized anxiety disorder F41.1 ; Depression, major, recurrent, moderate F33.1 and Personality disorder in adult F60.9 [facility] [address] [id number] [address] [place] [address] [phone] Jan, Dental examination Z01.20 [facility] [address] [id number] [place] [phone] Nov, Depression, major, recurrent , moderate F33.1 ; Generalized anxiety disorder F41.1 and Personality disorder in adult F60.9 [facility] [address] [id number] [place] [phone] Oct, Depression, major, recurrent , moderate F33.1 [facility] [address] [id number] [address] [place] [phone] Oct, Depression, major, recurrent , moderate F33.1 and Generalized anxiety disorder F41.1 [facility] [address] [id number] [address] [place] [phone] Aug, Generalized anxiety disorder F41.1 and Depression, major, recurrent, moderate F33.1 [facility] [address] [id number] [address] [place] [phone] Aug, [facility] [address] [id number] [address] [place] [phone] Jun, Mood disorder F39 and Genera lized anxiety disorder F41.1 [facility] [address] [id number] [address] [place] [phone] May, Mood disorder F39 and Genera lized anxiety disorder F41.1 [facility] [address] [id number] [address] [place] [phone] Apr, [facility] [address] [id number] [address] [place] [phone] Apr, Mood disorder F39 [facility] [address] [id number] [address] [place] [phone] Aug, Encounter for dental examina tion V72.2 and Dental examination Z01.20 [facility] [address] [id number] [address] [place] [phone] Nov, [facility] [address] [id number] [address] [place] [phone] Nov, [facility] [address] [id number] [address] [place] [phone] Jan, [facility] [address] [id number] [address] [place] [phone] Jan, [facility] [address] [id number] [address] [place] [phone] Nov, [facility] [address] [id number] [address] [place] [phone] Nov, [facility] [address] [id number] [address] [place] [phone] Nov, [facility] [address] [id number] [address] [place] [phone] Nov, [facility] [address] [id number] [address] [place] [phone] Jan, [facility] [address] [id number] [address] [place] [phone] Jan, [facility] [address] [id number] [address] [place] [phone] December, [facility] [address] [id number] [address] [place] [phone] December, [facility] [address] [id number] [address] [place] [phone] Nov, [facility] [address] [id number] [address] [place] [phone] Jul, [facility] [address] [id number] [address] [place] [phone] Mar, IMMUNIZATIONS No Known Immunizations SOCIAL HISTORY Never Assessed REASON FOR VISIT f/u [place] PLAN OF CARE Activity Details Follow Up prn Reason: f/u VITAL SIGNS Height 68 in 2017-11-20 Weight 381.3 lbs 2017-11-20 Heart Rate 76 bpm 2017-11-20 Respiratory Rate 20 2017-11-20 BMI 57.97 kg/m2 2017-11-20 Blood pressure systolic 130 mmHg 2017-11-20 Blood pressure diastolic 86 mmHg 2017-11-20 MEDICATIONS Medication Instructions Dosage Frequency Start Date End Date Duration S tatus [place] Carbonate 150 MG Orally 2 times a [...]
--- OUTSIDE RECORDS SUMMARY | 2019-11-05 09:07 | XMS REPORT | Continuity of Care Document ---
Author Organization Unknown Address Unknown Phone Unavailable Allergies Active Description Code Type Severity Reaction Onset Reported/Identified Relationship to Patient Clinical Status Yes Sulfa (Sulfonamide Antibiotics) Drug Allergy N/A N/A 03/19/2009 Yes metformin Drug Allergy N/A N/A 04/10/2009 Yes metformin Drug Allergy 04/10/2009 Yes spironolactone Drug Allergy N/A N/A 04/24/2009 Yes spironolactone Drug Allergy 04/24/2009 Medications There is no data. Problems Date Dx Coded Attending Type Code Diagnosis Diagnosed By 03/19/2009 278.00 OBESITY 03/19/2009 401.9 ESSE NTIAL HYPERTENSION 03/19/2009 278.00 OBESITY 03/19/2009 401.9 ESSE NTIAL HYPERTENSION 03/19/2009 278.00 OBESITY 03/19/2009 401.9 ESSE NTIAL HYPERTENSION 03/19/2009 STU LUNA APRN S 278.00 OBESITY 03/19/2009 STU LUNA APRN 401.9 ESSENTIAL HYPERTENSION 03/19/2009 COURTNEY PERALES APRN R 278.00 OBESITY 03/19/2009 COURTNEY PERALES APRN R 401.9 ESSENTIAL HYPERTENSION 11/22/2012 786.2 cough 11/22/2012 786.2 cough 11/22/2012 786.2 COUGH 11/22/2012 STU LUNA APRN S 786.2 COUGH 11/22/2012 COURTNEY PERALES APRN R 786.2 COUGH 12/06/2012 296.90 UNS PECIFIED EPISODIC MOOD DISORDER 12/06/2012 401.1 HYPE RTENSION, BENIGN ESSENTIAL 12/06/2012 780.52 INS OMNIA UNSPECIFIED 12/06/2012 V70.0 ROUT INE GENERAL MEDICAL EXAMINATION AT A HEALTH CARE FACILITY 12/06/2012 296.90 UNS PECIFIED EPISODIC MOOD DISORDER 12/06/2012 401.1 HYPE RTENSION, BENIGN ESSENTIAL 12/06/2012 780.52 INS OMNIA UNSPECIFIED 12/06/2012 V70.0 ROUT INE GENERAL MEDICAL EXAMINATION AT A HEALTH CARE FACILITY 12/06/2012 STU LUNA APRN S 296.90 UNSPECIFIED EPISODIC MOOD DISORDER 12/06/2012 STU LUNA APRN S 401.1 HYPERTENSION, BENIGN ESSENTIAL 12/06/2012 STU LUNA APRN S 780.52 INSOMNIA UNSPECIFIED 12/06/2012 STU LUNA APRN S V70.0 ROUTINE GENERAL MEDICAL EXAMINATION AT [facility] 12/06/2012 COURTNEY PERALES APRN R 296.90 UNSPECIFIED EPISODIC MOOD DISORDER 12/06/2012 COURTNEY PERALES APRN R 401.1 HYPERTENSION, BENIGN ESSENTIAL 12/06/2012 SATNAM PERALES APRNIA R 780.52 INSOMNIA UNSPECIFIED 12/06/2012 SATNAM PERALES APRNIA R V70.0 ROUTINE GENERAL MEDICAL EXAMINATION AT [facility] 11/21/2013 STU LUNA APRN S 784.0 HEADACHE 11/21/2013 COURTNEY PERALES APRN R 784.0 HEADACHE 02/22/2014 COURTNEY PERALES APRN R 786.2 COUGH Procedures Code Description [place] [id number] ROUT INE VENIPUNCTURE 01/06/2013 [id number] CMP 01/06/2013 [id number] GF R CALC (RESULT ONLY) 01/06/2013 [id number] OXIMETRY 02/22/2014 Results Test Result Range CBC - 06/18/18 14:36 WHITE BLOOD CELL COUNT 14.4 Thousand/uL 3.8-10.8 RED BLOOD CELL COUNT 5.41 Million/uL 3.8 0-5.10 HEMOGLOBIN 8.3 g/dL 11.7-15.5 HEMATOCRIT 31.7 % 35.0-45.0 MCV 58.6 fL 80.0-100.0 MCH 15.3 pg 27.0-33.0 MCHC 26.2 g/dL 32.0-36.0 RDW 20.6 % 11.0-15.0 PLATELET COUNT 753 Thousand/uL 140-400 MPV 9.5 fL 7.5-12.5 ABSOLUTE NEUTROPHILS 29582 cells/uL 1500 -7800 ABSOLUTE LYMPHOCYTES 2592 cells/uL 850-3 900 ABSOLUTE MONOCYTES 821 cells/uL 200-950 ABSOLUTE EOSINOPHILS 86 cells/uL 15-500 ABSOLUTE BASOPHILS 101 cells/uL 0-200 NEUTROPHILS 75.0 % NRG LYMPHOCYTES 18.0 % NRG MONOCYTES 5.7 % NRG EOSINOPHILS 0.6 % NRG BASOPHILS 0.7 % NRG ANEMIA PANEL - 07/02/18 13:36 IRON, TOTAL 10 mcg/dL 40-190 FERRITIN 1 ng/mL 10-154 IRON BINDING CAPACITY 457 mcg/dL (calc) 250-450 % SATURATION 2 % (calc) 11-50 Encounters ACCT No. Visit Date/Time Discharge Status Pt. Type Provider Facility Loc./Unit Complaint [id number] 02/22/2014 11:45:00 02/22/2014 23:59: 59 CLS Outpatient COURTNEY PERALES APRN [id number] 11/21/2013 11:23:00 11/21/2013 23:59: 59 CLS Outpatient STU LUNA APRN [id number] 01/06/2013 08:02:00 Document Registration [id number] 12/06/2012 16:56:00 Document Registration [id number] 11/22/2012 14:14:00 Document Registration [id number] 10/19/2019 11:15:00 10/19/2019 23:59:5 9 CLS Outpatient [facility] [id number] 07/02/2018 13:00:00 Document Registration [id number] 06/18/2018 14:20:00 Document Registration
--- OUTSIDE RECORDS SUMMARY | 2019-11-05 09:07 | XMS REPORT ---
Author Author Bibi CORREA [facility] Address [address] [place] [address] Care Team Providers Care Silver Chaser Name Role Phone MADELINE, RADHA Unavailable PROBLEMS Type Condition ICD9-CM Code UDX28-VX Code Onset Dates Condition S tatus SNOMED Code Problem Insomnia, unspecified 780.52 Active 095784398 Problem Unspecified episodic mood disorder 296.90 Active 530953723 Problem Essential hypertension, benign 401.1 Active 3114966 Problem Routine general medical examination at [facility] y V70.0 Active 758599426 Problem Cough 786.2 Active 27390357 Problem Headache 784.0 Active 50174021 Problem Mixed obsessional thoughts and acts F42.2 Active 10939972 Problem Chronic post-traumatic stress disorder (PTSD) F43. 12 Active 067293418 Problem Generalized anxiety disorder F41.1 A ctive 89675468 Problem Depression, major, recurrent, moderate F33.1 Active 55975151 Problem BMI 50.0-59.9, adult Z68.43 Active 040079058 Problem Personality disorder in adult F60.9 Active 58142695 ALLERGIES No Information ENCOUNTERS Encounter Location Date Diagnosis [facility] [address] [facility] [id number] [address] [place] [phone] Jan, [facility] [address] [facility] [id number] [address] [place] [phone] December, Chronic post-traumatic stres s disorder (PTSD) F43.12 ; Depression, major, recurrent, moderate F33.1 ; Generalized anxiety disorder F41.1 ; Mixed obsessional thoughts and acts F42.2 and BMI 50.0-59.9, adult Z68.43 [facility] [address] [facility] [id number] [address] [place] [phone] December, Chronic post-traumatic stres s disorder (PTSD) F43.12 ; Depression, major, recurrent, moderate F33.1 ; Generalized anxiety disorder F41.1 and BMI 50.0-59.9, adult Z68.43 [facility] [address] [id number] [address] [place] [phone] December, Generalized anxiety disorder F41.1 [facility] [address] [id number] [address] [place] [address] [phone] December, Dental caries K02.9 and [place] al examination Z01.20 [facility] [address] [id number] [address] [place] [phone] December, Generalized anxiety disorder F41.1 and Other heading repairer (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 therapy Z79.899 [facility] [address] [id number] [address] [place] [phone] Nov, Other custodial (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 Z79.899 [facility] [address] [id number] [address] [place] [address] [phone] Nov, [facility] [address] [id number] [address] [place] [address] [phone] Nov, [facility] [address] [id number] [address] [place] [phone] Nov, [facility] [address] [id number] [address] [place] [address] [phone] Nov, [facility] [address] [id number] [address] [place] [address] [phone] Nov, Dental examination Z01.20 [facility] [address] [id number] [address] [place] [phone] Nov, Generalized anxiety disorder F41.1 ; Depression, major, recurrent, moderate F33.1 ; Personality disorder in adult F60.9 and Other heading repairer (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 therapy Z79.899 [facility] [address] [id number] [address] [place] [phone] Nov, Generalized anxiety disorder F41.1 ; Depression, major, recurrent, moderate F33.1 and Personality disorder in adult F60.9 [facility] [address] [facility] [id number] [address] [place] [phone] Aug, [facility] [address] [facility] [id number] [address] [place] [phone] Aug, Generalized anxiety disorder F41.1 ; Depression, major, recurrent, moderate F33.1 and Personality disorder in adult F60.9 [place] [address] [facility] [id number] [address] [place] [phone] Jul, Generalized anxiety disorder F41.1 ; Depression, major, recurrent, moderate F33.1 and Personality disorder in adult F60.9 [place] [address] [facility] [id number] [address] [place] [phone] Jun, Generalized anxiety disorder F41.1 ; Depression, major, recurrent, moderate F33.1 and Personality disorder in adult F60.9 [place] [address] [facility] [id number] [address] [place] [phone] May, [place] [address] [facility] [id number] [address] [place] [phone] May, Generalized anxiety disorder F41.1 ; Depression, major, recurrent, moderate F33.1 and Personality disorder in adult F60.9 [facility] [address] [facility] [id number] [address] [place] [phone] May, Generalized anxiety disorder F41.1 [place] [address] [facility] [id number] [address] [place] [phone] Apr, Generalized anxiety disorder F41.1 ; Depression, major, recurrent, moderate F33.1 and Personality disorder in adult F60.[id number] [place] [address] [phone] [id number] Apr, 2017 Dental examination Z01.20 [facility] [address] [facility] [id number] [address] [place] [phone] Mar, Generalized anxiety disorder F41.1 ; Depression, major, recurrent, moderate F33.1 and Personality disorder in adult F60.9 [facility] [address] [facility] [id number] [address] [place] [phone] Jan, Generalized anxiety disorder F41.1 ; Depression, major, recurrent, moderate F33.1 and Personality disorder in adult F60.9 [facility] [address] [facility] [id number] [address] [place] [phone] Jan, Generalized anxiety disorder F41.1 ; Depression, major, recurrent, moderate F33.1 and Personality disorder in adult F60.9 [facility] [address] [id number] [address] [place] [address] [phone] Jan, Dental examination Z01.20 [facility] [address] [facility] [id number] [address] [place] [phone] Nov, Depression, major, recurrent , moderate F33.1 ; Generalized anxiety disorder F41.1 and Personality disorder in adult F60.9 [facility] [address] [facility] [id number] [address] [place] [phone] Oct, Depression, major, recurrent , moderate F33.1 [facility] [address] [facility] [id number] [address] [place] [phone] Oct, Depression, major, recurrent , moderate F33.1 and Generalized anxiety disorder F41.1 [facility] [address] [facility] [id number] [address] [place] [phone] Aug, Generalized anxiety disorder F41.1 and Depression, major, recurrent, moderate F33.1 [facility] [address] [id number] [address] [place] [phone] Aug, [facility] [address] [facility] [id number] [address] [place] [phone] Jun, Mood disorder F39 and Genera lized anxiety disorder F41.1 [facility] [address] [facility] [id number] [address] [place] [phone] May, Mood disorder F39 and Genera lized anxiety disorder F41.1 [facility] [address] [id number] [address] [place] [phone] Apr, [facility] [address] [id number] [address] [place] [phone] Apr, Mood disorder F39 [facility] [address] [id number] [address] [place] [address] [phone] Aug, Encounter for dental examina tion V72.2 and Dental examination Z01.20 [facility] [address] [id number] [address] [place] [phone] Nov, [facility] [address] [id number] [address] [place] [phone] Nov, [facility] [address] [id number] [address] [place] [phone] Jan, [facility] [address] [id number] [address] [place] [phone] Jan, [facility] [address] [id number] [address] [place] [phone] Nov, [facility] [address] [id number] [address] [place] [phone] Nov, [facility] [address] [id number] [address] [place] [phone] Nov, [facility] [address] [id number] [address] [place] [phone] Nov, [facility] [address] [id number] [address] [place] [phone] Jan, [facility] [address] [id number] [address] [place] [phone] Jan, [facility] [address] [id number] [address] [place] [phone] December, [facility] [address] [id number] [address] [place] [phone] December, [facility] [address] [facility] [id number] [address] [place] [phone] Nov, [facility] [address] [facility] [id number] [address] [place] [phone] Jul, [facility] [address] [facility] [id number] [address] [place] [phone] Mar, IMMUNIZATIONS No Known Immunizations SOCIAL HISTORY Never Assessed REASON FOR VISIT INDIRA [facility] PLAN OF CARE VITAL SIGNS MEDICATIONS Unknown Medications RESULTS No Results PROCEDURES No Known procedures INSTRUCTIONS MEDICATIONS ADMINISTERED No Known Medications MEDICAL (GENERAL) HISTORY Type Description Date Surgical History Gallbladder removed Hospitalization History [facility] [place] Admitted for depressed mood and SI. 2012
--- OUTSIDE RECORDS SUMMARY | 2019-11-05 09:07 | XMS REPORT ---
Author Author Bibi CORREA [facility] Address [address] [place] [address] Care Team Providers Care Lumber Kiln Operator Name Role Phone MADELINE, RADHA Unavailable PROBLEMS Type Condition ICD9-CM Code EFZ54-DC Code Onset Dates Condition S tatus SNOMED Code Problem Routine general medical examination at [facility] y V70.0 Active 876764318 Problem Headache 784.0 Active 13857697 Problem Cough 786.2 Active 70550921 Problem Generalized anxiety disorder F41.1 A ctive 64535708 Problem Depression, major, recurrent, moderate F33.1 Active 15623323 Problem Essential hypertension, benign 401.1 Active 2941988 Problem Insomnia, unspecified 780.52 Active 636280486 Problem Personality disorder in adult F60.9 Active 90610704 Problem Unspecified episodic mood disorder 296.90 Active 506441481 ALLERGIES No Information ENCOUNTERS Encounter Location Date Diagnosis [facility] [id number] [place] [address] [phone] December, [facility] [place] [address] [place] [id number] [address] [place] [phone] December, [facility] [place] [address] [place] [id number] [address] [place] [phone] December, Generalized anxiety disorder F41.1 [facility] [address] [facility] [id number] [address] [place] [address] [phone] December, Dental caries K02.9 and [place] al examination Z01.20 [facility] [place] [address] [facility] [id number] [address] [place] [phone] December, Generalized anxiety disorder F41.1 and Other senior care (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 therapy Z79.899 [facility] [place] [address] [place] [id number] [address] [place] [phone] Nov, Other emt intermediate (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 Z79.899 [facility] [address] [id number] [address] [place] [address] [phone] Nov, [facility] [address] [id number] [address] [place] [address] [id number] Nov, [facility] [place] [address] [id number] [address] [place] [phone] Nov, [facility] [address] [id number] [address] [place] [address] [phone] Nov, [facility] [address] [id number] [address] [place] [address] [phone] Nov, Dental examination Z01.20 [facility] [place] [address] [id number] [address] [place] [phone] Nov, Generalized anxiety disorder F41.1 ; Depression, major, recurrent, moderate F33.1 ; Personality disorder in adult F60.9 and Other emt intermediate (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 therapy Z79.899 [facility] [place] [address] [id number] [address] [place] [phone] Nov, Generalized anxiety disorder F41.1 ; Depression, major, recurrent, moderate F33.1 and Personality disorder in adult F60.9 [facility] [place] [address] [id number] [address] [place] [phone] Aug, [facility] [place] [address] [id number] [address] [place] [phone] Aug, Generalized anxiety disorder F41.1 ; Depression, major, recurrent, moderate F33.1 and Personality disorder in adult F60.9 [facility] [place] [address] [id number] [address] [place] [phone] Jul, Generalized anxiety disorder F41.1 ; Depression, major, recurrent, moderate F33.1 and Personality disorder in adult F60.9 [facility] [place] [address] [id number] [address] [place] [phone] Jun, Generalized anxiety disorder F41.1 ; Depression, major, recurrent, moderate F33.1 and Personality disorder in adult F60.9 [facility] [place] [address] [facility] [id number] [address] [place] [phone] May, [facility] [place] [address] [facility] [id number] [address] [place] [phone] May, Generalized anxiety disorder F41.1 ; Depression, major, recurrent, moderate F33.1 and Personality disorder in adult F60.9 [facility] [place] [address] [id number] [address] [place] [phone] 09 May, 2017 Generalized anxiety disorder F41.1 [facility] [place] [address] [facility] [id number] [address] [place] [phone] Apr, Generalized anxiety disorder F41.1 ; Depression, major, recurrent, moderate F33.1 and Personality disorder in adult F60.[id number] [place] [address] [id number] Apr, Dental examination Z01.20 [facility] [place] [address] [facility] [id number] [address] [place] [phone] Mar, Generalized anxiety disorder F41.1 ; Depression, major, recurrent, moderate F33.1 and Personality disorder in adult F60.9 [facility] [place] [address] [facility] [id number] [address] [place] [phone] Jan, Generalized anxiety disorder F41.1 ; Depression, major, recurrent, moderate F33.1 and Personality disorder in adult F60.9 [facility] [place] [address] [id number] [address] [place] [phone] Jan, Generalized anxiety disorder F41.1 ; Depression, major, recurrent, moderate F33.1 and Personality disorder in adult F60.9 [facility] [address] [id number] [address] [place] [address] [id number] Jan, Dental examination Z01.20 [facility] [place] [address] [id number] [address] [place] [phone] Nov, Depression, major, recurrent , moderate F33.1 ; Generalized anxiety disorder F41.1 and Personality disorder in adult F60.9 [facility] [place] [address] [id number] [address] [place] [phone] Oct, Depression, major, recurrent , moderate F33.1 [facility] [place] [address] [id number] [address] [place] [phone] Oct, Depression, major, recurrent , moderate F33.1 and Generalized anxiety disorder F41.1 [facility] [place] [address] [id number] [address] [place] [phone] Aug, Generalized anxiety disorder F41.1 and Depression, major, recurrent, moderate F33.1 [facility] [place] [address] [id number] [address] [place] [phone] Aug, [facility] [place] [address] [facility] [id number] [address] [place] [phone] Jun, Mood disorder F39 and Genera lized anxiety disorder F41.1 [facility] [place] [address] [id number] [address] [place] [phone] May, Mood disorder F39 and Genera lized anxiety disorder F41.1 [facility] [place] [address] [id number] [address] [place] [phone] Apr, [facility] [place] [address] [facility] [id number] [address] [place] [phone] 06 Apr, 2016 Mood disorder F39 [facility] [address] [id number] [address] [place] [address] [id number] Aug, Encounter for dental examina tion V72.2 and Dental examination Z01.20 [facility] [place] [address] [id number] [address] [place] [phone] 14 Nov, 2014 [facility] [place] [address] [facility] [id number] [address] [place] [phone] 13 Nov, 2014 [facility] [place] [address] [facility] [id number] [address] [place] [phone] Jan, [facility] [place] [address] [id number] [address] [place] [phone] Jan, [facility] [place] [address] [id number] [address] [place] [phone] Nov, [facility] [place] [address] [id number] [address] [place] [phone] Nov, [facility] [place] [address] [id number] [address] [place] [phone] Nov, [facility] [place] [address] [id number] [address] [place] [phone] Nov, [facility] [place] [address] [id number] [address] [place] [phone] Jan, [facility] [place] [address] [id number] [address] [place] [phone] Jan, [facility] [place] [address] [id number] [address] [place] [phone] December, [facility] [place] [address] [id number] [address] [place] [phone] December, [facility] [place] [address] [id number] [address] [place] [phone] Nov, [facility] [place] [address] [id number] [address] [place] [phone] Jul, [facility] [place] [address] [id number] [address] [place] [phone] Mar, IMMUNIZATIONS No Known Immunizations SOCIAL HISTORY Never Assessed [facility] PLAN OF CARE VITAL SIGNS MEDICATIONS Medication Instructions Dosage Frequency Start Date End Date Duration S tatus Lorazepam 0.5 MG Orally BID anxiety, if hydroxyzine does not help. 1 tablet as needed 30 days Active RESULTS No Results PROCEDURES No Known procedures INSTRUCTIONS MEDICATIONS ADMINISTERED No Known Medications MEDICAL (GENERAL) HISTORY Type Description Date Surgical History Gallbladder removed Hospitalization History [facility] [place] Admitted for depressed mood and SI. 2012
--- OUTSIDE RECORDS SUMMARY | 2019-11-05 09:07 | XMS REPORT ---
Author Author Bibi HERNÁNDEZ [facility] Address [address] [place] [address] Care Team Providers Care Payable Representative Name Role Phone NIGEL HERNÁNDEZO Unavailable PROBLEMS Type Condition ICD9-CM Code [id number] Code Onset Dates Condition S tatus SNOMED Code Problem Routine general medical examination at [facility] y V70.0 Active 558752243 Problem Headache 784.0 Active 42041138 Problem Cough 786.2 Active 01498417 Problem Generalized anxiety disorder F41.1 A ctive 63714145 Problem Depression, major, recurrent, moderate F33.1 Active 23840743 Problem Essential hypertension, benign 401.1 Active 9986892 Problem Insomnia, unspecified 780.52 Active 047264003 Problem Personality disorder in adult F60.9 Active 45656209 Problem Unspecified episodic mood disorder 296.90 Active 378832725 ALLERGIES Substance Reaction Event Type Date Status sulfa drugs Unknown Drug Allergy Apr, Active Wellbutrin Unknown Drug Allergy Apr, Active Lamictal Rash Drug Allergy Apr, Active ENCOUNTERS Encounter Location Date Diagnosis [facility] [address] [facility] [id number] [address] [place] [address] [id number] December, [facility] [address] [id number] [address] [place] [phone] December, [facility] [address] [place] [address] [id number] [address] [place] [address] [id number] December, [facility] [address] [place] [address] [id number] [address] [place] [address] [id number] Nov, [facility] [address] [id number] [address] [place] [phone] Nov, [facility] [address] [id number] [address] [place] [address] [phone] Nov, [facility] [address] [place] [address] [id number] [address] [place] [address] [id number] Nov, Dental examination Z01.20 [facility] [address] [facility] [id number] [address] [place] [phone] Nov, Generalized anxiety disorder F41.1 ; Depression, major, recurrent, moderate F33.1 ; Personality disorder in adult F60.9 and Other solution spec (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 therapy Z79.899 [facility] [address] [facility] [id number] [address] [place] [phone] Nov, Generalized anxiety disorder F41.1 ; Depression, major, recurrent, moderate F33.1 and Personality disorder in adult F60.9 [facility] [address] [facility] [id number] [address] [place] [phone] Aug, [facility] [address] [facility] [id number] [address] [place] [phone] Aug, Generalized anxiety disorder F41.1 ; Depression, major, recurrent, moderate F33.1 and Personality disorder in adult F60.9 [facility] [address] [facility] [id number] [address] [place] [phone] Jul, Generalized anxiety disorder F41.1 ; Depression, major, recurrent, moderate F33.1 and Personality disorder in adult F60.9 [facility] [address] [facility] [id number] [address] [place] [phone] Jun, Generalized anxiety disorder F41.1 ; Depression, major, recurrent, moderate F33.1 and Personality disorder in adult F60.9 [facility] [address] [facility] [id number] [address] [place] [phone] May, [facility] [address] [facility] [id number] [address] [place] [phone] May, Generalized anxiety disorder F41.1 ; Depression, major, recurrent, moderate F33.1 and Personality disorder in adult F60.9 [facility] [address] [facility] [id number] [address] [place] [phone] 09 May, 2017 Generalized anxiety disorder F41.1 [facility] [address] [facility] [id number] [address] [place] [phone] 18 Apr, 2017 Generalized anxiety disorder F41.1 ; Depression, major, recurrent, moderate F33.1 and Personality disorder in adult F60.9 [facility] [id number] [facility] [place] [id number] [id number] 05 Apr, 2017 Dental examination Z01.20 [facility] [address] [facility] [id number] [address] [place] [phone] Mar, Generalized anxiety disorder F41.1 ; Depression, major, recurrent, moderate F33.1 and Personality disorder in adult F60.9 [facility] [address] [facility] [id number] [address] [place] [phone] Jan, Generalized anxiety disorder F41.1 ; Depression, major, recurrent, moderate F33.1 and Personality disorder in adult F60.9 [facility] [address] [facility] [id number] [address] [place] [phone] Jan, Generalized anxiety disorder F41.1 ; Depression, major, recurrent, moderate F33.1 and Personality disorder in adult F60.9 [facility] [address] [place] [address] [id number] [address] [place] [address] [id number] Jan, Dental examination Z01.20 [facility] [address] [facility] [id number] [address] [place] [phone] Nov, Depression, major, recurrent , moderate F33.1 ; Generalized anxiety disorder F41.1 and Personality disorder in adult F60.9 [facility] [address] [id number] [address] [place] [phone] Oct, Depression, major, recurrent , moderate F33.1 [facility] [address] [facility] [id number] [address] [place] [phone] 16 Oct, 2016 Depression, major, recurrent , moderate F33.1 and Generalized anxiety disorder F41.1 [facility] [address] [id number] [address] [place] [phone] Aug, Generalized anxiety disorder F41.1 and Depression, major, recurrent, moderate F33.1 [facility] [address] [place] [address] [id number] [address] [place] [phone] Aug, [facility] [address] [place] [address] [id number] [address] [place] [phone] Jun, Mood disorder F39 and Genera lized anxiety disorder F41.1 [facility] [address] [id number] [address] [place] [phone] May, Mood disorder F39 and Genera lized anxiety disorder F41.1 [facility] [address] [id number] [address] [place] [phone] Apr, [facility] [address] [id number] [address] [place] [phone] Apr, Mood disorder F39 [facility] [address] [place] [address] [id number] [place] [address] [id number] Aug, Encounter for dental examina tion V72.2 and Dental examination Z01.20 [facility] [address] [id number] [address] [place] [phone] Nov, [facility] [address] [place] [address] [id number] [address] [place] [phone] Nov, [facility] [address] [id number] [address] [place] [phone] Jan, [facility] [address] [id number] [address] [place] [phone] Jan, [facility] [address] [id number] [address] [place] [phone] Nov, [facility] [address] [id number] [address] [place] [phone] Nov, [facility] [address] [id number] [address] [place] [phone] Nov, [facility] [address] [place] [address] [id number] [address] [place] [phone] Nov, [facility] [address] [id number] [address] [place] [phone] Jan, [facility] [address] [id number] [address] [place] [phone] Jan, [facility] [address] [id number] [address] [place] [phone] December, [facility] [address] [id number] [address] [place] [phone] December, [facility] [address] [id number] [address] [place] [phone] Nov, [facility] [address] [id number] [address] [place] [phone] Jul, [facility] [address] [address] [id number] [address] [place] [phone] Mar, IMMUNIZATIONS No Known Immunizations SOCIAL HISTORY Never Assessed REASON FOR VISIT Toothache PLAN OF CARE Activity Details Gis Manager Endo Dr Samuel Ross son: VITAL SIGNS Height 68 in 2017-04-07 Heart Rate 91 bpm 2017-04-07 Blood pressure systolic 150 mmHg 2017-04-07 Blood pressure diastolic 96 mmHg 2017-04-07 MEDICATIONS Medication Instructions Dosage Frequency Start Date End Date Duration S tatus Adderall XR 10 mg Orally Once a day in the morning 1 capsule Mar, 28 days Active Duloxetine HCl 60 mg Orally Once a day 1 capsule 24h 30 day(s) Active Lorazepam 0.5 MG Orally BID anxiety, if hydroxyzine does not help. 1 tablet as needed Active Hydrocodone-Acetaminophen 5-325 MG Orally every 6 hrs 1 tablet as need ed 6h Active HydrOXYzine HCl 25 MG Orally TID PRN 1 tablet as needed Active Amoxicillin 500 MG Orally 2 times a day 2 capsules 12h Active RESULTS No Results PROCEDURES Procedure Date Ordered Result Body Site LTD ORAL EVALUATION - PROBLEM FOCUS Apr 07, 2017 INTRAORL-PERIAPICAL 1 FILM [id number] Apr 07, 2017 INSTRUCTIONS MEDICATIONS ADMINISTERED No Known Medications MEDICAL (GENERAL) HISTORY Type Description Date Surgical History Gallbladder removed Hospitalization History [facility] [place]. Admitted for depressed mood and SI. 2012
--- OUTSIDE RECORDS SUMMARY | 2019-11-05 09:07 | XMS REPORT ---
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 12 Active 085239965 Problem Personality disorder in adult F60.9 Active 94039697 Problem Unspecified episodic mood disorder 296.90 Active 876318203 Problem Essential hypertension, benign 401.1 Active 6195347 Problem Generalized anxiety disorder F41.1 A ctive 46966016 Problem Depression, major, recurrent, moderate F33.1 Active 74830503 ALLERGIES No Information ENCOUNTERS Encounter Location Date Diagnosis [facility] [address] [id number] [address] [place] [phone] December, [facility] [address] [id number] [address] [place] [address] [id number] December, [facility] [address] [id number] [address] [place] [phone] December, Chronic post-traumatic stres s disorder (PTSD) F43.12 ; Depression, major, recurrent, moderate F33.1 ; Generalized anxiety disorder F41.1 and BMI 50.0-59.9, adult Z68.43 [facility] [address] [id number] [address] [place] [phone] December, Generalized anxiety disorder F41.1 [facility] [id number] [place] [address] [phone] December, Dental caries K02.9 and [place] al examination Z01.20 [facility] [address] [id number] [address] [place] [phone] December, Generalized anxiety disorder F41.1 and Other custodial (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 therapy Z79.899 [facility] [address] [id number] [address] [place] [phone] Nov, 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 Z79.899 [facility] [address] [id number] [address] [place] [address] [id number] Nov, [facility] [address] [id number] [address] [place] [address] [id number] Nov, [facility] [address] [id number] [address] [place] [phone] Nov, [facility] [address] [id number] [address] [place] [address] [id number] Nov, [facility] [address] [id number] [address] [place] [address] [id number] Nov, Dental examination Z01.20 [facility] [address] [id number] [address] [place] [phone] Nov, Generalized anxiety disorder F41.1 ; Depression, major, recurrent, moderate F33.1 ; Personality disorder in adult F60.9 and Other custodial (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 therapy Z79.899 [facility] [address] [id number] [address] [place] [phone] Nov, Generalized anxiety disorder F41.1 ; Depression, major, recurrent, moderate F33.1 and Personality disorder in adult F60.9 [facility] [address] [id number] [address] [place] [phone] Aug, [facility] [address] [id number] [address] [place] [phone] Aug, Generalized anxiety disorder F41.1 ; Depression, major, recurrent, moderate F33.1 and Personality disorder in adult F60.9 [facility] [address] [facility] [id number] [address] [place] [phone] Jul, Generalized anxiety disorder F41.1 ; Depression, major, recurrent, moderate F33.1 and Personality disorder in adult F60.9 [facility] [address] [facility] [id number] [address] [place] [phone] Jun, Generalized anxiety disorder F41.1 ; Depression, major, recurrent, moderate F33.1 and Personality disorder in adult F60.9 [facility] [address] [facility] [id number] [address] [place] [phone] May, [facility] [address] [facility] [id number] [address] [place] [phone] May, Generalized anxiety disorder F41.1 ; Depression, major, recurrent, moderate F33.1 and Personality disorder in adult F60.9 [facility] [address] [facility] [id number] [address] [place] [phone] May, Generalized anxiety disorder F41.1 [facility] [address] [facility] [id number] [address] [place] [phone] Apr, Generalized anxiety disorder F41.1 ; Depression, major, recurrent, moderate F33.1 and Personality disorder in adult F60.[id number] [place] [address] [id number] 05 Apr, 2017 Dental examination Z01.20 [facility] [address] [facility] [id number] [address] [place] [phone] Mar, Generalized anxiety disorder F41.1 ; Depression, major, recurrent, moderate F33.1 and Personality disorder in adult F60.9 [facility] [address] [facility] [id number] [address] [place] [phone] Jan, Generalized anxiety disorder F41.1 ; Depression, major, recurrent, moderate F33.1 and Personality disorder in adult F60.9 [facility] [address] [facility] [id number] [address] [place] [phone] Jan, Generalized anxiety disorder F41.1 ; Depression, major, recurrent, moderate F33.1 and Personality disorder in adult F60.9 [facility] [address] [id number] [address] [place] [address] [id number] Jan, Dental examination Z01.20 [facility] [address] [facility] [id number] [address] [place] [phone] Nov, Depression, major, recurrent , moderate F33.1 ; Generalized anxiety disorder F41.1 and Personality disorder in adult F60.9 [facility] [address] [id number] [address] [place] [phone] Oct, Depression, major, recurrent , moderate F33.1 [facility] [address] [facility] [id number] [address] [place] [phone] Oct, Depression, major, recurrent , moderate F33.1 and Generalized anxiety disorder F41.1 [facility] [address] [facility] [id number] [address] [place] [phone] Aug, Generalized anxiety disorder F41.1 and Depression, major, recurrent, moderate F33.1 [facility] [address] [facility] [id number] [address] [place] [phone] Aug, [facility] [address] [facility] [id number] [address] [place] [phone] Jun, Mood disorder F39 and Genera lized anxiety disorder F41.1 [facility] [address] [facility] [id number] [address] [place] [phone] May, Mood disorder F39 and Genera lized anxiety disorder F41.1 [facility] [address] [facility] [id number] [address] [place] [phone] Apr, [facility] [address] [facility] [id number] [address] [place] [phone] Apr, Mood disorder F39 [facility] [address] [id number] [address] [place] [address] [id number] Aug, Encounter for dental examina tion V72.2 and Dental examination Z01.20 [facility] [address] [id number] [address] [place] [phone] 14 Nov, 2014 [facility] [address] [id number] [address] [place] [phone] Nov, [facility] [address] [id number] [address] [place] [phone] Jan, [facility] [address] [id number] [address] [place] [phone] Jan, [facility] [address] [id number] [address] [place] [phone] Nov, [facility] [address] [id number] [address] [place] [phone] Nov, [facility] [address] [id number] [address] [place] [phone] Nov, [facility] [address] [id number] [address] [place] [phone] Nov, [facility] [address] [id number] [address] [place] [phone] Jan, [facility] [address] [id number] [address] [place] [phone] Jan, [facility] [address] [id number] [address] [place] [phone] December, [facility] [address] [id number] [address] [place] [phone] December, [facility] [address] [id number] [address] [place] [phone] Nov, [facility] [address] [id number] [address] [place] [phone] Jul, [facility] [address] [id number] [address] [place] [phone] Mar, IMMUNIZATIONS No Known Immunizations SOCIAL HISTORY Never Assessed REASON FOR VISIT Medication question PLAN OF CARE VITAL SIGNS MEDICATIONS Medication Instructions Dosage Frequency Start Date End Date Duration S tirso Propranolol HCl 10 mg Orally three times a day 1 tablet 8h May, 30 day(s) Active RESULTS No Results PROCEDURES No Known procedures INSTRUCTIONS MEDICATIONS ADMINISTERED No Known Medications MEDICAL (GENERAL) HISTORY Type Description Date Surgical History Gallbladder removed Hospitalization History [facility] [place] [facility] [place]. Admitted for depressed mood and SI. 2012
--- OUTSIDE RECORDS SUMMARY | 2019-11-05 09:07 | XMS REPORT ---
Author Author MADELINE Bibi RADHA [facility] Address [address] [place] [address] Care Team Providers Care Supervisor [employer] Name Role Phone RADHA CORREA Unavailable PROBLEMS Type Condition ICD9-CM Code [id number] Code Onset Dates Condition S tatus SNOMED Code Problem Insomnia, unspecified 780.52 Active 027559731 Problem Unspecified episodic mood disorder 296.90 Active 523303716 Problem Essential hypertension, benign 401.1 Active 7839843 Problem Routine general medical examination at [facility] y V70.0 Active 493894167 Problem Cough 786.2 Active 90067919 Problem Headache 784.0 Active 36357987 Problem Mixed obsessional thoughts and acts F42.2 Active 12270208 Problem Chronic post-traumatic stress disorder (PTSD) F43. 12 Active 256247667 Problem Generalized anxiety disorder F41.1 A ctive 98748072 Problem Depression, major, recurrent, moderate F33.1 Active 54798832 Problem BMI 50.0-59.9, adult Z68.43 Active 949903612 Problem Personality disorder in adult F60.9 Active 86038742 ALLERGIES Substance Reaction Event Type Date Status sulfa drugs Unknown Drug Allergy Jul, Active Wellbutrin Unknown Drug Allergy Jul, Active Lamictal Rash Drug Allergy Jul, Active ENCOUNTERS Encounter Location Date Diagnosis [facility] [address] [facility] [id number] [address] [place] [phone] Jan, [facility] [address] [facility] [id number] [address] [place] [phone] Jan, [facility] [address] [facility] [id number] [address] [place] [phone] December, Chronic post-traumatic stres s disorder (PTSD) F43.12 ; Depression, major, recurrent, moderate F33.1 ; Generalized anxiety disorder F41.1 ; Mixed obsessional thoughts and acts F42.2 and BMI 50.0-59.9, adult Z68.43 [facility] [address] [facility] [id number] [address] [place] [phone] December, Chronic post-traumatic stres s disorder (PTSD) F43.12 ; Depression, major, recurrent, moderate F33.1 ; Generalized anxiety disorder F41.1 and BMI 50.0-59.9, adult Z68.43 [facility] [address] [id number] [address] [place] [phone] December, Generalized anxiety disorder F41.1 [facility] [address] [id number] [address] [place] [phone] December, Dental caries K02.9 and Hamlin al examination Z01.20 [facility] [address] [facility] [id number] [address] [place] [phone] December, Generalized anxiety disorder F41.1 and Other fpc (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 therapy Z79.899 [facility] [address] [id number] [address] [place] [phone] Nov, 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 Z79.899 [facility] [address] [id number] [address] [place] [phone] Nov, [facility] [address] [id number] [address] [place] [address] [phone] Nov, [facility] [address] [id number] [address] [place] [phone] Nov, [facility] [address] [id number] [address] [place] [address] [phone] Nov, [facility] [address] [id number] [address] [place] [address] [phone] Nov, Dental examination Z01.20 [facility] [address] [id number] [address] [place] [phone] Nov, Generalized anxiety disorder F41.1 ; Depression, major, recurrent, moderate F33.1 ; Personality disorder in adult F60.9 and 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.899 [facility] [address] [facility] [id number] [address] [place] [phone] Nov, Generalized anxiety disorder F41.1 ; Depression, major, recurrent, moderate F33.1 and Personality disorder in adult F60.9 [facility] [address] [facility] [id number] [address] [place] [phone] Aug, [facility] [address] [facility] [id number] [address] [place] [phone] Aug, Generalized anxiety disorder F41.1 ; Depression, major, recurrent, moderate F33.1 and Personality disorder in adult F60.9 [place] [address] [facility] [id number] [address] [place] [phone] Jul, Generalized anxiety disorder F41.1 ; Depression, major, recurrent, moderate F33.1 and Personality disorder in adult F60.9 [facility] [address] [place] [id number] [address] [place] [phone] Jun, Generalized anxiety disorder F41.1 ; Depression, major, recurrent, moderate F33.1 and Personality disorder in adult F60.9 [place] [address] [place] [id number] [address] [place] [phone] May, [facility] [address] [facility] [id number] [address] [place] [phone] May, Generalized anxiety disorder F41.1 ; Depression, major, recurrent, moderate F33.1 and Personality disorder in adult F60.9 [facility] [address] [facility] [id number] [address] [place] [phone] 09 May, 2017 Generalized anxiety disorder F41.1 [facility] [address] [facility] [id number] [address] [place] [phone] Apr, Generalized anxiety disorder F41.1 ; Depression, major, recurrent, moderate F33.1 and Personality disorder in adult F60.[address] [id number] [id number] 05 Apr, 2017 Dental examination Z01.20 [facility] [address] [facility] [id number] [address] [place] [phone] Mar, Generalized anxiety disorder F41.1 ; Depression, major, recurrent, moderate F33.1 and Personality disorder in adult F60.9 [facility] [address] [facility] [id number] [address] [place] [phone] Jan, Generalized anxiety disorder F41.1 ; Depression, major, recurrent, moderate F33.1 and Personality disorder in adult F60.9 [facility] [address] [facility] [id number] [address] [place] [phone] Jan, Generalized anxiety disorder F41.1 ; Depression, major, recurrent, moderate F33.1 and Personality disorder in adult F60.9 [facility] [address] [id number] [address] [place] [address] [phone] Jan, Dental examination Z01.20 [facility] [address] [facility] [id number] [address] [place] [phone] Nov, Depression, major, recurrent , moderate F33.1 ; Generalized anxiety disorder F41.1 and Personality disorder in adult F60.9 [facility] [address] [facility] [id number] [address] [place] [phone] Oct, Depression, major, recurrent , moderate F33.1 [facility] [address] [facility] [id number] [address] [place] [phone] Oct, Depression, major, recurrent , moderate F33.1 and Generalized anxiety disorder F41.1 [facility] [address] [facility] [id number] [address] [place] [phone] Aug, Generalized anxiety disorder F41.1 and Depression, major, recurrent, moderate F33.1 [facility] [address] [facility] [id number] [address] [place] [phone] Aug, [facility] [address] [facility] [id number] [address] [place] [phone] Jun, Mood disorder F39 and Genera lized anxiety disorder F41.1 [facility] [address] [id number] [address] [place] [phone] May, Mood disorder F39 and Genera lized anxiety disorder F41.1 [facility] [address] [id number] [address] [place] [phone] Apr, [facility] [address] [id number] [address] [place] [phone] Apr, Mood disorder F39 [facility] [address] [id number] [address] [place] [phone] Aug, Encounter for dental examina tion V72.2 and Dental examination Z01.20 [facility] [address] [id number] [address] [place] [phone] Nov, [facility] [address] [id number] [address] [place] [phone] Nov, [facility] [address] [id number] [address] [place] [phone] Jan, [facility] [address] [id number] [address] [place] [phone] Jan, [facility] [address] [id number] [address] [place] [phone] Nov, [facility] [address] [id number] [address] [place] [phone] Nov, [facility] [address] [id number] [address] [place] [phone] Nov, [facility] [address] [id number] [address] [place] [phone] Nov, [facility] [address] [id number] [address] [place] [phone] Jan, [facility] [address] [id number] [address] [place] [phone] Jan, [facility] [address] [facility] [id number] [address] [place] [phone] December, [facility] [address] [facility] [id number] [address] [place] [phone] December, [facility] [address] [facility] [id number] [address] [place] [phone] Nov, [facility] [address] [facility] [id number] [address] [place] [phone] Jul, [facility] [address] [facility] [id number] [address] [place] [phone] Mar, IMMUNIZATIONS No Known Immunizations SOCIAL HISTORY Never Assessed REASON FOR VISIT f/u--Valentino Baker MA PLAN OF CARE Activity Details Follow Up 4 Weeks Reason: f/u VITAL SIGNS Height 68 in 2017-07-13 Weight 397.3 lbs 2017-07-13 Heart Rate 80 bpm 2017-07-13 Respiratory Rate 20 2017-07-13 BMI 60.40 kg/m2 2017-07-13 Blood pressure systolic 138 mmHg 2017-07-13 Blood pressure diastolic 82 mmHg 2017-07-13 MEDICATIONS Medication Instructions Dosage Frequency Start Date End Date Duration S tatus HydrOXYzine HCl 50 mg Orally 3 times a day as needed for anxiety 1 tablet Jun, Active Lorazepam 0.5 MG Orally BID anxiety, if hydroxyzine does not help. 1 tablet as needed Active Viibryd 20 mg Orally Once a day 1 tablet 24h 11 Jul, 2017 30 day(s) Active Hydrocodone-Acetaminophen 5-325 MG Orally every 6 hrs 1 tablet as need ed 6h Not-Taking Amoxicillin 500 MG Orally 2 times a day 2 capsules 12h Not-Taking RESULTS No Results PROCEDURES No Known procedures INSTRUCTIONS MEDICATIONS ADMINISTERED No Known Medications MEDICAL (GENERAL) HISTORY Type Description Date Surgical History Gallbladder removed Hospitalization History [facility] [place], [place]. Admitted for depressed mood and SI. 2011
[2019-11-05] MEDS ORDERED: LABETALOL HCL 20 MG/4 ML VIAL IV ONE ×2 (09:30→10:45)
--- NOTE | 2019-11-05 09:32 | ED General ---
General Stated Complaint: CHEST PAIN / SOA Source of Information: Patient History of Present Illness Date Seen by Provider: Nov 05, 2019 Time Seen by Provider: 09:08 Initial Comments PT ARRIVES VIA POV --STATES HER PARENTS BROUGHT HER--PT LIVES WITH PARENTS C/O CHEST PAIN FOR THE LAST COUPLE OF DAYS--PAIN IS MID CHEST AND AROUND LEFT BREAST C/O SHORTNESS OF BREATH WITH EXERTION THE LAST WEEK NO SWELLING IN LEGS/ FEET PT DOES NOT KNOW IF SHE HAS HAD FEVER OR NOT--TEMP 99.7 ON ARRIVAL NO COUGH NO PALPITATIONS PT STATES HER PARENTS ARE NOT ILL, AND NO KNOWN SICK CONTACTS, BUT PT HAS NOT FOLLOWED THE STAY AT HOME ORDER PUT OUT BY THE STATE, IN FACT, SHE WENT OUT YESTERDAY WITH A FRIEND. STATES HER BLOOD PRESSURE HAS BEEN HIGH FOR THE LAST WEEK--WAS 181/119, PULSE 112 TODAY STATES SHE HAS BEEN DX WITH HTN IN PAST, BUT NEVER TAKEN MEDICATION HAS "SEVERE ANXIETY" AND TAKES MULTIPLE PSYCH MEDICATIONS HAS NOT BEEN TO MEDICAL DR. IN A COUPLE OF YEARS GOES TO M[facility] HOWEVER PCP: KALANI, [facility] Allergies and Home Medications Allergies Coded Allergies: bupropion (Verified Adverse Reaction, Unknown, 11/05/19) mood swings, suicidal thoughts Uncoded Allergies: SULFA (Allergy, Mild, RASH, 05/09/10) Home Medications ARIPiprazole 2 Mg Tab.senspt, 2 MG PO DAILY, (Reported) Amitriptyline HCl 150 Mg Tablet, 150 MG PO DAILY, (Reported) Amoxicillin 500 Mg Capsule, 1,000 MG PO BID Prescribed by: PARIL ELISE on 04/04/17 0716 Clonazepam 1 Mg Tablet, 1 MG PO DAILY, (Reported) Hydrocodone Bit/Acetaminophen 1 Each Tablet, 1 EACH PO Q6H PRN for PAIN Prescribed by: APRIL ELISE on 04/04/17 0716 Nitrofurantoin Monohyd/M-Cryst 100 Mg Capsule, 1 TAB PO BID Prescribed by: SELWYN BARNES on 11/05/19 1057 Patient Home Medication List Home Medication List Reviewed: Yes Review of Systems Review of Systems Constitutional: see HPI EENTM: no symptoms reported; No ear pain, No nose congestion, No throat pain Respiratory: see HPI; No cough; dyspnea on exertion; No phlegm; short of breath Cardiovascular: see HPI, chest pain; No edema, No palpitations, No syncope Gastrointestinal: no symptoms reported Genitourinary: no symptoms reported : No LMP: Nov 05, 2019 (NO CONTROL) Musculoskeletal: no symptoms reported; No back pain Skin: no symptoms reported Psychiatric/Neurological: See HPI, Anxiety; Denies Headache, Denies Numbness, Denies Paresthesia Hematologic/Lymphatic: No Symptoms Reported Immunological/Allergic: no symptoms reported Past Ysmfwwz-Vdeghj-Khxhbd Hx Past Med/Social Hx: Reviewed and Corrections made Patient Social History Alcohol Use: Denies Use Recreational Drug Use: No Smoking Status: Never a Smoker Recent Foreign Travel: No Contact w/Someone Who Travel: No Recent Hopitalizations: No Immunizations Up To Date Tetanus Booster (TDap): Unknown Seasonal Allergies Seasonal Allergies: No Past Medical History Surgeries: Yes Gallbladder Respiratory: No Cardiac: Yes (DOES NOT TAKE MEDICATION FOR HTN) Hypertension Neurological: No Reproductive Disorders: No Sexually Transmitted Disease: No Genitourinary: No Gastrointestinal: No Musculoskeletal: No Endocrine: Yes (MORBID OBESITY) HEENT: No Cancer: No Psychosocial: Yes Anxiety, Depression Integumentary: No Blood Disorders: No Adverse Reaction/Blood Tranf: No Family Medical History Diabetes, Hypertension, Psychiatric Problems Physical Exam Vital Signs Vital Signs - First Documented 11/05/19 09:20 Temp 37.6 Pulse 115 Resp 12 B/P (MAP) 168/122 (137) Pulse Ox 99 O2 Delivery Room Air Capillary Refill : Height, Weight, BMI Height: 5'7.00" Weight: 350lbs. oz. 158.881777su; BMI Method:Stated General Appearance: No Apparent Distress, Obese (MORBIDLY) HEENT: PERRL/EOMI, Normal ENT Inspection Neck: Full Range of Motion, Normal Inspection, Non Tender, Supple Respiratory: Normal Breath Sounds, No Accessory Muscle Use, No Respiratory Distress, Other (CHEST TENDER TO PALPATION) Cardiovascular: No Edema (NO OBVIOUS EDEMA, BUT EXAM IS LIMITED DUE TO BODY HABITUS), No JVD, No Murmur, Normal Peripheral Pulses, Tachycardia (100-110'S) Gastrointestinal: Non Tender, Soft Back: No CVA Tenderness Extremity: Normal Capillary Refill, Normal Range of Motion, Non Tender, No Calf Tenderness Neurologic/Psychiatric: Alert, Oriented x3, No Motor/Sensory Deficits, financial services assistant II- XII Norm as Tested, Other (SOMEWHAT ANXIOUS) Skin: Normal Color, Warm/Dry Focused Exam Lactate Level 11/05/19 09:24: Lactic Acid Level 1.93 Lactic Acid Level Laboratory Tests Test 11/05/19 09:24 Lactic Acid Level 1.93 MMOL/L (0.50-2.00) Progress/Results/Core Measures Suspected Sepsis SIRS Temperature: Pulse: Respiratory Rate: Laboratory Tests 11/05/19 09:24: White Blood Count 9.6 Blood Pressure / Mean: 11/05/19 09:24: Lactic Acid Level 1.93 Laboratory Tests 11/05/19 09:24: Creatinine 0.84, INR Comment 1.0, Platelet Count 537H, Total Bilirubin 0.3 Results/Orders Lab Results Laboratory Tests Test 11/05/19 09:24 11/05/19 10:05 Range/Units White Blood Count 9.6 4.3-11.0 10^3/uL Red Blood Count 5.34 4.35-5.85 10^6/uL Hemoglobin 10.3 L 11.5-16.0 G/DL Hematocrit 34 L 35-52 % Mean Corpuscular Volume 63 L 80-99 FL Mean Corpuscular Hemoglobin 19 L 25-34 PG Mean Corpuscular Hemoglobin Concent 31 L 32-36 G/DL Red Cell Distribution Width 21.4 H 10.0-14.5 % Platelet Count 537 H 130-400 10^3/uL Mean Platelet Volume 9.2 7.4-10.4 FL Neutrophils (%) (Auto) 54 42-75 % Lymphocytes (%) (Auto) 33 12-44 % Monocytes (%) (Auto) 10 0-12 % Eosinophils (%) (Auto) 2 0-10 % Basophils (%) (Auto) 1 0-10 % Neutrophils # (Auto) 5.2 1.8-7.8 X 10^3 Lymphocytes # (Auto) 3.2 1.0-4.0 X 10^3 Monocytes # (Auto) 1.0 0.0-1.0 X 10^3 Eosinophils # (Auto) 0.2 0.0-0.3 10^3/uL Basophils # (Auto) 0.1 0.0-0.1 10^3/uL Erythrocyte Sedimentation Rate 28 H 0-20 MM/HR Prothrombin Time 13.7 12.2-14.7 SEC INR Comment 1.0 0.8-1.4 Activated Partial Thromboplast Time 44 H 24-35 SEC D-Dimer 0.36 0.00-0.49 UG/ML Sodium Level 139 135-145 MMOL/L Potassium Level 3.6 3.6-5.0 MMOL/L Chloride Level 108 H 98-107 MMOL/L Carbon Dioxide Level 20 L 21-32 MMOL/L Anion Gap 11 5-14 MMOL/L Blood Urea Nitrogen 6 L 7-18 MG/DL Creatinine 0.84 0.60-1.30 MG/DL Estimat Glomerular Filtration Rate > 60 BUN/Creatinine Ratio 7 Glucose Level 102 70-105 MG/DL Lactic Acid Level 1.93 0.50-2.00 MMOL/L Calcium Level 9.0 8.5-10.1 MG/DL Corrected Calcium 8.9 8.5-10.1 MG/DL Magnesium Level 1.8 1.6-2.4 MG/DL Total Bilirubin 0.3 0.1-1.0 MG/DL Aspartate Amino Transf (AST/SGOT) 20 5-34 U/L Alanine Aminotransferase (ALT/SGPT) 25 0-55 U/L Alkaline Phosphatase 79 40-136 U/L Lactate Dehydrogenase 213 125-220 U/L Myoglobin 10.7 10.0-92.0 NG/ML Troponin I < 0.028 <0.028 NG/ML C-Reactive Protein High Sensitivity 1.39 H 0.00-0.50 MG/DL B-Type Natriuretic Peptide < 10.0 <100.0 PG/ML Total Protein 7.4 6.4-8.2 GM/DL Albumin 4.1 3.2-4.5 GM/DL Procalcitonin 0.02 <0.10 NG/ML Serum Test, Qualitative NEGATIVE NEGATIVE Monoscreen NEGATIVE NEGATIVE Group A Streptococcus Screen NEGATIVE NEGATIVE Urine Color RED H Urine Clarity CLOUDY Urine pH 6.5 5-9 Urine Specific [place] 1.010 L 1.016-1.022 Urine Protein 3+ H NEGATIVE Urine Glucose (UA) NEGATIVE NEGATIVE Urine Ketones TRACE H NEGATIVE Urine Nitrite POSITIVE H NEGATIVE Urine Bilirubin NEGATIVE NEGATIVE Urine Urobilinogen 1.0 < = 1.0 MG/DL Urine Leukocyte Esterase 2+ H NEGATIVE Urine RBC (Auto) 3+ H NEGATIVE Urine RBC TNTC H /HPF Urine WBC 0-2 /HPF Urine Squamous Epithelial Cells 0-2 /HPF Urine Crystals NONE /LPF Urine Bacteria TRACE /HPF Urine Casts NONE /LPF Urine Mucus NEGATIVE /LPF Urine Culture Indicated CULTURE PENDING Urine Opiates Screen NEGATIVE NEGATIVE Urine Oxycodone Screen NEGATIVE NEGATIVE Urine Methadone Screen NEGATIVE NEGATIVE Urine Propoxyphene Screen NEGATIVE NEGATIVE Urine Barbiturates Screen NEGATIVE NEGATIVE Ur Tricyclic Antidepressants Screen POSITIVE H NEGATIVE Urine Phencyclidine Screen NEGATIVE NEGATIVE Urine Amphetamines Screen NEGATIVE NEGATIVE Urine Methamphetamines Screen NEGATIVE NEGATIVE Urine Benzodiazepines Screen NEGATIVE NEGATIVE Urine Cocaine Screen NEGATIVE NEGATIVE Urine Cannabinoids Screen NEGATIVE NEGATIVE My Orders Orders - MEHDI BARNESA K DO Fibrin Degradation Products (11/05/19 09:05) Procalcitonin (Pct) (11/05/19 09:05) Hs C Reactive Protein (11/05/19 09:05) Erythrocyte Sedimentation Rate (11/05/19 09:05) LDH (11/05/19 09:05) Blood Culture (11/05/19 09:05) Ekg Tracing (11/05/19 09:05) Influenza A And B Antigens (11/05/19 09:05) Rapid Strep A Screen (11/05/19 09:05) Chest 1 View, Ap/Pa Only (11/05/19 09:05) 2019 Coronavirus Sars-Cov-2 So (11/05/19 09:05) Cbc With Automated Diff (11/05/19 09:05) Comprehensive Metabolic Panel (11/05/19 09:05) Sputum Culture (11/05/19 09:05) Urinalysis (11/05/19 09:05) Urine Culture (11/05/19 09:05) Protime With Inr (11/05/19 09:05) Partial Thromboplastin Time (11/05/19 09:05) Ed Iv/Invasive Line Start (11/05/19 09:05) Ed Iv/Invasive Line Start (11/05/19 09:05) Troponin I (11/05/19 09:05) Vital Signs Adult Sepsis Patie Q15M (11/05/19 09:05) O2 (11/05/19 09:05) Remove Rings In Anticipation O (11/05/19 09:05) Lactic Acid Analyzer (11/05/19 09:05) BNP (11/05/19 09:05) Hcg,Qualitative Serum (11/05/19 09:05) Magnesium (11/05/19 09:05) Monotest (11/05/19 09:05) Myoglobin Serum (11/05/19 09:05) Ed Iv/Invasive Line Start (11/05/19 09:05) Lactated Ringers (Lr 1000 Ml Iv Solution (11/05/19 09:05) Labetalol Injection (Normodyne Injection (11/05/19 09:30) Ferritin (11/05/19 09:24) Drug Screen Stat (Urine) (11/05/19 10:33) Labetalol Injection (Normodyne Injection (11/05/19 10:45) Medications Given in ED Current Medications Medications Dose Ordered Sig/Kris Route Start Time Stop Time Status Last Admin Dose Admin Labetalol HCl 20 mg ONCE ONCE IV 11/05/19 09:30 11/05/19 09:31 DC 11/05/19 09:37 20 MG Lactated Ringer's 1,000 ml @ 0 mls/hr Q0M ONCE IV 11/05/19 09:05 11/05/19 09:08 DC 11/05/19 09:36 1,000 MLS/HR Vital Signs/I&O 11/05/19 11/05/19 09:20 10:48 Temp 37.6 Pulse 115 85 Resp 12 16 B/P (MAP) 168/122 (137) 154/98 (116) Pulse Ox 99 98 O2 Delivery Room Air Capillary Refill : Progress Note : Progress Note PPE DONNED PRIOR TO ENTERING PT'S ROOM, AND WORN AT ALL TIMES WHILE IN PT'S ROOM AND WITH ANY CONTACT WITH PT. COVID TESTING DONE BASED ON PT'S SYMPTOMS, AND PT HAS NOT FOLLOWED THE STAY AT HOME ORDER PUT OUT BY THE STATE GIVEN LABETALOL FOR HTN WITH BP DOWN TO 150'S/90'S CHEST PAIN AND DYSPNEA IMPROVED AT DISMISSAL ECG Initial ECG Impression Date: Nov 05, 2019 Initial ECG Impression Time: 09:13 Initial ECG Rate: 114 Initial ECG Rhythm: S.Tach Diagnostic Imaging Comments CXR--NO ACUTE PROCESS, PER RADIOLOGIST REPORT AT 1030 Reviewed: Reviewed by Me Departure Impression Primary Impression: Anxiety Additional Impressions: Chest pain Dyspnea on exertion Uncontrolled hypertension UTI (urinary tract infection) Disposition: HOME, SELF-CARE Condition: Improved Departure-Patient Inst. Referrals: [facility] (PCP/Family) Primary Care Physician Patient Instructions: COVID19, Chest Pain (DC), Costochondritis (DC), DASH Diet, High Blood Pressure (DC), Urinary Tract Infection, Adult (DC) Add. Discharge Instructions: SLEF QUARANTINE YOURSELF AND ALL HOUSEHOLD MEMBERS FOR A MINIMUM OF THE NEXT 14 DAYS, AND UNTIL STAY AT HOME ORDER IS LIFTED BY THE STATE FOLLOW UP WITH [facility] FOR FURTHER CARE--CALL TODAY TO MAKE AN APPOINTMENT Scripts Nitrofurantoin Monohyd/M-Cryst (Macrobid 100 mg Capsule) 100 Mg Capsule 1 TAB PO BID, #20 CAP Prov: SELWYN BARNES DO 11/05/19 SELWYN BARNES DO Nov 05, 2019 09:32
[2019-11-05 09:44] LABS: BASOPHILS # (AUTO) 0.1 10^3/uL (0.0-0.1); BASOPHILS % (AUTO) 1 % (0-10); EOSINOPHILS # (AUTO) 0.2 10^3/uL (0.0-0.3); EOSINOPHILS % (AUTO) 2 % (0-10); HEMATOCRIT 34 % (35-52); HEMOGLOBIN 10.3 G/DL (11.5-16.0); LYMPHOCYTES # (AUTO) 3.2 X 10^3 (1.0-4.0); LYMPHOCYTES % (AUTO) 33 % (12-44); MEAN CORPUSCULAR HEMOGLOBIN 19 PG (25-34); MEAN CORPUSCULAR HGB CONC 31 G/DL (32-36); MEAN CORPUSCULAR VOLUME 63 FL (80-99); MEAN PLATELET VOLUME 9.2 FL (7.4-10.4); MONOCYTES % (AUTO) 10 % (0-12); NEUTROPHILS # (AUTO) 5.2 X 10^3 (1.8-7.8); NEUTROPHILS % (AUTO) 54 % (42-75); PLATELET COUNT 537 10^3/uL (130-400); RED CELL DISTRIBUTION WIDTH 21.4 % (10.0-14.5); WHITE BLOOD COUNT 9.6 10^3/uL (4.3-11.0)
[2019-11-05] MEDS ORDERED: AMIT150T PO (09:52)
[2019-11-05] MEDS ORDERED: ARIP2TAB45 PO (09:52)
[2019-11-05] MEDS ORDERED: CLON1TAB13 PO (09:52)
[2019-11-05 09:57] LABS: FIBRIN DEGRADATION PRODUCTS 0.36 UG/ML (0.00-0.49); PROTHROMBIN TIME PATIENT 13.7 SEC (12.2-14.7)
[2019-11-05 10:04] LABS: ALANINE AMINOTRANSFERASE 25 U/L (0-55); ALBUMIN 4.1 GM/DL (3.2-4.5); ALKALINE PHOSPHATASE 79 U/L (40-136); BILIRUBIN,TOTAL 0.3 MG/DL (0.1-1.0); BUN/CREATININE RATIO 7; CARBON DIOXIDE 20 MMOL/L (21-32); CHLORIDE 108 MMOL/L (98-107); CREATININE SERUM 0.84 MG/DL (0.60-1.30); GFR ESTIMATED > 60; GLUCOSE 102 MG/DL (70-105); MAGNESIUM 1.8 MG/DL (1.6-2.4); POTASSIUM 3.6 MMOL/L (3.6-5.0); SODIUM 139 MMOL/L (135-145); TOTAL PROTEIN 7.4 GM/DL (6.4-8.2)
[2019-11-05 10:06] LABS: ERYTHROCYTE SEDIMENTATION RATE 28 MM/HR (0-20)
--- NOTE | 2019-11-05 10:17 | Diagnostic Imaging Report ---
PATIENT HISTORY: Chest pain and shortness of breath. TECHNIQUE: Single frontal view of the chest. COMPARISON: 03/24/2011 FINDINGS: The lung volumes are normal. No focal consolidation is seen. No large pleural effusion or pneumothorax is seen. The cardiomediastinal silhouette is normal in size and contour. No acute osseous abnormality is seen. IMPRESSION: No acute pulmonary abnormality seen. Dictated by: Dictated on workstation # [id number]
[2019-11-05 10:36] LABS: BILIRUBIN,URINE NEGATIVE (NEGATIVE); CLARITY,URINE CLOUDY; COLOR,URINE RED; GLUCOSE, URINE (UA) NEGATIVE (NEGATIVE); KETONES,URINE TRACE (NEGATIVE); LEUKOCYTE ESTERASE ,URINE 2+ (NEGATIVE); NITRITE,URINE POSITIVE (NEGATIVE); PH,URINE 6.5 (5-9); PROTEIN,URINE 3+ (NEGATIVE)
[2019-11-05 10:48] VITALS: BP 154/98
[2019-11-05 10:55] LABS: BACTERIA,URINE TRACE /HPF; RBC,URINE TNTC /HPF; SQUAMOUS EPITHELIAL CELL,UR 0-2 /HPF; WBC,URINE 0-2 /HPF
[2019-11-05 10:56] LABS: AMPHETAMINE SCREEN, URINE NEGATIVE (NEGATIVE); BARBITURATE SCREEN URINE NEGATIVE (NEGATIVE); BENZODIAZEPINES SCREEN URINE NEGATIVE (NEGATIVE); CANNABINOID SCREEN, URINE NEGATIVE (NEGATIVE); COCAINE SCREEN URINE NEGATIVE (NEGATIVE); METHADONE STAT NEGATIVE (NEGATIVE); METHAMPHETAMINE SCREEN URINE S NEGATIVE (NEGATIVE); OPIATE SCREEN URINE NEGATIVE (NEGATIVE); OXYCODONE STAT NEGATIVE (NEGATIVE); PROPOXYPHENE STAT NEGATIVE (NEGATIVE); TRICYCLIC ANTIDEPRESSANTS SCRE POSITIVE (NEGATIVE)
[2019-11-05] MEDS ORDERED: NITR-65 PO (10:57)
[2019-11-05 11:11] VITALS: BP 148/95
== END 2019-11-05 11:19 | disposition home or self-care (01) ==
LOC: EDUNIT# 08:58 → ER 08:59
DX: F41.9 Anxiety disorder, unspecified (principal); R07.9 Chest pain, unspecified; E66.01 Morbid (severe) obesity due to excess calories; F32.9 Major depressive disorder, single episode, unspecified; R06.09 Other forms of dyspnea; I10 Essential (primary) hypertension; N39.0 Urinary tract infection, site not specified
CPT/HCPCS: 36415; 71045; 80053; 80306; 81000; 82728; 83605; 83615; 83735; 83874; 83880; 84145; 84484; 84703; 85025; 85379; 85610; 85652; 85730; 86141; 86308; 87040; 87088; 87430; 87635; 93005

== ENCOUNTER 2020-11-19 14:06 | Emergency (ER) | payer SELFPAY ==
[~2020-11-19] VITALS: Ht 176.8 cm; Wt 147.9 kg
[~2020-11-19 14:06] MED LIST changes: +AMIT150T PO; +ARIP2TAB45 PO; +CLON1TAB13 PO; +ESCI-2; -ESCI10TA55; +NITR-65 PO
--- NOTE | 2020-11-19 16:44 | ED Back Pain ---
General Chief Complaint: Back Problems Stated Complaint: LOWER BACK PAIN,HIP PAIN Nursing Triage Note: PT REPORTS LOWER BACK PAIN AND BILATERAL HIP PAIN FOR 1 WEEK. PT DENIES FALL OR INJURY. Nursing Sepsis Screen: No Definite Risk (KENZIE CARL APRN) Source of Information: Patient Exam Limitations: No Limitations ([place]LIM[place] [employer]ESS[employer]) History of Present Illness Date Seen by Provider: Nov 19, 2020 Time Seen by Provider: 16:44 (KENZIE CARL APRN) Initial Comments Bibi is a 30 y/o female that presents to the ER via private vehicle with her mom for one week of lower back pain. She states the pain in her lower back is bilateral in nature and a 8/10 when moving or doing anything other then sitting still. She has associated episodic shooting pain up the spine when moving around. No radiation of pain down to her legs. Normal bowel control and no incontinence. Has associated weakness in her legs when walking, but sensation is intact. She states since the lower back pain started she has been staying in bed most of the day and taking about 1000mg of Tylenol per day and has had no pain relief. She has no F/C, N/V, SOB, Chest pain, abdominal pain, constipation, dysuria or feeling of incomplete emptying at this time. Location: Lumbar Spine Timing/Duration: 1/2 Hour Severity: Mild Radiation: Other (radiates lower back to upper back) Method of Injury: Unknown Associated Symptoms: No fever; weakness; No tingling in legs/feet, No sensory/motor loss; lower back pain; No loss of bladder control, No loss of sahil l control ([place] [employer] ELISE) Allergies and Home Medications Allergies Coded Allergies: bupropion (Verified Adverse Reaction, Unknown, 11/05/19) mood swings, suicidal thoughts Uncoded Allergies: SULFA (Allergy, Mild, RASH, 05/09/10) Home Medications ARIPiprazole 2 Mg Tab.senspt, 2 MG PO DAILY, (Reported) Amitriptyline HCl 150 Mg Tablet, 150 MG PO DAILY, (Reported) Amoxicillin 500 Mg Capsule, 1,000 MG PO BID Prescribed by: APRIL ELISE on 04/04/17 0716 Clonazepam 1 Mg Tablet, 1 MG PO DAILY, (Reported) Cyclobenzaprine HCl 10 Mg Tablet, 10 MG PO Q8H Prescribed by: KENZIE CARL on 11/19/20 1816 Hydrocodone Bit/Acetaminophen 1 Each Tablet, 1 EACH PO Q6H PRN for PAIN Prescribed by: APRIL ELISE on 04/04/17 0716 Nitrofurantoin Monohyd/M-Cryst 100 Mg Capsule, 1 TAB PO BID Prescribed by: SELWYN BARNES on 11/05/19 1057 Patient Home Medication List Home Medication List Reviewed: Yes (KENZIE CARL APRN) Review of Systems Constitutional: no symptoms reported EENTM: no symptoms reported Respiratory: no symptoms reported Cardiovascular: no symptoms reported Gastrointestinal: no symptoms reported Genitourinary: no symptoms reported Musculoskeletal: back pain Skin: no symptoms reported Psychiatric/Neurological: Anxiety, Depressed (CHELIShoppilot) Past Esuoeus-Idhbag-Vhjgmp Hx Patient Social History Alcohol Use: Denies Use Smoking Status: Never a Smoker 2nd Hand Smoke Exposure: No Recent Infectious Disease Expo: No Recent Hopitalizations: No (KENZIE CARL APRN) Immunizations Up To Date Tetanus Booster (TDap): Unknown PED Vaccines UTD: Yes (KENZIE CARL APRN) Seasonal Allergies Seasonal Allergies: No (KENZIE CARL APRN) Past Medical History Surgeries: Yes Gallbladder Respiratory: No Cardiac: Yes (DOES NOT TAKE MEDICATION FOR HTN) Hypertension Neurological: No Reproductive Disorders: No Sexually Transmitted Disease: No Genitourinary: No Gastrointestinal: No Musculoskeletal: No Endocrine: Yes (MORBID OBESITY) HEENT: No Cancer: No Psychosocial: Yes Anxiety, Depression Integumentary: No Blood Disorders: No Adverse Reaction/Blood Tranf: No (KENZIE CARL APRN) Family Medical History Diabetes, Hypertension, Psychiatric Problems (KENZIE CARL APRN) Physical Exam Vital Signs Vital Signs - First Documented ([employer]) Vital Signs Capillary Refill : Less Than 3 Seconds (KENZIE CARL APRN) Height, Weight, BMI Height: 5'7.00" Weight: 350lbs. oz. [id number]; 47.00 BMI Method:Stated General Appearance: No Apparent Distress, WD/WN HEENT: PERRL/EOMI, Moist Mucous Membranes Respiratory: Lungs Clear, Normal Breath Sounds, No Accessory Muscle Use Neurologic/Psychiatric: Alert, Oriented x3 (KENZIE CARL [employer] BEVER[employer] OPERATIONS MANAGER) General Appearance: No Apparent Distress, Obese Cardiovascular: Regular Rate, Rhythm, No Edema, Normal Peripheral Pulses Respiratory: Chest Non Tender, No Accessory Muscle Use, No Respiratory Distress Peripheral Pulses: 2+ Radial Pulses (R), 2+ Radial Pulses (L) Gastrointestinal: Normal Bowel Sounds, Non Tender, Soft Extremity: No Calf Tenderness, No Pedal Edema Neurologic/Psychiatric: Alert, Oriented x3 Skin: Normal Color (Dorsi and plantar flexion was 5/5 bilateral, decreased hip flexion with straight leg bilateral, positive straight leg test BL L>R, sensation intact bilateral, negative log roll bilateral, negative jump sign bilateral. ) (MAC BOWER) Progress/Results/Core Measures Results/Orders Vital Signs/I&O 11/19/20 11/19/20 14:34 14:34 Temp 36.5 36.5 36.5 Pulse 79 79 Resp 20 20 B/P (MAP) 156/88 (110) Pulse Ox 96 96 (MAC BOWEREN) Blood Pressure Mean: 110 Progress Progress Note : Progress Note Patient initially examined by medical student Mac MS4. As patient has not tried any anti-inflammatories or pain relief at home, orders were placed for Toradol 60 mg IM and Norflex 60 mg IM. Reports marked improvement in pain and symptoms after injections. Discussed initial conservative approach with anti-inflammatories ice, heat. Recommended sleeping with pillow between her legs as she is a side sleeper and feels that this may be putting stress on her low back. Discussed following with her primary care provider if her symptoms persist. She can always return to the ER if her symptoms worsen or she has any new or concerning symptoms. Reviewed discharge plan of care and she is agreeable with plan (KENZIE CARL [employer] AND BEVERAGE OPERATIONS MANAGER) Progress Note : Time: 17:19 Progress Note Will give patient toradol for pain. Will re-examine back when patient has better pain control. (MAC BOWER) Departure Impression Primary Impression: Lumbar spine strain Disposition: 01 HOME, SELF-CARE Condition: Improved Departure-Patient Inst. Decision time for Depature: 18:12 (KENZIE CARL FOOD AND BEVERAGE OPERATIONS MANAGER) Referrals: [facility] (PCP/Family) Primary Care Physician Patient Instructions: Low Back Pain (DC) Add. Discharge Instructions: Plan: 1. Discharge home. Take Ibuprofen 600mg-800mg every 8 hours as needed for pain. Take with food. Do not take more than 3 days. 2. Use heat/ice 20minutes at a time for pain relief. May take Flexeril 10mg by mouth every 8 hours as needed for pain. May cause drowsiness, do not drive while taking. 3. Follow up with your primary care provider if your symptoms persist or worsen. 4. Return for any new or concerning symptoms. All discharge instructions reviewed with patient and/or family. Voiced understanding. Scripts Cyclobenzaprine HCl (Cyclobenzaprine HCl) 10 Mg Tablet 10 MG PO Q8H, #24 TAB 0 Refills Prov: KENZIE CARL APRN 11/19/20 I personally examined the patient and attest to the history and physical findings documented by medical student Mac MS4 unless otherwise stated. (KENZIE CARL [employer]OD AND BEVERAGE OPERATIONS MANAGER) KENZIE CARL APRN Nov 19, 2020 16:44 MAC BOWER [facility] Nov 19, 2020 17:15
[2020-11-19] MEDS ORDERED: KETOROLAC 60 MG/2 ML VIAL IM ONE (17:30)
[2020-11-19] MEDS ORDERED: ORPHENADRINE 60 MG/2 ML (NORFLEX) AMP (ED ONLY) IM ONE (17:30)
[2020-11-19] MEDS ORDERED: CYCL10TA9 PO (18:16)
[2020-11-19 18:23] VITALS: BP 151/97
== END 2020-11-19 18:28 | disposition home or self-care (01) ==
LOC: EDUNIT# 14:06 → ER 14:08
DX: S39.012A Strain of muscle, fascia and tendon of lower back, initial encounter (principal); E66.01 Morbid (severe) obesity due to excess calories; I10 Essential (primary) hypertension; F41.9 Anxiety disorder, unspecified; F32.9 Major depressive disorder, single episode, unspecified; Z68.42 Body mass index [BMI] 45.0-49.9, adult; Z88.2 Allergy status to sulfonamides; Z88.8 Allergy status to other drugs, medicaments and biological substances; X58.XXXA Exposure to other specified factors, initial encounter
CPT/HCPCS: 99284